=== PATIENT | female | born 1950 | race Caucasian/White ===

== ENCOUNTER → 2019-11-11 10:17 | Outpatient (BNVA) | payer MEDICARE, OTHER, SELFPAY | PROVIDERS: Family Provider Family Medicine; PCP Family Medicine; Visit Provider Registered Nurse | DX: E11.9 Type 2 diabetes mellitus without complications (principal); B37.9 Candidiasis, unspecified; Z79.4 Long term (current) use of insulin; I10 Essential (primary) hypertension | CPT/HCPCS: 80053; 83036 ==

== ENCOUNTER 2019-12-31 19:55 | Inpatient (IN) | payer MEDICARE, OTHER, SELFPAY ==
[2019-12-31] VITALS (23 sets, daily range): BP systolic 164–171; BP diastolic 73–92; PULSE 84–106; RESP 18; TEMP 36.4; O2SAT 84–99
--- NOTE | 2019-12-31 20:02 | CTR_ITS ---
PROCEDURE INFORMATION: Exam: CT Abdomen And Pelvis With Contrast Exam date and time: 12/31/2019 8:27 PM Age: 69 years old Clinical indication: Abdominal pain; Prior surgery; Additional info: Abd pain TECHNIQUE: Imaging protocol: Computed tomography of the abdomen and pelvis with intravenous contrast. Total DLP: 1315.65 mGy-cm Radiation optimization: All CT scans at this facility use at least one of these dose optimization techniques: automated exposure control; mA and/or kV adjustment per patient size (includes targeted exams where dose is matched to clinical indication); or iterative reconstruction. Contrast material: OMNI 300; Contrast volume: 95 ml; Contrast route: IV; COMPARISON: 1. CT abdomen pelvis w con* [id number] 07/23/2015 1:[address] abdomen w con* [id number] 03/19/2017 6:52:27 PM FINDINGS: Mediastinum: There is mild nonspecific thickening of the distal esophagus which could represent some esophagitis. Correlation with clinical findings is suggested. Liver: There is no focal abnormality within the liver. Gallbladder and bile ducts: There has been a cholecystectomy. Pancreas: The pancreas is normal. Spleen: The spleen is normal. Adrenals: The adrenal glands are normal. Kidneys and ureters: There is 9 mm simple cyst in the mid left kidney.The right kidney is normal. There is no evidence of hydronephrosis. Stomach and bowel: There is no evidence of colitis/diverticulitis. Appendix: Not identifiedThere has been a hysterectomy. Intraperitoneal space: There is no evidence of free intraperitoneal fluid. Vasculature: Extensive atherosclerotic changes of the abdominal aorta are noted not changed from previous. There is no evidence of an abdominal aortic aneurysm. Lymph nodes: Unremarkable. No enlarged lymph nodes. Bladder: Unremarkable as visualized. Reproductive: Unremarkable as visualized. Bones/joints: Unremarkable. No acute fracture. Soft tissues: Unremarkable. CT/CT abdomen pelvis w con* [id number] IMPRESSION: 1. No acute findings. 2. Chronic thickening of the distal esophagus not changed from previous. COMMENTS: Consistent with the [employer]'s Incidental Findings Committee white paper (J Am Patti Radiol 2018): Any incidental cystic renal lesion classified in this report as too small to characterize or simple appearing is likely a benign cyst. No follow-up imaging is recommended for these lesions per consensus recommendations based on imaging criteria. Radiation Dose CTDIVOL = (mGy): DLP = 1315.65 (mGy-cm)
[2019-12-31] MEDS: sodium chloride 0.9% 1,000 ML 999 ML IV (20:12)
[2019-12-31] MEDS: ondansetron 2 mg/ML SDV 2 mL 4 MG IVP (20:14)
[2019-12-31 20:18] LABS: Basophils # 0.1 10^3/uL (0.0-0.1); Basophils % 0.2 %; Eosinophils % 0.1 %; Hematocrit 36.7 % (37.0-47.0); Hemoglobin 11.4 g/dL (11.5-15.3); Lymphocytes # 8.4 10^3/uL (0.8-4.8); Lymphocytes % 27.7 %; Mean Corpuscular HGB Conc 31.1 g/dL (30.0-36.0); Mean Corpuscular Hemoglobin 26.6 pg (28.0-34.0); Mean Corpuscular Volume 85.5 fL (81-99); Mean Platelet Volume 8.8 fL (7.4-10.4); Monocytes # 1.4 10^3/uL (0.2-0.9); Monocytes % 4.7 %; Neutrophils # 20.1 10^3/uL (1.8-7.7); Neutrophils % 66.2 %; Nucleated Red Blood Cells % 0.1 %; Platelet Count 712 10^3/cmm (130-400); Red Blood Count 4.29 10^6/uL (4.1-5.3); Red Cell Distribution Width 14.6 % (12.1-15.1)
[2019-12-31] MEDS: HYDROmorphone 1 mg/mL INJ 1 mL 0.5 MG IVP (20:19)
[2019-12-31 20:21] LABS: White Blood Count 30.4 10^3/uL (4.0-10.0)
--- NOTE | 2019-12-31 20:23 | PC.NURSE ---
Introduced self to patient and initiated vital signs. Patient presents A&O x 4. NAD, ABCs intact, MAEW and agreeable to treatment. Respirations are even and unlabored. Pt states medications taken before coming to ER are her daily medications. Pt states that the chief complaint for the ER visit today is due to chronic back pain and dark stools. IV observed in let AC and flushed for patency. Pt denies any vision disturbances or lightheadedness. Bed left in lowest position in semi-fowlers with side rails up.Reassured patient of needs and will continue to monitor.
--- NOTE | 2019-12-31 20:24 | ED_ITS ---
HPI - General Adult General: Chief complaint: General Medical Stated complaint: back pain/possible gi bleed Time Seen by Provider: 12/31/19 19:56 Source: patient and EMS Mode of arrival: EMS Limitations: no limitations History of Present Illness: HPI narrative: 69-year-old female who states she has had abdominal pain over the last day. States the pain is severe in nature and diffuse. She states that it is worse going over bumps are moving. She states that slightly improved with rest. Patient given pain meds in route. States she has had dark stools. She has had vomiting as well. Denies any fevers. Onset (ago): hour(s) Location: abdomen Radiation: non-radiation Severity scale (1-10): 5 Quality: stabbing Pain Consistency: constant Relieving factors: none Exacerbating factors: none Associated symptoms: Deny chest pain, dyspnea, headache(s), nausea, rash or vomiting Review of Systems Const: Denies: fever, chills, body aches or change in appetite Eyes: Denies: blurry vision or eye discomfort ENMT: Denies: throat pain or dental pain Card: Denies: chest pain Resp: Denies: shortness of breath GI: Reports: abdominal pain; Denies: nausea, vomiting or diarrhea : Denies: painful urination Musc: Denies: neck pain or back pain Skin/Breast: Denies: rash Neuro: Denies: headache Psych: Denies: depression Librado/Lymph: Denies: easy bruising All/Imm: Denies: hives PFSH ED PFSH: Medical History (Updated 12/31/19 @ 23:13 by Roman Sanchez MD) Achalasia Anxiety COPD (chronic obstructive pulmonary disease) Enrolled in chronic care management Hypertension Sleep apnea Type 2 diabetes mellitus Surgical History (Updated 12/31/19 @ 22:08 by Roman Sanchez MD) H/O: hysterectomy Hx of cholecystectomy Family History (Updated 12/31/19 @ 23:14 by Roman Sanchez MD) Denies family history of Diabetes Dementia Hyperlipidemia Family history of premature coronary artery disease Cancer Social History (Updated 12/31/19 @ 23:14 by Roman Sanchez MD) Smoking and tobacco status: former smoker Alcohol intake: never Substance/Drug Use: never Household members: spouse Housing: House Physical Exam Const: COMMON NORMALS: no apparent distress, oriented x3 and healthy appearing HENMT: COMMON NORMALS: normocephalic and head/scalp atraumatic HEAD & SCALP: normocephalic and atraumatic Eye: COMMON NORMALS: PERRL and EOMs intact bilaterally PUPIL: Yes PERRL Neck/C-Spine: COMMON NORMALS: full ROM and supple Chest: COMMONS NORMALS: inspection of chest normal and palpation of chest nor mal Resp: COMMON NORMALS: normal respiratory effort, no retractions, no use of accessory muscles and clear to auscultation bilaterally AUSCULTATION: clear to auscultation bilaterally Cardio: COMMON NORMALS: regular rate, regular rhythm and no murmurs RATE: regular rate RHYTHM: regular rhythm GI: COMMON NORMALS: normal to inspection, nondistended, normoactive bowel sounds and no masses PALPATION: Yes tender (diffuse) Extremity: COMMON NORMALS: normal to inspection and full ROM Neuro: COMMON NORMALS: oriented x3, moves all extremities and no focal motor deficits Psych: COMMON NORMALS: mental status grossly normal, thought process normal and cooperative THOUGHT PROCESS: normal thought process Skin: COMMON NORMALS: no rashes or lesions noted and no wounds GENERAL SKIN EXAM: no rashes or lesions noted Course Vital Signs: Vital signs: Vital Signs Temperature 97.9 F 01/01/20 11:08 Pulse Rate 60 01/01/20 11:08 Respiratory Rate 18 01/01/20 11:08 Blood Pressure 131/52 01/01/20 11:08 Pulse Oximetry 97 01/01/20 11:08 MDM - General Adult [facility] Narrative: Medical decision making narrative: Patient presents here with abdominal pain was found to have an elevated white count. Patient CT shows no acute findings. Her pain has improved. She has minimal tenderness currently. Patient given IV antibiotics I spoke to hospitalist along with surgeon will admit for observation and repeat labs and serial abdominal exams. Lab Data: Labs: Lab Results 12/31/19 12/31/19 12/31/19 Range/Units 20:04 20:04 20:26 WBC 30.4 H* (4.0-10.0) 10^3/ uL RBC 4.29 (4.1-5.3) 10^6/u L Hgb 11.4 L (11.5-15.3) g/dL Hct 36.7 L (37.0-47.0) % MCV 85.5 (81-99) fL MCH 26.6 L (28.0-34.0) pg MCHC 31.1 (30.0-36.0) g/dL RDW 14.6 (12.1-15.1) % Plt Count 712 H (130-400) 10^3/c mm MPV 8.8 (7.4-10.4) fL Neut % (Auto) 66.2 % Lymph % (Auto) 27.7 % Burnett % (Auto) 4.7 % Eos % (Auto) 0.1 % Baso % (Auto) 0.2 % Neut # (Auto) 20.1 H (1.8-7.7) 10^3/u L Lymph # (Auto) 8.4 H (0.8-4.8) 10^3/u L Burnett # (Auto) 1.4 H (0.2-0.9) 10^3/u L Eos # (Auto) 0.0 (0.0-0.8) 10^3/u L Baso # (Auto) 0.1 (0.0-0.1) 10^3/u L Nucleated RBC % (a uto) 0.1 % Nucleated RBCs # 0.0 /100WBC Sodium 141 (136-145) mmol/L Potassium 3.5 (3.5-5.1) mmol/L Chloride 96 L (98-107) mmol/L Carbon Dioxide 27 (22-29) mmol/L Anion Gap 21.5 H (5-19) BUN 22 (8-23) mg/dL Creatinine 0.8 (0.5-0.9) mg/dL GFR Calculation 71.1 L (90-130) mL/min Glucose 189 H (65-115) mg/dL Calculated Osmolal ity 294 (285-295) mOsm/k g Lactate 3.2 H (0.5-2.2) mmol/L Calcium 10.8 H (8.5-10.5) mg/dL Total Bilirubin 0.3 (0.15-1.2) mg/dL AST 16 (0-32) U/L ALT 16 (0-33) U/L Alkaline Phosphata se 151 H (35-105) IU/L Total Protein 7.3 (6.6-8.7) g/dL Albumin 4.5 (3.5-5.2) g/dL Globulin 2.8 (1.3-4.6) g/dL Lipase 45 (13-60) U/L Imaging Data^: CT Abd/Pel: Radiologist's impression: [facility] [address] [address] [address] Scan Report Signed Patient: Keila Starkey Unit #: [id number] : 1950 Age/Sex: 69 / F ADM Date: 12/31/19 Loc: ER Room/Bed: Attending Dr: Ordering Provider/Ordering MD: Jeanine Marion MD Date of Service: 12/31/19 Procedure(s): CT abdomen pelvis w con* [id number] Accession Number(s): [id number] Report Number: [id number] PROCEDURE INFORMATION: Exam: CT Abdomen And Pelvis With Contrast Exam date and time: 12/31/2019 8:27 PM Age: 69 years old Clinical indication: Abdominal pain; Prior surgery; Additional info: Abd pain TECHNIQUE: Imaging protocol: Computed tomography of the abdomen and pelvis with intravenous contrast. Total DLP: 1315.65 mGy-cm Radiation optimization: All CT scans at this facility use at least one of these dose optimization techniques: automated exposure control; mA and/or kV adjustment per patient size (includes targeted exams where dose is matched to clinical indication); or iterative reconstruction. Contrast material: OMNI 300; Contrast volume: 95 ml; Contrast route: IV; COMPARISON: 1. CT abdomen pelvis w con* [id number] 07/23/2015 1:[address] abdomen w con* [id number] 03/19/2017 6:52:27 PM FINDINGS: Mediastinum: There is mild nonspecific thickening of the distal esophagus which could represent some esophagitis. Correlation with clinical findings is suggested. Liver: There is no focal abnormality within the liver. Gallbladder and bile ducts: There has been a cholecystectomy. Pancreas: The pancreas is normal. Spleen: The spleen is normal. Adrenals: The adrenal glands are normal. Kidneys and ureters: There is 9 mm simple cyst in the mid left kidney.The right kidney is normal. There is no evidence of hydronephrosis. Stomach and bowel: There is no evidence of colitis/diverticulitis. Appendix: Not identifiedThere has been a hysterectomy. Intraperitoneal space: There is no evidence of free intraperitoneal fluid. Vasculature: Extensive atherosclerotic changes of the abdominal aorta are noted not changed from previous. There is no evidence of an abdominal aortic aneurysm. Lymph nodes: Unremarkable. No enlarged lymph nodes. Bladder: Unremarkable as visualized. Reproductive: Unremarkable as visualized. Bones/joints: Unremarkable. No acute fracture. Soft tissues: Unremarkable. CT/CT abdomen pelvis w con* [id number] IMPRESSION: 1. No acute findings. 2. Chronic thickening of the distal esophagus not changed from previous. COMMENTS: Consistent with the [employer]'s Incidental Findings Committee white paper (J Am Patti Radiol 2018): Any incidental cystic renal lesion classified in this report as too small to characterize or simple appearing is likely a benign cyst. No follow-up imaging is recommended for these lesions per consensus recommendations based on imaging criteria. Discharge Plan Discharge Admit Provider: Roman Sanchez Discharge Date/Time: 12/31/19 23:07 Coding Level of Care Code ED Single Stroke Preformer for Chg Fwd Exam Comprehensive
--- NOTE | 2019-12-31 20:25 | PC.NURSE ---
Lab reported WBC 30.4, relayed to Dr. Marion
[2019-12-31 20:34] LABS: Alanine Aminotransferase 16 U/L (0-33); Albumin Level 4.5 g/dL (3.5-5.2); Alkaline Phosphatase 151 IU/L (35-105); Anion Gap 21.5 (5-19); Aspartate Amino Transferase 16 U/L (0-32); Blood Urea Nitrogen 22 mg/dL (8-23); Calcium 10.8 mg/dL (8.5-10.5); Carbon Dioxide 27 mmol/L (22-29); Chloride 96 mmol/L (98-107); Globulin 2.8 g/dL (1.3-4.6); Glomerular Filtration Rate 71.1 mL/min (90-130); Glucose 189 mg/dL (65-115); Lipase 45 U/L (13-60); Osmolality Calculated 294 mOsm/kg (285-295); Potassium 3.5 mmol/L (3.5-5.1); Sodium 141 mmol/L (136-145); Total Bilirubin 0.3 mg/dL (0.15-1.2); Total Protein 7.3 g/dL (6.6-8.7)
[2019-12-31] MEDS: iohexol 300 mg/mL 100 mL Btl IV (20:41)
[2019-12-31 20:47] LABS: Lactate (Lactic Acid level) 3.2 mmol/L (0.5-2.2)
--- NOTE | 2019-12-31 20:52 | PC.NURSE ---
due to having CT with contrast, patient is not to have metformin for hours
[2019-12-31] MEDS: HYDROmorphone 1 mg/mL INJ 1 mL IVP ×2 (21:03→23:30)
--- NOTE | 2019-12-31 21:08 | XR_ITS ---
WS: [id number] PORTABLE CHEST HISTORY: Abdominal and chest pain. COMPARISON: 04/02/2017 Lungs are clear and well expanded. No pleural effusion or pneumothorax. Cardiac size: Normal. Mediastinum/Aorta: Normal mediastinum. No osseous abnormality seen. XR/XR chest 1V portable [id number] IMPRESSION: Unremarkable portable chest.
[2019-12-31] MEDS: piperacillin-tazobactam 4.5 GM in sodium chloride 0.9% (plus) 50 ML IV (21:17)
[2019-12-31] MEDS: vancomycin 1,000 MG in sodium chloride 0.9% 250 ML 250 MG IV (21:34)
--- NOTE | 2019-12-31 21:45 | USR_ITS ---
PROCEDURE INFORMATION: Exam: US Abdomen Limited, Right Upper Quadrant Exam date and time: 12/31/2019 10:18 PM Age: 69 years old Clinical indication: Abdominal pain; Acute; Additional info: Abd pain TECHNIQUE: Imaging protocol: Real-time ultrasound of the abdomen with image documentation. Examination was focused on the right upper quadrant. COMPARISON: CT abdomen pelvis w con* [id number] 12/31/2019 8:40 PM FINDINGS: Liver: Liver shows increased echogenicity in keeping with fatty change. No focal abnormality is seen within the liver. Flow in the portal vein is towards the liver. Gallbladder: Gallbladder has been removed. Common bile duct: Common bile duct measures 5 mm. Pancreas: Visualized portions of the pancreas are unremarkable. Right kidney: Right kidney is unremarkable. There is no hydronephrosis. US/US gall bladder [id number] IMPRESSION: Fatty liver. No acute finding.
--- NOTE | 2019-12-31 22:07 | P.HP_ITS ---
Providers/Chief Complaint Primary Care Provider: JEFFERSON Shaffer Chief Complaint: back pain/possible gi bleed History of Present Illness Keila Starkey is a 69 year old female who came in today with chief complaint abdominal pain. Patient is stating that around June last year she was admitted to [facility] where she was told she had internal bleeding however she did not receive any blood transfusion, colonoscopy was recommended, she was having syncopal events at that time, previously she has been diagnosed with leukocytosis, white count stays between 15-20, she has not undergone any bone marrow biopsy, no cause has been identified for her syncopal events or internal bleeding. Patient is stating that for last couple of weeks she has been having back pain for which she was thinking of getting trigger in jections but they got delayed because of pandemic. She was prescribed steroids which she has been taking for last 1 week. She is currently not aware of the dosages. Today she started experiencing right-sided back pain just lateral to her spine area, it was getting worse throughout the day and she decided to come to the hospital around evening, she did not notice any fever at home, no nausea, vom iting, diarrhea but she is endorsing some numbness around her medial side of her thighs without any urinary incontinence, positive for constipation without obstipation for last 2 weeks. She has not noticed any abdominal pain, her back pain is not radiating towards her groin area but she thinks she is bloated. Previously she has been diagnosed with esophagitis, she carries diagnosis of achalasia status post balloon dilation. She is denying cough, shortness of breath, chest pain, weakness of her extremities, no recent syncopal or presyncopal events. Diagnostics in ER revealed sepsis, leukocytosis, thrombocytosis, borderline high hypercalcemia, tachycardia, she was given fluids and vancomycin and Zosyn, CT abdomen showed esophagitis without signs of colitis, she has received multiple doses of Dilaudid in the ER I have ordered MRI of the lumbar and thoracic spine region Review of Systems Const: Reports: chills, body aches, change in weight, fatigue and malaise; Denies: fever Eyes: Denies: change in vision ENMT: Denies: throat pain Card: Denies: chest pain or palpitations Resp: Denies: shortness of breath or productive cough GI: Reports: difficulty swallowing, constipation and change in bowel habits; Denies: abdominal pain, nausea, vomiting or vomiting blood : Denies: flank pain or difficulty urinating Musc: Reports: back pain Skin/Breast: Reports: itching; Denies: rash Neuro: Denies: headache Psych: Denies: anxiety Endo: Denies: excessive urination Librado/Lymph: Denies: easy bruising All/Imm: Denies: hives Medications/Allergies Allergies Allergy/AdvReac Type Severity Reaction Status Date / Time NSAIDS (Non-Steroidal Allergy Mild vomiting Verified 11/11/19 09:46 Anti-Inflamma PFSH Acute PFSH: Medical History (Updated 12/31/19 @ 23:13 by Roman Sanchez MD) Achalasia Anxiety COPD (chronic obstructive pulmonary disease) Enrolled in chronic care management Hypertension Sleep apnea Type 2 diabetes mellitus Surgical History (Updated 12/31/19 @ 22:08 by Roman Sanchez MD) H/O: hysterectomy Hx of cholecystectomy Family History (Updated 12/31/19 @ 23:14 by Roman Sanchez MD) Denies family history of Diabetes Dementia Hyperlipidemia Family history of premature coronary artery disease Cancer Social History (Updated 12/31/19 @ 23:14 by Roman Sanchez MD) Smoking and tobacco status: former smoker Alcohol intake: never Substance/Drug Use: never Household members: spouse Housing: House Vitals/I&O/Wt Last Vital Signs Temp 97.5 F L 12/31/19 20:01 Pulse 106 H 12/31/19 20:01 Resp 18 12/31/19 20:01 BP 171/92 12/31/19 20:01 Pulse Ox 98 12/31/19 20:01 Physical Exam Narrative: EXAM NARRATIVE: Obese female lying comfortable in her bed Saturating well on room air Current heart rate 70, Patient is afebrile at this point, S1, S2 no tachycardia or signs of heart failure Abdomen soft, nontender, nondistended, bowel sound present No CVA tenderness Tender area around right paraspinal region 2 cm lateral to spine without any prominence for abscess, fluctuant material or drainage No lower extremity weakness, medial side of her thighs negative for any numbness or sensation loss Reflexes equivocal Motor strength of lower extremities 4/5 bilaterally EOMI, PERRLA Hyperemic cheeks bilaterally Lungs are clear to auscultation without adventitious sounds Appropriate mood and Data : 12/31/19 20:04 12/31/19 20:04 A&P Assessment and plan (1) Sepsis: Status: Acute (2) Leukocytosis: Status: Acute (3) Hypertension: Status: Chronic (4) Type 2 diabetes mellitus: Status: Chronic Qualifiers: Diabetes mellitus complication status: without complication Diabetes mellitus superintendent container terminal insulin use: with skilled nursing use Qualified Code(s): E11.9 - Type 2 diabetes mellitus without complications; 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 of insulin (5) Esophagitis: Status: Acute (6) High serum lactic acid: Status: Acute (7) Thrombocytosis: Status: Acute Additional A&P Information Sepsis Sepsis criteria met with tachycardia, leukocytosis, high lactic acid Continue fluids along vancomycin and Zosyn No clear source of infection, Considering back pain and her sensory changes around medial thighs I would order MRI lumbar and spine area, rule out epidural abscess, patient is denying any trigger injections for her back pain, she was given steroids for which she has been taking for last 1 week We will follow-up with urine analysis Follow-up for lactic acid in 2 hours Acute on chronic leukocytosis with thrombocytosis This could very well be secondary to steroid use and dehydration She has never undergone bone marrow biopsy She has been constipated for last 2 weeks, denying obstipation, previous history of internal bleed and black tarry stools, current hemoglobin is stable CT abdomen negative for acute changes Patient is denying history of cancer in the family, no history of leukemia or lymphoma Achalasia/esophagitis No active complaint of dysphagia I will give her one-time dose of GI cocktail Protonix 40mg IV daily Discontinue potassium tablets at this point to avoid drug induced esophagitis Type 2 diabetes: Currently she will be kept n.p.o. in case she would benefit from colonoscopy To avoid hypoglycemia I would only use sliding scale Sleep apnea: CPAP auto titration Full code DVT prophylaxis: Lovenox Patient is a former smoker Attestations Medical Necessity Statement*: Anticipating stay in the hospital course more than 2 midnights currently need fluids and antibiotics for sepsis, source is unknown, awaiting MRI spine Time Spent in Patient Care: 50 Coding Level of Care Code Acute Tool Design Draftsperson for [facility] Diagnoses Sepsis A41.9 Leukocytosis D72.829 Hypertension I10 Type 2 diabetes mellitus E11.9; Z79.4 Diabetes mellitus complication status: without complication Diabetes mellitus superintendent container terminal insulin use: with superintendent container terminal use Esophagitis K20.9 High serum lactic acid R79.89 Thrombocytosis D47.3
--- NOTE | 2019-12-31 23:18 | PC.PHAR ---
VANCOMYCIN 1000MG Q 12 H PER PHARMACY PROTOCOL Pharmacokinetic dosing service Objective: Patient: Floor: Age: 69 yo Serum creatinine: 0.8 mg/dL Height: 66.1 Inches Weight (kg): 89.5 Assessment: IBW (kg): 59.53 Dosing wt(kg): 89.5 Estimated Creatinine clearance (ml/min): 74.9 CRCL method: Cockcroft and Gault using adjusted body weight Drug selected: Vancomycin Loading dose (mg): Vd (liters): 62.6 (factor used: 0.7 L/kg) Mike (hr-1): 0.067 Half life (hrs): 10.35 CLvanco= 4.194 L/hr Recommended dose: 1000 mg Interval: 12 hrs Infusion time (hrs): 1 Predicted peak (mcg/mL): 28.0 Predicted trough (mcg/mL): 13.40 Total body weight is being used for vancomycin dosing. Recommendations: Give Vancomycin 1000 mg q 12 hrs with an expected Cpeak of 28.0 mcg/ml and an expected Ctrough of 13.40 mcg/ml Thank you for the consult, will continue to follow.
[2019-12-31] MEDS: dextrose 5%-lactated ringers 1,000 ML 75 ML IV (23:30)
[2019-12-31] MEDS: lidocaine 2% viscous 15 ML, aluminum-mag hydrox-simethicon 30 ML, sucralfate oral liq 1 GM PO (23:32)
[2019-12-31] MEDS: enoxaparin 40 mg/0.4 mL Syringe SUBCUT (23:34)
[2019-12-31] MEDS: baclofen 10 mg Tablet PO (23:51)
[2020-01-01] VITALS (8 sets, daily range): BP systolic 123–134; BP diastolic 52–76; PULSE 60–76; RESP 16–18; TEMP 36.4–36.9; O2SAT 93–97
[2020-01-01 00:46] LABS: Lactic Sepsis W/Reflex 2.4 mmol/L (0.5-2.2)
[2020-01-01] MEDS: piperacillin-tazobactam 3.375 GM in sodium chloride 0.9% (plus) 50 ML IV ×3 (02:10→18:05)
[2020-01-01 02:11] LABS: Reflex Lactate Order REFLEX LACTIC ORDERD
[2020-01-01] MEDS: HYDROmorphone 1 mg/mL INJ 1 mL IVP ×3 (02:41→23:00)
[2020-01-01 03:12] LABS: Add Urine Culture? Yes; Add Urine Microscopic? YES; Bacteria Urine 2+; Bilirubin Urine Neg (NEGATIVE); Blood Urine Neg (Negative); Glucose Urine UA Norm (Normal); Ketones Urine Negative (Negative); Leukocyte Esterase Urine Trace (Negative); Nitrate Urine Positive (Negative); Protein Urine Neg (Negative); RBC Urine 0-4 /hpf (0-2); Specific Gravity, Urine 1.005 (1.005-1.030); Squamous Epithelial Cell Urine 0-4 (0-5); Urine Color Yellow (Yellow); Urobilinogen Urine Norm (Negative); pH Urine 5 (5-7)
[2020-01-01 05:46] LABS: Basophils # 0.1 10^3/uL (0.0-0.1); Basophils % 0.3 %; Eosinophils # 0.2 10^3/uL (0.0-0.8); Eosinophils % 0.8 %; Hematocrit 32.9 % (37.0-47.0); Hemoglobin 10.1 g/dL (11.5-15.3); Lymphocytes # 9.2 10^3/uL (0.8-4.8); Lymphocytes % 32.3 %; Mean Corpuscular HGB Conc 30.7 g/dL (30.0-36.0); Mean Corpuscular Hemoglobin 26.6 pg (28.0-34.0); Mean Corpuscular Volume 86.8 fL (81-99); Mean Platelet Volume 8.5 fL (7.4-10.4); Monocytes # 1.8 10^3/uL (0.2-0.9); Monocytes % 6.3 %; Neutrophils # 16.9 10^3/uL (1.8-7.7); Neutrophils % 59.5 %; Nucleated Red Blood Cells % 0 %; Platelet Count 577 10^3/cmm (130-400); Red Blood Count 3.79 10^6/uL (4.1-5.3); Red Cell Distribution Width 14.7 % (12.1-15.1); White Blood Count 28.4 10^3/uL (4.0-10.0)
[2020-01-01 06:05] LABS: Anion Gap 14.2 (5-19); Blood Urea Nitrogen 22 mg/dL (8-23); Calcium 9.3 mg/dL (8.5-10.5); Carbon Dioxide 31 mmol/L (22-29); Chloride 100 mmol/L (98-107); Glomerular Filtration Rate 71.1 mL/min (90-130); Glucose 147 mg/dL (65-115); Osmolality Calculated 293 mOsm/kg (285-295); Potassium 3.2 mmol/L (3.5-5.1); Sodium 142 mmol/L (136-145)
[2020-01-01 06:14] LABS: Glucose Point of Care 123 mg/dL (70-110)
[2020-01-01] MEDS: ondansetron 2 mg/ML SDV 2 mL 4 MG IVP (07:58)
--- NOTE | 2020-01-01 08:00 | ECG_ITS ---
Measurements Intervals [place] Rate: 65 P: 71 WY: 153 QRS: -38 QRSD: 104 T: 81 QT: 418 QTc: 437 SINUS RHYTHM MARKED LEFT AXIS DEVIATION [QRS AXIS < -30] PATTERN CONSISTENT WITH PULMONARY DISEASE SEPTAL MYOCARDIAL INFARCTION [40+ ms Q WAVE IN V1/V2], PROBABLY OLD Compared to ECG 04/02/2017 07:09:46 Myocardial infarct finding now present Sinus tachycardia no longer present Electronically Signed On 01-01-2020 20:22:57 CDT by Roman Blanco M.D. [email or web address]
[2020-01-01 09:00] LABS: Gamma Glutamyl Transferase 96 U/L (5-36)
[2020-01-01] MEDS: lidocaine 5% Patch 1 PATCH TOPICAL (09:08)
[2020-01-01] MEDS: pantoprazole 40 mg SDV IVP (09:09)
[2020-01-01] MEDS: vancomycin 1,000 MG in sodium chloride 0.9% 250 ML 250 MG IV ×2 (09:17→22:49)
--- NOTE | 2020-01-01 10:00 | CTR_ITS ---
PROCEDURE INFORMATION: Exam: CT Thoracic Spine With Contrast Exam date and time: 01/01/2020 8:36 PM Age: 69 years old Clinical indication: Patient HX: C/O mid back pain w sepsis; Additional info: Sepsis with back pain TECHNIQUE: Imaging protocol: Computed tomography images of the thoracic spine with intravenous contrast. Total DLP: 1851.32 mGy-cm Radiation optimization: All CT scans at this facility use at least one of these dose optimization techniques: automated exposure control; mA and/or kV adjustment per patient size (includes targeted exams where dose is matched to clinical indication); or iterative reconstruction. Contrast material: OMNI 300; Contrast volume: 95 ml; Contrast route: 20G; COMPARISON: CR Thoracic Spine 2v AP/Lat [id number] 12/11/2015 10:33 AM FINDINGS: Vertebrae: Previous unroofing and fusion C5 and C6. Degenerative disease and degenerative disc disease of the spine with spondylosis deformans. No visible osteolytic or osteoblastic destructive process. No visible fracture, subluxation, or dislocation. Discs/Spinal canal/Neural foramina: No visible herniated nucleus pulposis or significant posterior annular disc bulge that would result in central canal stenosis or neural foraminal carotid from. Soft tissues: Unremarkable. Vasculature: Visualized thoracic aorta nonaneurysmal with moderate arterial sclerotic disease. Esophagus: Diffuse mucosal thickening of the esophagus most likely from chronic esophagitis. Heart: Coronary artery disease. Other findings: Respiratory motion artifact. If discitis is a concern MRI would be necessary for diagnosis. CT/CT thoracic spine w con [id number] IMPRESSION: 1. No visible acute osseous abnormality. 2. If discitis is a clinical concern MRI would be necessary for diagnosis. 3. Other nonurgent, nonemergent, chronic, and age related findings discussed in text. Radiation Dose CTDIVOL = (mGy): DLP = 1851.32 (mGy-cm)
--- NOTE | 2020-01-01 10:00 | CTR_ITS ---
PROCEDURE INFORMATION: Exam: CT Lumbar Spine With Contrast Exam date and time: 01/01/2020 8:36 PM Age: 69 years old Clinical indication: Patient HX: C/O mid back pain w sepsis; Additional info: Sepsis with back pain TECHNIQUE: Imaging protocol: Computed tomography images of the lumbar spine with intravenous contrast. Total DLP: 2033.45 mGy-cm Radiation optimization: All CT scans at this facility use at least one of these dose optimization techniques: automated exposure control; mA and/or kV adjustment per patient size (includes targeted exams where dose is matched to clinical indication); or iterative reconstruction. Contrast material: OMNI 300; Contrast volume: 95 ml; Contrast route: 20G; COMPARISON: MRI Lumbar Spine w/o [id number] 01/17/2016 9:53 AM FINDINGS: Vertebrae: No visible fracture, subluxation, or dislocation. Facet arthrosis. Mild scoliotic curvature. Osteopenia/osteoporosis. No visible osteolytic or osteoblastic destructive process. Discs/Spinal canal/Neural foramina: No visible herniated nucleus pulposis or significant posterior disc bulge would result in central canal stenosis or neural foramina encroachment. Moderate degenerative disc disease with disc space height loss and associated spondylosis deformans L1/L2. Remaining intervertebral discs levels intact. Kidneys and ureters: Small simple cortical cyst equator left kidney. The abdominal aorta is nonaneurysmal. Moderate arterial sclerotic disease. No visible active retroperitoneal pathology within the field of view. Soft tissues: Unremarkable. If discitis is a clinical concern MRI would be necessary for diagnosis. CT/CT lumbar spine w con [id number] IMPRESSION: 1. No visible active or acute osseous pathology. 2. Moderate degenerative disc disease L1/L2. 3. Age-related findings. Radiation Dose CTDIVOL = (mGy): DLP = 2033.45 (mGy-cm)
[2020-01-01 11:20] LABS: Glucose Point of Care 172 mg/dL (70-110)
[2020-01-01] MEDS: methylnaltrexone 12 /0.6 mL INJ 12 MG SUBCUT (12:06)
[2020-01-01] MEDS: bisacodyl 10 mg Supp PR (12:08)
[2020-01-01] MEDS: HYDROcodone-acetaminophen 5-325 mg Tablet 1 TAB PO (12:09)
[2020-01-01] MEDS: polyethylene glycol 3350 Pkt 17 gm PO ×2 (12:16→17:46)
--- NOTE | 2020-01-01 14:36 | P.PN_ITS ---
Subjective Subjective: Interval history: Still having pain in the right flank, right side abdomen, states that it is deep, occasional spasms. She feels could be almost like muscle spasms, but cannot exactly define. Vitals/I&O/Wt Last Vital Signs Temp 97.9 F 01/01/20 11:08 Pulse 60 01/01/20 11:08 Resp 18 01/01/20 11:08 BP 131/52 01/01/20 11:08 Pulse Ox 97 01/01/20 11:08 12/31/19 01/01/20 01/01/20 22:59 06:59 14:59 Intake Total 200 / 200 290 / 290 Output Total 550 / 550 400 / 400 Balance -350 / -350 -110 / -110 Weight last 48 hrs Weight 91.989 kg Physical Exam Const: COMMON NORMALS: no apparent distress and oriented x3 OTHER: Mild to moderate discomfort due to intermittently worsening right flank, right side abdomen pain. HENMT: COMMON NORMALS: oropharynx normal Neck/C-Spine: COMMON NORMALS: no JVD Resp: COMMON NORMALS: normal respiratory effort and clear to auscultation bilaterally AUSCULTATION: clear to auscultation bilaterally Cardio: COMMON NORMALS: no JVD, regular rhythm, S1 normal heart sound, S2 normal heart sound and no murmurs RHYTHM: regular rhythm HEART SOUNDS: S1 normal and S2 normal GI: COMMON NORMALS: normal to inspection, nondistended, normoactive bowel sounds, soft to palpation and non-tender PALPATION: Yes soft Extremity: COMMON NORMALS: no joint enlargement and no pedal edema Neuro: COMMON NORMALS: oriented x3 and moves all extremities Skin: COMMON NORMALS: no rashes or lesions noted GENERAL SKIN EXAM: no rashes or lesions noted Data : 01/01/20 05:39 01/01/20 05:39 Micro: Microbiology 01/01/20 08:36 Blood Culture - Preliminary Blood SPECIMEN COLLECTED 01/01/20 08:31 Blood Culture - Preliminary Blood SPECIMEN COLLECTED A&P Assessment and plan (1) Sepsis: It is not clear that she has sepsis, however, would be concerned with tachycardia and presentation, leukocytosis. Currently on empiric antibiotics. Blood cultures pending. Not entirely clear source. She does report leukocytosis is a chronic finding, although in our chart this appears worse than before. She does state back in June was admitted in [facility], and states at that time was even worse, without obvious source of infection. At that time had issues with GI bleeding. Currently I am concerned that she is having urinary tract infection. She states that her urinary tract occasionally gets contaminated due to her IBS. UTI is not overly impressive, but does have positive leukocyte esterase and nitrate. Back in 2017 had pansensitive E. coli UTI. Currently continues on Rocephin. Follow-up urine culture. No sign of obstruction or pyelonephritis on CT. Also concern whether she may have a biliary process. She is status post cholecystectomy, but at the same time alkaline phosphatase is elevated. GGT was checked, and is also high at 96. Other liver parameters are normal. Fatty liver noted on right upper quadrant ultrasound. Results discussed with her. Will assess with HIDA. Also assessment of spine/paraspinous muscles as she has been on steroids ordered overnight, pending. Discussed with her, and she is agreeable with plan for assessment. Understands that this appears to be a chronic issue without easily identifiable cause, and may need additional follow-up with specialist physicians to look for either infectious, or hematologic causes. Discussed with her to consider assessment at tertiary center. Had similar presentation back in 2017, at which time was found to have esophagitis. At that time blood cultures were negative, and was even assessed for tick panel which was negative. At that time was empirically treated with doxycycline while tick panel was pending. She does not report a tick bite. Does not have a rash. At the same time cannot entirely exclude as it is spring, and ticks may already be present. Will reassess panel. Hold off on adding any other antibiotic. Status: Acute (2) Leukocytosis: This appears to be somewhat chronic issue, and she reports back in June was even worse than currently. Back in 2017 IC was having a spike with subsequent improvement. Has had work-up done at [facility], although not sure what this work-up included. Will request records. Will request peripheral smear. At this time still concern for possible infection. Work-up as above. She states has had follow-up with hematology, and basket braider could not find a cause, although did not feel bone marrow biopsy was necessary. Discussed with her may benefit from assessment by infectious disease specialist, and return to hematology if this is a persistent issue and we did not identify a cause. Status: Acute (3) Hypertension: Status: Chronic (4) Type 2 diabetes mellitus: Status: Chronic Qualifiers: Diabetes mellitus superintendent marine oil terminal insulin use: with fdc use Diabetes mellitus complication status: without complication Qualified Code(s): E11.9 - Type 2 diabetes mellitus without complications; Z79.4 - terminal superintendent (current) use of insulin (5) Esophagitis: With history of achalasia, status post balloon dilation. Status: Acute (6) High serum lactic acid: Status: Acute (7) Thrombocytosis: Status: Acute Additional A&P Information Chronic/recurrent constipation: Intensify bowel regimen. We will give her a dose of methylnaltrexone due to daily opioid use. She states has been having small hard bowel movements, but has not had a normal bowel movement in about 2 weeks. This may be contributing to leukocytosis, although not expected to be so high. No sign of colitis on abdomen pelvis CT. Nonalcoholic fatty liver disease: Discussed with her to be aware and continue close follow-up with her primary care provider due to elevated risk of cirrhosis and other complications. Would benefit from lifestyle changes. History of GI bleeding in June of unidentified source. Was assessed by gastroenterology with multiple scopes. This appears to have eventually re solved. Type 2 diabetes: Follows with an irish moss gatherer in [place]. Sleep apnea: CPAP auto titration Attestations Medical Necessity Statement*: Continue admission for assessment and management of suspected sepsis. Coding Level of Care Code Acute Csr for [employer] Diagnoses Sepsis A41.9 Leukocytosis D72.829 Hypertension I10 Type 2 diabetes mellitus E11.9; Z79.4 Diabetes mellitus superintendent marine oil terminal insulin use: with superintendent marine oil terminal use Diabetes mellitus complication status: without complication Esophagitis K20.9 High serum lactic acid R79.89 Thrombocytosis D47.3
[2020-01-01 16:54] LABS: Glucose Point of Care 150 mg/dL (70-110)
[2020-01-01] MEDS: iohexol 300 mg/mL 100 mL Btl IV (21:05)
[2020-01-01 21:22] LABS: Glucose Point of Care 99 mg/dL (70-110)
[2020-01-01] MEDS: enoxaparin 40 mg/0.4 mL Syringe SUBCUT (22:49)
[2020-01-02] VITALS (11 sets, daily range): BP systolic 129–159; BP diastolic 66–73; PULSE 68–97; RESP 18–20; TEMP 36.6–37.4; O2SAT 94–97
[2020-01-02] MEDS: dextrose 5%-lactated ringers 1,000 ML 75 ML IV ×2 (02:52→21:50)
[2020-01-02] MEDS: piperacillin-tazobactam 3.375 GM in sodium chloride 0.9% (plus) 50 ML IV ×3 (03:15→17:33)
[2020-01-02 06:13] LABS: Basophils # 0.1 10^3/uL (0.0-0.1); Basophils % 0.3 %; Eosinophils # 0.4 10^3/uL (0.0-0.8); Eosinophils % 2.1 %; Hematocrit 31.6 % (37.0-47.0); Hemoglobin 9.3 g/dL (11.5-15.3); Lymphocytes # 6.9 10^3/uL (0.8-4.8); Lymphocytes % 36.1 %; Mean Corpuscular HGB Conc 29.4 g/dL (30.0-36.0); Mean Corpuscular Hemoglobin 26.3 pg (28.0-34.0); Mean Corpuscular Volume 89.5 fL (81-99); Mean Platelet Volume 9.1 fL (7.4-10.4); Monocytes # 0.9 10^3/uL (0.2-0.9); Monocytes % 4.4 %; Neutrophils # 10.8 10^3/uL (1.8-7.7); Neutrophils % 56.6 %; Nucleated Red Blood Cells % 0 %; Platelet Count 527 10^3/cmm (130-400); Red Blood Count 3.53 10^6/uL (4.1-5.3); White Blood Count 19.1 10^3/uL (4.0-10.0)
[2020-01-02 06:35] LABS: Glucose Point of Care 130 mg/dL (70-110)
[2020-01-02 06:41] LABS: Alanine Aminotransferase 44 U/L (0-33); Albumin Level 3.4 g/dL (3.5-5.2); Alkaline Phosphatase 147 IU/L (35-105); Anion Gap 15.3 (5-19); Aspartate Amino Transferase 43 U/L (0-32); Blood Urea Nitrogen 12 mg/dL (8-23); Calcium 8.9 mg/dL (8.5-10.5); Carbon Dioxide 29 mmol/L (22-29); Chloride 102 mmol/L (98-107); Globulin 2.7 g/dL (1.3-4.6); Glomerular Filtration Rate 71.1 mL/min (90-130); Glucose 132 mg/dL (65-115); Osmolality Calculated 294 mOsm/kg (285-295); Potassium 3.3 mmol/L (3.5-5.1); Sodium 143 mmol/L (136-145); Total Bilirubin 0.2 mg/dL (0.15-1.2); Total Protein 6.1 g/dL (6.6-8.7)
[2020-01-02 08:01] LABS: Vancomycin Trough 17.3 ug/mL (10-15)
[2020-01-02] MEDS: HYDROmorphone 1 mg/mL INJ 1 mL IVP ×3 (09:54→23:42)
[2020-01-02] MEDS: pantoprazole 40 mg SDV IVP (09:55)
[2020-01-02] MEDS: polyethylene glycol 3350 Pkt 17 gm PO ×2 (09:57→17:32)
[2020-01-02] MEDS: lidocaine 5% Patch 1 PATCH TOPICAL (09:57)
[2020-01-02] MEDS: vancomycin 1,000 MG in sodium chloride 0.9% 250 ML 250 MG IV ×2 (09:59→21:50)
[2020-01-02 12:06] LABS: Glucose Point of Care 163 mg/dL (70-110)
--- NOTE | 2020-01-02 12:08 | NMR_ITS ---
PROCEDURE INFORMATION: Exam: NM Hepatobiliary Including Gallbladder When Present Exam date and time: 01/02/2020 7:30 AM Age: 69 years old Clinical indication: Ruq pain and other: Lower back; Prior surgery; Surgery date: 6+ months; Surgery type: Cholecystectomy 2003; Patient HX: Ruq pain, nausea, lower back pain x 1 week; Additional info: Sepsis, elevated alk phos, ggt TECHNIQUE: Imaging protocol: Hepatobiliary system imaging including the gallbladder when present. Other technique: 8.1 mCi technetium 99m Choletec injected IV. Five-minute anterior images were obtained up to 1 hour. COMPARISON: CT abdomen pelvis w con* [id number] 12/31/2019 8:40 PM FINDINGS: Normal cardiac blood pool clearance and hepatic uptake. Bile duct activity is first seen at 5 minutes. Normal hepatic parenchymal clearance. Activity is present in the small bowel by 20 minutes. Peak bile duct activity occurs by approximately 30 minutes. Activity is not identified in the gallbladder fossa (cholecystectomy). NM/NM hepatobiliary wo phar [id number] IMPRESSION: Prior cholecystectomy. Otherwise unremarkable.
--- NOTE | 2020-01-02 15:23 | P.PN_ITS ---
Subjective Subjective: Interval history: Today she is feeling perhaps slightly better, although still having discomfort in the right back/flank. No nausea, no vomiting. She is hungry, and wants to eat. Vitals/I&O/Wt Last Vital Signs Temp 97.8 F 01/02/20 12:00 Pulse 69 01/02/20 12:00 Resp 18 01/02/20 12:00 BP 131/67 01/02/20 12:00 Pulse Ox 96 01/02/20 12:00 01/02/20 01/02/20 01/02/20 06:59 14:59 22:59 Intake Total 50 / 2120 1270 / 1270 Output Total 0 / 500 700 / 700 Balance 50 / 1620 570 / 570 Weight last 48 hrs Weight 91.989 kg Physical Exam Const: COMMON NORMALS: no apparent distress and oriented x3 HENMT: COMMON NORMALS: oropharynx normal Neck/C-Spine: COMMON NORMALS: no JVD Resp: COMMON NORMALS: normal respiratory effort and clear to auscultation bilaterally AUSCULTATION: clear to auscultation bilaterally Cardio: COMMON NORMALS: no JVD, regular rhythm, S1 normal heart sound, S2 normal heart sound and no murmurs RHYTHM: regular rhythm HEART SOUNDS: S1 normal and S2 normal GI: COMMON NORMALS: normal to inspection, nondistended, normoactive bowel sounds, soft to palpation and non-tender PALPATION: Yes soft Extremity: COMMON NORMALS: no joint enlargement and no pedal edema Neuro: COMMON NORMALS: oriented x3 and moves all extremities Skin: COMMON NORMALS: no rashes or lesions noted GENERAL SKIN EXAM: no rashes or lesions noted Data : 01/02/20 05:55 01/02/20 05:55 Micro: Microbiology 01/01/20 02:35 Urine Culture - Preliminary Urine,Clean Catch Gram Negative Rods 01/01/20 08:36 Blood Culture - Preliminary Blood NEGATIVE TO DATE 01/01/20 08:31 Blood Culture - Preliminary Blood NEGATIVE TO DATE A&P Assessment and plan (1) Sepsis: Improving. Tachycardia resolved. Leukocytosis improving. She has gram-negative UTI, with suspected resultant sepsis. At this time there is no evidence of biliary involvement, despite alkaline phosphatase and GGT elevation. Perhaps cholestasis with gram-negative sepsis. She appears to responding to antibiotic well. Follow-up urinary culture. Suspect there may be a early pyelonephritis as the cause of her right flank pain. There appears to be some musculoskeletal component to the pain, with pain worse with movement, and had difficulty repositioning onto the imaging bed. No abscess noted on CT. Will request for MRI thoracic spine to exclude discitis given sepsis on presentation. Blood culture so far negative. She is afebrile. S2 GGT and alkaline phosphatase elevation, does have heterogenous echogenicity of the liver with likely fatty liver infiltration, but will also request for antimitochondrial antibody to assess for possibility of something like PBC. Will need additional outpatient follow-up after she improves. Discussed all findings with her. It is not clear that she has sepsis, however, would be concerned with tachycardia on presentation, leukocytosis. She does report leukocytosis is a chronic finding, although in our chart this appears worse than before. She does state back in June was admitted in [facility], and states at that time was even worse, without obvious source of infection. At that time had issues with GI bleeding. Currently I am concerned that she is having urinary tract infection. She states that her urinary tract occasionally gets contaminated due to her IBS. Had similar presentation back in 2017, at which time was found to have esophagitis. At that time blood cultures were negative, and was even assessed for tick panel which was negative. At that time was empirically treated with doxycycline while tick panel was pending. She does not report a tick bite. Does not have a rash. At the same time cannot entirely exclude as it is spring, and ticks may already be present. Requested tick panel. Hold off on adding any other antibiotic. Status: Acute (2) Leukocytosis: Improving. This appears to be somewhat chronic issue, and she reports back in June was even worse than currently. Back in 2016 IC was having a spike with subsequent improvement. Has had work-up done at [facility], although not sure what this work-up included. Will request records. Will request peripheral smear. At this time still concern for possible infection. Work-up as above. She states has had follow-up with hematology, and staff reporter could not find a cause, although did not feel bone marrow biopsy was necessary. Discussed with her may benefit from assessment by infectious disease specialist, and return to hematology if this is a persistent issue and we did not identify a cause. Status: Acute (3) Hypertension: Status: Chronic (4) Type 2 diabetes mellitus: Status: Chronic Qualifiers: Diabetes mellitus correction insulin use: with terminal clerk use Diabetes mellitus complication status: without complication Qualified Code(s): E11.9 - Type 2 diabetes mellitus without complications; Z79.4 - terminal clerk (current) use of insulin (5) Esophagitis: With history of achalasia, status post balloon dilation. Status: Acute (6) High serum lactic acid: Status: Acute (7) Thrombocytosis: Status: Acute Additional A&P Information Chronic/recurrent constipation: Improved. Had a bowel movement. No sign of colitis on abdomen pelvis CT. Nonalcoholic fatty liver disease: Discussed with her to be aware and continue close follow-up with her primary care provider due to elevated risk of cirrhosis and other complications. Would benefit from lifestyle changes. History of GI bleeding in June of unidentified source. Was assessed by gastroenterology with multiple scopes. This appears to have eventually resolved. Type 2 diabetes: Follows with an superintendent greens in [place]. Sleep apnea: CPAP Attestations Medical Necessity Statement*: Continue admission for assessment management of sepsis, complicated urinary tract infection, assessment of flank/back pain. 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
[2020-01-02 17:37] LABS: Glucose Point of Care 120 mg/dL (70-110)
[2020-01-02] MEDS: TRAMadol 50 mg Tablet PO ×2 (17:37→21:47)
[2020-01-02 20:45] LABS: Glucose Point of Care 156 mg/dL (70-110)
[2020-01-02] MEDS: enoxaparin 40 mg/0.4 mL Syringe SUBCUT (23:41)
[2020-01-03] VITALS (11 sets, daily range): BP systolic 140–176; BP diastolic 65–75; PULSE 65–77; RESP 16–20; TEMP 36.6–37; O2SAT 92–99
[2020-01-03] MEDS: piperacillin-tazobactam 3.375 GM in sodium chloride 0.9% (plus) 50 ML IV (03:26)
[2020-01-03] MEDS: HYDROmorphone 1 mg/mL INJ 1 mL IVP ×4 (04:10→19:43)
[2020-01-03] MEDS: TRAMadol 50 mg Tablet PO (05:16)
[2020-01-03 05:57] LABS: Basophils # 0.1 10^3/uL (0.0-0.1); Basophils % 0.3 %; Eosinophils # 0.5 10^3/uL (0.0-0.8); Eosinophils % 2.5 %; Hematocrit 30.9 % (37.0-47.0); Hemoglobin 9.2 g/dL (11.5-15.3); Lymphocytes # 6.6 10^3/uL (0.8-4.8); Lymphocytes % 35.7 %; Mean Corpuscular HGB Conc 29.8 g/dL (30.0-36.0); Mean Corpuscular Hemoglobin 26.4 pg (28.0-34.0); Mean Corpuscular Volume 88.5 fL (81-99); Mean Platelet Volume 8.9 fL (7.4-10.4); Monocytes # 1.2 10^3/uL (0.2-0.9); Monocytes % 6.3 %; Neutrophils # 10.2 10^3/uL (1.8-7.7); Neutrophils % 54.7 %; Nucleated Red Blood Cells % 0 %; Platelet Count 488 10^3/cmm (130-400); Red Blood Count 3.49 10^6/uL (4.1-5.3); Red Cell Distribution Width 14.8 % (12.1-15.1); White Blood Count 18.6 10^3/uL (4.0-10.0)
[2020-01-03 06:14] LABS: Alanine Aminotransferase 73 U/L (0-33); Albumin Level 3.4 g/dL (3.5-5.2); Alkaline Phosphatase 196 IU/L (35-105); Anion Gap 15.3 (5-19); Aspartate Amino Transferase 81 U/L (0-32); Blood Urea Nitrogen 11 mg/dL (8-23); Calcium 8.9 mg/dL (8.5-10.5); Carbon Dioxide 28 mmol/L (22-29); Chloride 103 mmol/L (98-107); Globulin 1.9 g/dL (1.3-4.6); Glomerular Filtration Rate 71.1 mL/min (90-130); Glucose 160 mg/dL (65-115); Osmolality Calculated 295 mOsm/kg (285-295); Potassium 3.3 mmol/L (3.5-5.1); Sodium 143 mmol/L (136-145); Total Bilirubin 0.3 mg/dL (0.15-1.2); Total Protein 5.3 g/dL (6.6-8.7)
[2020-01-03 06:30] LABS: Glucose Point of Care 200 mg/dL (70-110)
--- NOTE | 2020-01-03 09:35 | PC.SOCIAL ---
IMM Page 2 of IMM given to patient. Initialed, dated, and timed and placed in chart. Copy provided to patient.
[2020-01-03] MEDS: lidocaine 5% Patch 1 PATCH TOPICAL ×2 (09:39→20:43)
[2020-01-03] MEDS: polyethylene glycol 3350 Pkt 17 gm PO ×2 (09:40→18:38)
[2020-01-03] MEDS: vancomycin 1,000 MG in sodium chloride 0.9% 250 ML 250 MG IV (09:40)
[2020-01-03] MEDS: pantoprazole 40 mg SDV IVP (10:06)
[2020-01-03] MEDS: ciprofloxacin 500 mg Tablet PO ×2 (10:57→22:45)
[2020-01-03] MEDS: dextrose 5%-lactated ringers 1,000 ML 75 ML IV ×2 (10:58→20:43)
[2020-01-03 11:07] LABS: Lyme AB Screen <0.90 index
[2020-01-03 11:12] LABS: Glucose Point of Care 123 mg/dL (70-110)
--- NOTE | 2020-01-03 15:27 | PM.PN ---
Subjective Subjective: Interval history: Pain today is worse, and is up higher in the middle of her mid thoracic spine. Exacerbated by moving or repositioning in bed. Today she is also nauseated. Dry heaving. Poor appetite. Vitals/I&O/Wt Last Vital Signs Temp 97.8 F 01/03/20 12:00 Pulse 65 01/03/20 12:00 Resp 17 01/03/20 12:00 BP 152/75 01/03/20 12:00 Pulse Ox 97 01/03/20 12:00 01/03/20 01/03/20 01/03/20 06:59 14:59 22:59 Intake Total 240 / 4130 1225 / 1225 Output Total 1200 / 2100 600 / 600 Balance -960 / 2030 625 / 625 Physical Exam Const: COMMON NORMALS: no apparent distress and oriented x3 OTHER: moderate discomfort due to mid thoracic spine pain HENMT: COMMON NORMALS: oropharynx normal Neck/C-Spine: COMMON NORMALS: no JVD Resp: COMMON NORMALS: normal respiratory effort and clear to auscultation bilaterally AUSCULTATION: clear to auscultation bilaterally Cardio: COMMON NORMALS: no JVD, regular rhythm, S1 normal heart sound, S2 normal heart sound and no murmurs RHYTHM: regular rhythm HEART SOUNDS: S1 normal and S2 normal GI: COMMON NORMALS: normal to inspection, nondistended, normoactive bowel sounds, soft to palpation and non-tender PALPATION: Yes soft Extremity: COMMON NORMALS: no joint enlargement and no pedal edema Neuro: COMMON NORMALS: oriented x3 and moves all extremities Skin: COMMON NORMALS: no rashes or lesions noted GENERAL SKIN EXAM: no rashes or lesions noted Data : 01/03/20 05:42 01/03/20 05:42 Micro: Microbiology 01/01/20 02:35 Urine Culture - Final Urine,Clean Catch Escherichia coli A&P Assessment and plan (1) Sepsis: Improving. Although at the same time back pain is worse today, and today is in midline mid thoracic spine. For now we will continue treatment of gram-negative suspected complicated UTI with possibly early pyelonephritis. Additional assessment by MRI of the thoracic spine for possible discitis, although probability is on the low side as her cultures have been negative. She has been afebrile. While attempting MRI today vomiting while in the machine. This is for now delayed, add Reglan to Zofran, restart her sucralfate, and may reattempt MRI later tonight if her nausea symptoms improved. Tachycardia resolved. Leukocytosis improving. She has gram-negative UTI, with suspected resultant sepsis. At this time there is no evidence of biliary involvement, despite alkaline phosphatase and GGT elevation. Perhaps cholestasis with gram-negative sepsis. She appears to responding to antibiotic well. Follow-up urinary culture. Suspect there may be a early pyelonephritis as the cause of her right flank pain. There appears to be some musculoskeletal component to the pain, with pain worse with movement, and had difficulty repositioning onto the imaging bed. No abscess noted on CT. Will request for MRI thoracic spine to exclude discitis given sepsis on presentation. Blood culture has been negative. She is afebrile. S2 GGT and alkaline phosphatase elevation, does have heterogenous echogenicity of the liver with likely fatty liver infiltration, but will also request for antimitochondrial antibody to assess for possibility of something like PBC. Will need additional outpatient follow-up after she improves. She does report leukocytosis is a chronic finding, although in our chart this appears worse than before. She does state back in June was admitted in [facility], and states at that time was even worse, without obvious source of infection. At that time had issues with GI bleeding. Currently I am concerned that she is having urinary tract infection. She states that her urinary tract occasionally gets contaminated due to her IBS. Had similar presentation back in 2017, at which time was found to have esophagitis. At that time blood cultures were negative, and was even assessed for tick panel which was negative. Currently Lyme antibody negative. She does not report a tick bite. Does not have a rash. Status: Acute (2) Leukocytosis: Improving. This appears to be somewhat chronic issue, and she reports back in June was even worse than currently. Back in 2017 IC was having a spike with subsequent improvement. Has had work-up done at [facility], although not sure what this work-up included. Will request records. Will request peripheral smear. At this time still concern for possible infection. Work-up as above. She states has had follow-up with hematology, and optical scientist could not find a cause, although did not feel bone marrow biopsy was necessary. Discussed with her may benefit from assessment by infectious disease specialist, and return to hematology if this is a persistent issue and we did not identify a cause. Status: Acute (3) Esophagitis: With history of achalasia, status post balloon dilation. Today with nausea, dry heaving continue PPI. We will resume her sucralfate from home. Add Reglan as needed. Status: Acute (4) Hypertension: Status: Chronic (5) Type 2 diabetes mellitus: Status: Chronic Qualifiers: Diabetes mellitus terminal gauger supervisor insulin use: with terminal gauger supervisor use Diabetes mellitus complication status: without complication Qualified Code(s): E11.9 - Type 2 diabetes mellitus without complications; Z79.4 - terminal makeup operator (current) use of insulin (6) High serum lactic acid: Status: Acute (7) Thrombocytosis: Status: Acute Additional A&P Information Chronic/recurrent constipation: Improved. Had a bowel movement. No sign of colitis on abdomen pelvis CT. Nonalcoholic fatty liver disease: Discussed with her to be aware and continue close follow-up with her primary care provider due to elevated risk of cirrhosis and other complications. Would benefit from lifestyle changes. History of GI bleeding in June of unidentified source. Was assessed by gastroenterology with multiple scopes. This appears to have eventually resolved. Type 2 diabetes: Follows with an lead trainer in [place]. Sleep apnea: CPAP Attestations Medical Necessity Statement*: Continue admission for assessment and management of sepsis, complicated UTI, assessment of persistent back pain in the setting of sepsis, esophagitis. 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
--- NOTE | 2020-01-03 17:26 | MRR_ITS ---
PROCEDURE INFORMATION: Exam: MR Thoracic Spine Without and With Contrast Exam date and time: 01/03/2020 5:27 PM Age: 69 years old Clinical indication: Pain in thoracic spine; Additional info: Back pain TECHNIQUE: Imaging protocol: Multiplanar magnetic resonance images of the thoracic spine without and with intravenous contrast. Contrast material: PROHANCE; Contrast volume: 17 ml; Contrast route: IV; Other contrast: prohance; COMPARISON: CT thoracic spine w con [id number] 01/01/2020 8:55 PM FINDINGS: Vertebrae: The vertebral body alignment, stature, and signal are normal. No abnormal vertebral body enhancement. Spinal cord: There is decreased signal within the thoracic spinal cord at the T2-3 level seen only on the sagittal postcontrast sequence. There is no corresponding abnormality seen in the other sequences. T1-T2: No significant disc disease. No significant spinal canal stenosis. T2-T3: No significant disc disease. No significant spinal canal stenosis. T3-T4: No significant disc disease. No significant spinal canal stenosis. T4-T5: No significant disc disease. No significant spinal canal stenosis. T5-T6: No significant disc disease. No significant spinal canal stenosis. T6-T7: No significant disc disease. No significant spinal canal stenosis. T7-T8: No significant disc disease. No significant spinal canal stenosis. T8-T9: No significant disc disease. No significant spinal canal stenosis. T9-T10: No significant disc disease. No significant spinal canal stenosis. T10-T11: No significant disc disease. No significant spinal canal stenosis. T11-T12: No significant disc disease. No significant spinal canal stenosis. Soft tissues: Unremarkable. Other findings: No abnormal disc enhancement. MR/MR thoracic spine wo/w [id number] IMPRESSION: 1. No evidence for osteomyelitis discitis or compression fracture. 2. Decreased signal within the spinal cord at the T2-3 level, is only visible on the post contrast sagittal sequence, and is most likely artifact. The spinal cord is of normal signal on all other sequences, and shows no abnormal enhancement on the axial sequence.
[2020-01-03 17:27] LABS: Glucose Point of Care 145 mg/dL (70-110)
[2020-01-03] MEDS: sucralfate 1 gm Tablet PO ×2 (18:38→20:43)
[2020-01-03 20:21] LABS: Glucose Point of Care 161 mg/dL (70-110)
[2020-01-03] MEDS: nystatin powder 15 gm Btl 1 APPLIC TOPICAL (21:09)
[2020-01-03] MEDS: enoxaparin 40 mg/0.4 mL Syringe SUBCUT (22:45)
[2020-01-04] VITALS (11 sets, daily range): BP systolic 102–184; BP diastolic 42–84; PULSE 62–85; RESP 17–18; TEMP 36.2–37.4; O2SAT 91–100
[2020-01-04] MEDS: TRAMadol 50 mg Tablet PO ×2 (01:42→08:10)
[2020-01-04] MEDS: HYDROmorphone 1 mg/mL INJ 1 mL IVP ×2 (02:35→10:51)
[2020-01-04 05:54] LABS: Basophils # 0.1 10^3/uL (0.0-0.1); Basophils % 0.2 %; Eosinophils # 0.5 10^3/uL (0.0-0.8); Eosinophils % 2.4 %; Hematocrit 32.4 % (37.0-47.0); Hemoglobin 9.3 g/dL (11.5-15.3); Lymphocytes # 5.4 10^3/uL (0.8-4.8); Lymphocytes % 25.3 %; Mean Corpuscular HGB Conc 28.7 g/dL (30.0-36.0); Mean Corpuscular Hemoglobin 26.6 pg (28.0-34.0); Mean Corpuscular Volume 92.6 fL (81-99); Monocytes # 1.3 10^3/uL (0.2-0.9); Monocytes % 5.8 %; Neutrophils # 14.2 10^3/uL (1.8-7.7); Neutrophils % 65.8 %; Nucleated Red Blood Cells % 0 %; Platelet Count 462 10^3/cmm (130-400); White Blood Count 21.5 10^3/uL (4.0-10.0)
[2020-01-04 06:09] LABS: Alanine Aminotransferase 110 U/L (0-33); Albumin Level 3.6 g/dL (3.5-5.2); Alkaline Phosphatase 245 IU/L (35-105); Anion Gap 15.7 (5-19); Aspartate Amino Transferase 73 U/L (0-32); Blood Urea Nitrogen 12 mg/dL (8-23); Calcium 9.3 mg/dL (8.5-10.5); Carbon Dioxide 27 mmol/L (22-29); Chloride 104 mmol/L (98-107); Globulin 2.1 g/dL (1.3-4.6); Glomerular Filtration Rate 37.3 mL/min (90-130); Glucose 137 mg/dL (65-115); Osmolality Calculated 294 mOsm/kg (285-295); Potassium 3.7 mmol/L (3.5-5.1); Sodium 143 mmol/L (136-145); Total Bilirubin 0.4 mg/dL (0.15-1.2); Total Protein 5.7 g/dL (6.6-8.7)
[2020-01-04 06:37] LABS: Glucose Point of Care 136 mg/dL (70-110)
[2020-01-04] MEDS: lidocaine 5% Patch 1 PATCH TOPICAL ×2 (08:11→20:21)
[2020-01-04] MEDS: duloxetine 60 mg Capsule PO (08:11)
[2020-01-04] MEDS: polyethylene glycol 3350 Pkt 17 gm PO ×2 (08:14→17:14)
[2020-01-04] MEDS: sucralfate 1 gm Tablet PO ×4 (08:14→20:20)
[2020-01-04 08:35] LABS: Ferritin 20 ng/mL (15-150)
[2020-01-04 08:49] LABS: Hepatitis A Antibody IgM. Non-Reactive (Nonreactive); Hepatitis B Core IgM Non-Reactive (Nonreactive); Hepatitis B Surface Antigen. Non-Reactive (Nonreactive); Hepatitis C Virus Antibody Non-Reactive (Nonreactive)
[2020-01-04] MEDS: dextrose 5%-lactated ringers 1,000 ML 75 ML IV (09:40)
[2020-01-04] MEDS: nystatin powder 15 gm Btl 1 APPLIC TOPICAL ×3 (09:40→20:20)
--- NOTE | 2020-01-04 11:11 | PM.PN ---
Subjective Subjective: Interval history: No nausea today. Some lower abdominal discomfort. Otherwise persistent back pain in the mid thoracic spine. Vitals/I&O/Wt Last Vital Signs Temp 98.8 F 01/04/20 07:55 Pulse 70 01/04/20 09:12 Resp 18 01/04/20 10:51 BP 157/74 01/04/20 07:55 Pulse Ox 95 01/04/20 09:12 01/03/20 01/04/20 01/04/20 22:59 06:59 14:59 Intake Total 851.25 / 2076.25 580 / 2656.25 1691.25 / 1691.25 Output Total 1000 / 1600 300 / 300 Balance 851.25 / 1476.25 -420 / 1056.25 1391.25 / 1391.25 Physical Exam Const: COMMON NORMALS: no apparent distress and oriented x3 OTHER: moderate discomfort due to mid thoracic spine pain. Today in the same location. HENMT: COMMON NORMALS: oropharynx normal Neck/C-Spine: COMMON NORMALS: no JVD Resp: COMMON NORMALS: normal respiratory effort and clear to auscultation bilaterally AUSCULTATION: clear to auscultation bilaterally Cardio: COMMON NORMALS: no JVD, regular rhythm, S1 normal heart sound, S2 normal heart sound and no murmurs RHYTHM: regular rhythm HEART SOUNDS: S1 normal and S2 normal GI: COMMON NORMALS: normal to inspection, nondistended, normoactive bowel sounds, soft to palpation and non-tender PALPATION: Yes soft Extremity: COMMON NORMALS: no joint enlargement and no pedal edema Neuro: COMMON NORMALS: oriented x3 and moves all extremities Skin: COMMON NORMALS: no rashes or lesions noted GENERAL SKIN EXAM: no rashes or lesions noted Data : 01/04/20 05:35 01/04/20 05:35 Micro: Microbiology 01/01/20 02:35 Urine Culture - Final Urine,Clean Catch Escherichia coli A&P Assessment and plan (1) Sepsis: With pansensitive E. coli in urine. Was transitioned over to Cipro. Was improving, with declining WBC count, but today again up to 21.5. No tachycardia or fever. Will request records from her service cleaner office in [facility] regarding the chronicity of leukocytosis. MRI thoracic spine with T2-T3 level decreased signal only visible in postcontrast sagittal sequence thought to be most likely artifact per radiology. Will request records from pain clinic regarding location of chronic pain. For now we will continue treatment of gram-negative suspected complicated UTI with possibly early pyelonephritis. Additional assessment by MRI of the thoracic spine for possible discitis, although probability is on the low side as her cultures have been negative. She has been afebrile. Tachycardia resolved. Leukocytosis persistent. At this time there is no evidence of biliary involvement, despite alkaline phosphatase and GGT elevation. Perhaps cholestasis with gram-negative sepsis. T bili continues to be normal. This time I more suspect that this is hepatocellular injury, although again not entirely clear because from what. Possibly antibiotic she was receiving. Requested hepatitis studies. Discontinue Tylenol. Will change Protonix to famotidine. Tizanidine sometimes may cause liver parameter elevation, however, she had only received the first dose last night. Doubt that this is was the cause. Blood culture has been negative. She is afebrile. S2 GGT and alkaline phosphatase elevation, does have heterogenous echogenicity of the liver with likely fatty liver infiltration, but will also request for antimitochondrial antibody to assess for possibility of something like PBC. Will need additional outpatient follow-up after she improves. She does report leukocytosis is a chronic finding, although in our chart this appears worse than before. She does state back in June was admitted in [facility], and states at that time was even worse, without obvious source of infection. At that time had issues with GI bleeding. Had similar presentation back in 2017, at which time was found to have esophagitis. At that time blood cultures were negative, and was even assessed for tick panel which was negative. Currently Lyme antibody negative. She does not report a tick bite. Does not have a rash. Status: Acute (2) Leukocytosis: Improving initially, but with a rise today. This appears to be somewhat chronic issue, and she reports back in June was even worse than currently. Back in 2017 IC was having a spike with subsequent improvement. Has had work-up done at [facility], although not sure what this work-up included. Will request records. Will request peripheral smear. At this time still concern for possible infection. Work-up as above. She states has had follow-up with hematology, and service cleaner could not find a cause, although did not feel bone marrow biopsy was necessary. Discussed with her may benefit from assessment by infectious disease specialist, and return to hematology if this is a persistent issue and we did not identify a cause. Status: Acute (3) Esophagitis: With history of achalasia, status post balloon dilation. Today with nausea, dry heaving continue acid mahi, although we will switch to famotidine due to elevation of liver parameters. We will resume her sucralfate from home. Reglan as needed. Status: Acute (4) Hypertension: Status: Chronic (5) Type 2 diabetes mellitus: Status: Chronic Qualifiers: Diabetes mellitus termite control representative insulin use: with termite control representative use Diabetes mellitus complication status: without complication Qualified Code(s): E11.9 - Type 2 diabetes mellitus without complications; Z79.4 - group home (current) use of insulin (6) High serum lactic acid: Status: Acute (7) Thrombocytosis: Status: Acute Additional A&P Information Back pain: Assessment as above. Will request troponin and EKG series. Check blood pressure in both arms. Chronic/recurrent constipation: Continue bowel regimen. No sign of colitis on abdomen pelvis CT. Liver parameter elevation: With underlying NAFLD, history of cholecystectomy, so far unremarkable work-up for hepatic/biliary infection, obstruction. T bili continues to be normal. Alkaline phosphatase elevation is accompanied by AST and ALT, and suspect that this is more likely hepatocellular injury, although unclear cause. Possibly related to antibiotics receiving previously. Possibly related to her sepsis. Will check hepatitis panel. Discontinue acetaminophen. Check INR. I do not think her tizanidine or other home medications which were started just yesterday or this morning are the cause. Will change Protonix to famotidine. Pain medication may be contributing, however, she insists that she needs something to treat her pain, and that hydrocodone and tramadol are not working. Does state she has been working with her pain clinic physician to try to find something that works. Nonalcoholic fatty liver disease: Discussed with her to be aware and continue close follow-up with her primary care provider due to elevated risk of cirrhosis and other complications. Would benefit from lifestyle changes. History of GI bleeding in June of unidentified source. Was assessed by gastroenterology with multiple scopes. This appears to have eventually resolved. Type 2 diabetes: Follows with an accountant supervisor in [place]. Sleep apnea: CPAP Attestations Medical Necessity Statement*: Continue admission for assessment management of sepsis, complicated urinary tract infection, worsening liver parameters, back pain. Coding Level of Care Code Acute Hand Pattern Marker for [facility] Fwd Diagnoses Sepsis A41.9 Leukocytosis D72.829 Esophagitis K20.9 Hypertension I10 Type 2 diabetes mellitus E11.9; Z79.4 Diabetes mellitus termite control representative insulin use: with termite control representative use Diabetes mellitus complication status: without complication High serum lactic acid R79.89 Thrombocytosis D47.3
--- NOTE | 2020-01-04 11:17 | ECG_ITS ---
Measurements Intervals [place] Rate: 72 P: 58 AL: 157 QRS: -31 QRSD: 99 T: 67 QT: 391 QTc: 429 SINUS RHYTHM WITH SINUS ARRHYTHMIA MARKED LEFT AXIS DEVIATION [QRS AXIS < -30] Compared to ECG 01/01/2020 08:20:37 Myocardial infarct finding no longer present Electronically Signed On 01-04-2020 15:37:24 CDT by Donal Kruger M.D. [id number]
[2020-01-04] MEDS: ciprofloxacin 500 mg Tablet PO ×2 (11:29→22:20)
[2020-01-04 12:17] LABS: Glucose Point of Care 160 mg/dL (70-110)
[2020-01-04] MEDS: famotidine 20 mg Tablet PO ×2 (12:39→17:14)
--- NOTE | 2020-01-04 13:17 | ECG_ITS ---
Measurements Intervals [place] Rate: 73 P: 76 [place]: 171 QRS: -32 QRSD: 91 T: 57 QT: 394 QTc: 437 SINUS RHYTHM WITH SINUS ARRHYTHMIA MARKED LEFT AXIS DEVIATION [QRS AXIS < -30] SEPTAL MYOCARDIAL INFARCTION [40+ ms Q WAVE IN V1/V2], PROBABLY OLD Compared to ECG 01/04/2020 13:47:44 Left-axis deviation now present Myocardial infarct finding still present Electronically Signed On 01-05-2020 18:05:48 CDT by Talia Espana M.D. [id number]
[2020-01-04 13:53] LABS: INR 0.94 (0.8-1.2)
[2020-01-04 13:58] LABS: Troponin(5th) Baseline 16 ng/mL (0-10)
[2020-01-04 16:26] LABS: Glucose Point of Care 156 mg/dL (70-110)
[2020-01-04 16:40] LABS: Troponin 5 2HR 17.05 ng/mL (0-10); Troponin 5 2HR Delta 1.05 ABS# (0-10)
[2020-01-04 17:15] LABS: E. Chaffeensis AB IGG <1:64; E. Chaffeensis AB IGM <1:20; RMSF IGG NOT DETECTED; RMSF IGM NOT DETECTED
--- NOTE | 2020-01-04 17:17 | ECG_ITS ---
Measurements Intervals [place] Rate: 80 P: 65 [place]: 171 QRS: -18 QRSD: 129 T: 81 QT: 400 QTc: 464 SINUS RHYTHM SEPTAL MYOCARDIAL INFARCTION [40+ ms Q WAVE IN V1/V2], OF INDETERMINATE AGE Compared to ECG 01/01/2020 08:20:37 Left-axis deviation no longer present Myocardial infarct finding still present Electronically Signed On 01-04-2020 15:37:33 CDT by Donal Kruger M.D. [email or web address]
[2020-01-04] MEDS: tizanidine 4 mg Tablet 2 MG PO (17:26)
--- NOTE | 2020-01-04 17:33 | PC.NURSE ---
Patient stated to life insurance underwriter that she felt it was very irresponsible of the staff to have her IV in her right arm because she is not able to use her left arm very well. She is upset and wants it moved for her convenience, Charge nurse notified
[2020-01-04 19:56] LABS: Troponin 5 6HR 13.89 ng/mL (0-10)
[2020-01-04 20:02] LABS: Troponin 5 6HR Delta -2.11 ng/L (0-12)
[2020-01-04 20:45] LABS: Glucose Point of Care 252 mg/dL (70-110)
[2020-01-04] MEDS: enoxaparin 40 mg/0.4 mL Syringe SUBCUT (22:20)
[2020-01-05] VITALS (11 sets, daily range): BP systolic 113–162; BP diastolic 50–73; PULSE 64–83; RESP 16–20; TEMP 36.3–37.1; O2SAT 94–97
[2020-01-05] MEDS: dextrose 5%-lactated ringers 1,000 ML 75 ML IV ×2 (01:54→14:12)
[2020-01-05 05:03] LABS: Alanine Aminotransferase 60 U/L (0-33); Albumin Level 2.8 g/dL (3.5-5.2); Alkaline Phosphatase 181 IU/L (35-105); Anion Gap 13.4 (5-19); Aspartate Amino Transferase 28 U/L (0-32); Blood Urea Nitrogen 17 mg/dL (8-23); Calcium 9.2 mg/dL (8.5-10.5); Carbon Dioxide 27 mmol/L (22-29); Chloride 105 mmol/L (98-107); Globulin 2.3 g/dL (1.3-4.6); Glomerular Filtration Rate 29.8 mL/min (90-130); Glucose 133 mg/dL (65-115); Osmolality Calculated 292 mOsm/kg (285-295); Potassium 3.4 mmol/L (3.5-5.1); Sodium 142 mmol/L (136-145); Total Bilirubin 0.2 mg/dL (0.15-1.2); Total Protein 5.1 g/dL (6.6-8.7)
[2020-01-05 06:28] LABS: Basophils % 0.2 %; Eosinophils # 0.4 10^3/uL (0.0-0.8); Eosinophils % 2.8 %; Lymphocytes # 4.7 10^3/uL (0.8-4.8); Lymphocytes % 31.6 %; Mean Corpuscular HGB Conc 29.6 g/dL (30.0-36.0); Mean Corpuscular Hemoglobin 26.8 pg (28.0-34.0); Mean Corpuscular Volume 90.6 fL (81-99); Mean Platelet Volume 9.4 fL (7.4-10.4); Monocytes # 1.1 10^3/uL (0.2-0.9); Monocytes % 7.5 %; Neutrophils # 8.5 10^3/uL (1.8-7.7); Neutrophils % 57.5 %; Nucleated Red Blood Cells % 0 %; Platelet Count 389 10^3/cmm (130-400); Red Blood Count 2.98 10^6/uL (4.1-5.3); Red Cell Distribution Width 15.1 % (12.1-15.1); White Blood Count 14.8 10^3/uL (4.0-10.0)
[2020-01-05 06:34] LABS: Glucose Point of Care 132 mg/dL (70-110)
[2020-01-05] MEDS: albuterol 8 gm MDI 2 PUFF INHALATION (08:59)
[2020-01-05] MEDS: nystatin powder 15 gm Btl 1 APPLIC TOPICAL (09:19)
[2020-01-05] MEDS: famotidine 20 mg Tablet PO ×2 (09:19→17:31)
[2020-01-05] MEDS: duloxetine 60 mg Capsule PO (09:19)
[2020-01-05] MEDS: polyethylene glycol 3350 Pkt 17 gm PO (09:19)
[2020-01-05] MEDS: lidocaine 5% Patch 1 PATCH TOPICAL ×2 (09:19→19:58)
[2020-01-05] MEDS: sucralfate 1 gm Tablet PO ×4 (09:19→19:59)
[2020-01-05] MEDS: ciprofloxacin 500 mg Tablet PO ×2 (10:23→19:59)
--- NOTE | 2020-01-05 10:26 | PC.CHAP ---
Pastoral Care Encounter/Spiritual Assessment Type of Contact [] Declined cover assembler visit [] Patient/Family/Request visit [] Outpatient visit [] Follow-up visit [] Physician referral [] Code/Alert [x] Routine visit [] Staff referral [] Actively dying [x] Patient sleeping [] Family support [] [] Out of room [] Palliative care [] [] Receiving care in room [] Pre-surgical visit [] Trauma [] Long length of stay [] ICU visit [] Other: Relational/Emotional Strength [] Patient feels connected with others/family/visitors/staff [] Distress [] Loneliness/isolation [] Abandonment Spirituality of Patient [] Person of Shilpa [] Attends Jain of their Shilpa [] Believes in Prayer [] Reads Bible or Yazidism materials [] There are Spiritual issues to be addressed Phys Assistant Interventions [] Prayer [] Active listening [] Non-anxious presence [] Spiritual/emotional support [] Crisis/trauma care [] Spiritual counseling [] Bereavement support [] Provided bereavement packet [] Provided Bible/devotional materials [] Provided toy/stuffed animal, coloring book to patient or family member [] Provided Communion [] Anointing/[place] [] Salvation [x] Completed spiritual assessment [] Other: Impact on Illness or Injury [] Angry [] Fearful [] Anxious [] Often cries [] Exhaustion [] Unable to work [] Unable to attend evangelical [] Unable to walk/stand [] Unable to read [] Unable to drive [] Unable to eat/drink [] Unable to sleep [] Unable to be with family [] Patient intubated [] Other: Summary Time spent with patient
--- NOTE | 2020-01-05 10:33 | XR_ITS ---
WS: [id number] CHEST XRAY TECHNIQUE: Portable chest. CLINICAL INFORMATION: cough after vomiting, poss aspiration COMPARISON: December 31, 2019 FINDINGS: Heart: Normal cardiac silhouette. Aortic calcification. Lungs: Lungs are clear. No consolidation or pleural effusion. Bones: Postoperative changes lower cervical spine. XR/XR chest 1V portable [id number] IMPRESSION: No acute chest findings
--- NOTE | 2020-01-05 10:41 | FL_ITS ---
WS: [id number] LUMBAR PUNCTURE CLINICAL INFORMATION: assess if MELTER ASSISTANT infection COMPARISON: None. TECHNIQUE: Informed consent: The procedure and its potential risk and complications were discussed with the igor ent. Verbal and written consent was obtained. Timeout: A timeout was performed to confirm correct patient, procedure, and site. Patient was prepped and draped in the usual sterile fashion. Lidocaine 1% was used for local anesthes ia. Utilizing fluoroscopic guidance, a 5.0 inch 22-gauge spinal needle was advanced into the subarach noid space at L4-5 via left oblique sublaminar approach. Free flow of clear CSF was obtained. 10 cc o f CSF was collected and sent the lab for further analysis. FLUOROSCOPIC TIME: .2 minutes. FL/FL guided lumbarpuncture [id number] IMPRESSION: Fluoroscopically guided lumbar puncture. No immediate complications
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
[2020-01-05 11:04] LABS: Glucose Point of Care 223 mg/dL (70-110)
--- NOTE | 2020-01-05 11:35 | PC.SOCIAL ---
IMM Updated Page 2 of IMM updated and given to patient. Initialed, dated, and timed and placed back in chart.
--- NOTE | 2020-01-05 11:56 | PC.NURSE ---
Taken blood pressure in both arms as ordered recorded 140/60 in patients right arm and 142/58 in patients left arm.
[2020-01-05 12:56] LABS: Urine Creatinine 73 mg/dL (28-217); Urine Random Sodium 82 mmol/L
[2020-01-05 12:58] LABS: Creatine Phosphokinase 100 U/L (26-192)
[2020-01-05 15:51] LABS: CSF Mononuclear # 0.006 10^3/uL (50-90); Mononuclear WBC CSF % 32 % (50-90); Polynuclear Cells ,CSF # 0.013 10^3/uL (0-10); Polynuclear WBC CSF % 68 % (0-10); Red Blood Cell CSF 4 10^3/uL (0-0); White Blood Cell CSF 19 /uL (0-5)
[2020-01-05 16:10] LABS: Appearance CSF BLOODY (CLEAR)
[2020-01-05 16:11] LABS: Color CSF RED (COLORLESS)
[2020-01-05 16:19] LABS: Glucose CSF 107 mg/dL (40-70); Total Protein CSF 33 mg/dL (15-45)
[2020-01-05 16:45] LABS: Glucose Point of Care 115 mg/dL (70-110)
[2020-01-05] MEDS: enoxaparin 40 mg/0.4 mL Syringe SUBCUT (19:59)
[2020-01-05 21:39] LABS: Glucose Point of Care 209 mg/dL (70-110)
[2020-01-06] VITALS (11 sets, daily range): BP systolic 142–158; BP diastolic 62–79; PULSE 66–81; RESP 14–24; TEMP 36.7–37.2; O2SAT 95–99
[2020-01-06 05:18] LABS: Basophils % 0.2 %; Eosinophils # 0.3 10^3/uL (0.0-0.8); Eosinophils % 2.2 %; Hemoglobin 8.2 g/dL (11.5-15.3); Lymphocytes # 3.9 10^3/uL (0.8-4.8); Lymphocytes % 26.6 %; Mean Corpuscular HGB Conc 30.4 g/dL (30.0-36.0); Mean Corpuscular Hemoglobin 26.9 pg (28.0-34.0); Mean Corpuscular Volume 88.5 fL (81-99); Mean Platelet Volume 8.9 fL (7.4-10.4); Monocytes # 1.2 10^3/uL (0.2-0.9); Monocytes % 8.3 %; Neutrophils # 9.2 10^3/uL (1.8-7.7); Neutrophils % 62.2 %; Nucleated Red Blood Cells % 0 %; Platelet Count 385 10^3/cmm (130-400); Red Blood Count 3.05 10^6/uL (4.1-5.3); Red Cell Distribution Width 15.1 % (12.1-15.1); White Blood Count 14.7 10^3/uL (4.0-10.0)
[2020-01-06 05:49] LABS: Alanine Aminotransferase 42 U/L (0-33); Albumin Level 3.1 g/dL (3.5-5.2); Alkaline Phosphatase 185 IU/L (35-105); Anion Gap 14.4 (5-19); Aspartate Amino Transferase 16 U/L (0-32); Blood Urea Nitrogen 15 mg/dL (8-23); Calcium 9.5 mg/dL (8.5-10.5); Carbon Dioxide 28 mmol/L (22-29); Chloride 107 mmol/L (98-107); Globulin 2.5 g/dL (1.3-4.6); Glomerular Filtration Rate 29.8 mL/min (90-130); Glucose 142 mg/dL (65-115); Osmolality Calculated 301 mOsm/kg (285-295); Potassium 3.4 mmol/L (3.5-5.1); Sodium 146 mmol/L (136-145); Total Bilirubin 0.2 mg/dL (0.15-1.2); Total Protein 5.6 g/dL (6.6-8.7)
[2020-01-06 06:49] LABS: Glucose Point of Care 123 mg/dL (70-110)
[2020-01-06] MEDS: ondansetron 2 mg/ML SDV 2 mL 4 MG IVP (07:59)
[2020-01-06] MEDS: lidocaine 5% Patch 1 PATCH TOPICAL ×2 (08:36→21:50)
[2020-01-06] MEDS: famotidine 20 mg Tablet PO ×2 (08:38→17:42)
[2020-01-06] MEDS: sucralfate 1 gm Tablet PO ×4 (08:38→21:11)
[2020-01-06] MEDS: duloxetine 30 mg Capsule PO (08:38)
[2020-01-06] MEDS: polyethylene glycol 3350 Pkt 17 gm PO (08:39)
[2020-01-06] MEDS: nystatin powder 15 gm Btl 1 APPLIC TOPICAL ×3 (08:39→21:13)
[2020-01-06 10:46] LABS: Glucose Point of Care 155 mg/dL (70-110)
[2020-01-06] MEDS: ciprofloxacin 500 mg Tablet PO ×2 (11:19→23:37)
[2020-01-06] MEDS: albuterol 8 gm MDI 2 PUFF INHALATION (13:12)
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
[2020-01-06 14:38] LABS: Procalcitonin 0.19 ng/mL (0-0.5)
[2020-01-06 14:49] LABS: Lipase 23 U/L (13-60)
--- NOTE | 2020-01-06 15:05 | PC.RESP ---
Patient was given information for Pulmonary Rehab.
[2020-01-06 16:57] LABS: Glucose Point of Care 125 mg/dL (70-110)
[2020-01-06 20:42] LABS: Glucose Point of Care 205 mg/dL (70-110)
[2020-01-06] MEDS: tizanidine 4 mg Tablet 2 MG PO (21:31)
[2020-01-06] MEDS: enoxaparin 40 mg/0.4 mL Syringe SUBCUT (23:37)
[2020-01-07 00:30] VITALS: PULSE 75; RESP 18; O2SAT 97
[2020-01-07 01:42] LABS: LAB Peripheral Smear Sent for Review
[2020-01-07 01:43] LABS: Erythrocyte Sedimentation Rate 28 mm/hr (0-15)
[2020-01-07 03:31] LABS: HIV 1 & 2 Antibody Non-Reactive (Non-Reactiv); HIV 1 & 2 Antigen Non-Reactive (Non-Reactiv)
[2020-01-07 03:48] LABS: C Reactive Protein 36.2 mg/L (0.0-4.9); Iron 30 ug/dL (37-145); Percent Saturation 11.7 % (20-50); Total Iron Binding Capacity 256 mcg/dl; Unsaturated Iron Binding 226 ug/dL (112-347)
[2020-01-07 04:00] VITALS: BP 144/72; PULSE 68; RESP 18; TEMP 36.7; O2SAT 98
[2020-01-07 05:29] LABS: Basophils # 0.1 10^3/uL (0.0-0.1); Basophils % 0.4 %; Eosinophils # 0.3 10^3/uL (0.0-0.8); Hematocrit 26.6 % (37.0-47.0); Lymphocytes # 4.6 10^3/uL (0.8-4.8); Lymphocytes % 30.7 %; Mean Corpuscular HGB Conc 30.1 g/dL (30.0-36.0); Mean Corpuscular Hemoglobin 26.9 pg (28.0-34.0); Mean Corpuscular Volume 89.6 fL (81-99); Mean Platelet Volume 9.2 fL (7.4-10.4); Monocytes # 1.2 10^3/uL (0.2-0.9); Monocytes % 7.7 %; Neutrophils # 8.8 10^3/uL (1.8-7.7); Neutrophils % 58.6 %; Nucleated Red Blood Cells % 0 %; Platelet Count 395 10^3/cmm (130-400); Red Blood Count 2.97 10^6/uL (4.1-5.3); Red Cell Distribution Width 15.2 % (12.1-15.1)
[2020-01-07 06:03] LABS: Alanine Aminotransferase 28 U/L (0-33); Albumin Level 3.3 g/dL (3.5-5.2); Alkaline Phosphatase 158 IU/L (35-105); Anion Gap 15.3 (5-19); Aspartate Amino Transferase 12 U/L (0-32); Blood Urea Nitrogen 16 mg/dL (8-23); Calcium 9.8 mg/dL (8.5-10.5); Carbon Dioxide 28 mmol/L (22-29); Chloride 102 mmol/L (98-107); Globulin 2.7 g/dL (1.3-4.6); Glomerular Filtration Rate 27.9 mL/min (90-130); Glucose 167 mg/dL (65-115); Osmolality Calculated 294 mOsm/kg (285-295); Potassium 3.3 mmol/L (3.5-5.1); Sodium 142 mmol/L (136-145); Total Bilirubin 0.2 mg/dL (0.15-1.2)
[2020-01-07 06:06] LABS: Thyroid Stimulating Hormone 2.81 uIU/mL (0.27-4.20)
[2020-01-07 06:48] LABS: Rapid Plasma Reagin Syphilis Nonreactive (Nonreactive)
[2020-01-07 07:49] VITALS: BP 163/71; PULSE 65; RESP 18; TEMP 36.8; O2SAT 97
[2020-01-07 07:58] VITALS: PULSE 61; RESP 17; O2SAT 96
[2020-01-07 08:02] VITALS: PULSE 62
[2020-01-07] MEDS: albuterol 8 gm MDI 2 PUFF INHALATION (08:03)
[2020-01-07] MEDS: famotidine 20 mg Tablet PO (08:46)
[2020-01-07] MEDS: sucralfate 1 gm Tablet PO (08:46)
[2020-01-07] MEDS: duloxetine 30 mg Capsule PO (08:46)
[2020-01-07] MEDS: lidocaine 5% Patch 1 PATCH TOPICAL (08:47)
[2020-01-07 11:59] LABS: Glucose Point of Care 278 mg/dL (70-110)
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
[2020-01-07 12:34] VITALS: PULSE 62
--- NOTE | 2020-01-07 13:28 | PC.NURSE ---
Discharge Summary Patient was given discharge information and follow up appointments made. patients IV was discontinued. vital signs within normal limits. patient taken home by . alert and oriented.
== END 2020-01-07 13:34 | disposition home or self-care (01) | DRG 872 ==
LOC: ER 21:25 → MEDSURG 22:36
PROVIDERS: Internal Medicine; Admitting Provider Internal Medicine; Emergency Provider Emergency Medicine; Family Provider Family Medicine; PCP Registered Nurse; Visit Provider Student in an Organized Health Care Education/Training Program
DX: A41.9 Sepsis, unspecified organism (principal); N17.9 Acute kidney failure, unspecified; N39.0 Urinary tract infection, site not specified; D72.829 Elevated white blood cell count, unspecified; I10 Essential (primary) hypertension; E11.9 Type 2 diabetes mellitus without complications; K20.9 Esophagitis, unspecified; K76.0 Fatty (change of) liver, not elsewhere classified; K21.9 Gastro-esophageal reflux disease without esophagitis; J44.9 Chronic obstructive pulmonary disease, unspecified; B96.20 Unspecified Escherichia coli [E. coli] as the cause of diseases classified elsewhere; Z79.84 Long term (current) use of oral hypoglycemic drugs; K59.09 Other constipation; Z91.81 History of falling; G47.30 Sleep apnea, unspecified; F41.9 Anxiety disorder, unspecified; Z87.891 Personal history of nicotine dependence; F03.90 Unspecified dementia, unspecified severity, without behavioral disturbance, psychotic disturbance, mood disturbance, and anxiety
CPT/HCPCS: 12345; 36415; 36416; 62328; 71045; 72129; 72132; 72157; 74177; 76705; 78226; 80048; 80053; 80074; 80202; 80500; 81001; 82550; 82570; 82728; 82945; 82962; 82977; 83516; 83540; 83550; 83605; 83690; 84145; 84157; 84300; 84443; 84484; 85025; 85610; 85651; 86140; 86225; 86235; 86334; 86335; 86431; 86592; 86618; 86666; 86757; 87040; 87070; 87075; 87077; 87086; 87186; 87205; 87498; 87530; 87806; 88112; 89050; 93005; 94640; 94660; 96372; 96374; 96375; 99283; A9537; A9579; C9113; J1170; J1650; J1815; J2001; J2212; J2405; J2543; J3370; J3480; J3535; J7030; J7050; Q9967

== ENCOUNTER → 2022-05-01 09:34 | Outpatient (BNVA) | payer MEDICARE, OTHER, SELFPAY | PROVIDERS: Family Provider Family Medicine; PCP Registered Nurse; Referring Provider Family Medicine; Visit Provider Internal Medicine | DX: E11.40 Type 2 diabetes mellitus with diabetic neuropathy, unspecified (principal); E11.69 Type 2 diabetes mellitus with other specified complication; E78.2 Mixed hyperlipidemia; J06.9 Acute upper respiratory infection, unspecified; Z87.891 Personal history of nicotine dependence; Z79.4 Long term (current) use of insulin; Z79.84 Long term (current) use of oral hypoglycemic drugs | CPT/HCPCS: 99204 ==

== ENCOUNTER 2022-05-14 20:38 | Inpatient (IN) | payer MEDICARE, OTHER, SELFPAY ==
[2022-05-14 20:43] VITALS: BMI 30.4
[2022-05-14 20:45] VITALS: BP 157/113; PULSE 106; RESP 16; TEMP 37.4; O2SAT 94
--- NOTE | 2022-05-14 20:50 | ECG_ITS ---
[facility] Test Date: 2022-05-14 Pat Name: Keila Starkey Department: Room: Gender: Female It Communications Manager: : 1950 Requested By: Sophia Farmer Order Number: [id number] Marysol MD: Rachael Stuart M.D. Measurements Intervals [place] Rate: 105 P: 53 SC: 127 QRS: -36 QRSD: 115 T: 81 QT: 338 QTc: 447 Interpretive Statements SINUS TACHYCARDIA WITH OCCASIONAL SUPRAVENTRICULAR PREMATURE COMPLEXES LEFT AXIS DEVIATION [QRS AXIS < -30] SEPTAL MYOCARDIAL INFARCTION , PROBABLY OLD [40+ ms Q WAVE IN V1/V2] Compared to ECG 01/04/2020 16:20:46 Sinus rhythm no longer present Sinus arrhythmia no longer present Myocardial infarct finding still present Electronically Signed On 05-15-2022 14:53:03 CDT by Rachael Stuart M.D. [email or web address]
--- NOTE | 2022-05-14 20:50 | XRR_ITS ---
PROCEDURE INFORMATION: Exam: XR Chest Exam date and time: 05/14/2022 9:01 PM Age: 71 years old Clinical indication: Dyspnea TECHNIQUE: Imaging protocol: Radiologic exam of the chest. Views: 1 view. COMPARISON: CR XR chest 1V portable [id number] 01/05/2020 10:58 AM FINDINGS: Lungs: No consolidation. Pleural spaces: Unremarkable. No pleural effusion. No pneumothorax. Heart/Mediastinum: Borderline increased heart size. Bones/joints: Partially visualized ACDF hardware in the mid/lower cervical spine. Visualized osseous structures are intact. XR/XR chest 1V portable [id number] IMPRESSION: No acute findings.
--- NOTE | 2022-05-14 20:53 | ED_ITS ---
HPI - General Adult General: Chief complaint: Weakness Stated complaint: weakness Time Seen by Provider: 05/14/22 20:42 History of Present Illness: Patient is a 71-year-old female with history of CHF, COPD, diabetes presenting to the emergency room for evaluation of generalized weakness, fall, and dysuria symptoms. Patient tells me that for the last few days she has not been feeling well has been feeling very fatigued unable to get out of bed. Patient tells that she has fallen twice. Patient denies any injury. Patient in addition reports last 3 days she has been having dysuria symptoms. Patient denies any active chest pain but reports shortness of breath. Patient denies any cough, runny nose sore throat, diarrhea melena hematochezia. No abdominal complaints, hematuria or polyuria currently. Patient denies any new vaginal discharge or bleeding. Onset:3-4 days ago Duration:ongoing Location:home Severity:moderate Associated symptoms: Reports malaise; Deny chest pain, dyspnea, nausea, rash, palpitations or vomiting Review of Systems Const: Reports: fatigue, malaise and other (+generalized weakness); Denies: fever(s) or chills Eyes: Denies: change in vision ENMT: Denies: mouth pain Card: Denies: chest pain or palpitations Resp: Denies: dyspnea or non-productive cough GI: Denies: abdominal pain, nausea, vomiting or diarrhea : Reports: dysuria Musc: Denies: extremity pain Skin/Breast: Denies: rash or new lesions Neuro: Denies: weakness in extremities Psych: Reports: other (Normal mood) Librado/Lymph: Denies: easy bruising PFSH ED PFSH: Medical History Achalasia Anxiety CHF (congestive heart failure) COPD (chronic obstructive pulmonary disease) Enrolled in chronic care management History of colon polyps Hypertension Kidney disease Sleep apnea Type 2 diabetes mellitus Surgical History H/O vaginal surgery (05/22/09) Monarc sling urethropexy. Performed by Dr. Colbert at [facility]. H/O: hysterectomy Hx of cholecystectomy S/P bilateral breast reduction (09/03/11) Family History Denies family history of Diabetes Dementia Hyperlipidemia Family history of premature coronary artery disease Cancer Social History Smoking and tobacco status: former smoker (STOPPED 31 YEARS AGO) Alcohol intake: never Household members: spouse Housing: House Physical Exam Const: COMMON NORMALS: alert HENMT: COMMON NORMALS: atraumatic HEAD & SCALP: atraumatic MOUTH: moist mucous membranes not abnormal Eye: COMMON NORMALS: EOMs intact bilaterally and conjunctivae normal CONJUNCTIVA: Yes conjunctivae normal Neck/C-Spine: COMMON NORMALS: full ROM and supple Resp: COMMON NORMALS: normal respiratory effort OTHER: +coarse breath sounds b/l Cardio: RATE: tachycardic GI: COMMON NORMALS: Soft to palpation and non-tender PALPATION: Yes Soft to palpation OTHER: No focal TTP. NO guarding rebound, guarding, rigidity. No CVA tenderness to percussion. Neg Guy/Neg McBurney's point tenderness, no suprabupic tenderness to palpation. Extremity: COMMON NORMALS: full ROM Neuro: SENSORIUM/ORIENTATION: Yes alert MOTOR EXAM: No Abnormal motor strength present and Other motor observations present (no focal motor deficits) Psych: COMMON NORMALS: speech normal SPEECH: Yes normal speech MOOD & AFFECT: Yes euthymic mood Course Vital Signs: Vital signs: Vital Signs Temperature 99.4 F 05/14/22 20:45 Pulse Rate 106 H 05/14/22 20:45 Respiratory Rate 22 H 05/14/22 21:23 Blood Pressure 164/118 05/14/22 21:23 Pulse Oximetry 96 05/14/22 21:23 Oxygen Delivery Me thod 05/14/22 21:23 Oxygen Flow Rate 2 05/14/22 21:23 MDM - General Adult Medical Decision Making 71-year-old female with history of CHF, COPD, diabetes, hypertension presenting to the emergency room for concerns of generalized weakness, dyspnea, and dysuria x3 days. Exam, patient noted to have coarse breath sounds satting at 91% on room air. She required 2-3 L oxygen. Patient does not on oxygen at home. White count 25.6 today. Hemoglobin 9.7. Creatinine 1.1. UA is consistent with UTI. XR chest appears to be clear. BNP does not appear to be elevated. Patient received vancomycin and cefepime. Patient admitted to hospital further work-up. Given cardiac history, patient did not receive 30 cc/kg of IVF. Disposition: admission Lab Data : 05/14/22 20:59 05/14/22 20:59 Radiology Impressions Chest X-Ray 05/14/22 20:50 IMPRESSION: No acute findings. Laboratory Results WBC 25.6 10^3/uL (4.0-10.0) H 05/14/22 20:59 RBC 3.82 10^6/uL (4.1-5.3) L 05/14/22 20:59 Hgb 9.7 g/dL (11.5-15.3) L 05/14/22 20:59 Hct 32.1 % (37.0-47.0) L 05/14/22 20:59 MCV 84.0 fl (81-99) 05/14/22 20:59 MCH 25.4 pg (28.0-34.0) L 05/14/22:59 MCHC 30.2 g/dL (30.0-36.0) 05/14/22 20:59 RDW 17.1 % (12.1-15.1) H 05/14/22 20:59 Plt Count 465 10^3/cmm (130-400) H 05/14/22 20:59 MPV 9.5 fL (7.4-10.4) 05/14/22 20:59 Neut % (Auto) 80.0 % 05/14/22 20:59 Lymph % (Auto) 8.5 % 05/14/22 20:59 [place] % (Auto) 9.9 % 05/14/22 20:59 Eos % (Auto) 0.4 % 05/14/22 20:59 Baso % (Auto) 0.4 % 05/14/22 20:59 Neut # (Auto) 20.45 10^3/uL (1.8-7.7) H 05/14/22 20:59 Lymph # (Auto) 2.2 10^3/uL (0.8-4.8) 05/14/22 20:59 [place] # (Auto) 2.5 10^3/uL (0.2-0.9) H 05/14/22 20:59 Eos # (Auto) 0.1 10^3/uL (0.0-0.8) 05/14/22 20:59 Baso # (Auto) 0.1 10^3/uL (0.0-0.1) 05/14/22 20:59 Nucleated RBC % (auto) 0 % 05/14/22 20:59 Nucleated RBCs # 0.0 /100WBC 05/14/22 20:59 Specimen Type Arterial 05/14/22 21:35 Sample Site Brachial, left 05/14/22 21:35 ABG pH 7.45 (7.35-7.45) 05/14/22 21:35 ABG pCO2 32.2 mmHg (35-45) L 05/14/22 21:35 ABG pO2 85.8 mmHg (80.0-100.0) 05/14/22 21:35 ABG HCO3 22.4 mmol/L (22-26) 05/14/22 21:35 ABG O2 Saturation 98.1 05/14/22 21:35 ABG Base Excess -1.1 mmol/L (-2.0-2.0) 05/14/22 21:35 Scott Test N/a 05/14/22 21:35 A-a O2 Gradient 3.0 mmHg (5-10) L 05/14/22 21:35 Hematocrit 28.7 % (37-47) L 05/14/22 21:35 Hgb O2 Saturation 97.1 % (95-100) 05/14/22 21:35 Carboxyhemoglobin 1.4 %THgb (0.4-20.1) 05/14/22 21:35 Methemoglobin < 0.0 % (0.4-1.5) L 05/14/22 21:35 Total Hemoglobin 9.4 g/dL (12-16) L 05/14/22 21:35 Sodium 138.0 mmol/L (131-143) 05/14/22 21:35 Potassium 4.0 mmol/L (3.5-5.0) 05/14/22 21:35 Glucose 179.0 mg/dL (70-115) H 05/14/22 21:35 Ionized Calcium 1.2 mmol/L (1.1-1.4) 05/14/22 21:35 O2 Delivery Device Nc 05/14/22 21:35 O2 Liters/Min 0.5 % 05/14/22 21:35 Sales Attendant ID Dayanna 05/14/22 21:35 Sodium 139 mmol/L (136-145) 05/14/22 20:59 Potassium 3.8 mmol/L (3.5-5.1) 05/14/22 20:59 Chloride 98 mmol/L (98-107) 05/14/22 20:59 Carbon Dioxide 23 mmol/L (22-29) 05/14/22 20:59 Anion Gap 21.8 (5-19) H 05/14/22 20:59 BUN 17 mg/dL (8-23) 05/14/22 20:59 Creatinine 1.1 mg/dL (0.5-0.9) H 05/14/22 20:59 GFR Calculation Not Reportable 05/14/22 20:59 Glucose 125 mg/dL (65-115) H 05/14/22 20:59 Calculated Osmolality 291 mOsm/kg (285-295) 05/14/22 20:59 Lactate 1.2 mmol/L (0.5-2.2) 05/14/22 20:59 Calcium 9.4 mg/dL (8.5-10.5) 05/14/22 20:59 Total Bilirubin 0.3 mg/dL (0.15-1.2) 05/14/22 20:59 AST 25 U/L (0-32) 05/14/22 20:59 ALT 23 U/L (0-33) 05/14/22 20:59 Alkaline Phosphatase 136 U/L (35-105) H 05/14/22 20:59 Troponin T Baseline 20 ng/L (0-10) H 05/14/22 20:59 NT-Pro-B Natriuret Pep 331 pg/mL (0-125) H 05/14/22 20:59 Total Protein 7.0 g/dL (6.6-8.7) 05/14/22 20:59 Albumin 4.1 g/dL (3.5-5.2) 05/14/22 20:59 Globulin 2.9 g/dL (1.3-4.6) 05/14/22 20:59 Lipase 18 U/L (13-60) 05/14/22 20:59 TSH 1.34 uIU/mL (0.27-4.20) 05/14/22 20:59 Free T4 1.08 ng/dL (0.82-1.77) 05/14/22 20:59 Urine Color Yellow (Yellow) 05/14/22 20:58 Urine Appearance Hazy (CLEAR) A 05/14/22 20:58 Urine pH 5 (5-7) 05/14/22 20:58 Ur Specific [place] 1.020 (1.005-1.030) 05/14/22 20:58 Urine Protein 1+ (Negative) H 05/14/22 20:58 Urine Glucose (UA) Norm (Normal) 05/14/22 20:58 Urine Ketones Negative (Negative) 05/14/22 20:58 Urine Blood 2+ (Negative) H 05/14/22 20:58 Urine Nitrate Positive (Negative) H 05/14/22 20:58 Urine Bilirubin Neg (Negative) 05/14/22 20:58 Urine Urobilinogen Norm mg/dL (Negative) 05/14/22 20:58 Ur Leukocyte Esterase 2+ (Negative) H 05/14/22 20:58 Urine RBC 0-4 /hpf (0-2) H 05/14/22 20:58 Urine WBC Too numerous to cnt /hpf (0-5) H 05/14/22 20:58 Ur Squamous Epith Cells 0-4 /hpf (0-5) H 05/14/22 20:58 Amorphous Sediment Not Reportable 05/14/22 20:58 Urine Bacteria 4+ /hpf (NONE) H 05/14/22 20:58 Imaging Data Other Imaging: Radiologist's impression: [address] [address] XRay Report Signed Patient: Keila Starkey Unit #: [id number] : 1950 Age/Sex: 71 / F ADM Date: 05/14/22 Loc: ER Room/Bed: Attending Dr: Ordering Provider/Ordering MD: Sophia Farmer MD Date of Service: 05/14/22 Procedure(s): XR chest 1V portable [id number] Accession Number(s): [id number] Report Number: [id number] PROCEDURE INFORMATION: Exam: XR Chest Exam date and time: 05/14/2022 9:01 PM Age: 71 years old Clinical indication: Dyspnea TECHNIQUE: Imaging protocol: Radiologic exam of the chest. Views: 1 view. COMPARISON: CR XR chest 1V portable [id number] 01/05/2020 10:58 AM FINDINGS: Lungs: No consolidation. Pleural spaces: Unremarkable. No pleural effusion. No pneumothorax. Heart/Mediastinum: Borderline increased heart size. Bones/joints: Partially visualized ACDF hardware in the mid/lower cervical spine. Visualized osseous structures are intact. XR/XR chest 1V portable [id number] IMPRESSION: No acute findings. ? Dictated By: Partha Arce DO Signed By: Partha Arce DO Signed Date/Time: 05/14/222136 DD/ 00 Discharge Plan Discharge Patient Disposition: Admitted As Inpatient Clinical Impression: Generalized weakness, Fall, Acute UTI, Dyspnea Condition: Stable Coding Level of Care Code ED Clinical Laboratory Technician for Chg Fwd Exam Comprehensive
[2022-05-14 21:04] LABS: Basophils # 0.1 10^3/uL (0.0-0.1); Basophils % 0.4 %; Eosinophils # 0.1 10^3/uL (0.0-0.8); Eosinophils % 0.4 %; Hematocrit 32.1 % (37.0-47.0); Hemoglobin 9.7 g/dL (11.5-15.3); Lymphocytes # 2.2 10^3/uL (0.8-4.8); Lymphocytes % 8.5 %; Mean Corpuscular HGB Conc 30.2 g/dL (30.0-36.0); Mean Corpuscular Hemoglobin 25.4 pg (28.0-34.0); Mean Platelet Volume 9.5 fL (7.4-10.4); Monocytes # 2.5 10^3/uL (0.2-0.9); Monocytes % 9.9 %; Neutrophils # 20.45 10^3/uL (1.8-7.7); Nucleated Red Blood Cells % 0 %; Platelet Count 465 10^3/cmm (130-400); Red Blood Count 3.82 10^6/uL (4.1-5.3); Red Cell Distribution Width 17.1 % (12.1-15.1); White Blood Count 25.6 10^3/uL (4.0-10.0)
[2022-05-14] MEDS: cefepime 1,000 MG in sodium chloride 0.9% (plus) 50 ML 100 MG IV (21:16)
[2022-05-14 21:23] VITALS: BP 164/118; RESP 22; O2SAT 96
--- NOTE | 2022-05-14 21:25 | PC.NURSE ---
is Errol Starkey and can be contacted at [phone]
[2022-05-14 21:34] LABS: Troponin(5th) Baseline 20 ng/L (0-10)
[2022-05-14 21:39] LABS: Alanine Aminotransferase 23 U/L (0-33); Albumin Level 4.1 g/dL (3.5-5.2); Alkaline Phosphatase 136 U/L (35-105); Aspartate Amino Transferase 25 U/L (0-32); Blood Urea Nitrogen 17 mg/dL (8-23); Calcium 9.4 mg/dL (8.5-10.5); Carbon Dioxide 23 mmol/L (22-29); Chloride 98 mmol/L (98-107); Globulin 2.9 g/dL (1.3-4.6); Glucose 125 mg/dL (65-115); Lipase 18 U/L (13-60); NT Pro B Type Natriuretic Pept 331 pg/mL (0-125); Osmolality Calculated 291 mOsm/kg (285-295); Sodium 139 mmol/L (136-145); Thyroid Stimulating Hormone 1.34 uIU/mL (0.27-4.20); Total Bilirubin 0.3 mg/dL (0.15-1.2)
[2022-05-14 21:42] LABS: Lactate (Lactic Acid level) 1.2 mmol/L (0.5-2.2)
[2022-05-14 21:44] LABS: Anion Gap 21.8 (5-19); Potassium 3.8 mmol/L (3.5-5.1)
[2022-05-14 21:47] LABS: Ionized Calcium Level - ABG 1.2 mmol/L (1.1-1.4)
[2022-05-14 21:58] LABS: Add Urine Microscopic? YES; Bilirubin Urine Neg (Negative); Blood Urine 2+ (Negative); Glucose Urine UA Norm (Normal); Ketones Urine Negative (Negative); Leukocyte Esterase Urine 2+ (Negative); Nitrate Urine Positive (Negative); Protein Urine 1+ (Negative); Urine Appearance Hazy (CLEAR); Urine Color Yellow (Yellow); Urobilinogen Urine Norm (Negative); pH Urine 5 (5-7)
[2022-05-14 21:59] LABS: Add Urine Culture? Yes; Bacteria Urine 4+ /hpf; RBC Urine 0-4 /hpf (0-2); Squamous Epithelial Cell Urine 0-4 /hpf (0-5); WBC Urine TOO NUMEROUS TO CNT /hpf (0-5)
--- NOTE | 2022-05-14 22:03 | CTR_ITS ---
PROCEDURE INFORMATION: Exam: CT Abdomen And Pelvis Without Contrast Exam date and time: 05/14/2022 10:17 PM Age: 71 years old Clinical indication: Pain and abnormal findings; Abnormal lab test; Elevated wbc; Abdominal pain; Localized; Prior surgery; Surgery type: Breast reduction. Gb. Hysterectomy. Patient HX: C/O lower abd pain with dysuria. Wbc of 25k. TECHNIQUE: Imaging protocol: Computed tomography of the abdomen and pelvis without contrast. Radiation optimization: All CT scans at this facility use at least one of these dose optimization techniques: automated exposure control; mA and/or kV adjustment per patient size (includes targeted exams where dose is matched to clinical indication); or iterative reconstruction. COMPARISON: CT abdomen pelvis w con* [id number] 12/31/2019 8:40 PM RADIATION DOSE METRICS: Total DLP (mGy-cm): 1020.96 FINDINGS: Liver: Severe fatty infiltration of the liver. Gallbladder and bile ducts: Stable cholecystectomy. Pancreas: Normal. No ductal dilation. Spleen: Normal. No splenomegaly. Adrenal glands: Normal. No mass. Kidneys and ureters: Interval appearance of mild inflammation surrounding the left kidney suggesting possible left urinary tract infection. One or more nonobstructing right renal calyceal stones. Stomach and bowel: Unremarkable. No obstruction. No mucosal thickening. Appendix: No evidence of appendicitis. Intraperitoneal space: Unremarkable. No free air. No significant fluid collection. Vasculature: One or more calcified pelvic phleboliths. Lymph nodes: Unremarkable. No enlarged lymph nodes. Urinary bladder: Weiss balloon catheter in the urinary bladder. Reproductive: Stable hysterectomy. Bones/joints: Unremarkable. No acute fracture. Soft tissues: Unremarkable. CT/CT abdomen pelvis con [id number] IMPRESSION: 1. Severe fatty infiltration of the liver. 2. Stable cholecystectomy. 3. Interval appearance of mild inflammation surrounding the left kidney suggesting possible left urinary tract infection. 4. Weiss balloon catheter in the urinary bladder.
[2022-05-14 22:04] LABS: Free T4 Free Thyroxine 1.08 ng/dL (0.82-1.77)
[2022-05-14 22:04] LABS: ABG PCO2 32.2 mmHg (35-45); ABG PH Result 7.45 (7.35-7.45); Arterial Blood Gas Hematocrit 28.7 % (37-47); Base Excess ABG -1.1 mmol/L (-2.0-2.0); Blood Gas Sample Type Arterial; Carboxyhemoglobin 1.4 %THgb (0.4-20.1); HCO3 ABG 22.4 mmol/L (22-26); HGB O2 Sat 97.1 % (95-100); Methemoglobin < 0.0 % (0.4-1.5); Oxygen Saturation ABG 98.1; PO2 ABG 85.8 mmHg (80.0-100.0); Total Hemoglobin 9.4 g/dL (12-16)
[2022-05-14 22:05] LABS: Blood Gas LPM 0.5 %; Blood Gas Sample Site Brachial, left; Oxygen Device NC
[2022-05-14] MEDS: vancomycin 1,000 MG in sodium chloride 0.9% 250 ML 250 MG IV (22:09)
--- NOTE | 2022-05-14 22:19 | PC.NURSE ---
Pt turned to left side, accidentally pulling Left AC IV out. Cath intact. Bandage applied. New IV started. Pt tolerated well.
--- NOTE | 2022-05-14 22:22 | CTR_ITS ---
PROCEDURE INFORMATION: Exam: CT Head Without Contrast Exam date and time: 05/14/2022 10:26 PM Age: 71 years old Clinical indication: Altered mental status/memory loss; Patient HX: Generalized weakness with confusion. ; Additional info: AMS TECHNIQUE: Imaging protocol: Computed tomography of the head without contrast. Radiation optimization: All CT scans at this facility use at least one of these dose optimization techniques: automated exposure control; mA and/or kV adjustment per patient size (includes targeted exams where dose is matched to clinical indication); or iterative reconstruction. COMPARISON: CT head wo con* [id number] 04/02/2017 7:30 AM RADIATION DOSE METRICS: Total DLP (mGy-cm): 1187.38 FINDINGS: Brain: No hemorrhage. No edema. Moderate diffuse cerebral atrophy. 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 No mass effect. Cerebral ventricles: No ventriculomegaly. Paranasal sinuses: Mucosal retention cyst noted in the right sphenoid sinus. The rest of the paranasal sinuses are well pneumatized. Mastoid air cells: Visualized mastoid air cells are well aerated. Bones/joints: Unremarkable. No acute fracture. Soft tissues: Unremarkable. CT/CT head wo con* [id number] IMPRESSION: 1. No acute intracranial abnormality. 2. Moderate diffuse cerebral atrophy with old lacunar infarct noted in the left basal ganglia.
--- NOTE | 2022-05-14 22:50 | ECG_ITS ---
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 Measurements Intervals [place] Rate: 99 P: 87 DE: 145 QRS: -53 QRSD: 102 T: 85 QT: 356 QTc: 457 Interpretive Statements SINUS RHYTHM INCOMPLETE RIGHT BUNDLE BRANCH BLOCK [90+ ms QRS DURATION, TERMINAL R IN V1/V2, 40+ ms S IN I/aVL/V4/V5/V6] LEFT ANTERIOR FASCICULAR BLOCK [QRS AXIS <= -45, QR IN I, RS IN II] SEPTAL MYOCARDIAL INFARCTION , OF INDETERMINATE AGE [40+ ms Q WAVE IN V1/V2] Compared to ECG 05/14/2022 20:46:14 Incomplete right bundle-branch block now present Left anterior fascicular block now present Sinus tachycardia no longer present Left-axis deviation no longer present Myocardial infarct finding still present Electronically Signed On 05-15-2022 17:21:07 CDT by Sundeep Fleming M.D. [email or web address]
[2022-05-14 22:55] LABS: Adenovirus Not Detected (NOT DETECT); Chlamydia Pneumoniae Not Detected (NOT DETECT); Coronavirus 229E,HKU1,NL63,OC4 Not Detected (NOT DETECT); Human Metapneumovirus Not Detected (NOT DETECT); Human Rhinovirus/Enterovirus Not Detected (NOT DETECT); Influenza A Not Detected (NOT DETECT); Influenza A H1 Not Detected (NOT DETECT); Influenza A H1-2009 Not Detected (NOT DETECT); Influenza A H3 Not Detected (NOT DETECT); Influenza B Not Detected (NOT DETECT); Mycoplasma Pneumoniae Not Detected (NOT DETECT); Parainfluenza Virus Type 1 Not Detected (NOT DETECT); Parainfluenza Virus Type 2 Not Detected (NOT DETECT); Parainfluenza Virus Type 3 Not Detected (NOT DETECT); Parainfluenza Virus Type 4 Not Detected (NOT DETECT); Respiratory Syncytial Virus A Not Detected (NOT DETECT); Respiratory Syncytial Virus B Not Detected (NOT DETECT); SARS-COV-2 Not Detected (NOT DETECT)
--- NOTE | 2022-05-14 22:56 | P.HP_ITS ---
Providers/Chief Complaint Primary Care Provider: JEFFERSON Shaffer Chief Complaint: weakness History of Present Illness Keila Starkey is a 71 year old female with a past medical history of insulin- dependent type 2 diabetes mellitus, anxiety, CHF, COPD, hypertension, chronic kidney disease, sleep apnea, diabetic peripheral neuropathy, who presents [facility] due to altered mental status. Currently patient is alert to pe rson, not to place, not to time, she does follow commands, but a lot of times she tells me she does not know, she realizes that she is confused, but does not know why. She tells me that she lives in [place] with her , they have 3 dogs, she does tell me that she fell a few times, she cannot exactly tell me when, but she tells me her gluteus hurts her, because she fell on it, denies any flank pain, no fevers, no chest pain, no shortness of breath, she does complain of abdominal pain and nausea Review of Systems Const: Denies: fever(s) Card: Denies: chest pain Resp: Denies: dyspnea GI: Reports: abdominal pain and nausea : Denies: flank pain Neuro: Denies: headache(s) Medications/Allergies Home Medications Medication Instructions Recorded Confirmed Last Taken Type fluticasone propionate 110 1 puff inhalation BID 11/11/19 05/01/22 Unknown History mcg/actuation HFA aerosol inhaler (Flovent HFA) hyoscyamine sulfate 0.125 mg 0.125 mg PO DAILY PRN Abdominal 11/11/19 05/01/22 Unknown History tablet (Levsin) Discomfort metformin 750 mg tablet,extended 750 mg PO BID #180 tabs 11/11/19 05/01/22 Unknown Rx release 24 hr albuterol sulfate 90 mcg/actuation 2 puff inhalation Q6H PRN 12/02/19 05/01/22 Unknown Rx aerosol inhaler shortness of breath or wheezing #8.5 grams amlodipine 10 mg tablet 10 mg PO DAILY 01/01/20 05/01/22 Unknown History ferrous sulfate 325 mg (65 mg 325 mg PO BID 01/01/20 05/01/22 Unknown History iron) tablet (iron) nystatin 100,000 unit/gram topical 1 applic topical TID #30 grams 01/24/21 05/01/22 Unknown Rx powder pen needle, diabetic 32 gauge x #100 ea 12/27/21 05/01/22 Unknown Rx (TechLITE Pen Needle) ascorbate calcium (vitamin C) 500 500 mg PO DAILY 03/12/22 05/01/22 Unknown History mg tablet carvedilol 3.125 mg tablet 3.125 mg PO BID 03/12/22 05/01/22 Unknown History duloxetine 60 mg capsule,delayed 60 mg PO DAILY 03/12/22 05/01/22 Unknown History release gabapentin 300 mg capsule 300 mg PO TID 03/12/22 05/01/22 Unknown History hydroxyzine HCl 25 mg tablet 25 mg PO TID 03/12/22 05/01/22 Unknown History nystatin 100,000 unit/gram topical 1 applic topical BID 03/12/22 05/01/22 Unknown History powder (Nystop) potassium chloride 10 mEq 10 meq PO BID 03/12/22 05/01/22 Unknown History tablet,extended release insulin glargine 100 unit/mL (3 40 unit SUBCUT BID 05/01/22 05/01/22 Unknown History mL) subcutaneous pen (Lantus Solostar U-100 Insulin) Allergies Allergy/AdvReac Type Severity Reaction Status Date / Time NSAIDS (Non-Steroidal Allergy Mild vomiting Verified 05/01/22 10:00 Anti-Inflamma PFSH Acute PFSH: Medical History Achalasia Anxiety CHF (congestive heart failure) COPD (chronic obstructive pulmonary disease) Enrolled in chronic care management History of colon polyps Hypertension Kidney disease Sleep apnea Type 2 diabetes mellitus Surgical History H/O vaginal surgery (05/22/09) Monarc sling urethropexy. Performed by Dr. Colbert at [facility]. H/O: hysterectomy Hx of cholecystectomy S/P bilateral breast reduction (09/03/11) Family History Denies family history of Diabetes Dementia Hyperlipidemia Family history of premature coronary artery disease Cancer Social History Smoking and tobacco status: former smoker (STOPPED 31 YEARS AGO) Alcohol intake: never Household members: spouse Housing: House Vitals/I&O/Wt Last Vital Signs Temp 99.4 F 05/14/22 20:45 Pulse 106 H 05/14/22 20:45 Resp 22 H 05/14/22 21:23 BP 164/118 05/14/22 21:23 Pulse Ox 96 05/14/22 21:23 O2 Del Method 05/14/22 21:23 O2 Flow Rate 2 05/14/22 21:23 05/14/22 05/14/22 05/14/22 06:59 14:59 22:59 Intake Total 50 / 50 Balance 50 / 50 Weight last 48 hrs Weight 85.729 kg Physical Exam Const: COMMON NORMALS: no acute distress EXAM LIMITATIONS: altered mental status ORIENTATION/CONSCIOUSNESS: Yes awake, Yes oriented to person and Yes confused; not oriented to place and not oriented to time HENMT: COMMON NORMALS: normocephalic HEAD & SCALP: normocephalic Eye: COMMON NORMALS: Equal, round and reactive pupils present and EOMs intact bilaterally Neck/C-Spine: COMMON NORMALS: no JVD Resp: COMMON NORMALS: normal respiratory effort, No retractions, No use of accessory muscles and clear to auscultation bilaterally AUSCULTATION: clear to auscultation bilaterally Cardio: COMMON NORMALS: no JVD, regular rate, regular rhythm, S1 normal heart sound present and S2 normal heart sound present RATE: regular rate RHYTHM: regular rhythm HEART SOUNDS: S1 normal heart sound present and S2 normal heart sound present GI: COMMON NORMALS: Soft to palpation, non-tender, No hepatosplenomegaly present and no masses INSPECTION: Yes normal to inspection and Yes abdominal distension PALPATION: Yes Soft to palpation and Yes No hepatosplenomegaly present Extremity: COMMON NORMALS: capillary refill normal, no clubbing, cyanosis or edema, no calf tenderness and no pedal edema Neuro: OTHER: Does not follow neurologic testing Urinary Catheter Management: Weiss: Cath Placed During This Visit: yes Urinary Catheter Date of Insertion: 05/14/22 Urinary Catheter Time of Insertion: 21:13 Data : 05/14/22 20:59 05/14/22 20:59 A&P Assessment and plan (1) Acute UTI: Status: Acute (2) Altered mental status: Status: Acute (3) Fall: Status: Acute (4) DM type 2 with diabetic mixed hyperlipidemia: Status: Acute (5) Acute kidney injury: Status: Acute (6) Hypertension: Status: Chronic (7) Type 2 diabetes mellitus: Status: Chronic Qualifiers: Diabetes mellitus long term care pharmacist insulin use: with fpc use Diabetes mellitus complication status: without complication Qualified Code(s): E11.9 - Type 2 diabetes mellitus without complications; 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 -CT head pending -Follow blood cultures, urine cultures -Neurochecks, aspiration precautions -IV fluids -Continue Zosyn -Full code -Lovenox for DVT prophylaxis Acute kidney injury, secondary to UTI, IV fluids Type 2 diabetes mellitus, low-dose sliding scale Hypertension, holding medications Chronic anemia, hemoglobin 9.7, continue to monitor Attestations Medical Necessity Statement*: Patient requires hospitalization, inpatient, greater than 2 midnights, for acute encephalopathy, UTI, DARLENE Coding Level of Care Code Acute Electrical Designer for [facility] Fwd Diagnoses Acute UTI N39.0 Altered mental status R41.82 Fall W19.XXXA DM type 2 with diabetic mixed hyperlipidemia E11.69; E78.2 Acute kidney injury N17.9 Hypertension I10 Type 2 diabetes mellitus E11.9; Z79.4 Diabetes mellitus long term care pharmacist insulin use: with fpc use Diabetes mellitus complication status: without complication
[2022-05-14 23:47] VITALS: BP 153/64; PULSE 95; RESP 20; TEMP 36.9; O2SAT 95
[2022-05-15] VITALS (42 sets, daily range): BP systolic 106–192; BP diastolic 41–98; PULSE 72–120; RESP 18–24; TEMP 37.1–39.2; O2SAT 88–100; BMI 38.4
[2022-05-15 00:14] LABS: Lactate (Lactic Acid level) 1.1 mmol/L (0.5-2.2)
[2022-05-15 00:28] LABS: Troponin 5 2HR 25.77 ng/L (0-10)
[2022-05-15 00:31] LABS: Troponin 5 2HR Delta 5.77 ABS# (0-10)
[2022-05-15] MEDS: enoxaparin 40 mg/0.4 mL Syringe SUBCUT (01:29)
[2022-05-15] MEDS: pantoprazole 40 mg SDV IVP (01:29)
[2022-05-15] MEDS: piperacillin-tazobactam 3.375 GM in sodium chloride 0.9% (plus) 50 ML IV ×3 (01:30→17:56)
[2022-05-15] MEDS: sodium chloride 0.9% 1,000 ML 75 ML IV ×2 (01:31→13:33)
[2022-05-15] MEDS: ondansetron 2 mg/ML SDV 2 mL 4 MG IVP (02:03)
[2022-05-15] MEDS: morphine 4 mg/mL SDV 1 mL 2 MG IVP (02:03)
[2022-05-15] MEDS: acetaminophen 325 mg Tablet 650 MG PO ×2 (02:59→12:03)
[2022-05-15 04:22] LABS: Basophils # 0.1 10^3/uL (0.0-0.1); Basophils % 0.3 %; Eosinophils % 0.1 %; Hematocrit 28.1 % (37.0-47.0); Hemoglobin 8.4 g/dL (11.5-15.3); Lymphocytes # 1.3 10^3/uL (0.8-4.8); Lymphocytes % 7.9 %; Mean Corpuscular HGB Conc 29.9 g/dL (30.0-36.0); Mean Corpuscular Hemoglobin 24.8 pg (28.0-34.0); Mean Corpuscular Volume 82.9 fl (81-99); Mean Platelet Volume 8.8 fL (7.4-10.4); Monocytes # 1.4 10^3/uL (0.2-0.9); Monocytes % 8.7 %; Neutrophils # 13.59 10^3/uL (1.8-7.7); Neutrophils % 82.4 %; Nucleated Red Blood Cells % 0 %; Platelet Count 352 10^3/cmm (130-400); Red Blood Count 3.39 10^6/uL (4.1-5.3); Red Cell Distribution Width 16.9 % (12.1-15.1); White Blood Count 16.5 10^3/uL (4.0-10.0)
[2022-05-15 04:40] LABS: Lactate (Lactic Acid level) 0.9 mmol/L (0.5-2.2)
[2022-05-15 04:41] LABS: Estmated Average Glucose 128; Hemoglobin A1C 6.1 % (4.0-6.0)
[2022-05-15 04:42] LABS: Procalcitonin 1.69 ng/mL (0-0.5); Thyroid Stimulating Hormone 1.63 uIU/mL (0.27-4.20)
[2022-05-15 05:10] LABS: Alanine Aminotransferase 19 U/L (0-33); Albumin Level 3.4 g/dL (3.5-5.2); Alkaline Phosphatase 117 U/L (35-105); Aspartate Amino Transferase 20 U/L (0-32); Blood Urea Nitrogen 16 mg/dL (8-23); C Reactive Protein 181.5 mg/L (0.0-4.9); Calcium 8.4 mg/dL (8.5-10.5); Carbon Dioxide 22 mmol/L (22-29); Chloride 102 mmol/L (98-107); Chol HDL Ratio 4.78 mg/dL (0.0-4.40); Cholesterol 177 mg/dL (0-200); Globulin 2.2 g/dL (1.3-4.6); Glucose 154 mg/dL (65-115); HDL Cholesterol 37 mg/dL (60-100); LDL Cholesterol Calculated 115 mg/dL (50-129); LDL HDL Ratio 3.11 RATIO (0.00-3.22); Magnesium 1.6 mg/dL (1.7-2.3); Osmolality Calculated 290 mOsm/kg (285-295); Phosphorus 3.4 mg/dL (2.5-4.5); Sodium 138 mmol/L (136-145); Total Bilirubin 0.3 mg/dL (0.15-1.2); Total Protein 5.6 g/dL (6.6-8.7); Triglycerides 125 mg/dL (0-150)
[2022-05-15 08:13] LABS: Glucose Point of Care 130 mg/dL (70-110)
[2022-05-15] MEDS: gabapentin 300 mg Capsule PO ×3 (09:22→20:18)
[2022-05-15] MEDS: carvedilol 3.125 mg Tablet PO ×2 (09:22→18:16)
[2022-05-15] MEDS: nystatin powder 15 gm Btl 1 APPLIC TOPICAL ×2 (09:23→17:56)
[2022-05-15] MEDS: amlodipine 10 mg Tablet PO (09:23)
--- NOTE | 2022-05-15 09:24 | PC.PHAR ---
pts bill [phone] verified pts medications
--- NOTE | 2022-05-15 11:35 | PC.CHAP ---
Pastoral Care Encounter/Spiritual Assessment Type of Contact [] Declined employee counselor visit [] Patient/Family/Request visit [] Outpatient visit [] Follow-up visit [] Physician referral [] Code/Alert [x] Routine visit [] Staff referral [] Actively dying [x] Patient sleeping [] Family support [] [] Out of room [] Palliative care [] [] Receiving care in room [] Pre-surgical visit [] Trauma [] Long length of stay [x] ICU visit [] Other: Relational/Emotional Strength [] Patient feels connected with others/family/visitors/staff [] Distress [] Loneliness/isolation [] Abandonment Spirituality of Patient [] Person of Shilpa [] Attends [employer] of their Shilpa [] Believes in Prayer [] Reads Bible or Yarsani materials [] There are Spiritual issues to be addressed [employer]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 Interventions [x] Prayer [] Active listening [] Non-anxious presence [] Spiritual/emotional support [] Crisis/trauma care [] Spiritual counseling [] Bereavement support [] Provided bereavement packet [] Provided Bible/devotional materials [] Provided toy/stuffed animal, coloring book to patient or family member [] Provided Communion [] Anointing/[place] [] Salvation [x] Completed spiritual assessment [] Other: Impact on Illness or Injury [] Angry [] Fearful [] Anxious [] Often cries [] Exhaustion [] Unable to work [] Unable to attend confucianist [] Unable to walk/stand [] Unable to read [] Unable to drive [] Unable to eat/drink [] Unable to sleep [] Unable to be with family [] Patient intubated [] Other: Summary Time spent with patient
[2022-05-15 11:44] LABS: Glucose Point of Care 156 mg/dL (70-110)
--- NOTE | 2022-05-15 11:56 | PC.NURSE ---
Reported elevated temp to Dr. Spangler. Clarified NPO order.
[2022-05-15] MEDS: insulin lispro 100 unit/1 mL SUBCUT ×2 (12:04→18:16)
--- NOTE | 2022-05-15 16:07 | PC.NURSE ---
Red areas under ABD skin folds and groin. Nystatin powder applied per order.
[2022-05-15 18:02] LABS: Glucose Point of Care 145 mg/dL (70-110)
[2022-05-15] MEDS: albuterol 8 gm MDI 2 PUFF INHALATION (20:06)
[2022-05-15 20:25] LABS: Glucose Point of Care 121 mg/dL (70-110)
--- NOTE | 2022-05-15 20:37 | P.PN_ITS ---
Subjective Subjective: This morning she reports feeling cold, chills. She knows she is in the hospital, but cannot tell me the year. She is not sure what condition she has. Discussed with her regarding complicated UTI, pyelonephritis. She denies chest pain or pressure. No trouble breathing. Vitals/I&O/Wt Last Vital Signs Temp 98.7 F 05/15/22 15:00 Pulse 91 05/15/22 20:10 Resp 21 H 05/15/22 20:10 BP 171/80 05/15/22 18:00 Pulse Ox 99 05/15/22 20:10 O2 Del Method 05/15/22 20:10 O2 Flow Rate 2 05/15/22 20:10 05/15/22 05/15/22 05/15/22 06:59 14:59 22:59 Intake Total 300 / 350 1152.5 / 1152.5 100 / 1252.5 Output Total 250 / 250 300 / 300 250 / 550 Balance 50 / 100 852.5 / 852.5 -150 / 702.5 Weight last 48 hrs Weight 108.046 kg Weight 85.729 kg Physical Exam Const: COMMON NORMALS: alert; negative for patient oriented x3 GENERAL APPEARANCE: cooperative ORIENTATION/CONSCIOUSNESS: Yes awake OTHER: Cold, covered in multiple blankets. HENMT: COMMON NORMALS: oropharynx normal Neck/C-Spine: COMMON NORMALS: no JVD Resp: COMMON NORMALS: normal respiratory effort and clear to auscultation bilaterally AUSCULTATION: clear to auscultation bilaterally Cardio: COMMON NORMALS: no JVD, regular rhythm, S1 normal heart sound present, S2 normal heart sound present and No murmurs present (Cardio) RHYTHM: regular rhythm HEART SOUNDS: S1 normal heart sound present and S2 normal heart sound present GI: COMMON NORMALS: Normal to inspection, nondistended, normoactive bowel sounds present, Soft to palpation and non-tender PALPATION: Yes Soft to palpation OTHER: Abdomen perhaps mildly distended, but feels nontender. Extremity: COMMON NORMALS: no joint enlargement and no pedal edema Neuro: COMMON NORMALS: moves all extremities; negative for patient oriented x3 SENSORIUM/ORIENTATION: Yes alert Skin: COMMON NORMALS: no rashes or lesions noted GENERAL SKIN EXAM: no rashes or lesions noted Urinary Catheter Management: Weiss: Cath Placed During This Visit: yes Reason for Continuing Indwelling Catheter: Accurate Measurement of Urinary Output in Critically Ill Patients Urinary Catheter Date of Insertion: 05/14/22 Urinary Catheter Time of Insertion: 21:13 Data : 05/15/22 04:08 05/15/22 04:08 Micro: Microbiology 05/14/22 11:40 Blood Culture - Preliminary Blood SPECIMEN COLLECTED 05/14/22 11:36 Blood Culture - Preliminary Blood SPECIMEN COLLECTED A&P Assessment and plan (1) Acute UTI: Complicated urinary tract infection with left-sided pyelonephritis. Acute encephalopathy secondary to infection. Continue Zosyn. Follow-up urine culture. No obstruction noted on CT. For now continue gentle IV hydration. Status: Acute (2) Altered mental status: Persistent acute encephalopathy, metabolic encephalopathy secondary to urinary infection. Status: Acute (3) Fall: Status: Acute (4) DM type 2 with diabetic mixed hyperlipidemia: Status: Acute (5) Acute kidney injury: Status: Acute (6) Hypertension: Status: Chronic (7) Type 2 diabetes mellitus: Status: Chronic Qualifiers: Diabetes mellitus penitentiary insulin use: with penitentiary use Diabetes mellitus complication status: without complication Qualified Code(s): E11.9 - Type 2 diabetes mellitus without complications; Z79.4 - [facility] (current) use of insulin Plan Acute kidney injury, secondary to UTI, IV fluids Type 2 diabetes mellitus, low-dose sliding scale Hypertension, holding medications Chronic anemia, hemoglobin 9.7, with some worsening with rehydration. Normocytic. Check Hemoccult. PPI. Attestations Medical Necessity Statement*: Continue admission for assessment management of complicated urinary tract infection, pyelonephritis with acute encephalopathy. Coding Level of Care Code Acute Cash Application Representative for [facility] Diagnoses Acute UTI N39.0 Altered mental status R41.82 Fall W19.XXXA DM type 2 with diabetic mixed hyperlipidemia E11.69; E78.2 Acute kidney injury N17.9 Hypertension I10 Type 2 diabetes mellitus E11.9; Z79.4 Diabetes mellitus penitentiary insulin use: with penitentiary use Diabetes mellitus complication status: without complication
[2022-05-16] VITALS (29 sets, daily range): BP systolic 117–173; BP diastolic 46–86; PULSE 75–92; RESP 16–26; TEMP 36.8–39.2; O2SAT 90–100
[2022-05-16] MEDS: pantoprazole 40 mg SDV IVP (00:10)
[2022-05-16] MEDS: enoxaparin 40 mg/0.4 mL Syringe SUBCUT (00:10)
[2022-05-16] MEDS: acetaminophen 325 mg Tablet 650 MG PO ×2 (00:24→07:32)
[2022-05-16] MEDS: albuterol 8 gm MDI 2 PUFF INHALATION ×3 (00:34→20:10)
[2022-05-16] MEDS: morphine 4 mg/mL SDV 1 mL 2 MG IVP ×2 (01:07→06:23)
[2022-05-16] MEDS: piperacillin-tazobactam 3.375 GM in sodium chloride 0.9% (plus) 50 ML IV ×2 (01:09→08:51)
[2022-05-16] MEDS: sodium chloride 0.9% 1,000 ML 75 ML IV (02:39)
[2022-05-16 03:53] LABS: Basophils % 0.4 %; Eosinophils # 0.1 10^3/uL (0.0-0.8); Eosinophils % 0.7 %; Hematocrit 26.8 % (37.0-47.0); Hemoglobin 7.7 g/dL (11.5-15.3); Lymphocytes # 1.1 10^3/uL (0.8-4.8); Lymphocytes % 15.1 %; Mean Corpuscular HGB Conc 28.7 g/dL (30.0-36.0); Mean Corpuscular Hemoglobin 24.4 pg (28.0-34.0); Mean Corpuscular Volume 85.1 fl (81-99); Mean Platelet Volume 9.5 fL (7.4-10.4); Monocytes # 0.5 10^3/uL (0.2-0.9); Monocytes % 7.2 %; Neutrophils # 5.66 10^3/uL (1.8-7.7); Neutrophils % 75.9 %; Nucleated Red Blood Cells % 0 %; Platelet Count 286 10^3/cmm (130-400); Red Blood Count 3.15 10^6/uL (4.1-5.3); Red Cell Distribution Width 16.9 % (12.1-15.1); White Blood Count 7.5 10^3/uL (4.0-10.0)
[2022-05-16 04:17] LABS: Lactate (Lactic Acid level) 0.9 mmol/L (0.5-2.2)
[2022-05-16 04:29] LABS: Alanine Aminotransferase 20 U/L (0-33); Alkaline Phosphatase 110 U/L (35-105); Anion Gap 13.8 (5-19); Aspartate Amino Transferase 29 U/L (0-32); Blood Urea Nitrogen 17 mg/dL (8-23); C Reactive Protein 156.1 mg/L (0.0-4.9); Carbon Dioxide 24 mmol/L (22-29); Chloride 106 mmol/L (98-107); Globulin 2.2 g/dL (1.3-4.6); Glucose 176 mg/dL (65-115); Magnesium 1.9 mg/dL (1.7-2.3); Osmolality Calculated 296 mOsm/kg (285-295); Phosphorus 3.9 mg/dL (2.5-4.5); Potassium 3.8 mmol/L (3.5-5.1); Sodium 140 mmol/L (136-145); Total Bilirubin 0.2 mg/dL (0.15-1.2); Total Protein 5.2 g/dL (6.6-8.7)
[2022-05-16 04:36] LABS: Procalcitonin 2.12 ng/mL (0-0.5)
[2022-05-16 07:40] LABS: Glucose Point of Care 161 mg/dL (70-110)
[2022-05-16] MEDS: insulin lispro 100 unit/1 mL SUBCUT ×3 (08:44→18:26)
[2022-05-16] MEDS: amlodipine 10 mg Tablet PO (08:51)
[2022-05-16] MEDS: carvedilol 3.125 mg Tablet PO ×2 (08:51→18:26)
[2022-05-16] MEDS: gabapentin 300 mg Capsule PO ×3 (08:51→20:48)
[2022-05-16] MEDS: nystatin powder 15 gm Btl 1 APPLIC TOPICAL ×2 (08:52→20:48)
[2022-05-16 12:04] LABS: Glucose Point of Care 209 mg/dL (70-110)
--- NOTE | 2022-05-16 12:25 | PM.PN ---
Subjective Subjective: Today she is not feeling a great deal better, perhaps slightly. Not having chills as badly. Still having some confusion/difficulty in communication. Having generalized body ache. Vitals/I&O/Wt Last Vital Signs Temp 98.8 F 05/16/22 12:21 Pulse 76 05/16/22 12:00 Resp 18 05/16/22 08:25 BP 143/82 05/16/22 12:00 Pulse Ox 94 05/16/22 12:00 O2 Del Method 05/16/22 08:25 O2 Flow Rate 2 05/16/22 08:25 05/15/22 05/16/22 05/16/22 22:59 06:59 14:59 Intake Total 100 / 1252.5 1082.5 / 2335.0 200 / 200 Output Total 250 / 550 350 / 900 Balance -150 / 702.5 732.5 / 1435.0 200 / 200 Weight last 48 hrs Weight 108.046 kg Weight 85.729 kg Physical Exam Const: COMMON NORMALS: alert; negative for patient oriented x3 GENERAL APPEARANCE: cooperative ORIENTATION/CONSCIOUSNESS: Yes awake OTHER: More awake and alert, more interactive. Appears stronger. Still mild confusion. HENMT: COMMON NORMALS: oropharynx normal Neck/C-Spine: COMMON NORMALS: no JVD Resp: COMMON NORMALS: normal respiratory effort and clear to auscultation bilaterally AUSCULTATION: clear to auscultation bilaterally Cardio: COMMON NORMALS: no JVD, regular rhythm, S1 normal heart sound present, S2 normal heart sound present and No murmurs present (Cardio) RHYTHM: regular rhythm HEART SOUNDS: S1 normal heart sound present and S2 normal heart sound present GI: COMMON NORMALS: Normal to inspection, nondistended, normoactive bowel sounds present, Soft to palpation and non-tender PALPATION: Yes Soft to palpation OTHER: Abdomen perhaps less distended, but feels nontender. Extremity: COMMON NORMALS: no joint enlargement and no pedal edema Neuro: COMMON NORMALS: moves all extremities; negative for patient oriented x3 SENSORIUM/ORIENTATION: Yes alert Skin: COMMON NORMALS: no rashes or lesions noted GENERAL SKIN EXAM: no rashes or lesions noted Urinary Catheter Management: Weiss: Cath Placed During This Visit: yes Reason for Continuing Indwelling Catheter: Accurate Measurement of Urinary Output in Critically Ill Patients Urinary Catheter Date of Insertion: 05/14/22 Urinary Catheter Time of Insertion: 21:13 Data : 05/16/22 03:21 05/16/22 03:21 Micro: Microbiology 05/14/22 20:58 Urine Culture - Preliminary Urine,Clean Catch Gram Negative Rods 05/14/22 11:40 Blood Culture - Preliminary Blood NEGATIVE TO DATE 05/14/22 11:36 Blood Culture - Preliminary Blood NEGATIVE TO DATE A&P Assessment and plan (1) Acute UTI: Improving. Leukocytosis resolving. Still febrile early this morning. Growing gram-negative rods in urine. Continue IV antibiotic. Switch to ciprofloxacin for now given DARLENE. Complicated urinary tract infection with left-sided pyelonephritis. Acute encephalopathy secondary to infection. Continue Zosyn. Follow-up urine culture. No obstruction noted on CT. Stop IV fluid. She has been in ICU as overflow. Status: Acute (2) Acute kidney injury: Creatinine worsened today up to 1.6. Possibly related to complicated UTI, pyelonephritis. No hydronephrosis noted on abdomen pelvis CT. Medication review does not reveal any obvious culprits that could contribute. She denies taking NSAIDs. Zosyn possibly could contribute to nephrotoxicity. Stop. We will switch antibiotic for now empirically to ciprofloxacin. Status: Acute (3) Anemia: Likely degree of dilution anemia, Hemoccult has been requested. Continue PPI. Normocytic. Check iron panel, B12, folic acid. TSH is normal. Status: Acute (4) Declining functional status: Declining functional status, less mobile, requiring significantly more assistance as per her who is having difficulty managing at home. PT, OT assessment. Case management working also on post discharge planning. Status: Acute (5) Altered mental status: Persistent acute encephalopathy, metabolic encephalopathy secondary to urinary infection. 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 Coding Level of Care Code Acute Gang Head Saw Operator for [facility] Diagnoses Acute UTI N39.0 Acute kidney injury N17.9 Anemia D64.9 Declining functional status R53.81 Altered mental status R41.82 Fall W19.XXXA DM type 2 with diabetic mixed hyperlipidemia E11.69; E78.2 Hypertension I10 Type 2 diabetes mellitus E11.9; Z79.4 Diabetes mellitus intermediate frame tender insulin use: with care home use Diabetes mellitus complication status: without complication
[2022-05-16 12:57] LABS: Creatine Phosphokinase 147 U/L (26-192); Ferritin 78 ng/mL (15-150); Iron 9 ug/dL (37-145); Percent Saturation 3.8 % (20-50); Total Iron Binding Capacity 234 mcg/dl; Unsaturated Iron Binding 225 ug/dL (112-347)
[2022-05-16 13:10] LABS: Vitamin B12 590 pg/mL (232-1245)
[2022-05-16] MEDS: ciprofloxacin 400 MG/200 ML PREMIX 200 MG IV (13:50)
--- NOTE | 2022-05-16 14:16 | PC.NURSE ---
Report called to Rabia. Patient transferred to room 259-2.
[2022-05-16 14:23] LABS: Folate Level > 20.0 ng/mL (4.8-37.3)
[2022-05-16 18:02] LABS: Glucose Point of Care 182 mg/dL (70-110)
[2022-05-16 21:41] LABS: Glucose Point of Care 127 mg/dL (70-110)
[2022-05-17] VITALS (10 sets, daily range): BP systolic 140–167; BP diastolic 60–79; PULSE 74–98; RESP 16–22; TEMP 36.7–37.1; O2SAT 95–99
[2022-05-17] MEDS: enoxaparin 40 mg/0.4 mL Syringe SUBCUT (01:07)
[2022-05-17] MEDS: ciprofloxacin 400 MG/200 ML PREMIX 200 MG IV (01:07)
[2022-05-17] MEDS: pantoprazole 40 mg SDV IVP (01:25)
[2022-05-17] MEDS: albuterol 8 gm MDI 2 PUFF INHALATION ×3 (02:46→11:17)
[2022-05-17 04:49] LABS: Basophils % 0.3 %; Eosinophils # 0.2 10^3/uL (0.0-0.8); Eosinophils % 2.2 %; Hemoglobin 7.6 g/dL (11.5-15.3); Lymphocytes # 1.8 10^3/uL (0.8-4.8); Lymphocytes % 16.9 %; Mean Corpuscular HGB Conc 28.1 g/dL (30.0-36.0); Mean Corpuscular Hemoglobin 24.4 pg (28.0-34.0); Mean Corpuscular Volume 86.8 fl (81-99); Mean Platelet Volume 9.6 fL (7.4-10.4); Monocytes # 1.5 10^3/uL (0.2-0.9); Monocytes % 14.1 %; Neutrophils # 6.99 10^3/uL (1.8-7.7); Neutrophils % 65.7 %; Nucleated Red Blood Cells % 0 %; Platelet Count 321 10^3/cmm (130-400); Red Blood Count 3.11 10^6/uL (4.1-5.3); Red Cell Distribution Width 16.7 % (12.1-15.1); White Blood Count 10.6 10^3/uL (4.0-10.0)
[2022-05-17 05:04] LABS: Lactate (Lactic Acid level) 0.9 mmol/L (0.5-2.2)
[2022-05-17 05:05] LABS: Alanine Aminotransferase 24 U/L (0-33); Albumin Level 3.1 g/dL (3.5-5.2); Alkaline Phosphatase 119 U/L (35-105); Anion Gap 12.7 (5-19); Aspartate Amino Transferase 31 U/L (0-32); Blood Urea Nitrogen 14 mg/dL (8-23); C Reactive Protein 95.1 mg/L (0.0-4.9); Calcium 8.4 mg/dL (8.5-10.5); Carbon Dioxide 26 mmol/L (22-29); Chloride 106 mmol/L (98-107); Globulin 1.8 g/dL (1.3-4.6); Glucose 169 mg/dL (65-115); Magnesium 1.8 mg/dL (1.7-2.3); Osmolality Calculated 296 mOsm/kg (285-295); Phosphorus 3.1 mg/dL (2.5-4.5); Potassium 3.7 mmol/L (3.5-5.1); Sodium 141 mmol/L (136-145); Total Bilirubin 0.2 mg/dL (0.15-1.2); Total Protein 4.9 g/dL (6.6-8.7)
[2022-05-17 06:21] LABS: Glucose Point of Care 128 mg/dL (70-110)
--- NOTE | 2022-05-17 08:58 | PC.SOCIAL ---
IMM updated Copy of page 2 provided to pt at bedside. Patient verbalized understanding. Initialed, dated, & timed a copy & placed in chart
[2022-05-17] MEDS: gabapentin 300 mg Capsule PO (08:59)
[2022-05-17] MEDS: amlodipine 10 mg Tablet PO (08:59)
[2022-05-17] MEDS: carvedilol 3.125 mg Tablet PO (08:59)
[2022-05-17] MEDS: nystatin powder 15 gm Btl 1 APPLIC TOPICAL (09:00)
[2022-05-17 11:10] LABS: Glucose Point of Care 156 mg/dL (70-110)
[2022-05-17] MEDS: insulin lispro 100 unit/1 mL SUBCUT (12:25)
--- NOTE | 2022-05-17 13:06 | P.DS_ITS ---
Discharge Providers Date of Admission: 05/14/22 23:09 Date of Discharge: May 17, 2022 Attending Provider at Admission: Isiah Newman MD Attending Provider at Discharge: Jacky Spangler Primary Care Provider: JEFFERSON Shaffer Diagnoses at Discharge Discharge Diagnosis (1) Acute UTI: Status: Acute (2) Acute kidney injury: Status: Acute (3) Anemia: Status: Acute (4) Declining functional status: Status: Acute (5) Altered mental status: Status: Acute (6) Fall: Status: Acute (7) DM type 2 with diabetic mixed hyperlipidemia: Status: Acute (8) Hypertension: Status: Chronic (9) Type 2 diabetes mellitus: Status: Chronic Qualifiers: Diabetes mellitus termite inspector insulin use: with termite inspector use Diabetes mellitus complication status: without complication Qualified Code(s): E11.9 - Type 2 diabetes mellitus without complications; Z79.4 - senior living (current) use of insulin Reason for Visit Reason for Visit: weakness Hospital Course Hospital Course Pleasant 71-year-old lady with history of COPD, CHF, DM2 with diabetic neuropathy, HTN, CKD, CAMILA, anxiety, achalasia, was admitted for assessment management after presenting due to generalized weakness and has been falling, with altered mental status, found to have complicated urinary tract infection with left-sided pyelonephritis, no hydronephrosis, with acute encephalopathy. Was started on Zosyn, during hospitalization due to acute kidney injury creatinine up to 1.6, Zosyn was changed to ciprofloxacin. Received gentle IV hydration. DARLENE resolved, creatinine down to 1. Mental status has been gradually improving, and she is doing much better, much more alert and lucid. During hospitalization also noted to have worsening anemia, hemoglobin down to 7.6. VTE prophylaxis anticoagulation was held. She received Protonix, and this is increased to twice daily. Please reassess hemoglobin and BMP on Friday. Please refer for endoscopic evaluation once acute illness resolves. Incidentally she was seen to have had moderate diffuse cerebral atrophy with old lacunar infarct in left basal ganglia. After anemia is worked up she would benefit from antiplatelet medication. She is started on statin. Please jesse nue to optimize cardiovascular risk factors. Due to deconditioning, generalized weakness, falls, she is proceeding to rehabilitation at discharge. Physical Exam Const: COMMON NORMALS: alert GENERAL APPEARANCE: cooperative ORIENTATION/CONSCIOUSNESS: Yes awake OTHER: Awake, alert, pleasant, conversant, lucid. HENMT: COMMON NORMALS: oropharynx normal Neck/C-Spine: COMMON NORMALS: no JVD Resp: COMMON NORMALS: normal respiratory effort and clear to auscultation bilaterally AUSCULTATION: clear to auscultation bilaterally Cardio: COMMON NORMALS: no JVD, regular rhythm, S1 normal heart sound present, S2 normal heart sound present and No murmurs present (Cardio) RHYTHM: regular rhythm HEART SOUNDS: S1 normal heart sound present and S2 normal heart sound present GI: COMMON NORMALS: Normal to inspection, nondistended, normoactive bowel sounds present, Soft to palpation and non-tender PALPATION: Yes Soft to palpation Extremity: COMMON NORMALS: no joint enlargement and no pedal edema Neuro: COMMON NORMALS: moves all extremities SENSORIUM/ORIENTATION: Yes alert Skin: COMMON NORMALS: no rashes or lesions noted GENERAL SKIN EXAM: no rashes or lesions noted Urinary Catheter Management: Weiss: Cath Placed During This Visit: yes, but has since been removed by the nurse Reason for Continuing Indwelling Catheter: Decision to DC Catheter Urinary Catheter Date of Insertion: 05/14/22 Urinary Catheter Time of Insertion: 21:13 Date Urinary Catheter Removed: 05/16/22 Time Urinary Catheter Discontinued: 18:58 Discharge Data Studies Completed and Pending Completed Studies During Hospitalization Category Date Time Status CT abdomen pelvis wo con [id number] Stat Cat Scan 05/14/22 22:[address] head wo con* [id number] Stat Cat Scan 05/14/22 22:22 Completed XR chest 1V portable [id number] Stat Exams 05/14/22 20:50 Completed Pending at discharge Category Date Time Status Blood Culture Stat Lab 05/14/22 11:40 Results SARS Covid-2 Antigen Routine Lab 05/17/22 13:00 Uncollected Radiology Impressions Chest X-Ray 05/14/22 20:50 IMPRESSION: No acute findings. Abdomen/Pelvis CT 05/14/22 22:03 IMPRESSION: 1. Severe fatty infiltration of the liver. 2. Stable cholecystectomy. 3. Interval appearance of mild inflammation surrounding the left kidney suggesting possible left urinary tract infection. 4. Weiss balloon catheter in the urinary bladder. Head CT 05/14/22 22:22 IMPRESSION: 1. No acute intracranial abnormality. 2. Moderate diffuse cerebral atrophy with old lacunar infarct noted in the left basal ganglia. Laboratory Results WBC 10.6 10^3/uL (4.0-10.0) H 05/17/22 04:03 RBC 3.11 10^6/uL (4.1-5.3) L 05/17/22 04:03 Hgb 7.6 g/dL (11.5-15.3) L 05/17/22 04:03 Hct 27.0 % (37.0-47.0) L 05/17/22 04:03 MCV 86.8 fl (81-99) 05/17/22 04:03 MCH 24.4 pg (28.0-34.0) L 05/17/22 04:03 MCHC 28.1 g/dL (30.0-36.0) L 05/17/22 04:03 RDW 16.7 % (12.1-15.1) H 05/17/22 04:03 Plt Count 321 10^3/cmm (130-400) 05/17/22 04:03 MPV 9.6 fL (7.4-10.4) 05/17/22 04:03 Neut % (Auto) 65.7 % 05/17/22 04:03 Lymph % (Auto) 16.9 % 05/17/22 04:03 [place] % (Auto) 14.1 % 05/17/22 04:03 Eos % (Auto) 2.2 % 05/17/22 04:03 Baso % (Auto) 0.3 % 05/17/22 04:03 Neut # (Auto) 6.99 10^3/uL (1.8-7.7) 05/17/22 04:03 Lymph # (Auto) 1.8 10^3/uL (0.8-4.8) 05/17/22 04:03 [place] # (Auto) 1.5 10^3/uL (0.2-0.9) H 05/17/22 04:03 Eos # (Auto) 0.2 10^3/uL (0.0-0.8) 05/17/22 04:03 Baso # (Auto) 0.0 10^3/uL (0.0-0.1) 05/17/22 04:03 Nucleated RBC % (auto) 0 % 05/17/22 04:03 Nucleated RBCs # 0.0 /100WBC 05/17/22 04:03 Specimen Type Arterial 05/14/22 21:35 Sample Site Brachial, left 05/14/22 21:35 ABG pH 7.45 (7.35-7.45) 05/14/22 21:35 ABG pCO2 32.2 mmHg (35-45) L 05/14/22 21:35 ABG pO2 85.8 mmHg (80.0-100.0) 05/14/22 21:35 ABG HCO3 22.4 mmol/L (22-26) 05/14/22 21:35 ABG O2 Saturation 98.1 05/14/22 21:35 ABG Base Excess -1.1 mmol/L (-2.0-2.0) 05/14/22 21:35 Scott Test N/a 05/14/22 21:35 A-a O2 Gradient 3.0 mmHg (5-10) L 05/14/22 21:35 Hematocrit 28.7 % (37-47) L 05/14/22 21:35 Hgb O2 Saturation 97.1 % (95-100) 05/14/22 21:35 Carboxyhemoglobin 1.4 %THgb (0.4-20.1) 05/14/22 21:35 Methemoglobin < 0.0 % (0.4-1.5) L 05/14/22 21:35 Total Hemoglobin 9.4 g/dL (12-16) L 05/14/22 21:35 Sodium 138.0 mmol/L (131-143) 05/14/22 21:35 Potassium 4.0 mmol/L (3.5-5.0) 05/14/22 21:35 Glucose 179.0 mg/dL (70-115) H 05/14/22 21:35 Ionized Calcium 1.2 mmol/L (1.1-1.4) 05/14/22 21:35 O2 Delivery Device Nc 05/14/22 21:35 O2 Liters/Min 0.5 % 05/14/22 21:35 Custom Feed Mill Operator Helper ID Hinja 05/14/22 21:35 Sodium 141 mmol/L (136-145) 05/17/22 04:03 Potassium 3.7 mmol/L (3.5-5.1) 05/17/22 04:03 Chloride 106 mmol/L (98-107) 05/17/22 04:03 Carbon Dioxide 26 mmol/L (22-29) 05/17/22 04:03 Anion Gap 12.7 (5-19) 05/17/22 04:03 BUN 14 mg/dL (8-23) 05/17/22 04:03 Creatinine 1.0 mg/dL (0.5-0.9) H 05/17/22 04:03 GFR Calculation Not Reportable 05/17/22 04:03 Glucose 169 mg/dL (65-115) H 05/17/22 04:03 POC Glucose 156 mg/dL (70-110) H 05/17/22 11:07 Estimat Average Glucose 128 05/15/22 04:08 Hemoglobin A1c 6.1 % (4.0-6.0) H 05/15/22 04:08 Calculated Osmolality 296 mOsm/kg (285-295) H 05/17/22 04:03 Lactate 0.9 mmol/L (0.5-2.2) 05/17/22 04:03 Calcium 8.4 mg/dL (8.5-10.5) L 05/17/22 04:03 Phosphorus 3.1 mg/dL (2.5-4.5) 05/17/22 04:03 Magnesium 1.8 mg/dL (1.7-2.3) 05/17/22 04:03 Iron 9 ug/dL (37-145) L 05/16/22 03:21 TIBC 234 mcg/dl 05/16/22 03:21 % Saturation 3.8 % (20-50) L 05/16/22 03:21 Unsat Iron Binding 225 ug/dL (112-347) 05/16/22 03:21 Ferritin 78 ng/mL (15-150) 05/16/22 03:21 Total Bilirubin 0.2 mg/dL (0.15-1.2) 05/17/22 04:03 AST 31 U/L (0-32) 05/17/22 04:03 ALT 24 U/L (0-33) 05/17/22 04:03 Alkaline Phosphatase 119 U/L (35-105) H 05/17/22 04:03 Creatine Kinase 147 U/L (26-192) 05/16/22 03:21 Troponin T Baseline 20 ng/L (0-10) H 05/14/22 20:59 Troponin T 120 Minute 25.77 ng/L (0-10) H 05/14/22 11:42 Delta Troponin T 5.77 ABS# (0-10) 05/14/22 11:42 C-Reactive Protein 95.1 mg/L (0.0-4.9) H 05/17/22 04:03 NT-Pro-B Natriuret Pep 331 pg/mL (0-125) H 05/14/22 20:59 Total Protein 4.9 g/dL (6.6-8.7) L 05/17/22 04:03 Albumin 3.1 g/dL (3.5-5.2) L 05/17/22 04:03 Globulin 1.8 g/dL (1.3-4.6) 05/17/22 04:03 Triglycerides 125 mg/dL (0-150) 05/15/22 04:08 Cholesterol 177 mg/dL (0-200) 05/15/22 04:08 LDL Cholesterol, Calc 115 mg/dL (50-129) 05/15/22 04:08 HDL Cholesterol 37 mg/dL (60-100) L 05/15/22 04:08 LDL/HDL Ratio 3.11 RATIO (0.00-3.22) 05/15/22 04:08 Cholesterol/HDL Ratio 4.78 mg/dL (0.0-4.40) H 05/15/22 04:08 Lipase 18 U/L (13-60) 05/14/22 20:59 Vitamin B12 590 pg/mL (232-1245) 05/16/22 03:21 Folate > 20.0 ng/mL (4.8-37.3) 05/16/22 03:21 Procalcitonin 2.12 ng/mL (0-0.5) H 05/16/22 03:21 TSH 1.63 uIU/mL (0.27-4.20) 05/15/22 04:08 Free T4 1.08 ng/dL (0.82-1.77) 05/14/22 20:59 Urine Color Yellow (Yellow) 05/14/22 20:58 Urine Appearance Hazy (CLEAR) A 05/14/22 20:58 Urine pH 5 (5-7) 05/14/22 20:58 Ur Specific [place] 1.020 (1.005-1.030) 05/14/22 20:58 Urine Protein 1+ (Negative) H 05/14/22 20:58 Urine Glucose (UA) Norm (Normal) 05/14/22 20:58 Urine Ketones Negative (Negative) 05/14/22 20:58 Urine Blood 2+ (Negative) H 05/14/22 20:58 Urine Nitrate Positive (Negative) H 05/14/22 20:58 Urine Bilirubin Neg (Negative) 05/14/22 20:58 Urine Urobilinogen Norm mg/dL (Negative) 05/14/22 20:58 Ur Leukocyte Esterase 2+ (Negative) H 05/14/22 20:58 Urine RBC 0-4 /hpf (0-2) H 05/14/22 20:58 Urine WBC Too numerous to cnt /hpf (0-5) H 05/14/22 20:58 Ur Squamous Epith Cells 0-4 /hpf (0-5) H 05/14/22 20:58 Amorphous Sediment Not Reportable 05/14/22 20:58 Urine Bacteria 4+ /hpf (NONE) H 05/14/22 20:58 Coronavirus 229E (PCR) Not detected (NOT DETECT) 05/14/22 20:59 SARS-CoV-2 (PCR) Not detected (NOT DETECT) 05/14/22 20:59 Vitals Last Vital Signs Temp 98.2 F 05/17/22 11:42 Pulse 80 05/17/22 11:42 Resp 16 05/17/22 11:42 BP 140/62 05/17/22 11:42 Pulse Ox 98 05/17/22 11:42 O2 Del Method 05/17/22 11:42 O2 Flow Rate 3 05/17/22 11:17 Discharge Plan Discharge Patient Disposition: Xfer SNF Condition: Stable Prescriptions: New pantoprazole 40 mg tablet,delayed release (DR/EC) 40 mg PO BID 42 Days Qty: 84 0RF ciprofloxacin HCl [Cipro] 500 mg tablet 500 mg PO Q12H Qty: 9 0RF atorvastatin 40 mg tablet 40 mg PO QPM Qty: 90 0RF Continued hyoscyamine sulfate [Levsin] 0.125 mg tablet 0.125 mg PO DAILY PRN (Reason: Abdominal Discomfort) metformin 750 mg tablet extended release 24 hr 750 mg PO BID Qty: 180 1RF Lantus Solostar U-100 Insulin 100 unit/mL (3 mL) insulin pen 40 unit SUBCUT BID Rx Instructions: 340B ascorbate calcium (vitamin C) 500 mg tablet 500 mg PO QAM potassium chloride 10 mEq tablet extended release 10 meq PO BID gabapentin 300 mg capsule 300 mg PO BID duloxetine 60 mg capsule,delayed release(DR/EC) 60 mg PO QAM nystatin [Nystop] 100,000 unit/gram powder 1 applic topical DAILY PRN (Reason: unknown) carvedilol 3.125 mg tablet 3.125 mg PO BID Rx Instructions: must administer with a meal/food hydroxyzine HCl 25 mg tablet 25 mg PO BID albuterol sulfate 90 mcg/actuation HFA aerosol inhaler 2 puff INHALATION Q6H PRN (Reason: shortness of breath or wheezing) Qty: 8.5 2RF (DME) pen needle, diabetic [TechLITE Pen Needle] 32 gauge x 5/32 needle See Rx Instructions .ROUTE .COMPLEX Qty: 100 0RF Dose Instruction: USE NEEDLES WITH INSULIN SYRINGE Rx Instructions: USE NEEDLES WITH INSULIN SYRINGE amlodipine 10 mg Tablet 10 mg PO QAM ferrous sulfate [iron] 325 mg (65 mg iron) Tablet 650 mg PO QAM Tylenol Ex Str Rapid Release 500 mg Tablet 1,500 mg PO Q6H PRN (Reason: Pain) Flovent HFA 220 mcg/actuation Hfa Aerosol Inhaler 1 puff INHALATION BID PRN (Reason: unknown) Discharge Orders: Discharge Order (Routine); Ordered 05/17/22 Ordered By: Jacky Spangler Referrals: Primary, provi [Other] - 4-7 days Geetha Silva FNP [Primary Care Provider] - Galdino Mojica MD [Family Provider] - Discharge Diet: Cardiac and Diabetic Discharge Activity: As per PT/OT instructions and Oxygen as instructed Patient Instructions: Ciprofloxacin (By mouth), Urinary Tract Infection in Women (GEN), Fall Prevention (GEN), Prevent Cardiovascular Disease (GEN) Activity Restrictions/Additional Instructions: Complete ciprofloxacin course for complicated urinary infection, kidney infection. Please follow-up with your primary doctor for reassessment. Please discuss also regarding positive Hemoccult, anemia. You are started on pantoprazole. Please avoid any NSAIDs. Discuss with your primary doctor for assessment by endoscopy if at least upper endoscopy has not been done recently, so that your anemia and slow GI blood loss can be assessed more closely after you recover from acute kidney infection. Discuss with your primary doctor regarding acute kidney injury with creatinine increase in the hospital up to 1.6 which has improved. Please have your primary doctor follow-up kidney function. SNF: Please recheck hemoglobin and BMP on Friday. Please discuss with your primary doctor noted old small lacunar stroke in the le ft basal ganglia. You are started on cholesterol medication, once anemia is worked up you would benefit from an antiplatelet medication. Continue to work with your primary doctor to optimize cardiovascular risk factors. Please revisit CPAP for CAMILA. Continue nasal cannula oxygen 2 L, wean down as tolerating. Discharge Attestations Time Spent in Discharge Care*: greater than 30 min Status at Discharge: Cognitive status at discharge: cognitively intact , Behavioral status at discharge: cooperative , Quality Metrics Clinical Quality Measures [ No reported AMI, CVA or VTE this stay] Coding Level of Care Code Acute Chg FW DC note Diagnoses Acute UTI N39.0 Acute kidney injury N17.9 Anemia D64.9 Declining functional status R53.81 Altered mental status R41.82 Fall W19.XXXA DM type 2 with diabetic mixed hyperlipidemia E11.69; E78.2 Hypertension I10 Type 2 diabetes mellitus E11.9; Z79.4 Diabetes mellitus long-term insulin use: with termite inspector use Diabetes mellitus complication status: without complication
[2022-05-17 15:09] LABS: SARS Covid-2 Antigen Negative (Negative)
--- NOTE | 2022-05-17 16:49 | PC.NURSE ---
Discharge Note Patient discharged to [facility] via ambulance accompanied by ambulance personnel. Discharge instructions reviewed with patient and/or contact representative. Mobile pharmacy medications and/or prescriptions provided. Belongings/home medications returned.
--- NOTE | 2022-05-17 16:50 | PC.NURSE ---
Called report to [facility] spoke with Natalie LACY. Filled out PCS and contacted Donnell Chris for transport. IV and telemetry removed. Patient clean and ready to transport.
[2022-05-17 17:18] LABS: Glucose Point of Care 182 mg/dL (70-110)
== END 2022-05-17 17:47 | disposition skilled nursing facility (03) | DRG 689 ==
LOC: ER 05-15 02:16 → ICU 05-15 02:21 → MEDSURG 05-16 14:36
PROVIDERS: Admitting Provider Family Medicine; Emergency Provider Emergency Medicine; Family Provider Family Medicine; PCP Registered Nurse; Visit Provider Internal Medicine
DX: N39.0 Urinary tract infection, site not specified (principal); G93.41 Metabolic encephalopathy; N17.9 Acute kidney failure, unspecified; E11.42 Type 2 diabetes mellitus with diabetic polyneuropathy; E11.22 Type 2 diabetes mellitus with diabetic chronic kidney disease; I12.9 Hypertensive chronic kidney disease with stage 1 through stage 4 chronic kidney disease, or unspecified chronic kidney disease; N18.9 Chronic kidney disease, unspecified; F41.9 Anxiety disorder, unspecified; J44.9 Chronic obstructive pulmonary disease, unspecified; G47.33 Obstructive sleep apnea (adult) (pediatric); Z87.891 Personal history of nicotine dependence; E78.2 Mixed hyperlipidemia; D63.1 Anemia in chronic kidney disease; N12 Tubulo-interstitial nephritis, not specified as acute or chronic; Z86.73 Personal history of transient ischemic attack (TIA), and cerebral infarction without residual deficits; Z79.84 Long term (current) use of oral hypoglycemic drugs; Z79.4 Long term (current) use of insulin; Z79.51 Long term (current) use of inhaled steroids
CPT/HCPCS: 36415; 36416; 36600; 51702; 70450; 71045; 74176; 80051; 80053; 80061; 81001; 82274; 82330; 82550; 82607; 82728; 82746; 82805; 82962; 83036; 83540; 83550; 83605; 83690; 83735; 83880; 84100; 84145; 84439; 84443; 84484; 85025; 86140; 87040; 87077; 87086; 87186; 87426; 87635; 93005; 94640; 94664; 96365; 96367; 96372; 97110; 97161; 97165; 97530; 99285; C9113; J0692; J0744; J1650; J1815; J2270; J2405; J2543; J3370; J3535; J7030; J7050

== ENCOUNTER → 2022-08-07 12:47 | Day surgery (SDC) | payer MEDICARE, OTHER, SELFPAY ==
[2022-08-07] MEDS: ferric carboxy (IVPB) 750 MG in sodium chloride 0.9% (100 ml) 100 ML 345 MG IV (13:06)
[2022-08-07 13:09] VITALS: BP 151/60; PULSE 98; RESP 18; TEMP 35.9; O2SAT 95
== END ==
PROVIDERS: PCP Family Medicine; Visit Provider Family Medicine
DX: D50.9 Iron deficiency anemia, unspecified (principal)
CPT/HCPCS: 96365; J1439

== ENCOUNTER → 2022-08-14 12:46 | Day surgery (SDC) | payer MEDICARE, OTHER, SELFPAY ==
[2022-08-14] MEDS: ferric carboxy (IVPB) 750 MG in sodium chloride 0.9% (100 ml) 100 ML 345 MG IV (13:02)
[2022-08-14 13:05] VITALS: BP 140/69; PULSE 95; RESP 18; TEMP 36.1; O2SAT 94
== END ==
PROVIDERS: PCP Family Medicine; Visit Provider Family Medicine
DX: D50.9 Iron deficiency anemia, unspecified (principal); D75.839 Thrombocytosis, unspecified; D72.829 Elevated white blood cell count, unspecified; Z79.899 Other long term (current) drug therapy; Z87.891 Personal history of nicotine dependence
CPT/HCPCS: 36415; 80053; 82728; 83540; 83550; 85025; 96365; 99204; J1439

== ENCOUNTER 2022-08-14 15:38 | Oncology outpatient (recurring) (ONCR) | payer MEDICARE, OTHER, SELFPAY | END 2022-08-28 23:59 | disposition home or self-care (01) | PROVIDERS: PCP Family Medicine; Visit Provider Internal Medicine Medical Oncology | DX: D50.9 Iron deficiency anemia, unspecified (principal); D75.839 Thrombocytosis, unspecified; D72.829 Elevated white blood cell count, unspecified; Z79.899 Other long term (current) drug therapy; Z87.891 Personal history of nicotine dependence | CPT/HCPCS: 36415; 80053; 82728; 83540; 83550; 85025; 99204 ==

== ENCOUNTER 2022-08-16 23:47 | Emergency (ER) | payer MEDICARE, OTHER, SELFPAY ==
[2022-08-17 00:09] VITALS: BP 164/97; PULSE 85; RESP 26; TEMP 37.6; O2SAT 97; BMI 35.5
--- NOTE | 2022-08-17 00:20 | ECG_ITS ---
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 Measurements Intervals [place] Rate: 84 P: 81 KS: 144 QRS: -55 QRSD: 108 T: 86 QT: 368 QTc: 435 Interpretive Statements SINUS RHYTHM INCOMPLETE RIGHT BUNDLE BRANCH BLOCK [90+ ms QRS DURATION, TERMINAL R IN V1/V2, 40+ ms S IN I/aVL/V4/V5/V6] LEFT ANTERIOR FASCICULAR BLOCK [QRS AXIS <= -45, QR IN I, RS IN II] SEPTAL MYOCARDIAL INFARCTION , OF INDETERMINATE AGE [40+ ms Q WAVE IN V1/V2] Compared to ECG 05/14/2022 23:11:05 No significant changes Electronically Signed On 08-19-2022 18:24:42 CALL OR CONTACT CENTRE MANAGER by Sundeep Fleming M.D. [email or web address]
--- NOTE | 2022-08-17 00:42 | XRR_ITS ---
PROCEDURE INFORMATION: Exam: XR Chest Exam date and time: 08/17/2022 1:52 AM Age: 72 years old Clinical indication: Shortness of breath; Additional info: SOB TECHNIQUE: Imaging protocol: Radiologic exam of the chest. Views: 1 view. COMPARISON: CR (CHEST, ) 05/14/2022 9:01 PM FINDINGS: Tubes, catheters and devices: Stable postoperative metallic fixation of the cervical spine with or without metallic artifact. Lungs: Stable COPD . Pleural spaces: Unremarkable. No pleural effusion. No pneumothorax. Heart/Mediastinum: Unremarkable. No cardiomegaly. Bones/joints: Moderate thoracic spondylosis. XR/XR chest 1V portable [id number] IMPRESSION: Stable COPD .
[2022-08-17 00:53] LABS: Basophils # 0.1 10^3/uL (0.0-0.1); Basophils % 0.4 %; Eosinophils # 0.6 10^3/uL (0.0-0.8); Eosinophils % 2.9 %; Hematocrit 33.3 % (37.0-47.0); Hemoglobin 9.2 g/dL (11.5-15.3); Lymphocytes # 1.8 10^3/uL (0.8-4.8); Mean Corpuscular HGB Conc 27.6 g/dL (30.0-36.0); Mean Corpuscular Hemoglobin 22.7 pg (28.0-34.0); Mean Platelet Volume 9.3 fL (7.4-10.4); Monocytes # 1.4 10^3/uL (0.2-0.9); Neutrophils # 15.95 10^3/uL (1.8-7.7); Neutrophils % 79.8 %; Nucleated Red Blood Cells # 0.1 /100WBC; Nucleated Red Blood Cells % 0.2 %; Platelet Count 473 10^3/cmm (130-400); Red Blood Count 4.06 10^6/uL (4.1-5.3); Red Cell Distribution Width 22.6 % (12.1-15.1)
[2022-08-17 01:19] LABS: Alanine Aminotransferase 27 U/L (0-33); Albumin Level 3.8 g/dL (3.5-5.2); Alkaline Phosphatase 193 U/L (35-105); Anion Gap 16.3 (5-19); Aspartate Amino Transferase 24 U/L (0-32); Blood Urea Nitrogen 15 mg/dL (8-23); Calcium 9.4 mg/dL (8.5-10.5); Carbon Dioxide 24 mmol/L (22-29); Chloride 102 mmol/L (98-107); Globulin 3.2 g/dL (1.3-4.6); Glucose 157 mg/dL (65-115); NT Pro B Type Natriuretic Pept 250 pg/mL (0-125); Osmolality Calculated 290 mOsm/kg (285-295); Potassium 4.3 mmol/L (3.5-5.1); Sodium 138 mmol/L (136-145); Total Bilirubin 0.2 mg/dL (0.15-1.2)
[2022-08-17] MEDS: ipratropium-albuterol 3 mL Neb INHALATION (01:30)
[2022-08-17 01:31] VITALS: PULSE 86; RESP 19; O2SAT 96
[2022-08-17 01:48] LABS: ABG PCO2 40.9 mmHg (35-45); ABG PH Result 7.37 (7.35-7.45); Arterial Blood Gas Hematocrit 28.2 % (37-47); Base Excess ABG -1.9 mmol/L (-2.0-2.0); Blood Gas Allen Test Pos; Blood Gas Operator Identificat Anonymous; Blood Gas Sample Type Arterial; Carboxyhemoglobin 1.7 %THgb (0.4-20.1); HCO3 ABG 23.4 mmol/L (22-26); HGB O2 Sat 95.1 % (95-100); Methemoglobin < 0.0 % (0.4-1.5); PO2 ABG 81.6 mmHg (80.0-100.0); Total Hemoglobin 9.2 g/dL (12-16)
[2022-08-17 01:49] LABS: Blood Gas Sample Site Brachial, right; Fractionated Inspired Oxygen 0.5 %; Oxygen Device NC
[2022-08-17 01:54] LABS: Influenza A by IFA negative (Negative); Influenza B by IFA negative (Negative)
[2022-08-17 01:55] LABS: SARS Covid-2 Antigen positive (Negative)
[2022-08-17 02:16] VITALS: BP 162/58; PULSE 94; RESP 20; O2SAT 94
[2022-08-17 02:38] LABS: Reflex Lactate Order REFLEX LACTIC ORDERD
[2022-08-17 04:45] VITALS: BP 166/92; PULSE 90; RESP 19; O2SAT 96
--- NOTE | 2022-08-17 16:26 | W.ED.SOB ---
HPI - SOB/Dyspnea General: Chief Complaint: Shortness of Breath/Dyspnea Stated Complaint: SOB Time Seen by Provider: 08/17/22 00:21 Source: patient History of Present Illness: HPI Narrative: 72 year old female with a history of COPD and diabetes. She notes worsening cough and shortness of breath for the past couple of days. She has used her inhaler, but it doesn't seem to help a whole lot. She denies significant fever. She does not use oxygen at home. She does use a cpap machine, but the machine itself is not working well. MD elicited complaint: shortness of breath and cough Pertinent past history: COPD Onset (ago): day(s) (2) Context: recent illness Timing: constant Severity: moderate Exacerbating factors: lying flat and exertion Relieving factors: oxygen Known history of: COPD, diabetes and other Associated symptoms: Reports chest congestion and cough; Deny abdominal pain, chest pain, fever(s), nausea, rash or vomiting Treatment prior to arrival: oxygen Review of Systems Const: Denies: fever(s) Card: Denies: chest pain Resp: Reports: dyspnea, non-productive cough and chest congestion; Denies: wheezing GI: Denies: abdominal pain, nausea or vomiting Neuro: Reports: headache(s) PFS ED PFSH: Medical History (Updated 08/17/22 @ 03:32 by Huy Xiao DO) Achalasia Anxiety CHF (congestive heart failure) Chronic kidney disease COPD (chronic obstructive pulmonary disease) Depression History of colon polyps Hypertension Left-sided Gotti's palsy Nonalcoholic steatohepatitis Peripheral neuropathy Sleep apnea Type 2 diabetes mellitus Surgical History H/O vaginal surgery (05/22/09) Monarc sling urethropexy. Performed by Dr. Colbert at [facility]. H/O: hysterectomy Hx of cholecystectomy S/P bilateral breast reduction (09/03/11) Family History Denies family history of Diabetes Dementia Hyperlipidemia Family history of premature coronary artery disease Cancer Social History Smoking and tobacco status: former smoker (STOPPED 31 YEARS AGO) Alcohol intake: never Household members: spouse Housing: House Physical Exam Const: COMMON NORMALS: no acute distress GENERAL APPEARANCE: cooperative and frail appearing (mildly) HENMT: COMMON NORMALS: normocephalic, atraumatic and Normal external nose present HEAD & SCALP: normocephalic and atraumatic FACE & SINUS: normal facial exam and face symmetric NOSE: Normal external nose present Eye: COMMON NORMALS: Equal, round and reactive pupils present and EOMs intact bilaterally PUPIL: Yes Equal, round and reactive pupils present Neck/C-Spine: GENERAL: Yes trachea midline Chest: CHEST: Yes Symmetrical chest wall rise Resp: COMMON NORMALS: normal respiratory effort, No retractions, No use of accessory muscles and clear to auscultation bilaterally AUSCULTATION: clear to auscultation bilaterally Cardio: COMMON NORMALS: regular rate and regular rhythm RATE: regular rate RHYTHM: regular rhythm GI: COMMON NORMALS: Normal to inspection, nondistended, normoactive bowel sounds present Extremity: GENERAL: Yes edema Neuro: AMPARO COMA SCALE: document GCS findings Amparo coma scale eye opening: Spontaneous [place] coma scale verbal response: Orientated [place] coma scale motor response: Obey commands [place] coma scale total score: 15 SENSORY EXAM: Yes extremities (intact) Psych: COMMON NORMALS: speech normal SPEECH: Yes normal speech Skin: COMMON NORMALS: no rashes or lesions noted GENERAL SKIN EXAM: no rashes or lesions noted Course Vital Signs: Vital signs: Vital Signs Temperature 99.7 F H 08/17/22 00:09 Pulse Rate 90 08/17/22 04:45 Respiratory Rate 19 H 08/17/22 04:45 Blood Pressure 166/92 08/17/22 04:45 Pulse Oximetry 96 08/17/22 04:45 Oxygen Delivery Ia thod 08/17/22 02:16 Oxygen Flow Rate 0.5 08/17/22 01:31 MDM - SOB/Dyspnea Medical Decision Making 72 year old female with COPD. She is not hypoxic here. She appears stable on the monitor. Chest X-ray does not show an infiltrate. Her WBC count is 20 which is stable from 3 days ago. Her Hb is stable as well. Her COVID-19 rapid the test is positive period because of her pre-existing high risk condition, she will be prescribed antiviral medication. She knows to return for any worsening symptoms. As she has a significant history of diabetes it is insulin dependent, we will elect not to use steroids at this time, as she is not wheezing. Lab Data 08/17/22 00:25 08/17/22 00:25 Labs/Radiology: Radiology Impressions Chest X-Ray 08/17/22 00:42 IMPRESSION: Stable COPD . Laboratory Results WBC 20.0 10^3/uL (4.0-10.0) H 08/17/22 00:25 RBC 4.06 10^6/uL (4.1-5.3) L 08/17/22 00:25 Hgb 9.2 g/dL (11.5-15.3) L 08/17/22 00:25 Hct 33.3 % (37.0-47.0) L 08/17/22 00:25 MCV 82.0 fl (81-99) 08/17/22 00:25 MCH 22.7 pg (28.0-34.0) L 08/17/22 00:25 MCHC 27.6 g/dL (30.0-36.0) L 08/17/22 00:25 RDW 22.6 % (12.1-15.1) H 08/17/22 00:25 Plt Count 473 10^3/cmm (130-400) H 08/17/22 00:25 MPV 9.3 fL (7.4-10.4) 08/17/22 00:25 Neut % (Auto) 79.8 % 08/17/22 00:25 Lymph % (Auto) 9.0 % 08/17/22 00:25 [place] % (Auto) 7.0 % 08/17/22 00:25 Eos % (Auto) 2.9 % 08/17/22 00:25 Baso % (Auto) 0.4 % 08/17/22 00:25 Neut # (Auto) 15.95 10^3/uL (1.8-7.7) H 08/17/22 00:25 Lymph # (Auto) 1.8 10^3/uL (0.8-4.8) 08/17/22 00:25 [place] # (Auto) 1.4 10^3/uL (0.2-0.9) H 08/17/22 00:25 Eos # (Auto) 0.6 10^3/uL (0.0-0.8) 08/17/22 00:25 Baso # (Auto) 0.1 10^3/uL (0.0-0.1) 08/17/22 00:25 Nucleated RBC % (auto) 0.2 % 08/17/22 00:25 Nucleated RBCs # 0.1 /100WBC 08/17/22 00:25 Specimen Type Arterial 08/17/22 01:34 Sample Site Brachial, right 08/17/22 01:34 ABG pH 7.37 (7.35-7.45) 08/17/22 01:34 ABG pCO2 40.9 mmHg (35-45) 08/17/22 01:34 ABG pO2 81.6 mmHg (80.0-100.0) 08/17/22 01:34 ABG HCO3 23.4 mmol/L (22-26) 08/17/22 01:34 ABG Base Excess -1.9 mmol/L (-2.0-2.0) 08/17/22 01:34 Scott Test Pos 08/17/22 01:34 Hematocrit 28.2 % (37-47) L 08/17/22 01:34 Hgb O2 Saturation 95.1 % (95-100) 08/17/22 01:34 Carboxyhemoglobin 1.7 %THgb (0.4-20.1) 08/17/22 01:34 Methemoglobin < 0.0 % (0.4-1.5) L 08/17/22 01:34 Total Hemoglobin 9.2 g/dL (12-16) L 08/17/22 01:34 O2 Delivery Device Nc 08/17/22 01:34 FiO2 0.5 % 08/17/22 01:34 Nutritional Services Director ID Anonymous 08/17/22 01:34 Sodium 138 mmol/L (136-145) 08/17/22 00:25 Potassium 4.3 mmol/L (3.5-5.1) 08/17/22 00:25 Chloride 102 mmol/L (98-107) 08/17/22 00:25 Carbon Dioxide 24 mmol/L (22-29) 08/17/22 00:25 Anion Gap 16.3 (5-19) 08/17/22 00:25 BUN 15 mg/dL (8-23) 08/17/22 00:25 Creatinine 1.0 mg/dL (0.5-0.9) H 08/17/22 00:25 GFR Calculation Not Reportable 08/17/22 00:25 Glucose 157 mg/dL (65-115) H 08/17/22 00:25 Calculated Osmolality 290 mOsm/kg (285-295) 08/17/22 00:25 Lactic Acid 3.0 mmol/L (0.5-2.2) H 08/17/22 00:25 Calcium 9.4 mg/dL (8.5-10.5) 08/17/22 00:25 Total Bilirubin 0.2 mg/dL (0.15-1.2) 08/17/22 00:25 AST 24 U/L (0-32) 08/17/22 00:25 ALT 27 U/L (0-33) 08/17/22 00:25 Alkaline Phosphatase 193 U/L (35-105) H 08/17/22 00:25 NT-Pro-B Natriuret Pep 250 pg/mL (0-125) H 08/17/22 00:25 Total Protein 7.0 g/dL (6.6-8.7) 08/17/22 00:25 Albumin 3.8 g/dL (3.5-5.2) 08/17/22 00:25 Globulin 3.2 g/dL (1.3-4.6) 08/17/22 00:25 Influenza Type A Ag negative (Negative) 08/17/22 01:18 Influenza Type B Ag negative (Negative) 08/17/22 01:18 SARS-CoV-2 Ag (Rapid) positive (Negative) 08/17/22 01:18 Discharge Plan Discharge Patient Disposition: Home Clinical Impression: COVID-19 Condition: Stable Prescriptions: New Paxlovid (EUA) 300 mg (150 mg x 2)-100 mg tablets,dose pack See Rx Instructions .ROUTE .COMPLEX Qty: 30 0RF Rx Instructions: take TWO 150 mg tablets of nirmatrelvir with ONE 100 mg tablet of ritonavir twice daily for 5 days No Action hyoscyamine sulfate [Levsin] 0.125 mg tablet 0.125 mg PO DAILY PRN (Reason: Abdominal Discomfort) metformin 750 mg tablet extended release 24 hr 750 mg PO BID Qty: 180 1RF Lantus Solostar U-100 Insulin 100 unit/mL (3 mL) insulin pen 40 unit SUBCUT BID ascorbate calcium (vitamin C) 500 mg tablet 500 mg PO QAM potassium chloride 10 mEq tablet extended release 10 meq PO BID gabapentin 300 mg capsule 300 mg PO BID duloxetine 60 mg capsule,delayed release(DR/EC) 60 mg PO QAM nystatin [Nystop] 100,000 unit/gram powder 1 applic topical DAILY PRN (Reason: unknown) carvedilol 3.125 mg tablet 3.125 mg PO BID Rx Instructions: must administer with a meal/food hydroxyzine HCl 25 mg tablet 25 mg PO BID albuterol sulfate 90 mcg/actuation HFA aerosol inhaler 2 puff INHALATION Q6H PRN (Reason: shortness of breath or wheezing) Qty: 8.5 2RF (DME) pen needle, diabetic [TechLITE Pen Needle] 32 gauge x 5/32 needle See Rx Instructions .ROUTE .COMPLEX Qty: 100 0RF Dose Instruction: USE NEEDLES WITH INSULIN SYRINGE Rx Instructions: USE NEEDLES WITH INSULIN SYRINGE amlodipine 10 mg Tablet 10 mg PO QAM ferrous sulfate [iron] 325 mg (65 mg iron) Tablet 650 mg PO QAM acetaminophen 500 mg Tablet 1,500 mg PO Q6H PRN (Reason: Pain) fluticasone propionate [Flovent HFA] 220 mcg/actuation Hfa Aerosol Inhaler 1 puff INHALATION BID PRN (Reason: unknown) atorvastatin 40 mg tablet 40 mg PO QPM Qty: 90 0RF Discharge Orders: Discharge ED (Routine); Ordered 08/17/22 Ordered By: Huy Xiao Referrals: Galdino Mojica MD [Primary Care Provider] - 4-7 days Patient Instructions: COVID-19 (Coronavirus Disease 2019) (ED) Activity Restrictions/Additional Instructions: Monitor for temperatures. Use your inhaler every 4 hours while awake for the next 48 hours, then as needed. Antiviral medication as prescribed. Return for worsening shortness of breath despite treatment, inability to control temperature, any other concerning symptoms. Coding Level of Care Code ED Propellant Charge Zone Assembler for Dionicio Loyd
== END 2022-08-17 04:15 | disposition home or self-care (01) ==
PROVIDERS: Emergency Provider Emergency Medicine; PCP Family Medicine
DX: U07.1 COVID-19 (principal); J44.9 Chronic obstructive pulmonary disease, unspecified; I12.9 Hypertensive chronic kidney disease with stage 1 through stage 4 chronic kidney disease, or unspecified chronic kidney disease; E11.22 Type 2 diabetes mellitus with diabetic chronic kidney disease; N18.9 Chronic kidney disease, unspecified
CPT/HCPCS: 36415; 36600; 71045; 80053; 82270; 82805; 83605; 83880; 85025; 87040; 87426; 87804; 93005; 94640; 99285

== ENCOUNTER 2022-08-17 18:27 | Inpatient (IN) | payer MEDICARE, OTHER, SELFPAY ==
[2022-08-17 18:30] VITALS: BP 171/135; PULSE 108; RESP 19; O2SAT 97; BMI 29.8
--- NOTE | 2022-08-17 18:32 | XRR_ITS ---
PROCEDURE INFORMATION: Exam: XR Chest Exam date and time: 08/17/2022 7:39 PM Age: 72 years old Clinical indication: Fever and shortness of breath; Additional info: SOB, covid + TECHNIQUE: Imaging protocol: Radiologic exam of the chest. Views: 1 view. COMPARISON: No relevant prior studies available. FINDINGS: Lungs: Lungs are clear bilaterally. Pleural spaces: No pleural effusion. No pneumothorax. Heart/Mediastinum: The cardiac silhouette is mildly enlarged. Mediastinal contours are unremarkable. Vasculature: Vascular calcifications in the aorta. Bones/joints: Degenerative changes in the spine and shoulders. Post-surgical changes consistent with previous spine fusion from C6-C7. XR/XR chest 1V portable [id number] IMPRESSION: 1. No acute cardiopulmonary process. 2. Incidental/nonacute findings are listed in the report.
--- NOTE | 2022-08-17 18:34 | W.ED.SOB ---
HPI - SOB/Dyspnea General: Chief Complaint: Shortness of Breath/Dyspnea Stated Complaint: SOB; COVID + Time Seen by Provider: 08/17/22 18:32 History of Present Illness: HPI Narrative: 72-year-old female presents with shortness of breath. Patient was seen yesterday and diagnosed with COVID. At that time she had good oxygenation. Since last night patient's shortness of breath is worsened. When EMS arrived her oxygen was in the 70s. She rapidly improved with repositioning and nonrebreather. She has been weaned from the nonrebreather to 4 L nasal cannula is maintaining oxygen in the upper 90s. Patient received no other treatment. Associated symptoms: Deny abdominal pain, chest pain, dizziness, extremity pain, fever(s), nausea, palpitations or vomiting Review of Systems Const: Reports: malaise; Denies: fever(s) or chills Card: Denies: chest pain or palpitations Resp: Reports: dyspnea and non-productive cough GI: Denies: abdominal pain, nausea or vomiting : Denies: flank pain Musc: Denies: extremity pain or extremity swelling Skin/Breast: Denies: rash or erythema Neuro: Denies: headache(s) or dizziness Physical Exam Const: COMMON NORMALS: no acute distress, no limitations and alert Chest: CHEST: Yes Symmetrical chest wall rise Resp: COMMON NORMALS: normal respiratory effort, No retractions and No use of accessory muscles AUSCULTATION: diminished lung sounds (Mild) Cardio: COMMON NORMALS: regular rhythm RATE: tachycardic RHYTHM: regular rhythm GI: COMMON NORMALS: Soft to palpation PALPATION: Yes Soft to palpation and No Tenderness to palpation present (GI) Extremity: COMMON NORMALS: capillary refill normal Neuro: COMMON NORMALS: no focal motor deficits and no sensory deficits noted SENSORIUM/ORIENTATION: Yes alert Psych: COMMON NORMALS: mental status grossly normal and speech normal SPEECH: Yes normal speech Skin: COMMON NORMALS: turgor normal GENERAL SKIN EXAM: turgor normal Course Vital Signs: Vital signs: Vital Signs Pulse Rate 108 H 08/17/22 18:30 Respiratory Rate 19 H 08/17/22 18:30 Blood Pressure 171/135 08/17/22 18:30 Pulse Oximetry 97 08/17/22 18:30 Oxygen Delivery Me thod 08/17/22 18:30 Oxygen Flow Rate 4 08/17/22 18:30 MDM - SOB/Dyspnea Medical Decision Making Patient with known COVID. Patient with increased oxygen needs, mild elevation in her lactic acid. Patient provide IV fluids and supportive care. Patient admitted for further inpatient management. Discussed with Dr. Brown who graciously excepted patient Lab Data 08/17/22 19:32 08/17/22 19:32 Labs/Radiology: Radiology Impressions Chest X-Ray 08/17/22 18:32 IMPRESSION: 1. No acute cardiopulmonary process. 2. Incidental/nonacute findings are listed in the report. Laboratory Results WBC 18.2 10^3/uL (4.0-10.0) H 08/17/22 19:32 RBC 4.06 10^6/uL (4.1-5.3) L 08/17/22: Hgb 9.5 g/dL (11.5-15.3) L 08/17/22 19: Hct 32.6 % (37.0-47.0) L 08/17/22: MCV 80.3 fl (81-99) L 08/17/22 19: MCH 23.4 pg (28.0-34.0) L 08/17/22: MCHC 29.1 g/dL (30.0-36.0) L 08/17/22: RDW 23.3 % (12.1-15.1) H 08/17/22 19:32 Plt Count 396 10^3/cmm (130-400) 08/17/22: MPV 9.2 fL (7.4-10.4) 08/17/22 19: Neut % (Auto) 85.2 % 08/17/22 19: Lymph % (Auto) 5.0 % 08/17/22 19: [place] % (Auto) 6.5 % 08/17/22: Eos % (Auto) 1.4 % 08/17/22: Baso % (Auto) 0.5 % 08/17/22 19:32 Neut # (Auto) 15.53 10^3/uL (1.8-7.7) H 08/17/22 19: Lymph # (Auto) 0.9 10^3/uL (0.8-4.8) 11/19/22 19:32 [place] # (Auto) 1.2 10^3/uL (0.2-0.9) H 08/17/22 19:32 Eos # (Auto) 0.3 10^3/uL (0.0-0.8) 08/17/22 19:32 Baso # (Auto) 0.1 10^3/uL (0.0-0.1) 08/17/22 19:32 Nucleated RBC % (auto) 0.2 % 08/17/22 19:32 Nucleated RBCs # 0.0 /100WBC 08/17/22 19:32 D-Dimer 0.85 ug/mIFEU (0-0.59) H 08/17/22 19:32 Sodium 132 mmol/L (136-145) L 08/17/22 19:32 Potassium 4.3 mmol/L (3.5-5.1) 08/17/22 19:32 Chloride 95 mmol/L (98-107) L 08/17/22 19:32 Carbon Dioxide 24 mmol/L (22-29) 08/17/22 19:32 Anion Gap 17.3 (5-19) 08/17/22 19:32 BUN 17 mg/dL (8-23) 08/17/22 19:32 Creatinine 1.0 mg/dL (0.5-0.9) H 08/17/22 19:32 GFR Calculation Not Reportable 08/17/22 19:32 Glucose 135 mg/dL (65-115) H 08/17/22 19:32 Calculated Osmolality 278 mOsm/kg (285-295) L 08/17/22 19:32 Lactic Acid 3.1 mmol/L (0.5-2.2) H 08/17/22 19:32 Calcium 9.4 mg/dL (8.5-10.5) 08/17/22 19:32 Total Bilirubin 0.2 mg/dL (0.15-1.2) 08/17/22 19:32 AST 48 U/L (0-32) H 08/17/22 19:32 ALT 34 U/L (0-33) H 08/17/22 19:32 Alkaline Phosphatase 198 U/L (35-105) H 08/17/22 19:32 C-Reactive Protein 48.3 mg/L (0.0-4.9) H 08/17/22 19:32 Total Protein 7.3 g/dL (6.6-8.7) 08/17/22 19:32 Albumin 3.8 g/dL (3.5-5.2) 08/17/22 19:32 Globulin 3.5 g/dL (1.3-4.6) 08/17/22 19:32 Discharge Plan Discharge Patient Disposition: Admitted As Inpatient Clinical Impression: COVID-19, Hypoxia Condition: Stable Coding Level of Care Code ED Medical Billing Assistant for Dianeg Fwd Exam Comprehensive
[2022-08-17 19:40] LABS: Basophils # 0.1 10^3/uL (0.0-0.1); Basophils % 0.5 %; Eosinophils # 0.3 10^3/uL (0.0-0.8); Eosinophils % 1.4 %; Hematocrit 32.6 % (37.0-47.0); Hemoglobin 9.5 g/dL (11.5-15.3); Lymphocytes # 0.9 10^3/uL (0.8-4.8); Mean Corpuscular HGB Conc 29.1 g/dL (30.0-36.0); Mean Corpuscular Hemoglobin 23.4 pg (28.0-34.0); Mean Corpuscular Volume 80.3 fl (81-99); Mean Platelet Volume 9.2 fL (7.4-10.4); Monocytes # 1.2 10^3/uL (0.2-0.9); Monocytes % 6.5 %; Neutrophils # 15.53 10^3/uL (1.8-7.7); Neutrophils % 85.2 %; Nucleated Red Blood Cells % 0.2 %; Platelet Count 396 10^3/cmm (130-400); Red Blood Count 4.06 10^6/uL (4.1-5.3); Red Cell Distribution Width 23.3 % (12.1-15.1); White Blood Count 18.2 10^3/uL (4.0-10.0)
[2022-08-17 19:56] LABS: D Dimer 0.85 ug/mIFEU (0-0.59)
[2022-08-17 20:23] LABS: Alanine Aminotransferase 34 U/L (0-33); Albumin Level 3.8 g/dL (3.5-5.2); Alkaline Phosphatase 198 U/L (35-105); Anion Gap 17.3 (5-19); Aspartate Amino Transferase 48 U/L (0-32); Blood Urea Nitrogen 17 mg/dL (8-23); C Reactive Protein 48.3 mg/L (0.0-4.9); Calcium 9.4 mg/dL (8.5-10.5); Carbon Dioxide 24 mmol/L (22-29); Chloride 95 mmol/L (98-107); Globulin 3.5 g/dL (1.3-4.6); Glucose 135 mg/dL (65-115); Osmolality Calculated 278 mOsm/kg (285-295); Potassium 4.3 mmol/L (3.5-5.1); Sodium 132 mmol/L (136-145); Total Bilirubin 0.2 mg/dL (0.15-1.2); Total Protein 7.3 g/dL (6.6-8.7)
[2022-08-17 20:27] LABS: Lactic Sepsis W/Reflex 3.1 mmol/L (0.5-2.2)
[2022-08-17] MEDS: sodium chloride 0.9% 1,000 ML 250 ML IV (20:39)
[2022-08-17 21:23] LABS: Reflex Lactate Order REFLEX LACTIC ORDERD
[2022-08-17 21:38] VITALS: BP 176/89; PULSE 89; RESP 21; O2SAT 100
[2022-08-17 21:52] VITALS: BP 176/89; PULSE 89; RESP 21; O2SAT 100
[2022-08-17 22:11] VITALS: BMI 37.0
[2022-08-17 22:21] VITALS: BP 159/76; PULSE 89; RESP 26; TEMP 37.6; O2SAT 97
[2022-08-17 22:29] LABS: Lactic Acid level (Lactate) 2.2 mmol/L (0.5-2.2)
--- NOTE | 2022-08-17 22:45 | PC.NURSE ---
REPORT TAKEN FROM JV IN ED. PATIENT ARRIVED ON FLOOR APPROXIMATELY 2215 BY STRETCHER. PATIENT A&OX4, BUT SPEECH DELAYED. PATIENT TAKES LONG PAUSES TO ANSWER QUESTIONS. LEFT FACIAL DROOP OBSERVED BUT PATIENT DENIES HISTORY OF STROKE. LEFT EYE REMAINS SHUT BUT EYE OPENED WHEN ASKED BY NURSE. LEFT SIDE OF MOUTH DROOPED WHEN PATIENT SMILED. PATIENT REPORTS NO WOUNDS ON BODY AND NO WOUNDS OBSERVED BY NURSE. PATIENT CURRENTLY ON NASAL CANNULA, EXPIRATORY WHEEZING PRESENT. PATIENT RESTING IN BED, BED LOCKED IN LOWEST POSITION WITH BOTH SIDE RAILS UP AND CALL LIGHT WITHIN REACH. PATIENT EDUCATED ON OXYGEN SAFETY AND HOW TO USE CALL LIGHT. PATIENT REPORTS NO FURTHER NEEDS AT THIS TIME.
--- NOTE | 2022-08-17 22:59 | PC.NURSE ---
PATIENT ASKING FOR WATER OR SODA. NO CURRENT ORDERS IN SYSTEM YET. DR. PENA NOTIFIED VIA SECURE MESSAGING.
[2022-08-17] MEDS: sodium chloride 0.9% 1,000 ML 100 ML IV (23:13)
[2022-08-18] VITALS (12 sets, daily range): BP systolic 124–183; BP diastolic 52–82; PULSE 72–97; RESP 15–28; TEMP 36.7–37.1; O2SAT 95–99
--- NOTE | 2022-08-18 01:33 | PC.NURSE ---
PATIENT ASSISTED UP TO BEDSIDE COMMODE USING WALKER. PATIENT EXTREMELY UNSTEADY AND REQUIRED 2 ASSIST. PATIENT NOW RESTING, BED LOCKED IN LOWEST POSITION WITH BOTH SIDE RAILS UP, AND CALL LIGHT WITHIN REACH.
--- NOTE | 2022-08-18 03:07 | P.HP_ITS ---
Providers/Chief Complaint Admitting Physician: Katherine Brown MD Chief Complaint: SOB; COVID + History of Present Illness Keila Starkey is a 72 year old female with history of COPD, CHF, DM2 with diabetic neuropathy, HTN, CKD, CAMILA, anxiety, achalasia, recent pyelonephritis in April 2022 chronic anemia, which appears to be due to iron deficiency, new development of leukocytosis and thrombocytosis for which she is undergoing evaluation with oncology as outpatient. She presented to the emergency room yesterday with worsening cough and shortness of breath over the last 3 to 4 days and low-grade fever. She was using increased inhalers however without any change in her condition. She normally does not use oxygen at home but does use a CPAP machine. She was diagnosed with COVID based on a positive rapid antigen test and was discharged with Paxlovid. She returned today with worsened ox shortness of breath. Reportedly at the time of EMS evaluation her O2 sats were in the low 70s. She was placed on 4 L/min supplemental oxygen and was brought into the emergency room. Today she is noted to have a leukocytosis with white blood cell count of 18, it appears she has had leukocytosis dating back to December 2019, mild transaminitis, elevated CRP and a new oxygen requirement. Review of Systems General: Reports: 10 or more systems reviewed and unremarkable except in HPI and below Const: Denies: fever(s), chills or body aches Eyes: Denies: change in vision, blurry vision or photophobia ENMT: Reports: hoarseness; Denies: throat pain, enlarged tonsils, odynophagia or nasal congestion Card: Denies: chest pain, palpitations, irregular heart rhythm, edema, swelling of feet/ankles, lightheadedness, pre-syncope, dyspnea on exertion or orthopnea Resp: Denies: dyspnea, productive cough, non-productive cough, wheezing, stridor, pain on inspiration, change in phlegm color, hemoptysis or chest conges tion GI: Denies: abdominal pain, nausea, vomiting, hematemesis, coffee ground emesis, dysphagia, heartburn, diarrhea, constipation, GI cramping, change in stool character, hematochezia or melena : Denies: flank pain, difficulty voiding, dysuria, urinary frequency, urinary urgency, urinary hesitancy or hematuria Musc: Denies: neck pain, back pain, extremity pain, joint swelling, joint warmth or deformity Neuro: Denies: headache(s), numbness in extremities, weakness in extremities, sensory changes, difficulty walking, frequent falls, dizziness, vertigo, behavioral changes, Slurred speech present or seizure-like activity Psych: Denies: anxiety, depression, suicidal ideation or homicidal ideation Endo: Denies: polyuria, polydipsia, tired all the time, cold intolerance or hot flashes Librado/Lymph: Denies: easy bruising or easy bleeding Medications/Allergies Home Medications Medication Instructions Recorded Confirmed Last Taken Type hyoscyamine sulfate 0.125 mg 0.125 mg PO DAILY PRN Abdominal 11/11/19 08/14/22 08/14/22 History tablet (Levsin) Discomfort metformin 750 mg tablet,extended 750 mg PO BID #180 tabs 11/11/19 08/14/22 08/14/22 Rx release 24 hr albuterol sulfate 90 mcg/actuation 2 puff inhalation Q6H PRN 12/02/19 08/14/22 08/14/22 Rx aerosol inhaler shortness of breath or wheezing #8.5 grams amlodipine 10 mg tablet 10 mg PO QAM 01/01/20 08/14/22 08/14/22 History ferrous sulfate 325 mg (65 mg 650 mg PO QAM 01/01/20 08/14/22 08/14/22 History iron) tablet (iron) pen needle, diabetic 32 gauge x #100 ea 12/27/21 08/14/22 08/14/22 Rx 32 (TechLITE Pen Needle) ascorbate calcium (vitamin C) 500 500 mg PO QAM 03/12/22 08/14/22 08/14/22 History mg tablet carvedilol 3.125 mg tablet 3.125 mg PO BID 03/12/22 08/14/22 08/14/22 History duloxetine 60 mg capsule,delayed 60 mg PO QAM 03/12/22 08/14/22 08/14/22 History release gabapentin 300 mg capsule 300 mg PO BID 03/12/22 08/14/22 08/14/22 History hydroxyzine HCl 25 mg tablet 25 mg PO BID 03/12/22 08/14/22 08/14/22 History nystatin 100,000 unit/gram topical 1 applic topical DAILY PRN unknown 03/12/22 08/14/22 08/14/22 History powder (Nystop) potassium chloride 10 mEq 10 meq PO BID 03/12/22 08/14/22 08/14/22 History tablet,extended release acetaminophen 500 mg tablet 1,500 mg PO Q6H PRN Pain 05/15/22 08/14/22 08/14/22 History fluticasone propionate 220 1 puff inhalation BID PRN unknown 05/15/22 08/14/22 08/14/22 History mcg/actuation HFA aerosol inhaler (Flovent HFA) atorvastatin 40 mg tablet 40 mg PO QPM #90 tabs 05/17/22 08/14/22 08/14/22 Rx insulin glargine 100 unit/mL (3 40 unit SUBCUT BID 08/14/22 Unknown History mL) subcutaneous pen (Lantus Solostar U-100 Insulin) nirmatrelvir 300 mg (150 mg See Rx Instructions PO .COMPLEX 08/17/22 Unknown Rx x2)-ritonavir 100 mg tablet,dose #30 ea pack(EUA) (Paxlovid) Allergies Allergy/AdvReac Type Severity Reaction Status Date / Time NSAIDS (Non-Steroidal Allergy Mild vomiting Verified 08/18/22 04:26 Anti-Inflamma none Allergy Unknown Uncoded 08/18/22 04:26 PFSH Acute PFSH: Medical History (Updated 08/18/22 @ 07:09 by Katherine Brown MD) Achalasia Anxiety CHF (congestive heart failure) Chronic kidney disease COPD (chronic obstructive pulmonary disease) Depression History of colon polyps Hypertension Left-sided Gotti's palsy Nonalcoholic steatohepatitis Peripheral neuropathy Sleep apnea Type 2 diabetes mellitus Surgical History H/O vaginal surgery (05/22/09) Monarc sling urethropexy. Performed by Dr[facility] Colbert at [facility]. H/O: hysterectomy Hx of cholecystectomy S/P bilateral breast reduction (09/03/11) Family History Denies family history of Diabetes Dementia Hyperlipidemia Family history of premature coronary artery disease Cancer Social History Smoking and tobacco status: former smoker (STOPPED 31 YEARS AGO) Alcohol intake: never Household members: spouse Housing: House Vitals/I&O/Wt Last Vital Signs Temp 98.1 F 08/18/22 00:00 Pulse 89 08/18/22 00:00 Resp 21 H 08/18/22 00:00 BP 149/72 08/18/22 00:00 Pulse Ox 97 08/18/22 00:00 O2 Del Method 08/17/22 22:11 O2 Flow Rate 3 08/17/22 21:38 Weight last 48 hrs Weight 103.986 kg Weight 83.915 kg Physical Exam Narrative: General: No acute distress, AO x3 HEENT: PERRLA, pupils bilaterally equal and reactive, pallors not present Chest: Wheezing to auscultation bilaterally all areas CVS: S1-S2 regular, no murmurs, no tachycardia, no gallops, no rubs Abdomen: Soft, nontender, no organomegaly, bowel sounds present Neuro: No focal deficits, no facial deformity, AO x3, power 5/5 in all limbs Data 08/17/22 19:32 08/17/22 19:32 ABG Interpretation 1: 08/18/22 03:34 ABG pH 7.33 L ABG pCO2 43.6 ABG pO2 73.4 L ABG HCO3 22.8 ABG Base Excess -3.1 L A&P Assessment and plan (1) COVID-19: (2) Hypoxia: Plan Patient with a past medical history of COPD, presenting now with symptoms of cough dyspnea subjective fever and found to be positive for COVID yesterday. Between yesterday and today she presented back with worsening dyspnea, oxygen saturation noted to be 70% at the time of EMS evaluation. Plan: Remdisivir 200mg iv x 1 followed by 100mg iv daily dexamethasone 6mg IVP daily duoneb q6h, budesonide q12h empiric CTX and azithromycin Flutter valve/spirometer at bedside trend inflammatory markers including CRP,D dimer Elevated D-dimer at 0.85, however normal when age-adjusted. Also with COPD exacerbation acutely likely triggered by viral illness. Scheduled nebulization as noted above, already on dexamethasone which will also cover for COPD exacerbation. Continue to use BiPAP at home. IT is currently working on combining patient charts. It appears at this time patient has 2 distinct charts in the system with orders, home medications and past history scattered over 2 charts. We will continue her several home medications once the charts have been combined and all medications verified.. Attestations Medical Necessity Statement*: Anticipate greater than 2 midnight admission for COVID-pneumonia, acute hypoxia, COPD exacerbation, needs IV steroids, further COVID treatment. Coding Level of Care Code Acute Vacuum Caster for [facility] Diagnoses COVID-19 U07.1 Hypoxia R09.02
[2022-08-18] MEDS: ipratropium-albuterol 3 mL Neb INHALATION ×4 (03:19→20:14)
[2022-08-18] MEDS: cefTRIAXone 1,000 MG in sodium chloride 0.9% (plus) 50 ML 100 MG IV (03:36)
[2022-08-18] MEDS: enoxaparin 40 mg/0.4 mL Syringe SUBCUT (03:36)
[2022-08-18 03:50] LABS: ABG PCO2 43.6 mmHg (35-45); ABG PH Result 7.33 (7.35-7.45); Arterial Blood Gas Hematocrit 27.6 % (37-47); Base Excess ABG -3.1 mmol/L (-2.0-2.0); Blood Gas Allen Test Pos; Blood Gas Sample Site Radial, right; Blood Gas Sample Type Arterial; HCO3 ABG 22.8 mmol/L (22-26); Oxygen Device NC; PO2 ABG 73.4 mmHg (80.0-100.0)
[2022-08-18] MEDS: ALPRAZolam 0.5 mg Tablet 0.25 MG PO ×2 (03:54→22:21)
[2022-08-18] MEDS: dexamethasone 4 mg/mL INJ 6 MG IVP (03:55)
[2022-08-18] MEDS: acetaminophen 325 mg Tablet 650 MG PO ×2 (04:16→22:20)
[2022-08-18] MEDS: remdesivir 200 MG in sodium chloride 0.9% (100 ml) 100 ML 100 MG IV (04:34)
[2022-08-18 05:39] LABS: Lactate (Lactic Acid level) 1.1 mmol/L (0.5-2.2)
[2022-08-18 05:53] LABS: Hepatitis A Antibody IgM Non-Reactive (Nonreactive); Hepatitis B Core AB, Total Non-Reactive (Nonreactive); Hepatitis B Surface AB 4.2 (11.5-1000); Hepatitis B Surface Antigen Non-Reactive (Nonreactive); Hepatitis C Virus Antibody Non-Reactive (Nonreactive)
[2022-08-18 06:30] LABS: Glucose Point of Care 145 mg/dL (70-110)
[2022-08-18 06:37] LABS: D Dimer 0.79 ug/mIFEU (0-0.59)
[2022-08-18 06:53] LABS: Procalcitonin 5.26 ng/mL (0-0.5)
[2022-08-18 07:04] LABS: C Reactive Protein 51.2 mg/L (0.0-4.9)
[2022-08-18] MEDS: budesonide 0.5 mg/2 mL Neb INHALATION ×2 (08:15→20:14)
[2022-08-18 08:35] LABS: ABG PCO2 43.3 mmHg (35-45); ABG PH Result 7.35 (7.35-7.45); Arterial Blood Gas Hematocrit 26.7 % (37-47); Blood Gas Allen Test Pos; Blood Gas Sample Type Arterial; Carboxyhemoglobin 1.8 %THgb (0.4-20.1); HCO3 ABG 23.6 mmol/L (22-26); HGB O2 Sat 95.6 % (95-100); Ionized Calcium Level - ABG 1.2 mmol/L (1.1-1.4); Methemoglobin 0.3 % (0.4-1.5); Oxygen Saturation ABG 97.5; PO2 ABG 85.8 mmHg (80.0-100.0); Potassium Level - ABG 4.5 mmol/L (3.5-5.0); Total Hemoglobin 8.7 g/dL (12-16)
[2022-08-18 08:36] LABS: Alveolar-Arterial Oxygen Gradi 12.1 mmHg (5-10); Blood Gas Operator Identificat MONRO; Blood Gas Sample Site Radial, left; Oxygen Device NC
--- NOTE | 2022-08-18 10:39 | PM.MISC ---
Miscellaneous Note Note: As per the patient she uses CPAP all day, she is bedbound because of her chronic comorbid conditions and diabetes Her blood sugar has been running high We have decided to put her on BiPAP to help her decrease work of breathing She was taking shallow breaths auto fatigue Does not seem to be in any distress Saturating well She was on 3 L She is awake and alert Fatigue and lethargic On 3 L nasal cannula Abdomen soft Bilateral breath sound without rhonchi or crackles at the bedside Nonfocal neuro exam S1, S2 COVID-19 pneumonia: As per the family patient symptoms started at least 7 days before her presentation to the ER Currently she is on 3 L At home she uses CPAP pretty much all day Labile blood glucose She is full code Patient is agreeing for chest compressions intubation and defibrillation if needed however she does not want to stay on a ventilator for more than 7 days was at the bedside Nursing Dr. Mojica should be involved in the conversation if she needs to be intubated, Dr. Mojica is her PCP Continue COVID-19 treatment I hope in next 2 days we will be able to discontinue isolation because she will be finishing 10 days of her symptoms Monitor respiratory status and oxygen level Keep her on antihypoglycemic agents Optimize antihypertensives DVT prophylaxis on board consistent carb diet
[2022-08-18] MEDS: azithromycin 500 MG in sodium chloride 0.9% 250 ML 250 MG PO (10:46)
[2022-08-18 11:06] LABS: Glucose Point of Care 201 mg/dL (70-110)
[2022-08-18] MEDS: insulin lispro 100 unit/1 mL SUBCUT ×3 (13:24→22:22)
[2022-08-18 17:10] LABS: Glucose Point of Care 160 mg/dL (70-110)
[2022-08-18] MEDS: insulin glargine 100 units/1 mL 40 UNIT SUBCUT (18:22)
[2022-08-18 20:12] LABS: Adenovirus Not Detected (NOT DETECT); Chlamydia Pneumoniae Not Detected (NOT DETECT); Coronavirus 229E,HKU1,NL63,OC4 Not Detected (NOT DETECT); Human Metapneumovirus Not Detected (NOT DETECT); Human Rhinovirus/Enterovirus Not Detected (NOT DETECT); Influenza A Detected (NOT DETECT); Influenza A H1 Not Detected (NOT DETECT); Influenza A H1-2009 Detected (NOT DETECT); Influenza A H3 Not Detected (NOT DETECT); Influenza B Not Detected (NOT DETECT); Mycoplasma Pneumoniae Not Detected (NOT DETECT); Parainfluenza Virus Type 1 Not Detected (NOT DETECT); Parainfluenza Virus Type 2 Not Detected (NOT DETECT); Parainfluenza Virus Type 3 Not Detected (NOT DETECT); Parainfluenza Virus Type 4 Not Detected (NOT DETECT); Respiratory Syncytial Virus A Not Detected (NOT DETECT); Respiratory Syncytial Virus B Not Detected (NOT DETECT); SARS-COV-2 Detected (NOT DETECT)
[2022-08-18 21:18] LABS: Glucose Point of Care 270 mg/dL (70-110)
[2022-08-18 21:42] LABS: Influenza A Detected (NOT DETECT); Influenza A H1 Not Detected (NOT DETECT); Influenza A H1-2009 Detected (NOT DETECT); Influenza A H3 Not Detected (NOT DETECT); Influenza B Not Detected (NOT DETECT); Results from Genmark
[2022-08-18] MEDS: benzonatate 100 mg Capsule PO (22:21)
[2022-08-18] MEDS: sodium chloride 0.9% 1,000 ML 50 ML IV (22:26)
[2022-08-19] VITALS (11 sets, daily range): BP systolic 114–165; BP diastolic 51–71; PULSE 60–80; RESP 16–21; TEMP 36.4–36.7; O2SAT 93–100
[2022-08-19] MEDS: ipratropium-albuterol 3 mL Neb INHALATION ×4 (03:08→21:05)
[2022-08-19] MEDS: dexamethasone 4 mg/mL INJ 6 MG IVP (03:18)
[2022-08-19] MEDS: enoxaparin 40 mg/0.4 mL Syringe SUBCUT (03:19)
[2022-08-19] MEDS: cefTRIAXone 1,000 MG in sodium chloride 0.9% (plus) 50 ML 100 MG IV (03:21)
[2022-08-19 03:49] LABS: ABG PCO2 44.7 mmHg (35-45); ABG PH Result 7.35 (7.35-7.45); Arterial Blood Gas Hematocrit 30.8 % (37-47); Base Excess ABG -1.2 mmol/L (-2.0-2.0); Blood Gas Allen Test Pos; Blood Gas Sample Site Radial, right; Blood Gas Sample Type Arterial; HCO3 ABG 24.6 mmol/L (22-26); Oxygen Device NC
[2022-08-19] MEDS: remdesivir 100 MG in sodium chloride 0.9% (100 ml) 100 ML IV (04:09)
[2022-08-19 05:47] LABS: Basophils % 0.2 %; Hematocrit 29.2 % (37.0-47.0); Hemoglobin 8.2 g/dL (11.5-15.3); Lymphocytes # 1.2 10^3/uL (0.8-4.8); Lymphocytes % 10.9 %; Mean Corpuscular HGB Conc 28.1 g/dL (30.0-36.0); Mean Corpuscular Hemoglobin 23.2 pg (28.0-34.0); Mean Corpuscular Volume 82.5 fl (81-99); Mean Platelet Volume 9.6 fL (7.4-10.4); Monocytes # 0.6 10^3/uL (0.2-0.9); Monocytes % 5.6 %; Neutrophils # 8.91 10^3/uL (1.8-7.7); Neutrophils % 82.6 %; Nucleated Red Blood Cells % 0 %; Platelet Count 343 10^3/cmm (130-400); Red Blood Count 3.54 10^6/uL (4.1-5.3); Red Cell Distribution Width 24.2 % (12.1-15.1); White Blood Count 10.8 10^3/uL (4.0-10.0)
[2022-08-19 05:56] LABS: D Dimer 0.43 ug/mIFEU (0-0.59)
[2022-08-19 06:03] LABS: Alanine Aminotransferase 31 U/L (0-33); Albumin Level 3.2 g/dL (3.5-5.2); Alkaline Phosphatase 145 U/L (35-105); Anion Gap 15.6 (5-19); Aspartate Amino Transferase 32 U/L (0-32); Blood Urea Nitrogen 24 mg/dL (8-23); Calcium 8.8 mg/dL (8.5-10.5); Carbon Dioxide 23 mmol/L (22-29); Chloride 107 mmol/L (98-107); Globulin 3.3 g/dL (1.3-4.6); Glucose 136 mg/dL (65-115); Osmolality Calculated 298 mOsm/kg (285-295); Potassium 4.6 mmol/L (3.5-5.1); Sodium 141 mmol/L (136-145); Total Bilirubin 0.2 mg/dL (0.15-1.2); Total Protein 6.5 g/dL (6.6-8.7)
[2022-08-19 06:05] LABS: C Reactive Protein 44.7 mg/L (0.0-4.9)
[2022-08-19 06:20] LABS: Glucose Point of Care 170 mg/dL (70-110)
[2022-08-19] MEDS: insulin lispro 100 unit/1 mL SUBCUT ×4 (08:53→21:19)
[2022-08-19] MEDS: insulin glargine 100 units/1 mL 40 UNIT SUBCUT ×2 (08:54→17:53)
[2022-08-19] MEDS: budesonide 0.5 mg/2 mL Neb INHALATION ×2 (09:31→21:04)
[2022-08-19] MEDS: azithromycin 500 MG in sodium chloride 0.9% 250 ML 250 MG PO (10:58)
[2022-08-19] MEDS: benzonatate 100 mg Capsule PO (10:58)
[2022-08-19] MEDS: pantoprazole DR 40 mg Tablet PO (10:58)
--- NOTE | 2022-08-19 11:42 | P.PN_ITS ---
Subjective Subjective: Patient endorses cough, shortness of breath, generalized malaise, weakness, and fatigue. Denies chest pain, abdominal pain, nausea or emesis. Medications: Reviewed: Yes Vitals/I&O/Wt Last Vital Signs Temp 98 F 08/19/22 07:30 Pulse 80 08/19/22 09:31 Resp 20 H 08/19/22 09:31 BP 142/59 08/19/22 07:30 Pulse Ox 98 08/19/22 09:31 O2 Del Method 08/19/22 09:31 O2 Flow Rate 3 08/19/22 09:31 FiO2 30 08/18/22 20:15 08/18/22 08/19/22 08/19/22 22:59 06:59 14:59 Intake Total 1120 / 1610 150 / 1760 250 / 250 Output Total 550 / 550 Balance 1120 / 1610 150 / 1760 -300 / -300 Weight last 48 hrs Weight 103.986 kg Weight 83.915 kg Physical Exam Narrative: General: Patient is awake. Appears fatigued. Head: Normocephalic. Atraumatic. EOM intact. Neck: No JVD. Cardiovascular: RRR. No gallops. No murmurs. No peripheral edema. Lungs: Breath sounds are coarse. Breath sounds are diminished bilateral bases. End expiratory wheezing bilateral lung oropeza. No crackles. On nasal cannula support. Skin: No jaundice. No rashes. Abdomen: Normal bowel sounds, abdomen soft and nontender. Genito Urinary: Genital exam not performed since complaints not related. Rectal: Rectal exam not performed since no symptoms indicated blood loss. Extremities: No cyanosis or clubbing. Musculoskeletal: 5/5 strength, normal range of motion, no swollen or erythematous joints. Neurological: Moves all 4 extremities. No myoclonus. Data 08/19/22 05:23 08/19/22 05:23 Micro: Microbiology 08/18/22 18:00 MRSA Culture - Final Nose A&P Assessment and plan (1) COVID-19: Airborne precautions Procalcitonin elevated Continue ceftriaxone Continue azithromycin Continue dexamethasone Continue Remdesivir Pulmonary toilet Telemetry (2) Influenza: Influenza A positive Denies getting flu vaccine this fall Contact precautions Start Tamiflu (3) COPD (chronic obstructive pulmonary disease): COPD with acute exacerbation secondary to COVID-19 and influneza A Continue IV steroids Continue Pulmicort Continue breathing treatments (4) Hypoxia: Secondary to viral illness and COPD exacerbation Continue supplemental oxygen support BiPAP as needed Treat underlying infection and COPD Supportive care (5) Type 2 diabetes mellitus: Continue Lantus Sliding scale insulin correction Avoid hypoglycemia Qualifiers: Diabetes mellitus assisted insulin use: with patching machine operator use Diabetes mellitus complication status: without complication Qualified Code(s): E11.9 - Type 2 diabetes mellitus without complications; Z79.4 - claims consultant (current) use of insulin Plan DVT ppx: Lovenox Code status: Full Code Attestations Medical Necessity Statement*: Patient requires ongoing hospitalization for IV steroids, IV remdesivir, IV antibiotics, breathing treatments, and supportive care. Coding Level of Care Code Acute Superintendent Refuse Disposal for [facility] Diagnoses COVID-19 U07.1 Influenza J11.1 COPD (chronic obstructive pulmonary disease) J44.9 Hypoxia R09.02 Type 2 diabetes mellitus E11.9; Z79.4 Diabetes mellitus assisted insulin use: with patching machine operator use Diabetes mellitus complication status: without complication
[2022-08-19 12:20] LABS: Glucose Point of Care 305 mg/dL (70-110)
[2022-08-19 17:37] LABS: Glucose Point of Care 155 mg/dL (70-110)
[2022-08-19] MEDS: sodium chloride 0.9% 1,000 ML 50 ML IV (18:29)
[2022-08-19 20:51] LABS: Glucose Point of Care 236 mg/dL (70-110)
[2022-08-19] MEDS: ALPRAZolam 0.5 mg Tablet 0.25 MG PO (21:18)
[2022-08-20] VITALS (12 sets, daily range): BP systolic 150–188; BP diastolic 52–74; PULSE 61–88; RESP 17–22; TEMP 36.2–36.8; O2SAT 94–97
[2022-08-20] MEDS: acetaminophen 325 mg Tablet 650 MG PO ×2 (00:06→16:14)
[2022-08-20] MEDS: benzonatate 100 mg Capsule PO ×3 (00:07→21:10)
--- NOTE | 2022-08-20 02:08 | PC.NURSE ---
Patient has Gotti's Palsy which affects her left eye.
[2022-08-20] MEDS: enoxaparin 40 mg/0.4 mL Syringe SUBCUT (03:10)
[2022-08-20] MEDS: cefTRIAXone 1,000 MG in sodium chloride 0.9% (plus) 50 ML 100 MG IV (03:10)
[2022-08-20] MEDS: dexamethasone 4 mg/mL INJ 6 MG IVP (03:10)
[2022-08-20] MEDS: ipratropium-albuterol 3 mL Neb INHALATION ×4 (03:13→22:47)
[2022-08-20] MEDS: remdesivir 100 MG in sodium chloride 0.9% (100 ml) 100 ML IV (04:26)
[2022-08-20 06:21] LABS: Basophils % 0.2 %; Hematocrit 29.6 % (37.0-47.0); Hemoglobin 8.5 g/dL (11.5-15.3); Lymphocytes % 7.4 %; Mean Corpuscular HGB Conc 28.7 g/dL (30.0-36.0); Mean Corpuscular Hemoglobin 23.5 pg (28.0-34.0); Mean Platelet Volume 10.1 fL (7.4-10.4); Monocytes # 0.4 10^3/uL (0.2-0.9); Monocytes % 2.9 %; Neutrophils # 11.31 10^3/uL (1.8-7.7); Neutrophils % 88.6 %; Nucleated Red Blood Cells % 0 %; Platelet Count 356 10^3/cmm (130-400); Red Blood Count 3.61 10^6/uL (4.1-5.3); Red Cell Distribution Width 25.2 % (12.1-15.1); White Blood Count 12.8 10^3/uL (4.0-10.0)
[2022-08-20 06:42] LABS: Alanine Aminotransferase 24 U/L (0-33); Albumin Level 3.1 g/dL (3.5-5.2); Alkaline Phosphatase 124 U/L (35-105); Anion Gap 15.1 (5-19); Aspartate Amino Transferase 20 U/L (0-32); Blood Urea Nitrogen 25 mg/dL (8-23); Calcium 8.7 mg/dL (8.5-10.5); Carbon Dioxide 22 mmol/L (22-29); Chloride 109 mmol/L (98-107); Globulin 3.2 g/dL (1.3-4.6); Glucose 165 mg/dL (65-115); Osmolality Calculated 302 mOsm/kg (285-295); Potassium 4.1 mmol/L (3.5-5.1); Sodium 142 mmol/L (136-145); Total Bilirubin 0.2 mg/dL (0.15-1.2); Total Protein 6.3 g/dL (6.6-8.7)
[2022-08-20 07:07] LABS: Glucose Point of Care 180 mg/dL (70-110)
[2022-08-20] MEDS: sodium chloride 0.9% 1,000 ML 50 ML IV ×2 (09:01→21:02)
[2022-08-20] MEDS: azithromycin 500 MG in sodium chloride 0.9% 250 ML 250 MG PO (09:01)
[2022-08-20] MEDS: pantoprazole DR 40 mg Tablet PO (09:02)
[2022-08-20] MEDS: insulin lispro 100 unit/1 mL SUBCUT ×4 (09:02→21:03)
[2022-08-20] MEDS: insulin glargine 100 units/1 mL 40 UNIT SUBCUT ×2 (09:09→17:12)
[2022-08-20] MEDS: budesonide 0.5 mg/2 mL Neb INHALATION ×2 (10:23→22:47)
--- NOTE | 2022-08-20 10:43 | PC.SOCIAL ---
Pg 2 IMM. Explained to pt's Pg 2 IMM. No questions voiced. Provided pt a copy. Initialed, dated, & timed a copy & placed in chart.
[2022-08-20 11:20] LABS: Glucose Point of Care 166 mg/dL (70-110)
--- NOTE | 2022-08-20 11:29 | PM.PN ---
Subjective Subjective: Patient reports that she feels terrible. Reports generalized weakness, fatigue, malaise, cough, and shortness of breath. Reports she's only been out of bed to go to the restroom. Denies chest pain, abdominal pain, or headache. Medications: Reviewed: Yes Vitals/I&O/Wt Last Vital Signs Temp 97.9 F 08/20/22 11:03 Pulse 70 08/20/22 11:03 Resp 22 H 08/20/22 11:03 BP 154/66 08/20/22 11:03 Pulse Ox 96 08/20/22 11:03 O2 Del Method 08/20/22 11:03 O2 Flow Rate 2 08/20/22 10:23 FiO2 30 08/18/22 20:15 08/19/22 08/20/22 08/20/22 22:59 06:59 14:59 Intake Total 1250 / 1500 150 / 1650 1226.667 / 1226.667 Balance 1250 / 950 150 / 1100 1226.667 / 1226.667 Physical Exam Narrative: General: Patient is awake. Appears ill. Head: Normocephalic. Atraumatic. EOM intact. Neck: No JVD. Cardiovascular: RRR. No gallops. No murmurs. No peripheral edema. Lungs: Breath sounds are coarse. Breath sounds are diminished bilateral bases. End expiratory wheezing bilateral lung oropeza, improved from yesterday's exam. No crackles. On nasal cannula support. Skin: No jaundice. No rashes. Abdomen: Normal bowel sounds, abdomen soft and nontender. Genito Urinary: Genital exam not performed since complaints not related. Rectal: Rectal exam not performed since no symptoms indicated blood loss. Extremities: No cyanosis or clubbing. Musculoskeletal: 5/5 strength, normal range of motion, no swollen or erythematous joints. Neurological: Moves all 4 extremities. No myoclonus. Data 08/20/22 06:14 08/20/22 06:14 Micro: Microbiology 08/18/22 18:00 MRSA Culture - Final Nose A&P Assessment and plan (1) COVID-19: Airborne precautions Continue ceftriaxone Continue azithromycin Continue dexamethasone Continue Remdesivir Pulmonary toilet Telemetry (2) Influenza: Influenza A positive Not vaccinated this season Contact precautions Tamiflu is currently unavailable (3) COPD (chronic obstructive pulmonary disease): COPD with acute exacerbation secondary to COVID-19 and influneza A Continue IV steroids Continue Pulmicort Continue breathing treatments (4) Hypoxia: Secondary to viral illness and COPD exacerbation Continue supplemental oxygen support BiPAP as needed Treat underlying infection and COPD Supportive care (5) Type 2 diabetes mellitus: Continue Lantus Sliding scale insulin correction Avoid hypoglycemia Qualifiers: Diabetes mellitus alf insulin use: with organic section technical lead use Diabetes mellitus complication status: without complication Qualified Code(s): E11.9 - Type 2 diabetes mellitus without complications; Z79.4 - auxiliary plant operator (current) use of insulin Plan DVT ppx: Lovenox Code status: Full Code Attestations Medical Necessity Statement*: Patient requires ongoing hospitalization for IV steroids, IV remdesivir, IV antibiotics, breathing treatments, and supportive care. Coding Level of Care Code Acute Punch Press Operator for [facility] Diagnoses COVID-19 U07.1 Influenza J11.1 COPD (chronic obstructive pulmonary disease) J44.9 Hypoxia R09.02 Type 2 diabetes mellitus E11.9; Z79.4 Diabetes mellitus organic section technical lead insulin use: with organic section technical lead use Diabetes mellitus complication status: without complication
[2022-08-20 16:51] LABS: Glucose Point of Care 212 mg/dL (70-110)
[2022-08-20 20:17] LABS: Glucose Point of Care 187 mg/dL (70-110)
[2022-08-20] MEDS: ALPRAZolam 0.5 mg Tablet 0.25 MG PO (21:01)
[2022-08-21] VITALS (10 sets, daily range): BP systolic 163–194; BP diastolic 66–89; PULSE 64–81; RESP 16–20; TEMP 36.4–36.8; O2SAT 94–98
[2022-08-21] MEDS: dexamethasone 4 mg/mL INJ 6 MG IVP (02:44)
[2022-08-21] MEDS: enoxaparin 40 mg/0.4 mL Syringe SUBCUT (02:45)
[2022-08-21] MEDS: cefTRIAXone 1,000 MG in sodium chloride 0.9% (plus) 50 ML 100 MG IV (02:45)
[2022-08-21] MEDS: ipratropium-albuterol 3 mL Neb INHALATION ×4 (02:49→19:55)
[2022-08-21] MEDS: remdesivir 100 MG in sodium chloride 0.9% (100 ml) 100 ML IV (03:47)
[2022-08-21 05:00] LABS: Basophils % 0.2 %; Hematocrit 29.5 % (37.0-47.0); Hemoglobin 8.6 g/dL (11.5-15.3); Lymphocytes # 1.4 10^3/uL (0.8-4.8); Lymphocytes % 11.2 %; Mean Corpuscular HGB Conc 29.2 g/dL (30.0-36.0); Mean Corpuscular Hemoglobin 23.6 pg (28.0-34.0); Mean Platelet Volume 9.6 fL (7.4-10.4); Monocytes # 0.7 10^3/uL (0.2-0.9); Monocytes % 5.4 %; Neutrophils # 10.08 10^3/uL (1.8-7.7); Neutrophils % 81.6 %; Nucleated Red Blood Cells % 0 %; Platelet Count 343 10^3/cmm (130-400); Red Blood Count 3.64 10^6/uL (4.1-5.3); Red Cell Distribution Width 25.1 % (12.1-15.1); White Blood Count 12.4 10^3/uL (4.0-10.0)
[2022-08-21 05:24] LABS: Alanine Aminotransferase 24 U/L (0-33); Albumin Level 3.3 g/dL (3.5-5.2); Alkaline Phosphatase 110 U/L (35-105); Anion Gap 13.6 (5-19); Aspartate Amino Transferase 24 U/L (0-32); Blood Urea Nitrogen 23 mg/dL (8-23); Calcium 8.5 mg/dL (8.5-10.5); Carbon Dioxide 24 mmol/L (22-29); Chloride 107 mmol/L (98-107); Globulin 2.8 g/dL (1.3-4.6); Glucose 145 mg/dL (65-115); Osmolality Calculated 298 mOsm/kg (285-295); Potassium 3.6 mmol/L (3.5-5.1); Sodium 141 mmol/L (136-145); Total Bilirubin 0.2 mg/dL (0.15-1.2); Total Protein 6.1 g/dL (6.6-8.7)
[2022-08-21 06:35] LABS: Glucose Point of Care 160 mg/dL (70-110)
--- NOTE | 2022-08-21 08:08 | P.PN_ITS ---
Subjective Subjective: Patient states that she feels horrible. Endorses significant cough. She reports she has plegm but can't seem to get it up. Encouraged her to use the flutter valve more today. Reports generalized malaise and weakness. She feels she is too weak to be able to take care of her self. She states that her at home is now sick with symptoms too. Denies nausea, emesis, chest pain, or fevers. Medications: Reviewed: Yes Vitals/I&O/Wt Last Vital Signs Temp 97.7 F 08/21/22 07:39 Pulse 81 08/21/22 07:39 Resp 18 08/21/22 07:39 BP 194/89 08/21/22 07:39 Pulse Ox 97 08/21/22 07:39 O2 Del Method 08/21/22 07:39 O2 Flow Rate 3 08/21/22 03:51 FiO2 30 08/18/22 20:15 08/20/22 08/21/22 08/21/22 22:59 06:59 14:59 Intake Total 840.833 / 2667.500 300 / 2967.500 Output Total 250 / 250 Balance 840.833 / 2667.500 300 / 2967.500 -250 / -250 Physical Exam Narrative: General: Patient is awake. Appears ill. Coughing throughout exam. Head: Normocephalic. Atraumatic. EOM intact. Neck: No JVD. Cardiovascular: RRR. No gallops. No murmurs. No peripheral edema. Lungs: Breath sounds are coarse and are diminished in bilateral bases. End expiratory wheezing present in bilateral lung oropeza. On 3L NC. Skin: No jaundice. No rashes. Abdomen: Normal bowel sounds, abdomen soft and nontender. Genito Urinary: Genital exam not performed since complaints not related. Rectal: Rectal exam not performed since no symptoms indicated blood loss. Extremities: No cyanosis or clubbing. Musculoskeletal: No swollen or erythematous joints. Neurological: Moves all 4 extremities. No myoclonus. Data 08/21/22 04:42 08/21/22 04:42 A&P Assessment and plan (1) COVID-19: Airborne precautions Continue ceftriaxone Status post azithromycin Continue dexamethasone Continue Remdesivir Pulmonary toilet Telemetry (2) Influenza: Influenza A positive Not vaccinated for influenza this season Contact precautions Tamiflu is currently unavailable (3) COPD (chronic obstructive pulmonary disease): COPD with acute exacerbation secondary to COVID-19 and influneza A Continue IV steroids Continue Pulmicort Continue breathing treatments (4) Hypoxia: Secondary to viral illness and COPD exacerbation Continue supplemental oxygen support BiPAP as needed Treat underlying infection and COPD Supportive care (5) Type 2 diabetes mellitus: Continue Lantus Sliding scale insulin correction Avoid hypoglycemia Qualifiers: Diabetes mellitus longshore equipment operator insulin use: with assisted use Diabetes mellitus complication status: without complication Qualified Code(s): E11.9 - Type 2 diabetes mellitus without complications; Z79.4 - [facility] (current) use of insulin (6) Debility: Patient is debilitated and physically deconditioned Physical therapy consulted Plan DVT ppx: Lovenox Code status: Full Code Attestations Medical Necessity Statement*: Patient requires ongoing hospitalization for IV steroids, IV remdesivir, IV antibiotics, breathing treatments, therapy, supplemental oxygen support, telemetry and supportive care. Coding Level of Care Code Acute Intellectual Property Manager for [facility] Diagnoses COVID-19 U07.1 Influenza J11.1 COPD (chronic obstructive pulmonary disease) J44.9 Hypoxia R09.02 Type 2 diabetes mellitus E11.9; Z79.4 Diabetes mellitus longshore equipment operator insulin use: with longshore equipment operator use Diabetes mellitus complication status: without complication Debility R53.81
[2022-08-21] MEDS: budesonide 0.5 mg/2 mL Neb INHALATION ×2 (09:45→19:55)
[2022-08-21] MEDS: insulin lispro 100 unit/1 mL SUBCUT ×3 (10:03→22:41)
[2022-08-21] MEDS: pantoprazole DR 40 mg Tablet PO (10:07)
[2022-08-21] MEDS: insulin glargine 100 units/1 mL 40 UNIT SUBCUT ×2 (10:19→19:08)
[2022-08-21 11:42] LABS: Glucose Point of Care 138 mg/dL (70-110)
[2022-08-21 16:58] LABS: Glucose Point of Care 133 mg/dL (70-110)
[2022-08-21] MEDS: sodium chloride 0.9% 1,000 ML 50 ML IV (19:17)
--- NOTE | 2022-08-21 21:15 | PC.NURSE ---
REPORT TAKEN FROM JAMES NEGRO. PATIENT A&O, VSS. PATIENT RESTING IN BED, LOCKED IN LOWEST POSITION WITH SIDE RAILS UP, CALL LIGHT WITHIN REACH. PATIENT STATED NO FURTHER NEEDS AT THIS TIME.
[2022-08-21] MEDS: ALPRAZolam 0.5 mg Tablet 0.25 MG PO (21:55)
[2022-08-21 22:02] LABS: Glucose Point of Care 200 mg/dL (70-110)
[2022-08-21] MEDS: benzonatate 100 mg Capsule PO (23:43)
[2022-08-22] VITALS (9 sets, daily range): BP systolic 163–190; BP diastolic 70–82; PULSE 59–77; RESP 16–24; TEMP 36.6–36.9; O2SAT 93–98
[2022-08-22] MEDS: cefTRIAXone 1,000 MG in sodium chloride 0.9% (plus) 50 ML 100 MG IV (02:42)
[2022-08-22] MEDS: enoxaparin 40 mg/0.4 mL Syringe SUBCUT (02:42)
[2022-08-22] MEDS: dexamethasone 4 mg/mL INJ 6 MG IVP (02:43)
[2022-08-22] MEDS: ipratropium-albuterol 3 mL Neb INHALATION ×2 (03:06→08:34)
[2022-08-22] MEDS: remdesivir 100 MG in sodium chloride 0.9% (100 ml) 100 ML IV (04:38)
[2022-08-22 06:57] LABS: Glucose Point of Care 132 mg/dL (70-110)
[2022-08-22] MEDS: budesonide 0.5 mg/2 mL Neb INHALATION (08:34)
[2022-08-22] MEDS: benzonatate 100 mg Capsule PO (09:28)
[2022-08-22] MEDS: pantoprazole DR 40 mg Tablet PO (09:28)
[2022-08-22] MEDS: insulin glargine 100 units/1 mL 40 UNIT SUBCUT (09:31)
[2022-08-22] MEDS: guaiFENesin 600 mg Tablet 1200 MG PO (10:00)
[2022-08-22] MEDS: amlodipine 10 mg Tablet PO (10:00)
[2022-08-22] MEDS: lactobacillus 1 Tablet 1 TAB PO (10:00)
[2022-08-22 12:19] LABS: Glucose Point of Care 169 mg/dL (70-110)
--- NOTE | 2022-08-22 12:27 | P.DS_ITS ---
Discharge Providers Date of Admission: 08/17/22 21:04 Date of Discharge: August 22, 2022 Attending Provider at Admission: Katherine Brown MD Attending Provider at Discharge: Arnav Jewell MD Diagnoses at Discharge Discharge Diagnosis (1) Hypoxia: Status: Acute (2) COVID-19: Status: Acute (3) COPD (chronic obstructive pulmonary disease): Status: Acute (4) Type 2 diabetes mellitus: Status: Chronic Qualifiers: Diabetes mellitus intermediate insulin use: with protective signal repairer use Diabetes mellitus complication status: without complication Qualified Code(s): E11.9 - Type 2 diabetes mellitus without complications; 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 Patient was treated with dexamethasone, remdesivir, antibiotics, breathing treatments, and supplemental oxygen support. Patient's symptoms improved. She was discharged to home in stable condition. She is to follow up with her primary care provider in 1 week. Physical Exam Narrative: General: Patient is awake.?Alert. Appears fatigued. Head:? Normocephalic. Atraumatic. Neck: No JVD. Cardiovascular: RRR. No gallops. No murmurs. No peripheral edema. Lungs: Breath sounds are coarse and are diminished in bilateral bases.?Faint wheezing. Skin: No jaundice. No rashes. Abdomen: Normal bowel sounds, abdomen soft and nontender. Genito Urinary: Genital exam not performed since complaints not related. Rectal: Rectal exam not performed since no symptoms indicated blood loss. Extremities: No cyanosis or clubbing. Musculoskeletal: No visible joint deformity. Neurological: Moves all 4 extremities. No myoclonus Discharge Data Studies Completed and Pending Completed Studies During Hospitalization Category Date Time Status XR chest 1V portable [id number] Stat Exams 08/17/22 18:32 Completed Pending at discharge Category Date Time Status Sputum Culture and Gram Stain Routine Lab 08/18/22 03:34 Uncollected Radiology Impressions Chest X-Ray 08/17/22 18:32 IMPRESSION: 1. No acute cardiopulmonary process. 2. Incidental/nonacute findings are listed in the report. Laboratory Results WBC 12.4 10^3/uL (4.0-10.0) H 08/21/22 04:42 RBC 3.64 10^6/uL (4.1-5.3) L 08/21/22 04:42 Hgb 8.6 g/dL (11.5-15.3) L 08/21/22 04:42 Hct 29.5 % (37.0-47.0) L 08/21/22 04:42 MCV 81.0 fl (81-99) 08/21/22 04:42 MCH 23.6 pg (28.0-34.0) L 08/21/22 04:42 MCHC 29.2 g/dL (30.0-36.0) L 08/21/22 04:42 RDW 25.1 % (12.1-15.1) H 08/21/22 04:42 Plt Count 343 10^3/cmm (130-400) 08/21/22 04:42 MPV 9.6 fL (7.4-10.4) 08/21/22 04:42 Neut % (Auto) 81.6 % 08/21/22 04:42 Lymph % (Auto) 11.2 % 08/21/22 04:42 [place] % (Auto) 5.4 % 08/21/22 04:42 Eos % (Auto) 0.0 % 08/21/22 04:42 Baso % (Auto) 0.2 % 08/21/22 04:42 Neut # (Auto) 10.08 10^3/uL (1.8-7.7) H 08/21/22 04:42 Lymph # (Auto) 1.4 10^3/uL (0.8-4.8) 08/21/22 04:42 [place] # (Auto) 0.7 10^3/uL (0.2-0.9) 08/21/22 04:42 Eos # (Auto) 0.0 10^3/uL (0.0-0.8) 08/21/22 04:42 Baso # (Auto) 0.0 10^3/uL (0.0-0.1) 08/21/22 04:42 Nucleated RBC % (auto) 0 % 08/21/22 04:42 Nucleated RBCs # 0.0 /100WBC 08/21/22 04:42 D-Dimer 0.43 ug/mIFEU (0-0.59) 08/19/22 05:23 Specimen Type Arterial 08/19/22 04:00 Sample Site Radial, right 08/19/22 04:00 ABG pH 7.35 (7.35-7.45) 08/19/22 04:00 ABG pCO2 44.7 mmHg (35-45) 08/19/22 04:00 ABG pO2 106.0 mmHg (80.0-100.0) H 08/19/22 04:00 ABG HCO3 24.6 mmol/L (22-26) 08/19/22 04:00 ABG O2 Saturation 97.5 08/18/22 08:33 ABG Base Excess -1.2 mmol/L (-2.0-2.0) 08/19/22 04:00 Scott Test Pos 08/19/22 04:00 A-a O2 Gradient 12.1 mmHg (5-10) H 08/18/22 08:33 Hematocrit 30.8 % (37-47) L 08/19/22 04:00 Hgb O2 Saturation 95.6 % (95-100) 08/18/22 08:33 Carboxyhemoglobin 1.8 %THgb (0.4-20.1) 08/18/22 08:33 Methemoglobin 0.3 % (0.4-1.5) L 08/18/22 08:33 Total Hemoglobin 8.7 g/dL (12-16) L 08/18/22 08:33 Sodium 140.0 mmol/L (131-143) 08/18/22 08:33 Potassium 4.5 mmol/L (3.5-5.0) 08/18/22 08:33 Glucose 149.0 mg/dL (70-115) H 08/18/22 08:33 Ionized Calcium 1.2 mmol/L (1.1-1.4) 08/18/22 08:33 O2 Delivery Device Nc 08/19/22 04:00 O2 Liters/Min 2.0 % 08/19/22 04:00 FiO2 32.0 % 08/18/22 08:33 Shuttle Filler ID ellpe 08/19/22 04:00 Sodium 141 mmol/L (136-145) 08/21/22 04:42 Potassium 3.6 mmol/L (3.5-5.1) 08/21/22 04:42 Chloride 107 mmol/L (98-107) 08/21/22 04:42 Carbon Dioxide 24 mmol/L (22-29) 08/21/22 04:42 Anion Gap 13.6 (5-19) 08/21/22 04:42 BUN 23 mg/dL (8-23) 08/21/22 04:42 Creatinine 1.0 mg/dL (0.5-0.9) H 08/21/22 04:42 GFR Calculation Not Reportable 08/21/22 04:42 Glucose 145 mg/dL (65-115) H 08/21/22 04:42 POC Glucose 169 mg/dL (70-110) H 08/22/22 12:08 Calculated Osmolality 298 mOsm/kg (285-295) H 08/21/22 04:42 Lactic Acid 3.1 mmol/L (0.5-2.2) H 08/17/22 19:32 Lactic Acid (Sepsis) 2.2 mmol/L (0.5-2.2) 08/17/22 21:50 Lactate 1.1 mmol/L (0.5-2.2) 08/18/22 05:00 Calcium 8.5 mg/dL (8.5-10.5) 08/21/22 04:42 Total Bilirubin 0.2 mg/dL (0.15-1.2) 08/21/22 04:42 AST 24 U/L (0-32) 08/21/22 04:42 ALT 24 U/L (0-33) 08/21/22 04:42 Alkaline Phosphatase 110 U/L (35-105) H 08/21/22 04:42 C-Reactive Protein 44.7 mg/L (0.0-4.9) H 08/19/22 05:23 Total Protein 6.1 g/dL (6.6-8.7) L 08/21/22 04:42 Albumin 3.3 g/dL (3.5-5.2) L 08/21/22 04:42 Globulin 2.8 g/dL (1.3-4.6) 08/21/22 04:42 Procalcitonin 5.26 ng/mL (0-0.5) H 08/18/22 05:59 Nasal Influ A H1 2009 PCR Detected (NOT DETECT) A 08/18/22 21:09 Coronavirus 229E (PCR) Not detected (NOT DETECT) 08/18/22 18:00 Hepatitis A IgM Ab Non-reactive (Nonreactive) 08/18/22 05:00 Hep Bs Antigen Non-reactive (Nonreactive) 08/18/22 05:00 Hep Bs Antibody 4.2 (11.5-1000) L 08/18/22 05:00 Hep B Core Total Ab Non-reactive (Nonreactive) 08/18/22 05:00 Hepatitis C Antibody Non-reactive (Nonreactive) 08/18/22 05:00 Influenza A (H1) PCR Not detected (NOT DETECT) 08/18/22 21:09 Influenza A (H3) PCR Not detected (NOT DETECT) 08/18/22 21:09 Influenza Type A (PCR) Detected (NOT DETECT) A 08/18/22 21:09 Influenza Type B (PCR) Not detected (NOT DETECT) 08/18/22 21:09 SARS-CoV-2 (PCR) Detected (NOT DETECT) A 08/18/22 18:00 Procedures Performed None Vitals Last Vital Signs Temp 98 F 08/22/22 12:00 Pulse 71 08/22/22 12:00 Resp 19 H 08/22/22 12:00 BP 163/70 08/22/22 12:00 Pulse Ox 93 08/22/22 12:00 O2 Del Method 08/22/22 08:40 O2 Flow Rate 1 08/22/22 08:20 FiO2 30 08/18/22 20:15 Discharge Plan Discharge Patient Disposition: Home Health Service Condition: Stable Prescriptions: New oseltamivir 75 mg Capsule 75 mg PO BID 5 Days Qty: 10 0RF cefdinir 300 mg capsule 300 mg PO BID 5 Days Qty: 10 0RF prednisone 20 mg tablet 40 mg PO DAILY 7 Days Qty: 28 0RF Continued hyoscyamine sulfate [Levsin] 0.125 mg tablet 0.125 mg PO DAILY PRN (Reason: Abdominal Discomfort) metformin 750 mg tablet extended release 24 hr 750 mg PO BID Qty: 180 1RF Lantus Solostar U-100 Insulin 100 unit/mL (3 mL) insulin pen 40 unit SUBCUT BID ascorbate calcium (vitamin C) 500 mg tablet 500 mg PO QAM potassium chloride 10 mEq tablet extended release 10 meq PO BID gabapentin 300 mg capsule See Rx Instructions .ROUTE .COMPLEX Rx Instructions: 300 mg orally in the morning / 600 mg orally in the evening duloxetine 60 mg capsule,delayed release(DR/EC) 60 mg PO QAM nystatin [Nystop] 100,000 unit/gram powder 1 applic topical DAILY PRN (Reason: unknown) carvedilol 3.125 mg tablet 3.125 mg PO BID Rx Instructions: must administer with a meal/food hydroxyzine HCl 25 mg tablet 25 mg PO TID PRN (Reason: Anxiety) albuterol sulfate 90 mcg/actuation HFA aerosol inhaler 2 puff INHALATION Q6H PRN (Reason: shortness of breath or wheezing) Qty: 8.5 2RF (DME) pen needle, diabetic [TechLITE Pen Needle] 32 gauge x 5/32 needle See Rx Instructions .ROUTE .COMPLEX Qty: 100 0RF Dose Instruction: USE NEEDLES WITH INSULIN SYRINGE Rx Instructions: USE NEEDLES WITH INSULIN SYRINGE amlodipine 10 mg Tablet 10 mg PO QAM ferrous sulfate [iron] 325 mg (65 mg iron) Tablet 650 mg PO QAM acetaminophen 500 mg Tablet 1,500 mg PO Q6H PRN (Reason: Pain) fluticasone propionate [Flovent HFA] 220 mcg/actuation Hfa Aerosol Inhaler 1 puff INHALATION BID PRN (Reason: unknown) atorvastatin 40 mg tablet 40 mg PO QPM Qty: 90 0RF Paxlovid (EUA) 300 mg (150 mg x 2)-100 mg tablets,dose pack See Rx Instructions .ROUTE .COMPLEX Qty: 30 0RF Rx Instructions: take TWO 150 mg tablets of nirmatrelvir with ONE 100 mg tablet of ritonavir twice daily for 5 days Discharge Orders: Discharge Order (Routine); Ordered 08/22/22 Ordered By: Arnav Jewell Referrals: [facility] [Outside] Galdino Mojica MD [Physician] - 4-7 days (Please call Dr. Mojica' office tomorrow morning to schedule a hospital follow up within 1 week. ) Patient Instructions: Prednisone (By mouth), Oseltamivir (By mouth), Cefdinir (By mouth), Influenza (GEN), COVID-19 (Coronavirus Disease 2019) (GEN), Opioid Safety Activity Restrictions/Additional Instructions: 1. Advance activity as tolerated. 2. Take medications as prescribed. 3. Follow up with primary care provider. 4. Self isolate for 10 days from symptom onset. Discharge Attestations Time Spent in Discharge Care*: greater than 30 min Status at Discharge: Cognitive status at discharge: cognitively intact , Behavioral status at discharge: cooperative , Overall status at discharge: patient is progressing back to baseline Quality Metrics Clinical Quality Measures [ No reported AMI, CVA or VTE this stay] Coding Level of Care Code Acute [facility] [place] note Diagnoses Hypoxia R09.02 COVID-19 U07.1 COPD (chronic obstructive pulmonary disease) J44.9 Type 2 diabetes mellitus E11.9; Z79.4 Diabetes mellitus intermediate insulin use: with protective signal repairer use Diabetes mellitus complication status: without complication Influenza J11.1
[2022-08-22] MEDS: insulin lispro 100 unit/1 mL SUBCUT ×2 (12:32→12:34)
--- NOTE | 2022-08-22 13:39 | PC.SOCIAL ---
IMM Updated Updated pt's on IMM. No questions voiced. Provided pt a copy. Initialed, dated,& timed copy in chart.
--- NOTE | 2022-08-22 15:16 | PC.NURSE ---
[address] clothes and medication for discharge placed in patients bag. dischage instructions given to patient who voiced understanding. Wheel chair at bedside awaiting ride
--- NOTE | 2022-08-22 16:13 | PC.NURSE ---
1557 patient discharged to home with family taken to private car per wheelchair accompained per staff. Patient in stable condition
== END 2022-08-22 15:55 | disposition home health service (06) | DRG 177 ==
LOC: ER 20:51 → MEDSURG 21:16
PROVIDERS: Internal Medicine; Admitting Provider Student in an Organized Health Care Education/Training Program; Emergency Provider Student in an Organized Health Care Education/Training Program; Visit Provider Internal Medicine
DX: U07.1 COVID-19 (principal); J12.82 Pneumonia due to coronavirus disease 2019; J44.1 Chronic obstructive pulmonary disease with (acute) exacerbation; I13.0 Hypertensive heart and chronic kidney disease with heart failure and stage 1 through stage 4 chronic kidney disease, or unspecified chronic kidney disease; I50.9 Heart failure, unspecified; N18.9 Chronic kidney disease, unspecified; E11.22 Type 2 diabetes mellitus with diabetic chronic kidney disease; E11.42 Type 2 diabetes mellitus with diabetic polyneuropathy; G47.33 Obstructive sleep apnea (adult) (pediatric); D63.1 Anemia in chronic kidney disease; D50.9 Iron deficiency anemia, unspecified; D75.839 Thrombocytosis, unspecified; F32.A Depression, unspecified; G51.0 Bell's palsy; K75.81 Nonalcoholic steatohepatitis (NASH); Z87.891 Personal history of nicotine dependence; Z99.89 Dependence on other enabling machines and devices; Z79.51 Long term (current) use of inhaled steroids; Z79.4 Long term (current) use of insulin; Z79.84 Long term (current) use of oral hypoglycemic drugs; Z74.01 Bed confinement status; J10.1 Influenza due to other identified influenza virus with other respiratory manifestations
CPT/HCPCS: 36415; 36416; 36600; 71045; 80051; 80053; 82270; 82330; 82728; 82803; 82805; 82962; 83540; 83550; 83605; 83880; 84145; 85025; 85378; 86140; 86705; 86706; 86709; 86803; 87040; 87340; 87426; 87631; 87635; 87641; 87804; 93005; 94640; 94660; 94762; 96365; 96367; 96372; 96375; 97110; 97116; 97161; 99204; 99285; J0248; J0456; J0696; J1100; J1439; J1650; J1815; J7030; J7050; J7626

== ENCOUNTER → 2022-09-26 16:10 | Outpatient (BNVA) | payer MEDICARE, OTHER, SELFPAY | PROVIDERS: PCP Family Medicine; Visit Provider Internal Medicine | DX: D50.8 Other iron deficiency anemias; E11.40 Type 2 diabetes mellitus with diabetic neuropathy, unspecified; E11.69 Type 2 diabetes mellitus with other specified complication; E78.2 Mixed hyperlipidemia; J06.9 Acute upper respiratory infection, unspecified; Z79.84 Long term (current) use of oral hypoglycemic drugs; Z79.4 Long term (current) use of insulin | CPT/HCPCS: 82728; 83540; 83550; 85025; 99214 ==

== ENCOUNTER 2022-10-11 09:44 | Oncology outpatient (recurring) (ONCR) | payer MEDICARE, OTHER, SELFPAY ==
[2022-10-11 10:34] LABS: Basophils # 0.1 10^3/uL (0.0-0.1); Basophils % 0.3 %; Eosinophils # 0.5 10^3/uL (0.0-0.8); Eosinophils % 3.4 %; Hematocrit 37.1 % (37.0-47.0); Hemoglobin 11.5 g/dL (11.5-15.3); Lymphocytes # 3.2 10^3/uL (0.8-4.8); Lymphocytes % 21.7 %; Mean Corpuscular Hemoglobin 27.4 pg (28.0-34.0); Mean Corpuscular Volume 88.3 fl (81-99); Mean Platelet Volume 9.2 fL (7.4-10.4); Monocytes # 0.9 10^3/uL (0.2-0.9); Neutrophils # 10.09 10^3/uL (1.8-7.7); Neutrophils % 67.9 %; Nucleated Red Blood Cells % 0 %; Platelet Count 398 10^3/cmm (130-400); Red Cell Distribution Width 19.9 % (12.1-15.1); White Blood Count 14.9 10^3/uL (4.0-10.0)
[2022-10-11 10:54] LABS: Alanine Aminotransferase 24 U/L (0-33); Albumin Level 4.2 g/dL (3.5-5.2); Alkaline Phosphatase 115 U/L (35-105); Anion Gap 18.2 (5-19); Aspartate Amino Transferase 22 U/L (0-32); Blood Urea Nitrogen 20 mg/dL (8-23); Calcium 10.4 mg/dL (8.5-10.5); Carbon Dioxide 24 mmol/L (22-29); Chloride 103 mmol/L (98-107); Ferritin 98 ng/mL (15-150); Globulin 2.9 g/dL (1.3-4.6); Glucose 201 mg/dL (65-115); Iron 46 ug/dL (37-145); Osmolality Calculated 300 mOsm/kg (285-295); Percent Saturation 16.7 % (20-50); Potassium 4.2 mmol/L (3.5-5.1); Sodium 141 mmol/L (136-145); Total Bilirubin 0.2 mg/dL (0.15-1.2); Total Iron Binding Capacity 275 mcg/dl; Total Protein 7.1 g/dL (6.6-8.7); Unsaturated Iron Binding 229 ug/dL (112-347)
[2022-10-21 14:19] LABS: CALR Exon 9 Mutation NOT DETECTED (NOT DETECTED); CSF3R Exon 14/17 Mutation NOT DETECTED (NOT DETECTED); JAK2 Exon 12 Mutation NOT DETECTED (NOT DETECTED); JAK2 V617 Block Specimen ID NG; JAK2 V617 Clinical Indication NG; JAK2 V617 Mutation NOT DETECTED (NOT DETECTED); JAK2 V617 Specimen Source NG; MPL Exon 12 Mutation NOT DETECTED (NOT DETECTED)
== END 2022-10-29 23:59 | disposition home or self-care (01) ==
PROVIDERS: PCP Family Medicine; Visit Provider Internal Medicine Medical Oncology
DX: D64.9 Anemia, unspecified (principal); D72.829 Elevated white blood cell count, unspecified; D75.839 Thrombocytosis, unspecified; Z79.899 Other long term (current) drug therapy; Z86.16 Personal history of COVID-19; Z87.891 Personal history of nicotine dependence
CPT/HCPCS: 36415; 72040; 72100; 72170; 80053; 81219; 81270; 81339; 81403; 81479; 82728; 83540; 83550; 85025; 99214

== ENCOUNTER 2022-11-18 11:16 | Oncology outpatient (recurring) (ONCR) | payer MEDICARE, OTHER, SELFPAY ==
[2022-11-18 12:40] LABS: Basophils # 0.1 10^3/uL (0.0-0.1); Basophils % 0.3 %; Eosinophils # 0.5 10^3/uL (0.0-0.8); Eosinophils % 2.5 %; Hematocrit 34.3 % (37.0-47.0); Hemoglobin 10.4 g/dL (11.5-15.3); Lymphocytes % 16.8 %; Mean Corpuscular HGB Conc 30.3 g/dL (30.0-36.0); Mean Corpuscular Hemoglobin 26.9 pg (28.0-34.0); Mean Corpuscular Volume 88.6 fl (81-99); Mean Platelet Volume 9.2 fL (7.4-10.4); Monocytes % 5.3 %; Neutrophils # 13.44 10^3/uL (1.8-7.7); Neutrophils % 74.3 %; Nucleated Red Blood Cells % 0 %; Platelet Count 554 10^3/cmm (130-400); Red Blood Count 3.87 10^6/uL (4.1-5.3); Red Cell Distribution Width 15.2 % (12.1-15.1); White Blood Count 18.1 10^3/uL (4.0-10.0)
[2022-11-18 12:54] LABS: Alanine Aminotransferase 24 U/L (0-33); Albumin Level 3.8 g/dL (3.5-5.2); Alkaline Phosphatase 128 U/L (35-105); Anion Gap 17.3 (5-19); Aspartate Amino Transferase 28 U/L (0-32); Blood Urea Nitrogen 19 mg/dL (8-23); Calcium 9.7 mg/dL (8.5-10.5); Carbon Dioxide 23 mmol/L (22-29); Chloride 103 mmol/L (98-107); Ferritin 25 ng/mL (15-150); Globulin 2.9 g/dL (1.3-4.6); Glucose 214 mg/dL (65-115); Iron 115 ug/dL (37-145); Osmolality Calculated 297 mOsm/kg (285-295); Percent Saturation 35.2 % (20-50); Potassium 4.3 mmol/L (3.5-5.1); Sodium 139 mmol/L (136-145); Total Bilirubin 0.2 mg/dL (0.15-1.2); Total Iron Binding Capacity 326 mcg/dl; Total Protein 6.7 g/dL (6.6-8.7); Unsaturated Iron Binding 211 ug/dL (112-347)
== END 2022-11-26 23:59 | disposition home or self-care (01) ==
PROVIDERS: PCP Family Medicine; Visit Provider Internal Medicine Medical Oncology
DX: D64.9 Anemia, unspecified (principal); D72.829 Elevated white blood cell count, unspecified; D75.839 Thrombocytosis, unspecified; Z79.899 Other long term (current) drug therapy; Z86.16 Personal history of COVID-19; Z87.891 Personal history of nicotine dependence
CPT/HCPCS: 36415; 80053; 82728; 83540; 83550; 85025; 99214

== ENCOUNTER 2022-12-04 14:01 | Outpatient (CLI) | payer MEDICARE, OTHER, SELFPAY ==
--- NOTE | 2022-12-04 14:19 | MM_ITS ---
WS: [id number] Bilateral screening 3D tomosynthesis digital mammogram, 12/04/2022 Clinical Data: screening Comparison: 04/28/2018, 04/17/2016. Findings: The breast parenchymal pattern shows fibroglandular tissue. No spiculated masses or clustered calcifi cations are seen. There are no secondary signs of carcinoma. There are benign calcifications in the a nterior aspects of both breasts. There are small vascular calcifications in both breasts. MM/[id number] Impression: 1. Negative bilateral mammogram unchanged. 2. Recommend annual screening mammograms. BIRADS: 1-Negative FOLLOW UP: 1 Year Follow-up The CAD program checker was used.
== END 2022-12-04 14:02 | disposition home or self-care (01) ==
PROVIDERS: PCP Family Medicine; Visit Provider Nurse Practitioner
DX: Z12.31 Encounter for screening mammogram for malignant neoplasm of breast (principal)
CPT/HCPCS: 77063; 77067

== ENCOUNTER 2022-12-25 20:00 | Outpatient (CLI) | payer MEDICARE, OTHER, SELFPAY | END 2022-12-25 20:01 | disposition home or self-care (01) | LOC: SLEEP 12-26 05:08 | PROVIDERS: PCP Family Medicine; Visit Provider Family Medicine | DX: G47.10 Hypersomnia, unspecified (principal); R06.83 Snoring; R53.83 Other fatigue | CPT/HCPCS: 95810 ==

== ENCOUNTER 2023-01-23 13:37 | Oncology outpatient (recurring) (ONCR) | payer MEDICARE, OTHER, SELFPAY ==
[2023-01-23 14:33] LABS: Basophils # 0.1 10^3/uL (0.0-0.1); Basophils % 0.4 %; Eosinophils # 0.5 10^3/uL (0.0-0.8); Hematocrit 33.3 % (37.0-47.0); Hemoglobin 9.6 g/dL (11.5-15.3); Lymphocytes # 3.8 10^3/uL (0.8-4.8); Lymphocytes % 21.8 %; Mean Corpuscular HGB Conc 28.8 g/dL (30.0-36.0); Mean Corpuscular Hemoglobin 24.5 pg (28.0-34.0); Mean Corpuscular Volume 84.9 fl (81-99); Mean Platelet Volume 9.2 fL (7.4-10.4); Monocytes # 1.1 10^3/uL (0.2-0.9); Monocytes % 6.1 %; Neutrophils # 11.95 10^3/uL (1.8-7.7); Nucleated Red Blood Cells % 0 %; Platelet Count 530 10^3/cmm (130-400); Red Blood Count 3.92 10^6/uL (4.1-5.3); White Blood Count 17.6 10^3/uL (4.0-10.0)
[2023-01-23 14:46] LABS: Alanine Aminotransferase 25 U/L (0-33); Alkaline Phosphatase 121 U/L (35-105); Anion Gap 15.7 (5-19); Aspartate Amino Transferase 23 U/L (0-32); Blood Urea Nitrogen 21 mg/dL (8-23); Calcium 8.9 mg/dL (8.5-10.5); Carbon Dioxide 24 mmol/L (22-29); Chloride 105 mmol/L (98-107); Cholesterol 197 mg/dL (0-200); Ferritin 23 ng/mL (15-150); Globulin 2.8 g/dL (1.3-4.6); Glucose 157 mg/dL (65-115); HDL Cholesterol 41 mg/dL (60-100); Iron 37 ug/dL (37-145); LDL Cholesterol Calculated 109 mg/dL (50-129); LDL HDL Ratio 2.66 RATIO (0.00-3.22); Osmolality Calculated 298 mOsm/kg (285-295); Percent Saturation 11.9 % (20-50); Potassium 3.7 mmol/L (3.5-5.1); Sodium 141 mmol/L (136-145); Total Bilirubin 0.2 mg/dL (0.15-1.2); Total Iron Binding Capacity 310 mcg/dl; Total Protein 6.8 g/dL (6.6-8.7); Triglycerides 233 mg/dL (0-150); Unsaturated Iron Binding 273 ug/dL (112-347)
[2023-01-23 14:50] LABS: Estmated Average Glucose 114; Hemoglobin A1C 5.6 % (4.0-6.0)
[2023-01-23 14:55] LABS: Creatinine Urine, Random 214 mg/dL (28-217); Microalbumin Random Urine 9 ug/dL (0-20)
[2023-01-23 14:57] LABS: Microalbum Creatinine Ratio Ur 42 mg/dL (0-20)
== END 2023-01-26 23:59 | disposition home or self-care (01) ==
PROVIDERS: Internal Medicine; Nurse Practitioner Family; PCP Family Medicine; Visit Provider Internal Medicine Medical Oncology
DX: D72.829 Elevated white blood cell count, unspecified; D50.9 Iron deficiency anemia, unspecified; D75.839 Thrombocytosis, unspecified; R53.1 Weakness; R53.83 Other fatigue; R51.9 Headache, unspecified; R42 Dizziness and giddiness; R06.02 Shortness of breath; Z79.899 Other long term (current) drug therapy; Z86.16 Personal history of COVID-19
CPT/HCPCS: 36415; 80053; 80061; 82044; 82728; 83036; 83540; 83550; 85025; 99214

== ENCOUNTER 2023-02-07 22:09 | Emergency (ER) | payer MEDICARE, OTHER, SELFPAY ==
[2023-02-07 22:16] VITALS: BP 157/80; PULSE 58; RESP 18; TEMP 36.8; O2SAT 93
[2023-02-07 22:38] LABS: Basophils # 0.1 10^3/uL (0.0-0.1); Basophils % 0.4 %; Eosinophils # 0.6 10^3/uL (0.0-0.8); Eosinophils % 3.3 %; Hematocrit 34.9 % (37.0-47.0); Hemoglobin 10.3 g/dL (11.5-15.3); Lymphocytes # 4.2 10^3/uL (0.8-4.8); Lymphocytes % 23.1 %; Mean Corpuscular HGB Conc 29.5 g/dL (30.0-36.0); Mean Corpuscular Hemoglobin 26.5 pg (28.0-34.0); Mean Corpuscular Volume 89.7 fl (81-99); Mean Platelet Volume 9.4 fL (7.4-10.4); Monocytes # 1.1 10^3/uL (0.2-0.9); Monocytes % 6.1 %; Neutrophils # 12.13 10^3/uL (1.8-7.7); Neutrophils % 66.3 %; Nucleated Red Blood Cells % 0 %; Platelet Count 426 10^3/cmm (130-400); Red Blood Count 3.89 10^6/uL (4.1-5.3); Red Cell Distribution Width 21.6 % (12.1-15.1); White Blood Count 18.3 10^3/uL (4.0-10.0)
--- NOTE | 2023-02-07 22:39 | ECG_ITS ---
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 Measurements Intervals [place] Rate: 56 P: 17 MD: 150 QRS: -45 QRSD: 90 T: 71 QT: 431 QTc: 419 Interpretive Statements SINUS BRADYCARDIA LEFT ANTERIOR FASCICULAR BLOCK [QRS AXIS <= -45, QR IN I, RS IN II] SEPTAL MYOCARDIAL INFARCTION , PROBABLY OLD [40+ ms Q WAVE IN V1/V2] Compared to ECG 08/17/2022 00:20:23 Sinus rhythm no longer present Incomplete right bundle-branch block no longer present Myocardial infarct finding still present Electronically Signed On 02-08-2023 19:18:29 CDT by Talia Espana M.D. [email or web address]
--- NOTE | 2023-02-07 22:49 | W.ED.NAVMDI ---
Documented by User: ADY Cabral 02/08/23 03:14 HPI - Nausea/Vomiting/Diarrhea General: Chief complaint: Nausea/Vomiting/Diarrhea Stated complaint: ABD PAIN Time Seen by Provider: 02/07/23 22:19 History of Present Illness: Patient is a 72-year-old female comes to the ED via EMS with multiple complaints. 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 Past medical history of COPD, CHF and type 2 diabetes. Patient did endorse having an episode of chest discomfort tonight just prior to arrival while at rest. She did not describe it as chest pain and just said it felt uncomfortable in her chest. The episode has resolved before she arrived to the ED. she endorses having malaise. For approximately 1 week now she has been having nausea and multiple episodes of emesis. She has been able to keep some food and fluids down but is continued to have nausea and episodes of emesis daily for the past week. She denies any abdominal pain, dysuria or hematuria. She does endorse having episodes of diarrhea for the past week as well. She says the episodes come on all of a sudden and she has to go to the bathroom bed. Over the past several days she does endorse feeling more weak and is having trouble getting up ambulating around house and taking care of herself. Patient lives at home with her . Denies any fevers, abdominal pain. Associated nausea: Yes Associated symtoms: Reports chest pain, fatigue, malaise and nausea; Denies change in vision, dysuria, headache(s) or palpitations Review of Systems Const: Reports: fatigue and malaise; Denies: fever(s) or chills Eyes: Denies: change in vision or eye discomfort ENMT: Denies: throat pain, odynophagia, nasal discharge or nasal congestion Card: Reports: chest pain; Denies: palpitations, edema, swelling of feet/ankles, dyspnea on exertion or orthopnea Resp: Denies: dyspnea, productive cough or non-productive cough GI: Reports: nausea, vomiting and diarrhea; Denies: abdominal pain, constipation or hematochezia : Denies: flank pain, dysuria or hematuria Musc: Reports: back pain; Denies: neck pain or extremity swelling Skin/Breast: Denies: rash or new lesions Neuro: Denies: headache(s), numbness in extremities or weakness in extremities PFSH ED PFSH: Medical History Achalasia Anxiety Gotti's palsy CHF (congestive heart failure) Chronic kidney disease COPD (chronic obstructive pulmonary disease) Depression History of colon polyps Hypertension Left-sided Gotti's palsy Nonalcoholic steatohepatitis Peripheral neuropathy Sleep apnea Type 2 diabetes mellitus Surgical History H/O vaginal surgery (05/22/09) Monarc sling urethropexy. Performed by Dr. Colbert at [facility]. H/O: hysterectomy Hx of cholecystectomy S/P bilateral breast reduction (09/03/11) Family History Denies family history of Diabetes Dementia Hyperlipidemia Family history of premature coronary artery disease Cancer Social History Smoking and tobacco status: former smoker (STOPPED 31 YEARS AGO) Alcohol intake: never Substance/Drug Use: never Household members: spouse Housing: House Physical Exam Const: COMMON NORMALS: patient oriented x3 and alert GENERAL APPEARANCE: cooperative HENMT: COMMON NORMALS: normocephalic HEAD & SCALP: normocephalic MOUTH: Normal oral and palatal mucosa present THROAT: posterior oropharynx normal and uvula midline OTHER: Patient has Gotti's palsy of left side of face. Neck/C-Spine: COMMON NORMALS: supple GENERAL: Yes normal visual inspection Resp: COMMON NORMALS: normal respiratory effort, No retractions, No use of accessory muscles and clear to auscultation bilaterally AUSCULTATION: clear to auscultation bilaterally Cardio: COMMON NORMALS: regular rate, regular rhythm, S1 normal heart sound present, S2 normal heart sound present, No gallops present (Cardio), No clicks present (Cardio), No murmurs present (Cardio) and Peripheral pulses 2+ throughout RATE: regular rate RHYTHM: regular rhythm HEART SOUNDS: S1 normal heart sound present and S2 normal heart sound present PERIPHERAL PULSES: Peripheral pulses 2+ throughout GI: COMMON NORMALS: Normal to inspection, nondistended, normoactive bowel sounds present, Soft to palpation, non-tender and no masses PALPATION: Yes Soft to palpation : COMMON NORMALS: Yes no CVA tenderness BLADDER/KIDNEY EXAM: Yes no CVA tenderness Back/Pelvis: COMMON NORMALS: no CVA tenderness Extremity: COMMON NORMALS: normal to inspection Neuro: COMMON NORMALS: patient oriented x3 SENSORIUM/ORIENTATION: Yes alert GAIT: Yes Normal gait present Skin: GENERAL SKIN EXAM: dry skin Course Vital Signs: Vital signs: Vital Signs Temperature 98.2 F 02/07/23 22:16 Pulse Rate 63 02/08/23 01:08 Respiratory Rate 16 02/08/23 01:08 Blood Pressure 186/49 02/08/23 01:08 Pulse Oximetry 95 02/08/23 03:22 Oxygen Flow Rate 2 02/08/23 03:22 MDM - Nausea/Vomiting/Diarrhea Medical Decision Making Patient is a 72-year-old female comes to the ED via EMS with multiple complaints. 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 Past medical history of COPD, CHF and type 2 diabetes. Patient did endorse having an episode of chest discomfort tonight just prior to arrival while at rest. She did not describe it as chest pain and just said it felt uncomfortable in her chest. The episode has resolved before she arrived to the ED. she endorses having malaise. For approximately 1 week now she has been having nausea and multiple episodes of emesis. She has been able to keep some food and fluids down but is continued to have nausea and episodes of emesis daily for the past week. She denies any abdominal pain, dysuria or hematuria. She does endorse having episodes of diarrhea for the past week as well. She says the episodes come on all of a sudden and she has to go to the bathroom bed. Over the past several days she does endorse feeling more weak and is having trouble getting up ambulating around house and taking care of herself. Patient lives at home with her . Denies any fevers, abdominal pain. Patient's O2 levels have been in the low 90s without any O2 on. Rest of her vitals are stable. She appears nontoxic and in no acute distress. Patient does have visible Gotti's palsy on left side of face. Rest of exam is benign white blood cell count of 18.3 but looking at her history her white blood cell count is consistently around 18. Rest of her CBC and CMP are unremarkable. Lipase 30. UA is unremarkable. EKG shows no acute findings. Baseline troponin 14 and 2-hour troponin was 13. Chest x-ray shows some mild left basilar pneumonia. CT of abdomen pelvis shows no acute findings. Patient was given IV nausea meds and some fluids and her symptoms improved and she was able to tolerate p.o. food and fluids. Patient diagnosed with pneumonia and she will be discharged with an antibiotic and nausea med. Home O2 study is pending. Dr. Xiao will discharge patient pending home O2 study. Lab Data I reviewed the patient's lab results. 02/07/23 22:20 02/07/23 22:20 Radiology Impressions Chest X-Ray 02/07/23 23:03 IMPRESSION: Mild left lateral basilar atelectasis and/or pneumonia. Abdomen/Pelvis CT 02/08/23 01:18 IMPRESSION: 1. Interval removal of the Weiss balloon catheter. 2. No acute findings. COMMENTS: Consistent with the [employer]'s Incidental Findings Committee white paper (J Am Patti Radiol 2018): Any incidental renal lesion less than 1 cm or classified as too small to characterize, or any incidental cystic renal lesion characterized as simple-appearing, is likely benign. No follow-up imaging is recommended for these lesions per consensus recommendations based on imaging criteria. Laboratory Results WBC 18.3 10^3/uL (4.0-10.0) H 02/07/23 22:20 RBC 3.89 10^6/uL (4.1-5.3) L 02/07/23 22:20 Hgb 10.3 g/dL (11.5-15.3) L 02/07/23 22:20 Hct 34.9 % (37.0-47.0) L 02/07/23 22:20 MCV 89.7 fl (81-99) 02/07/23 22:20 MCH 26.5 pg (28.0-34.0) L 02/07/23 22:20 MCHC 29.5 g/dL (30.0-36.0) L 02/07/23 22:20 RDW 21.6 % (12.1-15.1) H 02/07/23 22:20 Plt Count 426 10^3/cmm (130-400) H 02/07/23 22:20 MPV 9.4 fL (7.4-10.4) 02/07/23 22:20 Neut % (Auto) 66.3 % 02/07/23 22:20 Lymph % (Auto) 23.1 % 02/07/23 22:20 [place] % (Auto) 6.1 % 02/07/23 22:20 Eos % (Auto) 3.3 % 02/07/23 22:20 Baso % (Auto) 0.4 % 02/07/23 22:20 Neut # (Auto) 12.13 10^3/uL (1.8-7.7) H 02/07/23 22:20 Lymph # (Auto) 4.2 10^3/uL (0.8-4.8) 02/07/23 22:20 [place] # (Auto) 1.1 10^3/uL (0.2-0.9) H 02/07/23 22:20 Eos # (Auto) 0.6 10^3/uL (0.0-0.8) 02/07/23 22:20 Baso # (Auto) 0.1 10^3/uL (0.0-0.1) 02/07/23 22:20 Nucleated RBC % (auto) 0 % 02/07/23 22: Nucleated RBCs # 0.0 /100WBC 02/07/23 22:20 Sodium 142 mmol/L (136-145) 02/07/23 22:20 Potassium 3.4 mmol/L (3.5-5.1) L 02/07/23 22:20 Chloride 105 mmol/L (98-107) 02/07/23 22:20 Carbon Dioxide 27 mmol/L (22-29) 02/07/23 22:20 Anion Gap 13.4 (5-19) 02/07/23 22:20 BUN 11 mg/dL (8-23) 02/07/23 22:20 Creatinine 1.1 mg/dL (0.5-0.9) H 02/07/23 22:20 GFR Calculation Not Reportable 02/07/23 22:20 Glucose 94 mg/dL (65-115) 02/07/23 22:20 Calculated Osmolality 293 mOsm/kg (285-295) 02/07/23 22:20 Lactic Acid 1.5 mmol/L (0.5-2.2) 02/07/23 22:20 Calcium 8.8 mg/dL (8.5-10.5) 02/07/23 22:20 Total Bilirubin 0.2 mg/dL (0.15-1.2) 02/07/23 22:20 AST 27 U/L (0-32) 02/07/23 22:20 ALT 27 U/L (0-33) 02/07/23 22:20 Alkaline Phosphatase 131 U/L (35-105) H 02/07/23 22:20 Troponin T Baseline 14 ng/L (0-10) H 02/07/23 22:20 Troponin T 120 Minute 13.61 ng/L (0-10) H 02/08/23 00:20 Delta Troponin T -0.39 ABS# (0-10) L 02/08/23 00:20 NT-Pro-B Natriuret Pep 450 pg/mL (0-125) H 02/07/23 22:20 Total Protein 6.6 g/dL (6.6-8.7) 02/07/23 22:20 Albumin 3.8 g/dL (3.5-5.2) 02/07/23 22:20 Globulin 2.8 g/dL (1.3-4.6) 02/07/23 22:20 Lipase 30 U/L (13-60) 02/07/23 22:20 Urine Color Yellow (Yellow) 02/08/23 01:09 Urine Appearance Sl hazy (CLEAR) A 02/08/23 01:09 Urine pH 5 (5-7) 02/08/23 01:09 Ur Specific [place] 1.025 (1.005-1.030) 02/08/23 01:09 Urine Protein Trace (Negative) 02/08/23 01:09 Urine Glucose (UA) Norm (Normal) 02/08/23 01:09 Urine Ketones Negative (Negative) 02/08/23 01:09 Urine Blood Neg (Negative) 02/08/23 01:09 Urine Nitrate Negative (Negative) 02/08/23 01:09 Urine Bilirubin Neg (Negative) 02/08/23 01:09 Urine Urobilinogen Norm mg/dL (Negative) 02/08/23 01:09 Ur Leukocyte Esterase Trace (Negative) H 02/08/23 01:09 Urine RBC 0-4 /hpf (0-2) H 02/08/23 01:09 Urine WBC 15-25 /hpf (0-5) H 02/08/23 01:09 Ur Squamous Epith Cells 0-4 /hpf (0-5) H 02/08/23 01:09 Amorphous Sediment Not Reportable 02/08/23 01:09 Urine Bacteria 1+ /hpf (NONE) H 02/08/23 01:09 Urine Mucus 1+ /hpf 02/08/23 01:09 EKG Data EKG 1: EKG interpretation date: 02/07/23 Interpretation: Sinus bradycardia, 56 bpm, no ST segment elevation or depression seen. Dr. Xiao reviewed EKG and agreed with findings Discharge Plan Discharge Patient Disposition: Home Clinical Impression: Pneumonia Qualifiers: Pneumonia type: due to unspecified organism Laterality: left Lung location: unspecified part of lung Qualified Code(s): J18.9 - Pneumonia, unspecified organism Condition: Stable Prescriptions: New ondansetron 4 mg tablet,disintegrating 4 mg PO Q8H PRN (Reason: nausea and vomiting) Qty: 20 0RF doxycycline hyclate 100 mg capsule 100 mg PO BID 10 Days Qty: 20 0RF No Action hyoscyamine sulfate [Levsin] 0.125 mg tablet 0.125 mg PO DAILY PRN (Reason: Abdominal Discomfort) metformin 750 mg tablet extended release 24 hr 750 mg PO BID Qty: 180 1RF Lantus Solostar U-100 Insulin 100 unit/mL (3 mL) insulin pen 40 unit SUBCUT BID Qty: 72 0RF potassium chloride 10 mEq tablet extended release 10 meq PO BID duloxetine 60 mg capsule,delayed release(DR/EC) 60 mg PO QAM nystatin [Nystop] 100,000 unit/gram powder 1 applic topical DAILY PRN (Reason: unknown) carvedilol 3.125 mg tablet 3.125 mg PO BID Rx Instructions: must administer with a meal/food hydroxyzine HCl 25 mg tablet 25 mg PO TID PRN (Reason: Anxiety) gabapentin 300 mg capsule 600 mg PO BID albuterol sulfate 90 mcg/actuation HFA aerosol inhaler 2 puff INHALATION Q6H PRN (Reason: shortness of breath or wheezing) Qty: 8.5 2RF (DME) pen needle, diabetic [TechLITE Pen Needle] 32 gauge x 5/32 needle See Rx Instructions .ROUTE .COMPLEX Qty: 100 0RF Dose Instruction: USE NEEDLES WITH INSULIN SYRINGE Rx Instructions: USE NEEDLES WITH INSULIN SYRINGE ondansetron HCl 4 mg tablet See Rx Instructions PO Q6H PRN (Reason: nausea and vomiting) Qty: 30 3RF Rx Instructions: 1 to 2 tablets orally every 6 hours PRN; amlodipine 10 mg Tablet 10 mg PO QAM ferrous sulfate [iron] 325 mg (65 mg iron) Tablet 650 mg PO QAM acetaminophen 500 mg Tablet 1,500 mg PO Q6H PRN (Reason: Pain) fluticasone propionate [Flovent HFA] 220 mcg/actuation Hfa Aerosol Inhaler 1 puff INHALATION BID PRN (Reason: unknown) atorvastatin 40 mg tablet 40 mg PO QPM Qty: 90 0RF Discharge Orders: Discharge ED (Routine); Ordered 02/08/23 Ordered By: Huy Xiao Other Ambulatory Orders: DME: Oxygen (Order) Location: None Selected Ordered By: Huy Xiao Referrals: Galdino Mojica MD [Primary Care Provider] - Discharge Diet: Regular Discharge Activity: Increase activity as tolerated Patient Instructions: Pneumonia (ED) Activity Restrictions/Additional Instructions: Follow-up with medical provider as directed. Take medications as prescribed. Return to the ER or your medical provider if condition worsens. Please read and understand discharge instructions. Thank you for choosing [facility] for your healthcare needs today. Please realize this is an emergency room and that we are providing you with a medical screening exam and this may not be complete and all inclusive of all the testing and or work up that you may need to determine your ailment or severity of your illness. It is very important that you follow up as instructed or that you return to the Emergency Department should you have concerns or if your condition changes or worsens in any way. Coding Level of Care Code ED [employer] Inspector for Chg Fwd Documented by User: Huy Xiao, 02/08/23 03:38 HPI - Nausea/Vomiting/Diarrhea General: Chief complaint: Nausea/Vomiting/Diarrhea Stated complaint: ABD PAIN Time Seen by Provider: 02/07/23 22:19 [facility] ED PFSH: Medical History Achalasia Anxiety Gotti's palsy CHF (congestive heart failure) Chronic kidney disease COPD (chronic obstructive pulmonary disease) Depression History of colon polyps Hypertension Left-sided Gotti's palsy Nonalcoholic steatohepatitis Peripheral neuropathy Sleep apnea Type 2 diabetes mellitus Surgical History H/O vaginal surgery (05/22/09) Monarc sling urethropexy. Performed by Dr. Colbert at [facility]. H/O: hysterectomy Hx of cholecystectomy S/P bilateral breast reduction (09/03/11) Family History Denies family history of Diabetes Dementia Hyperlipidemia Family history of premature coronary artery disease Cancer Social History Smoking and tobacco status: former smoker (STOPPED 31 YEARS AGO) Alcohol intake: never Substance/Drug Use: never Household members: spouse Housing: House Course Vital Signs: Vital signs: Vital Signs Temperature 98.2 F 02/07/23 22:16 Pulse Rate 63 02/08/23 01:08 Respiratory Rate 16 02/08/23 01:08 Blood Pressure 186/49 02/08/23 01:08 Pulse Oximetry 95 02/08/23 03:22 Oxygen Flow Rate 2 02/08/23 03:22 MDM - Nausea/Vomiting/Diarrhea Medical Decision Making Patient is a 72-year-old female comes to the ED via EMS with multiple complaints. 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 Past medical history of COPD, CHF and type 2 diabetes. Patient did endorse having an episode of chest discomfort tonight just prior to arrival while at rest. She did not describe it as chest pain and just said it felt uncomfortable in her chest. The episode has resolved before she arrived to the ED. she endorses having malaise. For approximately 1 week now she has been having nausea and multiple episodes of emesis. She has been able to keep some food and fluids down but is continued to have nausea and episodes of emesis daily for the past week. She denies any abdominal pain, dysuria or hematuria. She does endorse having episodes of diarrhea for the past week as well. She says the episodes come on all of a sudden and she has to go to the bathroom bed. Over the past several days she does endorse feeling more weak and is having trouble getting up ambulating around house and taking care of herself. Patient lives at home with her . Denies any fevers, abdominal pain. Patient's O2 levels have been in the low 90s without any O2 on. Rest of her vitals are stable. She appears nontoxic and in no acute distress. Patient does have visible Gotti's palsy on left side of face. Rest of exam is benign white blood cell count of 18.3 but looking at her history her white blood cell count is consistently around 18. Rest of her CBC and CMP are unremarkable. Lipase 30. UA is unremarkable. EKG shows no acute findings. Baseline troponin 14 and 2-hour troponin was 13. Chest x-ray shows some mild left basilar pneumonia. CT of abdomen pelvis shows no acute findings. Patient was given IV nausea meds and some fluids and her symptoms improved and she was able to tolerate p.o. food and fluids. Patient diagnosed with pneumonia and she will be discharged with an antibiotic and nausea med. Home O2 study is pending. Dr. Xiao will discharge patient pending home O2 study. This patient was originally seen by Mr. Tobin PA-C.? I agree with his history, evaluation, and treatment. Home O2 study reveals the patient needs to liters by nasal cannula home oxygen. This has been ordered for the patient. Discharge as per above. Lab Data 02/07/23 22:20 02/07/23 22:20 Radiology Impressions Chest X-Ray 02/07/23 23:03 IMPRESSION: Mild left lateral basilar atelectasis and/or pneumonia. Abdomen/Pelvis CT 02/08/23 01:18 IMPRESSION: 1. Interval removal of the Weiss balloon catheter. 2. No acute findings. COMMENTS: Consistent with the [employer]'s Incidental Findings Committee white paper (J Am Patti Radiol 2018): Any incidental renal lesion less than 1 cm or classified as too small to characterize, or any incidental cystic renal lesion characterized as simple-appearing, is likely benign. No follow-up imaging is recommended for these lesions per consensus recommendations based on imaging criteria. Laboratory Results WBC 18.3 10^3/uL (4.0-10.0) H 02/07/23 22:20 RBC 3.89 10^6/uL (4.1-5.3) L 02/07/23 22:20 Hgb 10.3 g/dL (11.5-15.3) L 02/07/23 22:20 Hct 34.9 % (37.0-47.0) L 02/07/23 22:20 MCV 89.7 fl (81-99) 02/07/23 22:20 MCH 26.5 pg (28.0-34.0) L 02/07/23 22:20 MCHC 29.5 g/dL (30.0-36.0) L 02/07/23 22:20 RDW 21.6 % (12.1-15.1) H 02/07/23 22:20 Plt Count 426 10^3/cmm (130-400) H 02/07/23 22:20 MPV 9.4 fL (7.4-10.4) 02/07/23 22:20 Neut % (Auto) 66.3 % 02/07/23 22:20 Lymph % (Auto) 23.1 % 02/07/23 22:20 [place] % (Auto) 6.1 % 02/07/23 22:20 Eos % (Auto) 3.3 % 02/07/23 22:20 Baso % (Auto) 0.4 % 02/07/23 22:20 Neut # (Auto) 12.13 10^3/uL (1.8-7.7) H 02/07/23 22:20 Lymph # (Auto) 4.2 10^3/uL (0.8-4.8) 02/07/23 22:20 [place] # (Auto) 1.1 10^3/uL (0.2-0.9) H 02/07/23 22:20 Eos # (Auto) 0.6 10^3/uL (0.0-0.8) 02/07/23 22:20 Baso # (Auto) 0.1 10^3/uL (0.0-0.1) 02/07/23 22:20 Nucleated RBC % (auto) 0 % 02/07/23 22:20 Nucleated RBCs # 0.0 /100WBC 02/07/23 22:20 Sodium 142 mmol/L (136-145) 02/07/23 22:20 Potassium 3.4 mmol/L (3.5-5.1) L 02/07/23 22:20 Chloride 105 mmol/L (98-107) 02/07/23 22:20 Carbon Dioxide 27 mmol/L (22-29) 02/07/23 22:20 Anion Gap 13.4 (5-19) 02/07/23 22:20 BUN 11 mg/dL (8-23) 02/07/23 22:20 Creatinine 1.1 mg/dL (0.5-0.9) H 02/07/23 22:20 GFR Calculation Not Reportable 02/07/23 22:20 Glucose 94 mg/dL (65-115) 02/07/23 22:20 Calculated Osmolality 293 mOsm/kg (285-295) 02/07/23 22:20 Lactic Acid 1.5 mmol/L (0.5-2.2) 02/07/23 22:20 Calcium 8.8 mg/dL (8.5-10.5) 02/07/23 22:20 Total Bilirubin 0.2 mg/dL (0.15-1.2) 02/07/23 22:20 AST 27 U/L (0-32) 02/07/23 22:20 ALT 27 U/L (0-33) 02/07/23 22:20 Alkaline Phosphatase 131 U/L (35-105) H 02/07/23 22:20 Troponin T Baseline 14 ng/L (0-10) H 02/07/23 22:20 Troponin T 120 Minute 13.61 ng/L (0-10) H 02/08/23 00:20 Delta Troponin T -0.39 ABS# (0-10) L 02/08/23 00:20 NT-Pro-B Natriuret Pep 450 pg/mL (0-125) H 02/07/23 22:20 Total Protein 6.6 g/dL (6.6-8.7) 02/07/23 22:20 Albumin 3.8 g/dL (3.5-5.2) 02/07/23 22:20 Globulin 2.8 g/dL (1.3-4.6) 02/07/23 22:20 Lipase 30 U/L (13-60) 02/07/23 22:20 Urine Color Yellow (Yellow) 02/08/23 01:09 Urine Appearance Sl hazy (CLEAR) A 02/08/23 01:09 Urine pH 5 (5-7) 02/08/23 01:09 Ur Specific [place] 1.025 (1.005-1.030) 02/08/23 01:09 Urine Protein Trace (Negative) 02/08/23 01:09 Urine Glucose (UA) Norm (Normal) 02/08/23 01:09 Urine Ketones Negative (Negative) 02/08/23 01:09 Urine Blood Neg (Negative) 02/08/23 01:09 Urine Nitrate Negative (Negative) 02/08/23 01:09 Urine Bilirubin Neg (Negative) 02/08/23 01:09 Urine Urobilinogen Norm mg/dL (Negative) 02/08/23 01:09 Ur Leukocyte Esterase Trace (Negative) H 02/08/23 01:09 Urine RBC 0-4 /hpf (0-2) H 02/08/23 01:09 Urine WBC 15-25 /hpf (0-5) H 02/08/23 01:09 Ur Squamous Epith Cells 0-4 /hpf (0-5) H 02/08/23 01:09 Amorphous Sediment Not Reportable 02/08/23 01:09 Urine Bacteria 1+ /hpf (NONE) H 02/08/23 01:09 Urine Mucus 1+ /hpf 02/08/23 01:09 Discharge Plan Discharge Patient Disposition: Home Clinical Impression: Pneumonia Qualifiers: Pneumonia type: due to unspecified organism Laterality: left Lung location: unspecified part of lung Qualified Code(s): J18.9 - Pneumonia, unspecified organism Condition: Stable Prescriptions: New ondansetron 4 mg tablet,disintegrating 4 mg PO Q8H PRN (Reason: nausea and vomiting) Qty: 20 0RF doxycycline hyclate 100 mg capsule 100 mg PO BID 10 Days Qty: 20 0RF No Action hyoscyamine sulfate [Levsin] 0.125 mg tablet 0.125 mg PO DAILY PRN (Reason: Abdominal Discomfort) metformin 750 mg tablet extended release 24 hr 750 mg PO BID Qty: 180 1RF Lantus Solostar U-100 Insulin 100 unit/mL (3 mL) insulin pen 40 unit SUBCUT BID Qty: 72 0RF potassium chloride 10 mEq tablet extended release 10 meq PO BID duloxetine 60 mg capsule,delayed release(DR/EC) 60 mg PO QAM nystatin [Nystop] 100,000 unit/gram powder 1 applic topical DAILY PRN (Reason: unknown) carvedilol 3.125 mg tablet 3.125 mg PO BID Rx Instructions: must administer with a meal/food hydroxyzine HCl 25 mg tablet 25 mg PO TID PRN (Reason: Anxiety) gabapentin 300 mg capsule 600 mg PO BID albuterol sulfate 90 mcg/actuation HFA aerosol inhaler 2 puff INHALATION Q6H PRN (Reason: shortness of breath or wheezing) Qty: 8.5 2RF (DME) pen needle, diabetic [TechLITE Pen Needle] 32 gauge x 5/32 needle See Rx Instructions .ROUTE .COMPLEX Qty: 100 0RF Dose Instruction: USE NEEDLES WITH INSULIN SYRINGE Rx Instructions: USE NEEDLES WITH INSULIN SYRINGE ondansetron HCl 4 mg tablet See Rx Instructions PO Q6H PRN (Reason: nausea and vomiting) Qty: 30 3RF Rx Instructions: 1 to 2 tablets orally every 6 hours PRN; amlodipine 10 mg Tablet 10 mg PO QAM ferrous sulfate [iron] 325 mg (65 mg iron) Tablet 650 mg PO QAM acetaminophen 500 mg Tablet 1,500 mg PO Q6H PRN (Reason: Pain) fluticasone propionate [Flovent HFA] 220 mcg/actuation Hfa Aerosol Inhaler 1 puff INHALATION BID PRN (Reason: unknown) atorvastatin 40 mg tablet 40 mg PO QPM Qty: 90 0RF Discharge Orders: Discharge ED (Routine); Ordered 02/08/23 Ordered By: Huy Xiao Other Ambulatory Orders: DME: Oxygen (Order) Location: None Selected Ordered By: Huy Xiao Referrals: Galdino Mojica MD [Primary Care Provider] - Discharge Diet: Regular Discharge Activity: Increase activity as tolerated Patient Instructions: Pneumonia (ED) Activity Restrictions/Additional Instructions: Follow-up with medical provider as directed. Take medications as prescribed. Return to the ER or your medical provider if condition worsens. Please read and understand discharge instructions. Thank you for choosing [facility] for your healthcare needs today. Please realize this is an emergency room and that we are providing you with a medical screening exam and this may not be complete and all inclusive of all the testing and or work up that you may need to determine your ailment or severity of your illness. It is very important that you follow up as instructed or that you return to the Emergency Department should you have concerns or if your condition changes or worsens in any way. Coding Level of Care Code ED Hoof And Shoe Inspector for Dionicio Loyd
[2023-02-07 22:56] LABS: Lactic Sepsis W/Reflex 1.5 mmol/L (0.5-2.2)
[2023-02-07 22:59] LABS: Alanine Aminotransferase 27 U/L (0-33); Albumin Level 3.8 g/dL (3.5-5.2); Alkaline Phosphatase 131 U/L (35-105); Anion Gap 13.4 (5-19); Aspartate Amino Transferase 27 U/L (0-32); Blood Urea Nitrogen 11 mg/dL (8-23); Calcium 8.8 mg/dL (8.5-10.5); Carbon Dioxide 27 mmol/L (22-29); Chloride 105 mmol/L (98-107); Globulin 2.8 g/dL (1.3-4.6); Glucose 94 mg/dL (65-115); Lipase 30 U/L (13-60); Osmolality Calculated 293 mOsm/kg (285-295); Potassium 3.4 mmol/L (3.5-5.1); Sodium 142 mmol/L (136-145); Total Bilirubin 0.2 mg/dL (0.15-1.2); Total Protein 6.6 g/dL (6.6-8.7)
--- NOTE | 2023-02-07 23:03 | XRR_ITS ---
PROCEDURE INFORMATION: Exam: XR Chest Exam date and time: 02/07/2023 11:21 PM Age: 72 years old Clinical indication: Pain; Chest pressure; Prior surgery; Surgery date: 6+ months; Surgery type: Cervical fusion. Gb; Patient HX: Chest discomfort. BP over 200 systolic on monitor. ; Additional info: Cp TECHNIQUE: Imaging protocol: Radiologic exam of the chest. Views: 1 view. COMPARISON: CR XR chest 1V portable [id number] 08/17/2022 7:39 PM FINDINGS: Lungs: Mild left lateral basilar atelectasis and/or pneumonia. Pleural spaces: Unremarkable. No pleural effusion. No pneumothorax. Heart/Mediastinum: Unremarkable. No cardiomegaly. Bones/joints: Stable postoperative metallic fixation of the cervical spine with or without metallic artifact. Mild thoracic spondylosis. XR/XR chest 1V portable [id number] IMPRESSION: Mild left lateral basilar atelectasis and/or pneumonia.
[2023-02-07] MEDS: ondansetron 2 mg/ML SDV 2 mL 4 MG IVP (23:05)
[2023-02-07] MEDS: sodium chloride 0.9% 500 ML 999 ML IV (23:05)
[2023-02-07 23:07] VITALS: BP 165/55; PULSE 56; RESP 16; O2SAT 96
[2023-02-07 23:21] LABS: Troponin(5th) Baseline 14 ng/L (0-10)
[2023-02-07 23:31] LABS: NT Pro B Type Natriuretic Pept 450 pg/mL (0-125)
[2023-02-07 23:51] VITALS: RESP 16
[2023-02-07] MEDS: morphine 4 mg/mL SDV 1 mL IVP (23:51)
[2023-02-07 23:53] VITALS: BP 170/44; PULSE 59; RESP 16; O2SAT 97
[2023-02-08] VITALS (8 sets, daily range): BP systolic 150–186; BP diastolic 39–92; PULSE 58–72; RESP 16; TEMP 36.8; O2SAT 88–96
[2023-02-08 00:43] LABS: Troponin 5 2HR 13.61 ng/L (0-10)
[2023-02-08 00:45] LABS: Troponin 5 2HR Delta -0.39 ABS# (0-10)
--- NOTE | 2023-02-08 00:46 | ECG_ITS ---
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 Measurements Intervals [place] Rate: 53 P: 85 NC: 164 QRS: -40 QRSD: 94 T: 44 QT: 441 QTc: 416 Interpretive Statements SINUS BRADYCARDIA LEFT AXIS DEVIATION [QRS AXIS < -30] SEPTAL MYOCARDIAL INFARCTION , PROBABLY OLD [40+ ms Q WAVE IN V1/V2] Compared to ECG 02/07/2023 22:57:28 Left-axis deviation now present Left anterior fascicular block no longer present Myocardial infarct finding still present Non diagnostic T wave changes Electronically Signed On 02-08-2023 19:27:52 CDT by Talia Espana M.D. [id number]
[2023-02-08 01:15] LABS: Add Urine Microscopic? YES; Bilirubin Urine Neg (Negative); Blood Urine Neg (Negative); Glucose Urine UA Norm (Normal); Ketones Urine Negative (Negative); Leukocyte Esterase Urine Trace (Negative); Nitrate Urine Negative (Negative); Protein Urine Trace (Negative); Specific Gravity, Urine 1.025 (1.005-1.030); Urine Appearance SL Hazy (CLEAR); Urine Color Yellow (Yellow); Urobilinogen Urine Norm (Negative); pH Urine 5 (5-7)
--- NOTE | 2023-02-08 01:18 | CTR_ITS ---
PROCEDURE INFORMATION: Exam: CT Abdomen And Pelvis With Contrast Exam date and time: 02/08/2023 1:45 AM Age: 72 years old Clinical indication: Nausea and vomiting; Abdominal pain; Generalized; Prior surgery; Surgery date: 6+ months; Surgery type: Gb. Hysterectomy; Patient HX: C/O abd and back pain with n/v. ; Additional info: Bilateral lower back pain and nausea vomiting TECHNIQUE: Imaging protocol: Computed tomography of the abdomen and pelvis with contrast. Radiation optimization: All CT scans at this facility use at least one of these dose optimization techniques: automated exposure control; mA and/or kV adjustment per patient size (includes targeted exams where dose is matched to clinical indication); or iterative reconstruction. Contrast material: OMNI 350; Contrast volume: 100 ml; Contrast route: INTRAVENOUS (IV); REPORTING DATA: Count of CT and Cardiac NM exams in prior 12 months: This patient has received 2 known CTs and 0 known cardiac nuclear medicine studies in the 12 months prior to the current study. COMPARISON: CT abdomen pelvis wo con [id number] 05/14/2022 10:17 PM RADIATION DOSE METRICS: Total DLP (mGy-cm): 969.83 FINDINGS: Tubes, catheters and devices: Interval removal of the Weiss balloon catheter. Liver: Normal. No mass. Gallbladder and bile ducts: Stable cholecystectomy. Pancreas: Normal. No ductal dilation. Spleen: Normal. No splenomegaly. Adrenal glands: Normal. No mass. Kidneys and ureters: Left renal simple cyst measuring >1.0 cm. One or more nonobstructing right renal calyceal stones. Stomach and bowel: Mild colonic diverticulosis. Appendix: No evidence of appendicitis. Intraperitoneal space: Unremarkable. No free air. No significant fluid collection. Vasculature: Calcification of the abdominal aorta and/or iliac arteries consistent with atherosclerotic vessel disease. Lymph nodes: Unremarkable. No enlarged lymph nodes. Urinary bladder: Unremarkable as visualized. Reproductive: Stable hysterectomy. Bones/joints: Unremarkable. No acute fracture. Soft tissues: Unremarkable. CT/CT abdomen pelvis w con* [id number] IMPRESSION: 1. Interval removal of the Weiss balloon catheter. 2. No acute findings. COMMENTS: Consistent with the [employer] [employer]'s Incidental Findings Committee white paper (J Am Patti Radiol 2018): Any incidental renal lesion less than 1 cm or classified as too small to characterize, or any incidental cystic renal lesion characterized as simple-appearing, is likely benign. No follow-up imaging is recommended for these lesions per consensus recommendations based on imaging criteria.
[2023-02-08 01:19] LABS: Mucus Urine 1+ /hpf; RBC Urine 0-4 /hpf (0-2); Squamous Epithelial Cell Urine 0-4 /hpf (0-5); WBC Urine 15-25 /hpf (0-5)
[2023-02-08 01:20] LABS: Add Urine Culture? Yes; Bacteria Urine 1+ /hpf
[2023-02-08] MEDS: iohexol 350 mg/mL 500 mL Btl (per mL) IV (01:48)
[2023-02-08] MEDS: metoclopramide 5 mg/mL SDV 2 mL 10 MG IVP (02:08)
[2023-02-08] MEDS: doxycycline 100 mg Tablet PO (02:54)
[2023-02-08] MEDS: ondansetron 4 MG Tablet PO (04:07)
--- NOTE | 2023-02-10 15:15 | DCPLANNER ---
manager financial systems had message to speak with patient about getting home health in the home. manager financial systems called patient, she stated that she just left her primary care physicians office, and Dr. Mojica is ordering home health, a bath aide for patient.
== END 2023-02-08 05:46 | disposition home or self-care (01) ==
PROVIDERS: Emergency Provider Physician Assistant; PCP Family Medicine
DX: J44.0 Chronic obstructive pulmonary disease with (acute) lower respiratory infection (principal); J18.9 Pneumonia, unspecified organism; Z79.84 Long term (current) use of oral hypoglycemic drugs; Z79.4 Long term (current) use of insulin; Z87.891 Personal history of nicotine dependence; G51.0 Bell's palsy; I13.0 Hypertensive heart and chronic kidney disease with heart failure and stage 1 through stage 4 chronic kidney disease, or unspecified chronic kidney disease; E11.22 Type 2 diabetes mellitus with diabetic chronic kidney disease; N18.9 Chronic kidney disease, unspecified; I50.9 Heart failure, unspecified
CPT/HCPCS: 36415; 71045; 74177; 80053; 81001; 83605; 83690; 83880; 84484; 85025; 87040; 87086; 93005; 96361; 96374; 96375; 99285; J2270; J2405; J2765; J2920; J7040; Q0162; Q9967

== ENCOUNTER 2023-03-05 14:00 | Oncology outpatient (recurring) (ONCR) | payer MEDICARE, OTHER, SELFPAY ==
[2023-01-27] MEDS: sodium chloride 0.9% 250 ML 75 ML IV (14:41)
[2023-01-27] MEDS: ferric carboxy (IVPB) 750 MG in sodium chloride 0.9% (100 ml) 100 ML 345 MG IV (14:42)
[2023-01-27 15:22] VITALS: BP 160/66; PULSE 74; RESP 18; TEMP 36.3; O2SAT 98
[2023-02-03] MEDS: sodium chloride 0.9% 250 ML 100 ML IV (14:53)
[2023-02-03] MEDS: ferric carboxy (IVPB) 750 MG in sodium chloride 0.9% (100 ml) 100 ML 345 MG IV (15:00)
[2023-02-03] MEDS: ondansetron 2 mg/ML SDV 2 mL 8 MG IVP (15:00)
[2023-02-03 15:42] VITALS: BP 160/74; PULSE 75; RESP 18; TEMP 35.8; O2SAT 96
--- NOTE | 2023-02-13 14:30 | XR_ITS ---
WS: [id number] DEXA (DUAL ENERGY X-RAY ABSORPTIOMETRY) Bone mineral density was performed using a [employer] machine. HISTORY: postmenopausal woman with no hx of osteoporosis screening COMPARISON: None available. Lumbar spine BMD (L1-L4): 1.195 g/cm2 T score: 0.1 Z score: 0.7 Total hip BMD: Left: 0.906 g/cm2. T score: -0.8 Z score: 0.0 Right: 0.924 g/cm2. T score: -0.7 Z score: 0.1 10 year probability of a major osteoporotic fracture is 11.3%. XR/XR DEXA axial skeleton* [id number] IMPRESSION: NORMAL BONE MINERAL DENSITY based upon the WHO classification for females.
[2023-03-05 13:52] VITALS: BP 123/75; PULSE 99; RESP 18; TEMP 36.6; O2SAT 97
[2023-03-05 14:17] LABS: Basophils # 0.1 10^3/uL (0.0-0.1); Basophils % 0.3 %; Eosinophils # 0.5 10^3/uL (0.0-0.8); Eosinophils % 2.7 %; Hematocrit 41.6 % (37.0-47.0); Hemoglobin 12.7 g/dL (11.5-15.3); Lymphocytes # 2.2 10^3/uL (0.8-4.8); Lymphocytes % 12.4 %; Mean Corpuscular HGB Conc 30.5 g/dL (30.0-36.0); Mean Corpuscular Hemoglobin 28.1 pg (28.0-34.0); Mean Platelet Volume 9.6 fL (7.4-10.4); Monocytes # 0.9 10^3/uL (0.2-0.9); Monocytes % 5.2 %; Neutrophils # 14.17 10^3/uL (1.8-7.7); Neutrophils % 78.9 %; Nucleated Red Blood Cells % 0 %; Platelet Count 448 10^3/cmm (130-400); Red Blood Count 4.52 10^6/uL (4.1-5.3); Red Cell Distribution Width 17.3 % (12.1-15.1)
[2023-03-05 14:27] LABS: Alanine Aminotransferase 20 U/L (0-33); Albumin Level 3.8 g/dL (3.5-5.2); Alkaline Phosphatase 119 U/L (35-105); Anion Gap 16.7 (5-19); Aspartate Amino Transferase 24 U/L (0-32); Blood Urea Nitrogen 13 mg/dL (8-23); Calcium 9.2 mg/dL (8.5-10.5); Carbon Dioxide 28 mmol/L (22-29); Chloride 101 mmol/L (98-107); Ferritin 414 ng/mL (15-150); Globulin 2.8 g/dL (1.3-4.6); Glucose 179 mg/dL (65-115); Iron 45 ug/dL (37-145); Osmolality Calculated 299 mOsm/kg (285-295); Percent Saturation 19.3 % (20-50); Potassium 3.7 mmol/L (3.5-5.1); Sodium 142 mmol/L (136-145); Total Bilirubin 0.2 mg/dL (0.15-1.2); Total Iron Binding Capacity 232 mcg/dl; Total Protein 6.6 g/dL (6.6-8.7); Unsaturated Iron Binding 187 ug/dL (112-347)
[2023-03-05 15:08] LABS: Estmated Average Glucose 111; Hemoglobin A1C 5.5 % (4.0-6.0)
== END 2023-03-05 23:59 | disposition home or self-care (01) ==
PROVIDERS: Internal Medicine Medical Oncology; PCP Family Medicine; Visit Provider Nurse Practitioner Family
DX: D50.8 Other iron deficiency anemias (principal); E11.69 Type 2 diabetes mellitus with other specified complication; E78.2 Mixed hyperlipidemia
CPT/HCPCS: 36415; 77080; 80053; 82728; 83036; 83540; 83550; 85025; 96365; 96375; J1439; J2405; J7050

== ENCOUNTER 2023-04-08 13:52 | Oncology outpatient (recurring) (ONCR) | payer MEDICARE, OTHER, SELFPAY ==
[2023-04-08 14:01] VITALS: BP 154/86; PULSE 84; RESP 16; TEMP 36.4; O2SAT 97
[2023-04-08 14:21] LABS: Basophils # 0.1 10^3/uL (0.0-0.1); Basophils % 0.3 %; Eosinophils # 0.4 10^3/uL (0.0-0.8); Eosinophils % 2.5 %; Hematocrit 39.5 % (37.0-47.0); Hemoglobin 12.6 g/dL (11.5-15.3); Lymphocytes # 3.8 10^3/uL (0.8-4.8); Lymphocytes % 22.3 %; Mean Corpuscular HGB Conc 31.9 g/dL (30.0-36.0); Mean Corpuscular Volume 87.8 fl (81-99); Mean Platelet Volume 9.5 fL (7.4-10.4); Monocytes # 0.9 10^3/uL (0.2-0.9); Monocytes % 5.3 %; Neutrophils # 11.75 10^3/uL (1.8-7.7); Neutrophils % 69.3 %; Nucleated Red Blood Cells % 0 %; Platelet Count 386 10^3/cmm (130-400); Red Cell Distribution Width 15.6 % (12.1-15.1)
[2023-04-08 14:41] LABS: Creatinine Urine, Random 193 mg/dL (28-217); Microalbumin Random Urine 13 ug/dL (0-20)
[2023-04-08 14:42] LABS: Estmated Average Glucose 126
[2023-04-08 14:44] LABS: Alanine Aminotransferase 18 U/L (0-33); Albumin Level 3.9 g/dL (3.5-5.2); Alkaline Phosphatase 132 U/L (35-105); Anion Gap 14.3 (5-19); Aspartate Amino Transferase 16 U/L (0-32); Blood Urea Nitrogen 14 mg/dL (8-23); Carbon Dioxide 28 mmol/L (22-29); Chloride 102 mmol/L (98-107); Chol HDL Ratio 4.81 mg/dL (0.0-4.40); Cholesterol 207 mg/dL (0-200); Ferritin 142 ng/mL (15-150); Globulin 2.7 g/dL (1.3-4.6); Glucose 156 mg/dL (65-115); HDL Cholesterol 43 mg/dL (60-100); Iron 35 ug/dL (37-145); LDL Cholesterol Calculated 130 mg/dL (50-129); LDL HDL Ratio 3.02 RATIO (0.00-3.22); Microalbum Creatinine Ratio Ur 67 mg/dL (0-20); Osmolality Calculated 296 mOsm/kg (285-295); Percent Saturation 14.1 % (20-50); Potassium 3.3 mmol/L (3.5-5.1); Sodium 141 mmol/L (136-145); Total Bilirubin 0.2 mg/dL (0.15-1.2); Total Iron Binding Capacity 247 mcg/dl; Total Protein 6.6 g/dL (6.6-8.7); Triglycerides 168 mg/dL (0-150); Unsaturated Iron Binding 212 ug/dL (112-347)
== END 2023-04-28 23:59 | disposition home or self-care (01) ==
LOC: ONCMED 13:52
PROVIDERS: Internal Medicine; PCP Family Medicine; Visit Provider Nurse Practitioner Family
DX: Z13.820 Encounter for screening for osteoporosis (principal); Z78.0 Asymptomatic menopausal state; D50.8 Other iron deficiency anemias
CPT/HCPCS: 36415; 80053; 80061; 82044; 82728; 83036; 83540; 83550; 85025

== ENCOUNTER 2023-04-29 11:15 | Oncology outpatient (recurring) (ONCR) | payer MEDICARE, OTHER, SELFPAY ==
[2023-04-29 11:29] VITALS: BMI 34.5
[2023-04-29 11:30] VITALS: BP 170/84; PULSE 103; RESP 16; TEMP 36.1; O2SAT 95
[2023-04-29 11:40] LABS: Basophils # 0.1 10^3/uL (0.0-0.1); Basophils % 0.3 %; Eosinophils # 0.4 10^3/uL (0.0-0.8); Eosinophils % 1.9 %; Hematocrit 39.9 % (37.0-47.0); Hemoglobin 12.4 g/dL (11.5-15.3); Lymphocytes # 2.5 10^3/uL (0.8-4.8); Lymphocytes % 13.9 %; Mean Corpuscular HGB Conc 31.1 g/dL (30.0-36.0); Mean Corpuscular Hemoglobin 27.4 pg (28.0-34.0); Mean Corpuscular Volume 88.3 fl (81-99); Mean Platelet Volume 9.2 fL (7.4-10.4); Monocytes # 0.8 10^3/uL (0.2-0.9); Monocytes % 4.1 %; Neutrophils # 14.23 10^3/uL (1.8-7.7); Neutrophils % 78.8 %; Nucleated Red Blood Cells % 0 %; Platelet Count 504 10^3/cmm (130-400); Red Blood Count 4.52 10^6/uL (4.1-5.3); Red Cell Distribution Width 14.5 % (12.1-15.1); White Blood Count 18.1 10^3/uL (4.0-10.0)
[2023-04-29 12:06] LABS: Alanine Aminotransferase 21 U/L (0-33); Albumin Level 3.8 g/dL (3.5-5.2); Alkaline Phosphatase 119 U/L (35-105); Anion Gap 14.6 (5-19); Aspartate Amino Transferase 22 U/L (0-32); Blood Urea Nitrogen 13 mg/dL (8-23); Calcium 9.3 mg/dL (8.5-10.5); Carbon Dioxide 28 mmol/L (22-29); Chloride 101 mmol/L (98-107); Ferritin 72 ng/mL (15-150); Globulin 2.7 g/dL (1.3-4.6); Glucose 262 mg/dL (65-115); Iron 42 ug/dL (37-145); Osmolality Calculated 299 mOsm/kg (285-295); Potassium 3.6 mmol/L (3.5-5.1); Sodium 140 mmol/L (136-145); Total Bilirubin 0.2 mg/dL (0.15-1.2); Total Iron Binding Capacity 300 mcg/dl; Total Protein 6.5 g/dL (6.6-8.7); Unsaturated Iron Binding 258 ug/dL (112-347)
== END 2023-05-29 23:59 | disposition home or self-care (01) ==
PROVIDERS: PCP Family Medicine; Visit Provider Nurse Practitioner Family
DX: D72.829 Elevated white blood cell count, unspecified; D50.9 Iron deficiency anemia, unspecified; Z79.899 Other long term (current) drug therapy
CPT/HCPCS: 36415; 80053; 82728; 83540; 83550; 85025; 99214

== ENCOUNTER → 2023-07-24 11:01 | Outpatient (BNVA) | payer MEDICARE, OTHER, SELFPAY | PROVIDERS: PCP Family Medicine; Visit Provider Internal Medicine | DX: E11.40 Type 2 diabetes mellitus with diabetic neuropathy, unspecified (principal); E11.69 Type 2 diabetes mellitus with other specified complication; E78.2 Mixed hyperlipidemia; I10 Essential (primary) hypertension; R11.0 Nausea; Z79.4 Long term (current) use of insulin; Z79.84 Long term (current) use of oral hypoglycemic drugs | CPT/HCPCS: 99214 ==

== ENCOUNTER 2023-08-19 13:30 | Oncology outpatient (recurring) (ONCR) | payer MEDICARE, OTHER, SELFPAY ==
[2023-07-31 13:43] VITALS: BP 164/82; PULSE 81; RESP 17; TEMP 36.7; O2SAT 95
[2023-07-31 14:37] LABS: Basophils # 0.1 10^3/uL (0.0-0.1); Basophils % 0.3 %; Eosinophils # 0.3 10^3/uL (0.0-0.8); Eosinophils % 1.5 %; Hematocrit 34.8 % (36-47); Lymphocytes # 2.6 10^3/uL (0.8-4.8); Lymphocytes % 15.5 %; Mean Corpuscular HGB Conc 29.9 g/dL (30-55); Mean Corpuscular Hemoglobin 24.6 pg (27-33); Mean Corpuscular Volume 82.3 fl (85-98); Mean Platelet Volume 9.4 fL (7.4-10.4); Monocytes # 0.9 10^3/uL (0.2-0.9); Monocytes % 5.2 %; Neutrophils # 12.77 10^3/uL (1.8-7.7); Neutrophils % 77.1 %; Nucleated Red Blood Cells % 0 %; Platelet Count 522 10^3/cmm (157-399); Red Blood Count 4.23 10^6/uL (3.85-5.65); Red Cell Distribution Width 14.8 % (12.1-15.1); White Blood Count 16.58 10^3/uL (3.29-11.43)
[2023-07-31 15:00] LABS: Alanine Aminotransferase 11 U/L (0-33); Alkaline Phosphatase 133 U/L (35-105); Anion Gap 12.6 (5-19); Aspartate Amino Transferase 22 U/L (0-32); Blood Urea Nitrogen 13 mg/dL (8-23); Calcium 9.3 mg/dL (8.5-10.5); Carbon Dioxide 30 mmol/L (22-29); Chloride 103 mmol/L (98-107); Ferritin 25 ng/mL (15-150); Globulin 2.8 g/dL (1.3-4.6); Glucose 88 mg/dL (65-115); Iron 21 ug/dL (37-145); Lactate Dehydrogenase 575 U/L (135-214); Osmolality Calculated 294 mOsm/kg (285-295); Percent Saturation 7.1 % (20-50); Potassium 3.6 mmol/L (3.5-5.1); Sodium 142 mmol/L (136-145); Total Bilirubin 0.2 mg/dL (0.15-1.2); Total Iron Binding Capacity 295 mcg/dl; Total Protein 6.8 g/dL (6.6-8.7); Unsaturated Iron Binding 274 ug/dL (112-347)
== END 2023-08-28 23:59 | disposition home or self-care (01) ==
PROVIDERS: PCP Family Medicine; Visit Provider Nurse Practitioner Family
DX: Z53.9 Procedure and treatment not carried out, unspecified reason (principal)
CPT/HCPCS: 36415; 80053; 82728; 83540; 83550; 83615; 85025; 88374; 99214

== ENCOUNTER 2023-10-01 11:25 | Oncology outpatient (recurring) (ONCR) | payer MEDICARE, OTHER, SELFPAY ==
[2023-10-01 11:55] VITALS: BP 181/82; PULSE 96; RESP 16; TEMP 35.9; O2SAT 98
[2023-10-01 12:04] LABS: Basophils # 0.1 10^3/uL (0.0-0.1); Basophils % 0.6 %; Eosinophils # 0.7 10^3/uL (0.0-0.8); Hematocrit 42.8 % (36-47); Lymphocytes # 2.6 10^3/uL (0.8-4.8); Lymphocytes % 19.1 %; Mean Corpuscular HGB Conc 30.6 g/dL (30-55); Mean Corpuscular Hemoglobin 26.5 pg (27-33); Mean Corpuscular Volume 86.6 fl (85-98); Mean Platelet Volume 9.2 fL (7.4-10.4); Monocytes # 0.7 10^3/uL (0.2-0.9); Monocytes % 5.6 %; Neutrophils # 9.22 10^3/uL (1.8-7.7); Neutrophils % 69.2 %; Nucleated Red Blood Cells % 0 %; Platelet Count 353 10^3/cmm (157-399); Red Blood Count 4.94 10^6/uL (3.85-5.65); Red Cell Distribution Width 23.5 % (12.1-15.1); White Blood Count 13.33 10^3/uL (3.29-11.43)
[2023-10-01 12:19] LABS: Ferritin 433 ng/mL (15-150); Iron 62 ug/dL (37-145); Lactate Dehydrogenase 124 U/L (135-214); Total Iron Binding Capacity 248 mcg/dl; Unsaturated Iron Binding 186 ug/dL (112-347)
== END 2023-10-29 23:59 | disposition home or self-care (01) ==
PROVIDERS: PCP Family Medicine; Visit Provider Nurse Practitioner Family
DX: D72.829 Elevated white blood cell count, unspecified (principal); D50.9 Iron deficiency anemia, unspecified; Z79.899 Other long term (current) drug therapy
CPT/HCPCS: 36415; 82728; 83540; 83550; 83615; 85025; 99214

== ENCOUNTER → 2023-11-03 12:05 | Outpatient (BNVA) | payer MEDICARE, OTHER, SELFPAY | PROVIDERS: PCP Family Medicine; Visit Provider Internal Medicine | DX: E11.40 Type 2 diabetes mellitus with diabetic neuropathy, unspecified (principal); E11.69 Type 2 diabetes mellitus with other specified complication; E78.2 Mixed hyperlipidemia; R11.0 Nausea; Z86.73 Personal history of transient ischemic attack (TIA), and cerebral infarction without residual deficits | CPT/HCPCS: 99214 ==

== ENCOUNTER 2024-01-07 13:04 | Oncology outpatient (recurring) (ONCR) | payer MEDICARE, OTHER, SELFPAY ==
[2024-01-07 13:35] LABS: Basophils # 0.1 10^3/uL (0.0-0.1); Basophils % 0.3 %; Eosinophils # 0.2 10^3/uL (0.0-0.8); Eosinophils % 1.2 %; Hematocrit 42.8 % (36-47); Mean Corpuscular HGB Conc 31.5 g/dL (30-55); Mean Corpuscular Volume 88.8 fl (85-98); Monocytes # 0.7 10^3/uL (0.2-0.9); Monocytes % 3.8 %; Neutrophils # 14.79 10^3/uL (1.8-7.7); Neutrophils % 83.1 %; Nucleated Red Blood Cells % 0 %; Platelet Count 444 10^3/cmm (157-399); Red Blood Count 4.82 10^6/uL (3.85-5.65)
[2024-01-07 13:58] LABS: Ferritin 59 ng/mL (15-150); Iron 30 ug/dL (37-145); Lactate Dehydrogenase 150 U/L (135-214); Percent Saturation 10.6 % (20-50); Total Iron Binding Capacity 281 mcg/dl; Unsaturated Iron Binding 251 ug/dL (112-347)
== END 2024-01-27 23:59 | disposition home or self-care (01) ==
PROVIDERS: PCP Family Medicine; Visit Provider Nurse Practitioner Family
DX: D72.829 Elevated white blood cell count, unspecified (principal); D50.9 Iron deficiency anemia, unspecified; Z79.899 Other long term (current) drug therapy
CPT/HCPCS: 36415; 82728; 83540; 83550; 83615; 85025; 99214

== ENCOUNTER 2024-05-10 12:29 | Oncology outpatient (recurring) (ONCR) | payer MEDICARE, OTHER, SELFPAY ==
[2024-05-10 12:50] LABS: Basophils % 0.3 %; Eosinophils # 0.2 10^3/uL (0.0-0.8); Eosinophils % 1.6 %; Hematocrit 41.3 % (36-47); Lymphocytes % 13.2 %; Mean Corpuscular Hemoglobin 25.6 pg (27-33); Mean Corpuscular Volume 82.6 fl (85-98); Mean Platelet Volume 9.1 fL (7.4-10.4); Monocytes # 0.8 10^3/uL (0.2-0.9); Monocytes % 5.2 %; Neutrophils # 11.99 10^3/uL (1.8-7.7); Neutrophils % 79.2 %; Nucleated Red Blood Cells % 0 %; Platelet Count 404 10^3/cmm (157-399); Red Cell Distribution Width 15.1 % (12.1-15.1); White Blood Count 15.14 10^3/uL (3.29-11.43)
[2024-05-10 13:08] LABS: Alanine Aminotransferase 10 U/L (0-33); Albumin Level 3.7 g/dL (3.5-5.2); Alkaline Phosphatase 118 U/L (35-105); Anion Gap 16.2 (5-19); Aspartate Amino Transferase 17 U/L (0-32); Blood Urea Nitrogen 15 mg/dL (8-23); Carbon Dioxide 27 mmol/L (22-29); Chloride 103 mmol/L (98-107); Ferritin 32 ng/mL (15-150); Globulin 2.8 g/dL (1.3-4.6); Glucose 189 mg/dL (65-115); Iron 27 ug/dL (37-145); Lactate Dehydrogenase 112 U/L (135-214); Osmolality Calculated 302 mOsm/kg (285-295); Percent Saturation 9.8 % (20-50); Potassium 3.2 mmol/L (3.5-5.1); Sodium 143 mmol/L (136-145); Total Bilirubin 0.3 mg/dL (0.15-1.2); Total Iron Binding Capacity 273 mcg/dl; Total Protein 6.5 g/dL (6.6-8.7); Unsaturated Iron Binding 246 ug/dL (112-347)
[2024-05-11 08:59] LABS: Magnesium 1.8 mg/dL (1.7-2.3)
== END 2024-05-29 23:55 | disposition home or self-care (01) ==
PROVIDERS: Internal Medicine Medical Oncology; PCP Family Medicine; Visit Provider Nurse Practitioner Family
DX: D72.829 Elevated white blood cell count, unspecified (principal); D47.3 Essential (hemorrhagic) thrombocythemia; D50.8 Other iron deficiency anemias; E87.6 Hypokalemia; Z79.899 Other long term (current) drug therapy; Z53.9 Procedure and treatment not carried out, unspecified reason
CPT/HCPCS: 36415; 80053; 82728; 83540; 83550; 83615; 83735; 85025; 99214

== ENCOUNTER 2024-08-21 20:07 | Emergency (ER) | payer MEDICARE, OTHER, SELFPAY ==
[2024-08-21 20:08] VITALS: BP 182/74; PULSE 98; RESP 18; TEMP 36.7; O2SAT 97; BMI 29.5
--- NOTE | 2024-08-21 20:26 | XRR_ITS ---
PROCEDURE INFORMATION: Exam: XR Left Hip Exam date and time: 08/21/2024 8:36 PM Age: 74 years old Clinical indication: Injury or trauma; Fall; Blunt trauma (contusions or hematomas); Patient HX: Patient fell from standing while in bathroom. Fell onto left side. C/O left hip pain. ; Additional info: Fall onto left hip, pain TECHNIQUE: Imaging protocol: Radiologic exam of the left hip. Views: 2 or 3 views hip with pelvis when performed. COMPARISON: CT abdomen pelvis w con* [id number] 02/08/2023 1:45 AM FINDINGS: Bones/joints: No acute fracture or dislocation. Left hip DJD. Soft tissues: Unremarkable. XR/XR hip LT 2-3V wo/w pel* [id number] IMPRESSION: No acute bony findings.
--- NOTE | 2024-08-21 20:26 | CTR_ITS ---
PROCEDURE INFORMATION: Exam: CT Lumbar Spine Without Contrast Exam date and time: 08/21/2024 8:50 PM Age: 74 years old Clinical indication: Injury or trauma; Blunt trauma (contusions or hematomas); Prior surgery; Surgery date: 6+ months; Surgery type: Gb. Hysterectomy. Patient HX: EMS arrival for fall. Patient fell from standing while in bathroom. Fell onto left side. Struck left parietal on wall. Focal C/O of low back and left hip pain. History of bells palsy. ; Additional info: Fall, increased back pain TECHNIQUE: Imaging protocol: Computed tomography of the lumbar spine without contrast. Radiation optimization: All CT scans at this facility use at least one of these dose optimization techniques: automated exposure control; mA and/or kV adjustment per patient size (includes targeted exams where dose is matched to clinical indication); or iterative reconstruction. COMPARISON: CT lumbar spine w con [id number] 01/01/2020 8:59 PM RADIATION DOSE METRICS: Total DLP (mGy-cm): 1087.54 FINDINGS: Bones/joints: No acute fracture. No traumatic listhesis. Multilevel degenerative disc disease and facet arthrosis. No severe spinal canal narrowing. Soft tissues: Unremarkable. CT/CT lumbar spine wo con* [id number] IMPRESSION: No acute lumbar spine findings.
--- NOTE | 2024-08-21 20:26 | CTR_ITS ---
PROCEDURE INFORMATION: Exam: CT Cervical Spine Without Contrast Exam date and time: 08/21/2024 8:47 PM Age: 74 years old Clinical indication: Injury or trauma; Blunt trauma; Prior surgery; Surgery date: 6+ months; Surgery type: Fusion; Patient HX: EMS arrival for fall. Patient fell from standing while in bathroom. Fell onto left side. Struck left parietal on wall. Focal C/O of low back and left hip pain. History of bells palsy. ; Additional info: Fall, increased neck pain TECHNIQUE: Imaging protocol: Computed tomography of the cervical spine without contrast. Radiation optimization: All CT scans at this facility use at least one of these dose optimization techniques: automated exposure control; mA and/or kV adjustment per patient size (includes targeted exams where dose is matched to clinical indication); or iterative reconstruction. COMPARISON: CR XR cervical spine 3V* [id number] 10/11/2022 11:54 AM RADIATION DOSE METRICS: Total DLP (mGy-cm): 594.14 FINDINGS: Bones/joints: C5-C6 ACDF with solid osseous fusion. Posterior decompression from C5-C6 through the upper thoracic spine. Moderate multilevel uncovertebral hypertrophy and facet arthrosis. No evidence of acute fracture or subluxation of the cervical spine. The craniocervical junction including the atlantoaxial and atlantooccipital articulations are intact. C2-C3: Uncovertebral hypertrophy and facet arthrosis results in mild right-sided foraminal stenosis. No central stenosis. C3-C4: Uncovertebral hypertrophy and facet arthrosis results in moderate bilateral foraminal stenosis, right worse than left. Posterior disc osteophyte complex results in borderline narrowing of the thecal sac to 9 mm in AP diameter. C4-C5: Uncovertebral hypertrophy and facet arthrosis results in mild-moderate bilateral foraminal stenosis. No central stenosis. C5-C6: Fusion level. Uncovertebral hypertrophy results in moderate right-sided and mild left-sided foraminal stenosis. No central stenosis. C6-C7: Posterior decompression. Uncovertebral hypertrophy results in moderate bilateral foraminal stenosis, left worse than right. C7-T1: Posterior decompression. No central or foraminal stenosis. Lungs: The visualized lung apices are clear. Soft tissues: No gross soft tissue abnormality. No significant prevertebral edema. No evidence of fluid collection or hematoma. CT/CT cervical spin wo con* [id number] IMPRESSION: 1. No evidence of fracture or subluxation of the cervical spine.
--- NOTE | 2024-08-21 20:26 | CTR_ITS ---
PROCEDURE INFORMATION: Exam: CT Head Without Contrast Exam date and time: 08/21/2024 8:44 PM Age: 74 years old Clinical indication: Injury or trauma; Blunt trauma (contusions or hematomas); Patient HX: EMS arrival for fall. Patient fell from standing while in bathroom. Fell onto left side. Struck left parietal on wall. Focal C/O of low back and left hip pain. History of bells palsy. ; Additional info: Fall, struck head TECHNIQUE: Imaging protocol: Computed tomography of the head without contrast. Radiation optimization: All CT scans at this facility use at least one of these dose optimization techniques: automated exposure control; mA and/or kV adjustment per patient size (includes targeted exams where dose is matched to clinical indication); or iterative reconstruction. COMPARISON: CT head wo con* [id number] 05/14/2022 10:26 PM RADIATION DOSE METRICS: Total DLP (mGy-cm): 1127.25 FINDINGS: Brain: Sequela of moderate chronic microvascular ischemic changes with periventricular and deep white matter hypoattenuation. Ashford-white differentiation is otherwise maintained. No evidence of intra-axial or extra-axial hemorrhage. No mass effect or midline shift. Basilar cisterns are patent. Cerebral ventricles: No hydrocephalus. Paranasal sinuses: The visualized paranasal sinuses are well aerated. Mastoid air cells: The visualized mastoids and middle ears are clear. Bones: Calvarium is intact. No evidence of acute fracture. Soft tissues: No gross soft tissue abnormality. CT/CT head wo con* [id number] IMPRESSION: 1. No acute intracranial abnormality.
--- NOTE | 2024-08-21 20:47 | CTR_ITS ---
PROCEDURE INFORMATION: Exam: CT Pelvis Without Contrast, Skeleton Exam date and time: 08/21/2024 8:53 PM Age: 74 years old Clinical indication: Injury or trauma; Blunt trauma (contusions or hematomas); Prior surgery; Surgery date: 6+ months; Surgery type: Hysterectomy; Patient HX: EMS arrival for fall. Patient fell from standing while in bathroom. Fell onto left side. Struck left parietal on wall. Focal C/O of low back and left hip pain. History of bells palsy. ; Additional info: Left hip pain, pelvic pain TECHNIQUE: Imaging protocol: Computed tomography of the pelvis without contrast. Exam focused on the skeleton. Radiation optimization: All CT scans at this facility use at least one of these dose optimization techniques: automated exposure control; mA and/or kV adjustment per patient size (includes targeted exams where dose is matched to clinical indication); or iterative reconstruction. COMPARISON: CT abdomen pelvis w con* [id number] 02/08/2023 1:45 AM RADIATION DOSE METRICS: Total DLP (mGy-cm): 906.41 FINDINGS: Bones/joints: No acute fracture or dislocation. Mild bilateral hip DJD. Soft tissues: Unremarkable. CT/CT pelvis wo con [id number] IMPRESSION: No acute bony findings.
--- NOTE | 2024-08-21 21:04 | ED_ITS ---
HPI - Back Pain/Injury 2 General: Chief Complaint: Back Pain/Injury Stated Complaint: FALL Time Seen by Provider: 08/21/24 20:08 History of Present Illness: Patient is a 74-year-old female presents to the emergency department after fall from standing. Patient reports she was standing in her bathroom when she slipped and fell. She states that she fell onto her left side and struck the left side of her head on a posterior wall. She denies loss of consciousness. She denies syncope She denies seizure activity, loss of bowel or bladder control. Patient states that she has chronic back pain that is worse than her baseline after the fall. She also notes left hip/pelvic pain and increased neck pain over the last 2 days. This fall occurred just prior to her arrival. Patient denies headache, dizziness, upper or lower extremity paresthesias. 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 Associated symptoms: Deny abdominal pain, chills, difficulty walking, dysuria, fatigue, fever(s), hematuria, nausea, urinary urgency or vomiting Related Data Home Medications Medication Instructions Recorded Confirmed nystatin 100,000 unit/gram topical 1 applic topical DAILY PRN unknown 03/12/22 05/10/24 powder (Nystop) acetaminophen 500 mg tablet 1,500 mg PO Q6H PRN Pain 05/15/22 05/10/24 fluticasone propionate 220 1 puff inhalation BID PRN unknown 05/15/22 05/10/24 mcg/actuation HFA aerosol inhaler (Flovent HFA) oxygen-air delivery systems 04/29/23 05/10/24 loperamide 2 mg tablet 2 mg PO Q6H PRN 08/07/23 05/10/24 ondansetron HCl 4 mg tablet See Rx Instructions .Route 08/07/23 05/10/24 .COMPLEX PRN nausea and vomiting oxygen-air delivery systems 08/07/23 05/10/24 propranolol 20 mg tablet mg PO 11/03/23 05/10/24 Previous Rx's Medication Instructions Recorded albuterol sulfate 90 mcg/actuation 2 puff inhalation Q6H PRN 12/02/19 aerosol inhaler shortness of breath or wheezing #8.5 grams insulin glargine 100 unit/mL (3 40 unit (0.4 mL) SUBCUT BID #72 mL 11/27/23 mL) subcutaneous pen (Lantus Solostar U-100 Insulin) pen needle, diabetic 32 gauge x #100 ea 11/27/23 (TechLITE Pen Needle) ferric carboxymaltose 100 mg 750 mg (15 mL) IV ONCE 1 dose #30 05/13/24 iron/2 mL intravenous solution mL (Injectafer) pregabalin 25 mg capsule (Lyrica) 25 mg PO BID #60 caps 07/08/24 pregabalin 25 mg capsule (Lyrica) 25 mg PO BID #60 caps 07/08/24 cefuroxime axetil 500 mg tablet 500 mg PO BID 10 days #20 tabs 08/21/24 Allergies Allergy/AdvReac Type Severity Reaction Status Date / Time NSAIDS (Non-Steroidal Allergy Mild vomiting Verified 05/10/24 14:40 Anti-Inflamma Review of Systems 2 General: Reports: 10 or more systems reviewed and unremarkable except in HPI and below Const: Denies: fever(s), chills, change in appetite, change in weight, fatigue or malaise Eyes: Denies: change in vision, eye discomfort, eye discharge or eye redness ENMT: Denies: throat pain, enlarged tonsils, odynophagia, hoarseness, ear or mastoid pain, ear discharge, change in hearing, tinnitus, nasal discharge, nasal congestion, post nasal drip or sinus pain Card: Denies: chest pain, palpitations, irregular heart rhythm, edema, dyspnea on exertion, orthopnea or leg pain with exertion Resp: Denies: dyspnea, productive cough, non-productive cough, wheezing, stridor or chest congestion GI: Denies: abdominal pain, nausea, vomiting, dysphagia, diarrhea, constipation, bloating, GI cramping or hematochezia : Denies: flank pain, difficulty voiding, dysuria, urinary frequency, urinary urgency, urinary hesitancy, oliguria or hematuria Musc: Reports: neck pain, back pain, extremity pain and joint pain; Denies: joint swelling, joint redness, joint warmth or muscle weakness Skin/Breast: Denies: rash, pruritus, erythema, photosensitivity or new lesions Neuro: Reports: frequent falls; Denies: headache(s), numbness in extremities, weakness in extremities, sensory changes, lack of coordination, difficulty walking, dizziness, confusion, Slurred speech present, difficulty communicating thoughts, seizure-like activity or involuntary movements Endo: Denies: polyuria, polydipsia or tired all the time Librado/Lymph: Denies: easy bruising or easy bleeding PFSH ED 2 PFSH: Medical History Achalasia Anxiety Gotti's palsy CHF (congestive heart failure) Chronic kidney disease COPD (chronic obstructive pulmonary disease) Depression History of colon polyps Hypertension Left-sided Gotti's palsy Nonalcoholic steatohepatitis Peripheral neuropathy Sleep apnea Type 2 diabetes mellitus Surgical History H/O vaginal surgery (05/22/09) [place]arc sling urethropexy. Performed by Dr. Colbert at [facility]. H/O: hysterectomy Hx of cholecystectomy S/P bilateral breast reduction (09/03/11) Family History Denies family history of Diabetes Dementia Hyperlipidemia Family history of premature coronary artery disease Cancer Social History Smoking and tobacco/nicotine status: former use of tobacco/nicotine Quit status (tobacco/nicotine): has quit using Year quit tobacco: 1990 Former quit date comment: Smoked for 30 years Alcohol intake: never Substance/Drug Use: never Household members: spouse Housing: House Physical Exam 2 Const: COMMON NORMALS: no acute distress, patient oriented x3 and alert G ENERAL APPEARANCE: cooperative ORIENTATION/CONSCIOUSNESS: Yes awake, Yes oriented to person, Yes oriented to place and Yes oriented to time HENMT: COMMON NORMALS: normocephalic and atraumatic HEAD & SCALP: n ormocephalic and atraumatic FACE & SINUS: normal facial exam MOUTH: Normal oral and palatal mucosa present THROAT: posterior oropharynx normal Eye: COMMON NORMALS: Equal, round and reactive pupils present, EOMs intact bilaterally, conjunctivae normal and no scleral icterus GENERAL EYE: a ppearance normal, both eyes and all related structures ALIGNMENT: Yes alignment normal PERIORBITAL: periorbital findings normal CONJUNCTIVA: Yes conjunctivae normal PUPIL: Yes Equal, round and reactive pupils present Neck/C-Spine: COMMON NORMALS: full ROM GENERAL: Yes normal visual inspection Lymph: LYMPHATIC: no lymphadenopathy noted Chest: COMMONS NORMALS: normal inspection of the chest Breast/axilla inspection: Yes no chest deformity, asymmetry, normal contours, no nodules, masses, tenderness Resp: COMMON NORMALS: normal respiratory effort, No retractions and No use of accessory muscles EFFORT & INSPECTION: Yes able to speak in complete sentences and Yes symmetric chest movement Cardio: COMMON NORMALS: regular rate, regular rhythm and Peripheral pulses 2+ throughout RATE: regular rate RHYTHM: regular rhythm PERIPHERAL PULSES: Peripheral pulses 2+ throughout GI: COMMON NORMALS: Normal to inspection, nondistended, normoactive bowel sounds present INSPECTION: Yes normal to inspection RECTAL EXAM: deferred Extremity: COMMON NORMALS: normal to inspection NARRATIVE EXTREMITY EXAM: Nontender to palpation over midline cervical. She does have muscle spasming. This is chronic. Patient also has low back pain with tenderness to palpation over paraspinous muscles. She has left lateral hip and groin pain. Denies radiculopathy Denies numbness and tingling in extremities. GENERAL: Yes normal exam except as noted Neuro: COMMON NORMALS: patient oriented x3 SENSORIUM/ORIENTATION: Yes alert, Yes oriented to person, Yes oriented to place and Yes oriented to time CRANIAL NERVES: Yes CN normal except as noted Psych: COMMON NORMALS: mental status grossly normal, Normal thought process present, cooperative, activity/motor behavior normal, denies homicidal ideation and denies suicidal ideation THOUGHT PROCESS: Normal thought process present Skin: COMMON NORMALS: no rashes or lesions noted, no wounds and turgor normal GENERAL SKIN EXAM: no rashes or lesions noted and turgor normal Course 2 Vital Signs: Vital signs: Vital Signs Temperature 98.0 F 08/21/24 20:08 Pulse Rate 110 H 08/21/24 22:52 Respiratory Rate 16 08/21/24 21:07 Blood Pressure 184/77 08/21/24 22:52 Pulse Oximetry 96 08/21/24 22:52 Oxygen Delivery Me thod Room Air 08/21/24 21:07 MDM - Back Pain/Injury Medical Decision Making Patient underwent XR and CT imaging after her fall from standing. Differential diagnoses include head injury, cervical spine injury, pelvic injury, hip fracture, lumbar compression fracture. While awaiting CT results, we attempted to ambulate patient to bedside commode. Patient became very anxious and felt very dizzy. She had to lay down. We are going to order laboratory evaluation and EKG. We need a urinalysis. Patient's EKG revealed no ectopy, ST elevation or abnormal T wave inversion. Troponin was 21 which is at her baseline. She has mild renal and liver dysfunction which is unchanged from her baseline. She has a significant leukocytosis but this is her baseline. She has a history of leukocytosis and is treated by Dr. Akers. Her urinalysis did reveal 4+ bacteria as well as leukoesterase and a high white blood cell count. Going to treat her with cefuroxime. I reviewed the case with Dr. Marion who is in agreement. We did treat her dizziness with meclizine. She is doing much better. Labs 08/21/24 22:34 08/21/24 22:34 Radiology Impressions Cervical Spine CT 08/21/24 20:26 IMPRESSION: 1. No evidence of fracture or subluxation of the cervical spine. Head CT 08/21/24 20:26 IMPRESSION: 1. No acute intracranial abnormality. Hip/Pelvis X-Ray 08/21/24 20:26 IMPRESSION: No acute bony findings. Lumbar Spine CT 08/21/24 20:26 IMPRESSION: No acute lumbar spine findings. Pelvis CT 08/21/24 20:47 IMPRESSION: No acute bony findings. Laboratory Results WBC 22.36 10^3/uL (3.29-11.43) H 08/21/24 22:34 RBC 5.20 10^6/uL (3.85-5.65) 08/21/24 22:34 Hgb 12.90 g/dL (11.27-16.99) 08/21/24 22:34 Hct 42.5 % (36-47) 08/21/24 22:34 MCV 81.7 fl (85-98) L 08/21/24 22:34 MCH 24.8 pg (27-33) L 08/21/24 22:34 MCHC 30.4 g/dL (30-55) 08/21/24 22:34 RDW 15.5 % (12.1-15.1) H 08/21/24 22:34 Plt Count 502 10^3/cmm (157-399) H 08/21/24 22:34 MPV 9.3 fL (7.4-10.4) 08/21/24 22:34 Neut % (Auto) 71.9 % 08/21/24 22:34 Lymph % (Auto) 20.4 % 08/21/24 22:34 [place] % (Auto) 5.4 % 08/21/24 22:34 Eos % (Auto) 1.2 % 08/21/24 22:34 Baso % (Auto) 0.3 % 08/21/24 22:34 Neut # (Auto) 16.09 10^3/uL (1.8-7.7) H 08/21/24 22:34 Lymph # (Auto) 4.6 10^3/uL (0.8-4.8) 08/21/24 22:34 [place] # (Auto) 1.2 10^3/uL (0.2-0.9) H 08/21/24 22:34 Eos # (Auto) 0.3 10^3/uL (0.0-0.8) 08/21/24 22:34 Baso # (Auto) 0.1 10^3/uL (0.0-0.1) 08/21/24 22:34 Nucleated RBC % (auto) 0 % 08/21/24 22:34 Nucleated RBCs # 0.0 /100WBC 08/21/24 22:34 Sodium 141 mmol/L (136-145) 08/21/24 22:34 Potassium 4.3 mmol/L (3.5-5.1) 08/21/24 22:34 Chloride 101 mmol/L (98-107) 08/21/24 22:34 Carbon Dioxide 23 mmol/L (22-29) 08/21/24 22:34 Anion Gap 21.3 (5-19) H 08/21/24 22:34 BUN 19 mg/dL (8-23) 08/21/24 22:34 Creatinine 1.0 mg/dL (0.5-0.9) H 08/21/24 22:34 GFR Calculation Not Reportable 08/21/24 22:34 Glucose 134 mg/dL (65-115) H 08/21/24 22:34 Calculated Osmolality 296 mOsm/kg (285-295) H 08/21/24 22:34 Calcium 9.5 mg/dL (8.5-10.5) 08/21/24 22:34 Total Bilirubin 0.2 mg/dL (0.15-1.2) 08/21/24 22:34 AST 16 U/L (0-32) 08/21/24 22:34 ALT 12 U/L (0-33) 08/21/24 22:34 Alkaline Phosphatase 160 U/L (35-105) H 08/21/24 22:34 Troponin T Baseline 21 ng/L (0-10) H 08/21/24 22:34 Total Protein 6.8 g/dL (6.6-8.7) 08/21/24 22:34 Albumin 4.1 g/dL (3.5-5.2) 08/21/24 22:34 Globulin 2.7 g/dL (1.3-4.6) 08/21/24 22:34 Urine Color Yellow (Yellow) 08/21/24 23:16 Urine Appearance Clear (CLEAR) 08/21/24 23:16 Urine pH 5.0 (5-7) 08/21/24 23:16 Ur Specific [place] 1.017 (1.005-1.030) 08/21/24 23:16 Urine Protein 1+ (Negative) A 08/21/24 23:16 Urine Glucose (UA) Negative (Normal) 08/21/24 23:16 Urine Ketones Negative (Negative) 08/21/24 23:16 Urine Blood Negative (Negative) 08/21/24 23:16 Urine Nitrate Negative (Negative) 08/21/24 23:16 Urine Bilirubin Negative (Negative) 08/21/24 23:16 Urine Urobilinogen 1.0 mg/dL (Negative) 08/21/24 23:16 Ur Leukocyte Esterase 2+ (Negative) A 08/21/24 23:16 Urine RBC 6-10 /hpf (0-2) 08/21/24 23:16 Urine WBC 21-50 /hpf (0-5) H 08/21/24 23:16 Ur Squamous Epith Cells 6-10 /hpf (0-5) 08/21/24 23:16 Calcium Oxalate Crystal 15-25 /hpf H 08/21/24 23:16 Amorphous Sediment Not Reportable 08/21/24 23:16 Urine Bacteria 4+ /hpf (NONE) H 08/21/24 23:16 Hyaline Casts 2.46 /lpf 08/21/24 23:16 Urine Yeast 1+ /hpf H 08/21/24 23:16 All radiology interpretation(s) finalized by discharge Discharge Plan Discharge Patient Disposition: Home Clinical Impression: Leukocytosis, Thrombocytosis, UTI (urinary tract infection) Condition: Stable Prescriptions: New cefuroxime axetil 500 mg tablet 500 mg PO BID 10 Days Qty: 20 0RF No Action (DME) oxygen-air delivery systems Device See Rx Instructions .Route Rx Instructions: 2 liters Injectafer 100 mg iron/2 mL solution 750 mg IV ONCE Qty: 30 0RF Rx Instructions: To be given at [facility] nystatin [Nystop] 100,000 unit/gram powder 1 applic topical DAILY PRN (Reason: unknown) ondansetron HCl 4 mg tablet See Rx Instructions .ROUTE .COMPLEX PRN (Reason: nausea and vomiting) Dose Instruction: TAKE 1 TO 2 TABLETS BY MOUTH EVERY 6 HOURS NEEDED FOR NAUSEA AND VOMITING Rx Instructions: TAKE 1 TO 2 TABLETS BY MOUTH EVERY 6 HOURS NEEDED FOR NAUSEA AND VOMITING PRN; loperamide 2 mg tablet 2 mg PO Q6H PRN (DME) oxygen-air delivery systems Device See Rx Instructions .Route Rx Instructions: As directed propranolol 20 mg tablet PO albuterol sulfate 90 mcg/actuation HFA aerosol inhaler 2 puff INHALATION Q6H PRN (Reason: shortness of breath or wheezing) Qty: 8.5 2RF Lantus Solostar U-100 Insulin 100 unit/mL (3 mL) insulin pen 40 unit SUBCUT BID Qty: 72 0RF (DME) pen needle, diabetic [TechLITE Pen Needle] 32 gauge x 5/32 needle See Rx Instructions .ROUTE .COMPLEX Qty: 100 0RF Dose Instruction: USE NEEDLES WITH INSULIN SYRINGE Rx Instructions: USE NEEDLES WITH INSULIN SYRINGE pregabalin [Lyrica] 25 mg capsule 25 mg PO BID Qty: 60 0RF Rx Instructions: Start with 1 tablet daily, increase to 1 tablet BID if needed pregabalin [Lyrica] 25 mg capsule 25 mg PO BID Qty: 60 0RF Rx Instructions: Start with 1 tablet daily, increase to 1 tablet BID if needed acetaminophen 500 mg Tablet 1,500 mg PO Q6H PRN (Reason: Pain) fluticasone propionate [Flovent HFA] 220 mcg/actuation Hfa Aerosol Inhaler 1 puff INHALATION BID PRN (Reason: unknown) Discharge Orders: Discharge ED (Routine); Ordered 08/22/24 Ordered By: Tc Rubio Referrals: Galdino Mojica MD [Primary Care Provider] - Discharge Diet: Advance as tolerated Discharge Activity: Resume usual activity Patient Instructions: Opioid Safety, Pain Management, Urinary Tract Infection - Women Activity Restrictions/Additional Instructions: There is a culture pending on your urine. If changes need to be made in your antibiotic use, we will call you. I want you to follow-up with your primary care doctor this week. Call for an appointment. Follow-up with Dr. Akers as well I want you to return to the emergency department for new, concerning, worsening symptoms If you are still dizzy at times I want you using a walker. 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
[2024-08-21 21:07] VITALS: BP 182/74; PULSE 73; RESP 16; O2SAT 96
[2024-08-21 22:40] LABS: Basophils # 0.1 10^3/uL (0.0-0.1); Basophils % 0.3 %; Eosinophils # 0.3 10^3/uL (0.0-0.8); Eosinophils % 1.2 %; Hematocrit 42.5 % (36-47); Lymphocytes # 4.6 10^3/uL (0.8-4.8); Lymphocytes % 20.4 %; Mean Corpuscular HGB Conc 30.4 g/dL (30-55); Mean Corpuscular Hemoglobin 24.8 pg (27-33); Mean Corpuscular Volume 81.7 fl (85-98); Mean Platelet Volume 9.3 fL (7.4-10.4); Monocytes # 1.2 10^3/uL (0.2-0.9); Monocytes % 5.4 %; Neutrophils # 16.09 10^3/uL (1.8-7.7); Neutrophils % 71.9 %; Nucleated Red Blood Cells % 0 %; Platelet Count 502 10^3/cmm (157-399); Red Cell Distribution Width 15.5 % (12.1-15.1); White Blood Count 22.36 10^3/uL (3.29-11.43)
[2024-08-21] MEDS: TRAMadol 50 mg Tablet PO (22:50)
[2024-08-21 22:52] VITALS: BP 184/77; PULSE 110; O2SAT 96
[2024-08-21 23:03] LABS: Troponin(5th) Baseline 21 ng/L (0-10)
[2024-08-21 23:08] LABS: Alanine Aminotransferase 12 U/L (0-33); Albumin Level 4.1 g/dL (3.5-5.2); Alkaline Phosphatase 160 U/L (35-105); Anion Gap 21.3 (5-19); Aspartate Amino Transferase 16 U/L (0-32); Blood Urea Nitrogen 19 mg/dL (8-23); Calcium 9.5 mg/dL (8.5-10.5); Carbon Dioxide 23 mmol/L (22-29); Chloride 101 mmol/L (98-107); Creatinine Clr Calc Pharmacy 59.2223; Globulin 2.7 g/dL (1.3-4.6); Glucose 134 mg/dL (65-115); Osmolality Calculated 296 mOsm/kg (285-295); Potassium 4.3 mmol/L (3.5-5.1); Sodium 141 mmol/L (136-145); Total Bilirubin 0.2 mg/dL (0.15-1.2); Total Protein 6.8 g/dL (6.6-8.7)
[2024-08-21 23:23] LABS: Bilirubin Urine Negative (Negative); Blood Urine Negative (Negative); Glucose Urine UA Negative (Normal); Ketones Urine Negative (Negative); Leukocyte Esterase Urine 2+ (Negative); Nitrate Urine Negative (Negative); Protein Urine 1+ (Negative); Specific Gravity, Urine 1.017 (1.005-1.030); Urine Appearance Clear (CLEAR); Urine Color Yellow (Yellow)
[2024-08-21 23:28] LABS: Add Urine Microscopic? YES; Bacteria Urine 4+ /hpf; Hyaline Casts Urine 2.46 /lpf; Universal Test for UA Present (0); WBC Urine 21-50 /hpf (0-5)
[2024-08-21 23:46] LABS: Add Urine Culture? Yes; Calcium Oxalate Crystals Urine 15-25 /hpf
[2024-08-22] VITALS: BP 205/81; PULSE 84; RESP 24; O2SAT 95
[2024-08-22] MEDS: meclizine 25 mg tablet PO (00:07)
[2024-08-22 00:26] VITALS: BP 218/84; PULSE 88; RESP 21; O2SAT 95
[2024-08-22] MEDS: cefUROXime 250 mg Tablet 500 MG PO (00:51)
--- NOTE | 2024-08-22 01:30 | PC.NURSE ---
ROunded on pt. Pt repositioned at this time.
--- NOTE | 2024-08-22 02:22 | PC.NURSE ---
Rounded on pt. Pt requesting a snack. Ice cream given at pt request.
--- NOTE | 2024-08-22 06:20 | PC.NURSE ---
Assisted pt to bedside commode at this time. Call light placed next to pt with instructions to call when she is finished. Pt verbalized understanding.
[2024-08-22 06:36] VITALS: BP 191/84; PULSE 99; RESP 20; O2SAT 94
== END 2024-08-22 10:34 | disposition home or self-care (01) ==
PROVIDERS: Emergency Provider Nurse Practitioner; PCP Family Medicine
DX: D72.829 Elevated white blood cell count, unspecified (principal); D75.839 Thrombocytosis, unspecified; N39.0 Urinary tract infection, site not specified; Z87.891 Personal history of nicotine dependence; E11.22 Type 2 diabetes mellitus with diabetic chronic kidney disease; I13.0 Hypertensive heart and chronic kidney disease with heart failure and stage 1 through stage 4 chronic kidney disease, or unspecified chronic kidney disease; N18.9 Chronic kidney disease, unspecified; I50.9 Heart failure, unspecified; J44.9 Chronic obstructive pulmonary disease, unspecified
CPT/HCPCS: 36415; 70450; 72125; 72131; 72192; 73502; 80053; 81001; 84484; 85025; 99285; J8597

== ENCOUNTER 2024-08-31 13:48 | Oncology outpatient (recurring) (ONCR) | payer MEDICARE, OTHER, SELFPAY | END 2024-09-28 23:59 | disposition home or self-care (01) | PROVIDERS: PCP Family Medicine; Visit Provider Internal Medicine Medical Oncology | DX: D64.9 Anemia, unspecified (principal) | CPT/HCPCS: 99214 ==

== ENCOUNTER 2024-10-26 22:14 | Emergency (ER) | payer MEDICARE, OTHER, SELFPAY ==
[2024-10-26 22:15] VITALS: BP 166/83; PULSE 97; RESP 18; TEMP 36.5; O2SAT 95; BMI 32.3
[2024-10-26 22:20] VITALS: BP 175/80; PULSE 91; O2SAT 94
--- NOTE | 2024-10-26 22:37 | W.ED.FALL ---
HPI - Fall General: Chief Complaint: Fall Stated Complaint: fall, weakness Time Seen by Provider: 10/26/24 22:15 History of Present Illness: Patient presents to the ER status post fall at 3:30 AM. Patient says she tripped over some emesis she had the night before and landed on the ground. Patient does not have any complaints at this time. Patient does not have any pain. Patient says at that time she was unable to get herself up off the floor and did not call her . This afternoon her was unable to get her off floor; 911 and decided to bring her here for further evaluation treatment. Patient did not hit her head, is not on any anticoagulation, has no complaints at this time. Related Data Home Medications Medication Instructions Recorded Confirmed nystatin 100,000 unit/gram topical 1 applic topical DAILY PRN unknown 03/12/22 08/31/24 powder (Nystop) acetaminophen 500 mg tablet 1,500 mg PO Q6H PRN Pain 05/15/22 08/31/24 fluticasone propionate 220 1 puff inhalation BID PRN unknown 05/15/22 08/31/24 mcg/actuation HFA aerosol inhaler (Flovent HFA) oxygen-air delivery systems 04/29/23 05/10/24 loperamide 2 mg tablet 2 mg PO Q6H PRN 08/07/23 08/31/24 ondansetron HCl 4 mg tablet See Rx Instructions .Route 08/07/23 08/31/24 .COMPLEX PRN nausea and vomiting oxygen-air delivery systems 08/07/23 05/10/24 propranolol 20 mg tablet mg PO 11/03/23 08/31/24 cefuroxime axetil 500 mg tablet 500 mg PO BID 08/31/24 08/31/24 Previous Rx's Medication Instructions Recorded albuterol sulfate 90 mcg/actuation 2 puff inhalation Q6H PRN 12/02/19 aerosol inhaler shortness of breath or wheezing #8.5 grams insulin glargine 100 unit/mL (3 40 unit (0.4 mL) SUBCUT BID #72 mL 11/27/23 mL) subcutaneous pen (Lantus Solostar U-100 Insulin) pen needle, diabetic 32 gauge x #100 ea 11/27/23 (TechLITE Pen Needle) ferric carboxymaltose 100 mg 750 mg (15 mL) IV ONCE 1 dose #30 05/13/24 iron/2 mL intravenous solution mL (Injectafer) pregabalin 25 mg capsule (Lyrica) 25 mg PO BID #60 caps 07/08/24 pregabalin 25 mg capsule (Lyrica) 25 mg PO BID #60 caps 10/04/24 ciprofloxacin HCl 500 mg tablet 500 mg PO Q12H #20 tabs 10/27/24 potassium chloride 20 mEq 20 meq PO DAILY #7 tabs 10/27/24 tablet,extended release Allergies Allergy/AdvReac Type Severity Reaction Status Date / Time NSAIDS (Non-Steroidal Allergy Mild vomiting Verified 10/26/24 22:21 Anti-Inflamma Review of Systems General: Reports: 10 or more systems reviewed and unremarkable except in HPI and below PFSH ED PFSH: Medical History 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 Performed by Dr. Colbert at [facility]. H/O: hysterectomy Hx of cholecystectomy Family History Denies family history of Diabetes Dementia Hyperlipidemia Family history of premature coronary artery disease Cancer Social History Smoking and tobacco/nicotine status: former use of tobacco/nicotine Quit status (tobacco/nicotine): has quit using Year quit tobacco: 1990 Former quit date comment: Smoked for 30 years Alcohol intake: never Substance/Drug Use: never Household members: spouse Housing: House Physical Exam Const: COMMON NORMALS: no acute distress, average body habitus, patient oriented x3, no limitations, healthy appearing, alert and well nourished HENMT: COMMON NORMALS: normocephalic, atraumatic, hearing grossly normal bilaterally, external ears normal, Normal external nose present and moist oral mucous membranes HEAD & SCALP: normocephalic and atraumatic NOSE: Normal external nose present EXTERNAL EAR: Yes external ears normal Eye: COMMON NORMALS: Equal, round and reactive pupils present, EOMs intact bilaterally, conjunctivae normal and no scleral icterus CONJUNCTIVA: Yes conjunctivae normal PUPIL: Yes Equal, round and reactive pupils present Neck/C-Spine: COMMON NORMALS: full ROM, no lymphadenopathy, supple, no meningeal signs, no JVD and Thyroid normal THYROID: Thyroid normal Chest: COMMONS NORMALS: normal inspection of the chest and normal palpation of entire chest wall Resp: COMMON NORMALS: normal respiratory effort, No retractions, No use of accessory muscles and clear to auscultation bilaterally AUSCULTATION: clear to auscultation bilaterally Cardio: COMMON NORMALS: no JVD, regular rate, regular rhythm, S1 normal heart sound present, S2 normal heart sound present, No gallops present (Cardio), No clicks present (Cardio), No murmurs present (Cardio) and No rub (Cardio) RATE: regular rate RHYTHM: regular rhythm HEART SOUNDS: S1 normal heart sound present and S2 normal heart sound present GI: COMMON NORMALS: Normal to inspection, nondistended, normoactive bowel sounds present, Soft to palpation, non-tender, No hepatosplenomegaly present and no masses PALPATION: Yes Soft to palpation and Yes No hepatosplenomegaly present Neuro: COMMON NORMALS: patient oriented x3 SENSORIUM/ORIENTATION: Yes alert MENINGEAL SIGNS: Yes no meningeal signs Course Vital Signs: Vital signs: Vital Signs Temperature 97.7 F 10/26/24 22:15 Pulse Rate 97 10/26/24 22:15 Respiratory Rate 18 10/26/24 22:15 Blood Pressure 166/83 10/26/24 22:15 Pulse Oximetry 95 10/26/24 22:15 Oxygen Delivery Me thod Room Air 10/26/24 22:15 MDM - Fall Medical Decision Making Patient lab work showed potassium of 3.0, white count of 15.7, UA showed potential urinary tract infection. Patient was given Cipro and potassium in ER and will be discharged on Cipro and potassium go home. Medical Records I reviewed the patient's medical records. Lab Data I reviewed the patient's lab results. 10/26/24 22:45 10/26/24 22:45 Laboratory Results WBC 15.73 10^3/uL (3.29-11.43) H 10/26/24 22:45 RBC 5.08 10^6/uL (3.85-5.65) 10/26/24 22:45 Hgb 12.40 g/dL (11.27-16.99) 10/26/24 22:45 Hct 40.3 % (36-47) 10/26/24 22:45 MCV 79.3 fl (85-98) L 10/26/24 22:45 MCH 24.4 pg (27-33) L 10/26/24 22:45 MCHC 30.8 g/dL (30-55) 10/26/24 22:45 RDW 15.5 % (12.1-15.1) H 10/26/24 22:45 Plt Count 421 10^3/cmm (157-399) H 10/26/24 22:45 MPV 8.9 fL (7.4-10.4) 10/26/24 22:45 Neut % (Auto) 78.5 % 10/26/24 22:45 Lymph % (Auto) 12.9 % 10/26/24 22:45 [place] % (Auto) 5.4 % 10/26/24 22:45 Eos % (Auto) 2.2 % 10/26/24 22:45 Baso % (Auto) 0.4 % 10/26/24:45 Neut # (Auto) 12.35 10^3/uL (1.8-7.7) H 10/26/24 22:45 Lymph # (Auto) 2.0 10^3/uL (0.8-4.8) 10/26/24 22:45 [place] # (Auto) 0.9 10^3/uL (0.2-0.9) 10/26/24 22:45 Eos # (Auto) 0.4 10^3/uL (0.0-0.8) 10/26/24:45 Baso # (Auto) 0.1 10^3/uL (0.0-0.1) 10/26/24 22:45 Nucleated RBC % (auto) 0 % 10/26/24:45 Nucleated RBCs # 0.0 /100WBC 10/26/24 22:45 Sodium 139 mmol/L (136-145) 10/26/24 22:45 Potassium 3.0 mmol/L (3.5-5.1) L 10/26/24 22:45 Chloride 96 mmol/L (98-107) L 10/26/24 22:45 Carbon Dioxide 31 mmol/L (22-29) H 10/26/24 22:45 Anion Gap 15.0 (5-19) 10/26/24 22:45 BUN 17 mg/dL (8-23) 10/26/24 22:45 Creatinine 1.2 mg/dL (0.5-0.9) H 10/26/24 22:45 GFR Calculation Not Reportable 10/26/24 22:45 Glucose 151 mg/dL (65-115) H 10/26/24 22:45 Calculated Osmolality 292 mOsm/kg (285-295) 10/26/24 22:45 Calcium 9.4 mg/dL (8.5-10.5) 10/26/24 22:45 Magnesium 1.9 mg/dL (1.7-2.3) 10/26/24 22:45 Total Bilirubin 0.4 mg/dL (0.15-1.2) 10/26/24 22:45 AST 14 U/L (0-32) 10/26/24 22:45 ALT 10 U/L (0-33) 10/26/24 22:45 Alkaline Phosphatase 165 U/L (35-105) H 10/26/24 22:45 Creatine Kinase 45 U/L (26-192) 10/26/24 22:45 Total Protein 6.6 g/dL (6.6-8.7) 10/26/24 22:45 Albumin 3.7 g/dL (3.5-5.2) 10/26/24 22:45 Globulin 2.9 g/dL (1.3-4.6) 10/26/24 22:45 Urine Color Dark yellow (Yellow) A 10/27/24 00:06 Urine Appearance Turbid (CLEAR) A 10/27/24 00:06 Urine pH 5.5 (5-7) 10/27/24 00:06 Ur Specific [place] 1.022 (1.005-1.030) 10/27/24 00:06 Urine Protein 2+ (Negative) A 10/27/24 00:06 Urine Glucose (UA) Negative (Normal) 10/27/24 00:06 Urine Ketones Trace (Negative) 10/27/24 00:06 Urine Blood 1+ (Negative) A 10/27/24 00:06 Urine Nitrate Negative (Negative) 10/27/24 00:06 Urine Bilirubin 1+ (Negative) H 10/27/24 00:06 Urine Urobilinogen 1.0 mg/dL (Negative) 10/27/24 00:06 Ur Leukocyte Esterase 2+ (Negative) A 10/27/24 00:06 Urine RBC 6-10 /hpf (0-2) 10/27/24 00:06 Urine WBC >100 /hpf (0-5) H 10/27/24 00:06 Ur Squamous Epith Cells 0-5 /hpf (0-5) 10/27/24 00:06 Amorphous Sediment Not Reportable 10/27/24 00:06 Urine Bacteria 1+ /hpf (NONE) H 10/27/24 00:06 Hyaline Casts 43.06 /lpf 10/27/24 00:06 Urine Mucus 1+ /hpf 10/27/24 00:06 All radiology interpretation(s) finalized by discharge Discharge Plan Discharge Patient Disposition: Home Clinical Impression: Urinary tract infection, Fall, Acute hypokalemia Condition: Stable Prescriptions: New ciprofloxacin HCl 500 mg tablet 500 mg PO Q12H Qty: 20 0RF potassium chloride 20 mEq tablet extended release 20 meq PO DAILY Qty: 7 0RF No Action (DME) oxygen-air delivery systems Device See Rx Instructions .Route Rx Instructions: 2 liters Injectafer 100 mg iron/2 mL solution 750 mg IV ONCE Qty: 30 0RF Rx Instructions: To be given at [facility] nystatin [Nystop] 100,000 unit/gram powder 1 applic topical DAILY PRN (Reason: unknown) ondansetron HCl 4 mg tablet See Rx Instructions .ROUTE .COMPLEX PRN (Reason: nausea and vomiting) Dose Instruction: TAKE 1 TO 2 TABLETS BY MOUTH EVERY 6 HOURS NEEDED FOR NAUSEA AND VOMITING Rx Instructions: TAKE 1 TO 2 TABLETS BY MOUTH EVERY 6 HOURS NEEDED FOR NAUSEA AND VOMITING PRN; loperamide 2 mg tablet 2 mg PO Q6H PRN (DME) oxygen-air delivery systems Device See Rx Instructions .Route Rx Instructions: As directed propranolol 20 mg tablet PO cefuroxime axetil 500 mg tablet 500 mg PO BID Patient Comments: for 10 days albuterol sulfate 90 mcg/actuation HFA aerosol inhaler 2 puff INHALATION Q6H PRN (Reason: shortness of breath or wheezing) Qty: 8.5 2RF Lantus Solostar U-100 Insulin 100 unit/mL (3 mL) insulin pen 40 unit SUBCUT BID Qty: 72 0RF (DME) pen needle, diabetic [TechLITE Pen Needle] 32 gauge x 5/32 needle See Rx Instructions .ROUTE .COMPLEX Qty: 100 0RF Dose Instruction: USE NEEDLES WITH INSULIN SYRINGE Rx Instructions: USE NEEDLES WITH INSULIN SYRINGE pregabalin [Lyrica] 25 mg capsule 25 mg PO BID Qty: 60 0RF Rx Instructions: Start with 1 tablet daily, increase to 1 tablet BID if needed pregabalin [Lyrica] 25 mg capsule 25 mg PO BID Qty: 60 0RF Rx Instructions: Start with 1 tablet daily, increase to 1 tablet BID if needed acetaminophen 500 mg Tablet 1,500 mg PO Q6H PRN (Reason: Pain) fluticasone propionate [Flovent HFA] 220 mcg/actuation Hfa Aerosol Inhaler 1 puff INHALATION BID PRN (Reason: unknown) Discharge Orders: Discharge ED (Routine); Ordered 10/27/24 Ordered By: Patric Oakes Referrals: Galdino Mojica MD [Primary Care Provider] - 1 week Patient Instructions: Hypokalemia, Urinary Tract Infection - Women Activity Restrictions/Additional Instructions: 2 prescriptions of been sent to your pharmacy please pick them up and take them as directed. Please follow-up with your family practitioner in the next 7 days for further evaluation treatment. 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
[2024-10-26 22:58] LABS: Basophils # 0.1 10^3/uL (0.0-0.1); Basophils % 0.4 %; Eosinophils # 0.4 10^3/uL (0.0-0.8); Eosinophils % 2.2 %; Hematocrit 40.3 % (36-47); Lymphocytes % 12.9 %; Mean Corpuscular HGB Conc 30.8 g/dL (30-55); Mean Corpuscular Hemoglobin 24.4 pg (27-33); Mean Corpuscular Volume 79.3 fl (85-98); Mean Platelet Volume 8.9 fL (7.4-10.4); Monocytes # 0.9 10^3/uL (0.2-0.9); Monocytes % 5.4 %; Neutrophils # 12.35 10^3/uL (1.8-7.7); Neutrophils % 78.5 %; Nucleated Red Blood Cells % 0 %; Platelet Count 421 10^3/cmm (157-399); Red Blood Count 5.08 10^6/uL (3.85-5.65); Red Cell Distribution Width 15.5 % (12.1-15.1); White Blood Count 15.73 10^3/uL (3.29-11.43)
[2024-10-26 23:08] LABS: Alanine Aminotransferase 10 U/L (0-33); Albumin Level 3.7 g/dL (3.5-5.2); Alkaline Phosphatase 165 U/L (35-105); Aspartate Amino Transferase 14 U/L (0-32); Blood Urea Nitrogen 17 mg/dL (8-23); Calcium 9.4 mg/dL (8.5-10.5); Carbon Dioxide 31 mmol/L (22-29); Chloride 96 mmol/L (98-107); Creatine Phosphokinase 45 U/L (26-192); Creatinine Clr Calc Pharmacy 46.6638; Globulin 2.9 g/dL (1.3-4.6); Glucose 151 mg/dL (65-115); Magnesium 1.9 mg/dL (1.7-2.3); Osmolality Calculated 292 mOsm/kg (285-295); Sodium 139 mmol/L (136-145); Total Bilirubin 0.4 mg/dL (0.15-1.2); Total Protein 6.6 g/dL (6.6-8.7)
[2024-10-26 23:30] VITALS: BP 166/84; PULSE 92; O2SAT 94
[2024-10-27] VITALS (10 sets, daily range): BP systolic 143–185; BP diastolic 78–102; PULSE 80–91; RESP 16; O2SAT 92–95
[2024-10-27 00:18] LABS: Bilirubin Urine 1+ (Negative); Blood Urine 1+ (Negative); Glucose Urine UA Negative (Normal); Ketones Urine Trace (Negative); Leukocyte Esterase Urine 2+ (Negative); Nitrate Urine Negative (Negative); Protein Urine 2+ (Negative); Specific Gravity, Urine 1.022 (1.005-1.030); Urine Appearance Turbid (CLEAR); Urine Color Dark Yellow (Yellow); pH Urine 5.5 (5-7)
[2024-10-27 00:23] LABS: Add Urine Microscopic? YES; Bacteria Urine 1+ /hpf; Hyaline Casts Urine 43.06 /lpf; Squamous Epithelial Cell Urine 0-5 /hpf (0-5); WBC Urine >100 /hpf (0-5)
[2024-10-27 00:40] LABS: UA Slide Review UA Slide Review Perf
[2024-10-27 00:41] LABS: Add Urine Culture? Yes; Mucus Urine 1+ /hpf
[2024-10-27] MEDS: potassium chloride ER 20 mEq Tablet 40 MEQ PO (01:12)
[2024-10-27] MEDS: ciprofloxacin 500 mg Tablet PO (01:12)
--- NOTE | 2024-10-27 05:58 | PC.NURSE ---
This nurse attempted to call 4 times since pt has been put up for discharge. Pt states she has no other contacts to give her a ride.
== END 2024-10-27 07:51 | disposition home or self-care (01) ==
PROVIDERS: Emergency Provider Emergency Medicine; PCP Family Medicine
DX: N39.0 Urinary tract infection, site not specified (principal); E87.6 Hypokalemia; W19.XXXA Unspecified fall, initial encounter; Z87.891 Personal history of nicotine dependence; J44.9 Chronic obstructive pulmonary disease, unspecified; E11.22 Type 2 diabetes mellitus with diabetic chronic kidney disease; I13.0 Hypertensive heart and chronic kidney disease with heart failure and stage 1 through stage 4 chronic kidney disease, or unspecified chronic kidney disease; N18.9 Chronic kidney disease, unspecified; I50.9 Heart failure, unspecified
CPT/HCPCS: 80053; 81001; 82550; 83735; 85025; 87077; 87086; 87186; 99283

== ENCOUNTER 2024-11-14 06:12 | Emergency (ER) | payer MEDICARE, OTHER, SELFPAY ==
[2024-11-14] VITALS (10 sets, daily range): BP systolic 134–168; BP diastolic 51–79; PULSE 73–106; RESP 16–22; TEMP 37.4; O2SAT 92–96; BMI 27.4
--- NOTE | 2024-11-14 06:19 | XRR_ITS ---
PROCEDURE INFORMATION: Exam: XR Chest Exam date and time: 11/14/2024 6:22 AM Age: 74 years old Clinical indication: Shortness of breath; Prior surgery; Surgery date: 6+ months; Surgery type: Cervical fusion. Gb; SOB with hypoxia TECHNIQUE: Imaging protocol: Radiologic exam of the chest. Views: 1 view. COMPARISON: CR (CHEST, ) 02/07/2023 11:21 PM FINDINGS: Lungs: Unremarkable. No consolidation. Pleural spaces: Unremarkable. No pleural effusion. No pneumothorax. Heart/Mediastinum: Unremarkable. No cardiomegaly. Bones/joints: Prior anterior cervical fusion. XR/XR chest 1V portable [id number] IMPRESSION: No acute findings.
--- NOTE | 2024-11-14 06:21 | ED_ITS ---
HPI - SOB/Dyspnea 2 General: Chief Complaint: Shortness of Breath/Dyspnea Stated Complaint: RESP. DISTRESS Time Seen by Provider: 11/14/24 06:13 History of Present Illness: HPI Narrative: 74-year-old female brought in for respir atory distress. Patient is at rehab care center for failure to thrive and is generalized weakness. EMS was called for shortness of breath. They report when they arrived patient was on a mask at 5 L and had O2 saturations at 99%. They did move her to a nasal cannula at 3 L and maintains [id number]. She does have some mild wheezing. She has albuterol on her medication list. No reports of fevers or chills. Patient will not provide any information just shake her head. She did talk to EMS reports she can talk with just chooses not to when I ask her she shakes her head. Patient did answer questions to the nurse. Associated symptoms: Deny fever(s), nausea or vomiting Related Data Home Medications ?Medication ?Instructions ?Recorded ?Confirmed acetaminophen 500 mg tablet 1,500 mg PO Q6H PRN Pain 0 05/15/22 11/14/24 oxygen-air delivery systems 04/29/23 11/14/24 loperamide 2 mg tablet 2 mg PO Q6H PRN Diarrhea 06/2111/14/24 ondansetron HCl 4 mg tablet 4 - 8 mg PO Q6H PRN Nausea And 08/07/23 11/14/24 Vomiting oxygen-air delivery systems 08/07/23 11/14/24 duloxetine 60 mg capsule,delayed 60 mg PO DAILY 11/14/24 release Previous Rx's ?Medication ?Instructions ?Recorded insulin glargine 100 unit/mL (3 40 unit (0.4 mL) SUBCU T BID #72 mL 11/27/23 mL) subcutaneous pen (Lantus Solostar U-100 Insulin) pen needle, diabetic 32 gauge x #100 ea 11/27/23 (TechLITE Pen Needle) pregabalin 25 mg capsule (Lyrica) 25 mg PO BID #60 cap s 10/04/24 potassium chloride 20 mEq 20 meq PO DAILY #7 tabs 09/30 06/23 tablet,extended release azithromycin 250 mg tablet See Rx Instructions PO .COM PLEX #6 11/14/24 tabs prednisone 20 mg tablet 40 mg (2 x 20 mg) PO DAILY 3 days 11/14/24 #6 tabs Allergies Allergy/AdvReac Type Severity Reaction Status Date / Time NSAIDS (Non-Steroidal Allergy Mild vomiting Verified 10/26/24 22:21 Anti-Inflamma Review of Systems 2 Const: Denies: fever(s) or chills Resp: Reports: dyspnea and wheezing GI: Denies: nausea or vomiting Neuro: Reports: headache(s) PFSH ED 2 PFSH: Medical History 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 Performed by Dr. Colbert at [facility]. H/O: hysterectomy Hx of cholecystectomy Family History Denies family history of Diabetes Dementia Hyperlipidemia Family history of premature coronary artery disease Cancer Social History Smoking and tobacco/nicotine status: former use of tobacco/nicotine Quit status (tobacco/nicotine): has quit using Year quit tobacco: 1990 Former quit date comment: Smoked for 30 years Alcohol intake: never Substance/Drug Use: never Household members: spouse Housing: House Physical Exam 2 Const: COMMON NORMALS: no acute distress Resp: EFFORT & INSPECTION: No respiratory distress, No labored and No uses accessory muscles AUSCULTATION: wheezes Cardio: COMMON NORMALS: regular rate and regular rhythm RATE: regular rate RHYTHM: regular rhythm GI: COMMON NORMALS: Soft to palpation PALPATION: Yes Soft to palpation Skin: COMMON NORMALS: no rashes or lesions noted GENERAL SKIN EXAM: no rashes or lesions noted Course 2 Vital Signs: Vital signs: Vital Signs Temperature 99.3 F 11/14/24 06:13 Pulse Rate 88 11/14/24 09:13 Respiratory Rate 16 11/14/24 07:52 Blood Pressure 165/54 11/14/24 09:13 Pulse Oximetry 96 11/14/24 09:13 Oxygen Delivery Me thod Nasal Cannula 11/14/24 08:30 Oxygen Flow Rate 1 11/14/24 08:30 MDM - SOB/Dyspnea Medical Decision Making Patient diagnostic studies were ordered reviewed interpreted by me. Patient's labs appear to be at her baseline with chronic baseline elevated white blood cells and platelets. Patient also has a chronic anemia. Patient's other labs appear to be near baseline. Patient's EKG showed some mild atrial fibs however she was rate controlled. Patient symptoms improved significantly with a DuoNeb and Solu-Medrol. Patient was removed from her oxygen and upon arrival to maintain her O2 around 93-94 except for when she was sleeping she did require a little oxygen as she dropped down to 89%. Patient is negative for influenza and COVID. She does not complain of any increased cough, fever or other symptoms so her symptoms are very consistent likely a COPD exacerbation. She does have a negative x-ray for any acute findings. Patient will be discharged back with prednisone, azithromycin and O2 as needed especially while sleeping. She is stable upon transfer back to the rehab facility. Lab Data 11/14/24 06:36 11/14/24 06:36 Labs/Radiology: Radiology Impressions Chest X-Ray 11/14/24 06:19 IMPRESSION: No acute findings. Laboratory Results WBC 17.91 10^3/uL (3.29-11.43) H 11/14/24 06:36 RBC 4.43 10^6/uL (3.85-5.65) 11/14/24 06:36 Hgb 10.60 g/dL (11.27-16.99) L 11/14/24 06:36 Hct 34.4 % (36-47) L 11/14/24 06:36 MCV 77.7 fl (85-98) L 11/14/24 06:36 MCH 23.9 pg (27-33) L 11/14/24 06:36 MCHC 30.8 g/dL (30-55) 11/14/24 06:36 RDW 16.1 % (12.1-15.1) H 11/14/24 06:36 Plt Count 432 10^3/cmm (157-399) H 11/14/24 06:36 MPV 9.2 fL (7.4-10.4) 11/14/24 06:36 Neut % (Auto) 86.0 % 11/14/24 06:36 Lymph % (Auto) 5.1 % 11/14/24 06:36 [place] % (Auto) 6.7 % 11/14/24 06:36 Eos % (Auto) 1.3 % 11/14/24 06:36 Baso % (Auto) 0.3 % 11/14/24 06:36 Neut # (Auto) 15.40 10^3/uL (1.8-7.7) H 11/14/24 06:36 Lymph # (Auto) 0.9 10^3/uL (0.8-4.8) 11/14/24 06:36 [place] # (Auto) 1.2 10^3/uL (0.2-0.9) H 11/14/24 06:36 Eos # (Auto) 0.2 10^3/uL (0.0-0.8) 11/14/24 06:36 Baso # (Auto) 0.1 10^3/uL (0.0-0.1) 11/14/24 06:36 Nucleated RBC % (auto) 0 % 11/14/24 06:36 Nucleated RBCs # 0.0 /100WBC 11/14/24 06:36 Sodium 139 mmol/L (136-145) 11/14/24 06:36 Potassium 4.2 mmol/L (3.5-5.1) 11/14/24 06:36 Chloride 102 mmol/L (98-107) 11/14/24 06:36 Carbon Dioxide 23 mmol/L (22-29) 11/14/24 06:36 Anion Gap 18.2 (5-19) 11/14/24 06:36 BUN 25 mg/dL (8-23) H 11/14/24 06:36 Creatinine 1.1 mg/dL (0.5-0.9) H 11/14/24 06:36 GFR Calculation Not Reportable 11/14/24 06:36 Glucose 143 mg/dL (65-115) H 11/14/24 06:36 Calculated Osmolality 295 mOsm/kg (285-295) 11/14/24 06:36 Lactic Acid 1.3 mmol/L (0.5-2.2) 11/14/24 06:36 Calcium 8.9 mg/dL (8.5-10.5) 11/14/24 06:36 Total Bilirubin 0.3 mg/dL (0.15-1.2) 11/14/24 06:36 AST 12 U/L (0-32) 11/14/24 06:36 ALT 7 U/L (0-33) 11/14/24 06:36 Alkaline Phosphatase 109 U/L (35-105) H 11/14/24 06:36 Troponin T Baseline 30 ng/L (0-10) H 11/14/24 06:36 Total Protein 6.6 g/dL (6.6-8.7) 11/14/24 06:36 Albumin 3.7 g/dL (3.5-5.2) 11/14/24 06:36 Globulin 2.9 g/dL (1.3-4.6) 11/14/24 06:36 Coronavirus (PCR) Negative (Negative) 11/14/24 06:36 Influenza A (PCR) Negative (Negative) 11/14/24 06:36 Influenza Type B (PCR) Negative (Negative) 11/14/24 06:36 RSV (PCR) Negative (Negative) 11/14/24 06:36 All radiology interpretation(s) finalized by discharge Discharge Plan Discharge Patient Disposition: Home Clinical Impression: Leukocytosis, COPD (chronic obstructive pulmonary disease) Condition: Stable Prescriptions: New prednisone 20 mg tablet 40 mg PO DAILY 3 Days Qty: 6 0RF azithromycin 250 mg tablet See Rx Instructions .ROUTE .COMPLEX Qty: 6 0RF Rx Instructions: For 250 mg dose pack: take 500 mg today (day 1), then 250 mg for 4 days (days 2-5) No Action (DME) oxygen-air delivery systems Device See Rx Instructions .Route Rx Instructions: 2 liters ondansetron HCl 4 mg tablet 4 - 8 mg PO Q6H PRN (Reason: Nausea And Vomiting) Dose Instruction: TAKE 1 TO 2 TABLETS BY MOUTH EVERY 6 HOURS NEEDED FOR NAUSEA AND VOMITING loperamide 2 mg tablet 2 mg PO Q6H PRN (Reason: Diarrhea) (DME) oxygen-air delivery systems Device See Rx Instructions .Route Rx Instructions: As directed Lantus Solostar U-100 Insulin 100 unit/mL (3 mL) insulin pen 40 unit SUBCUT BID Qty: 72 0RF (DME) pen needle, diabetic [TechLITE Pen Needle] 32 gauge x 5/32 needle See Rx Instructions .ROUTE .COMPLEX Qty: 100 0RF Dose Instruction: USE NEEDLES WITH INSULIN SYRINGE Rx Instructions: USE NEEDLES WITH INSULIN SYRINGE pregabalin [Lyrica] 25 mg capsule 25 mg PO BID Qty: 60 0RF Rx Instructions: Start with 1 tablet daily, increase to 1 tablet BID if needed potassium chloride 20 mEq tablet extended release 20 meq PO DAILY Qty: 7 0RF acetaminophen 500 mg Tablet 1,500 mg PO Q6H PRN (Reason: Pain) duloxetine 60 mg capsule,delayed release(DR/EC) 60 mg PO DAILY Discharge Orders: Discharge ED (Routine); Ordered 11/14/24 Ordered By: Renato Danielle Referrals: Galdino Mojica MD [Primary Care Provider] - Discharge Diet: Usual diet Discharge Activity: Resume usual activity Patient Instructions: COPD (Chronic Obstructive Pulmonary Disease) (DC), Opioid Safety, Pain Management Activity Restrictions/Additional Instructions: Please start azithromycin today and prednisone tomorrow. Patient may use oxygen nasal cannula as needed for O2 saturations to maintain between 94 to 96%. Please have her follow-up with her primary care provider towards the end of next week. Albuterol every 6 hours while awake for the next 24 hours then as needed. 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
[2024-11-14] MEDS: ipratropium-albuterol 3 mL Neb INHALATION ×2 (06:31→07:54)
[2024-11-14] MEDS: methylPREDNISolone sod succ 125 mg/2 mL INJ IVP (06:35)
[2024-11-14] MEDS: acetaminophen 325 mg Tablet 650 MG PO (06:36)
[2024-11-14 06:44] LABS: Basophils # 0.1 10^3/uL (0.0-0.1); Basophils % 0.3 %; Eosinophils # 0.2 10^3/uL (0.0-0.8); Eosinophils % 1.3 %; Hematocrit 34.4 % (36-47); Lymphocytes # 0.9 10^3/uL (0.8-4.8); Lymphocytes % 5.1 %; Mean Corpuscular HGB Conc 30.8 g/dL (30-55); Mean Corpuscular Hemoglobin 23.9 pg (27-33); Mean Corpuscular Volume 77.7 fl (85-98); Mean Platelet Volume 9.2 fL (7.4-10.4); Monocytes # 1.2 10^3/uL (0.2-0.9); Monocytes % 6.7 %; Nucleated Red Blood Cells % 0 %; Platelet Count 432 10^3/cmm (157-399); Red Blood Count 4.43 10^6/uL (3.85-5.65); Red Cell Distribution Width 16.1 % (12.1-15.1); White Blood Count 17.91 10^3/uL (3.29-11.43)
--- NOTE | 2024-11-14 06:44 | ECG_ITS ---
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 Measurements Intervals [place] Rate: 101 P: 0 NE: 0 QRS: -55 QRSD: 100 T: 88 QT: 329 QTc: 428 Interpretive Statements ATRIAL FIBRILLATION WITH RAPID VENTRICULAR RESPONSE LEFT ANTERIOR FASCICULAR BLOCK [QRS AXIS <= -45, QR IN I, RS IN II] MINIMAL VOLTAGE CRITERIA FOR LVH, CONSIDER NORMAL VARIANT [MEETS CRITERIA IN ONE OF: R(aVL), S(V1), R(V5), R(V5/V6)+S(V1)] ANTEROSEPTAL MYOCARDIAL INFARCTION , OF INDETERMINATE AGE [40+ ms Q WAVE IN V1-V4] Compared to ECG 02/08/2023 00:46:12 Left anterior fascicular block now present Sinus bradycardia no longer present Left-axis deviation no longer present Myocardial infarct finding still present Electronically Signed On 11-14-2024 18:51:43 CHEMICAL STRENGTH TESTER by Talia Espana M.D. [email or web address] [id number]
[2024-11-14 07:07] LABS: Alanine Aminotransferase 7 U/L (0-33); Albumin Level 3.7 g/dL (3.5-5.2); Alkaline Phosphatase 109 U/L (35-105); Anion Gap 18.2 (5-19); Aspartate Amino Transferase 12 U/L (0-32); Blood Urea Nitrogen 25 mg/dL (8-23); Calcium 8.9 mg/dL (8.5-10.5); Carbon Dioxide 23 mmol/L (22-29); Chloride 102 mmol/L (98-107); Globulin 2.9 g/dL (1.3-4.6); Glucose 143 mg/dL (65-115); Osmolality Calculated 295 mOsm/kg (285-295); Potassium 4.2 mmol/L (3.5-5.1); Sodium 139 mmol/L (136-145); Total Bilirubin 0.3 mg/dL (0.15-1.2); Total Protein 6.6 g/dL (6.6-8.7)
[2024-11-14 07:08] LABS: Creatinine Clr Calc Pharmacy 47.0506; Lactic Sepsis W/Reflex 1.3 mmol/L (0.5-2.2)
--- NOTE | 2024-11-14 07:08 | PC.NURSE ---
PT PLACED ON 2L NC DUE TO OXYGEN SATURATION DROPPING WHILE PT SLEEPS.
[2024-11-14 07:09] LABS: Troponin(5th) Baseline 30 ng/L (0-10)
[2024-11-14 07:27] LABS: Influenza A NEGATIVE (Negative); Influenza B NEGATIVE (Negative); Respiratory Syncytial Virus Ce NEGATIVE (Negative); SARS-CoV-2 PCR NEGATIVE (Negative)
== END 2024-11-14 09:18 | disposition home or self-care (01) ==
PROVIDERS: Emergency Provider Student in an Organized Health Care Education/Training Program; PCP Family Medicine
DX: D72.829 Elevated white blood cell count, unspecified (principal); J44.9 Chronic obstructive pulmonary disease, unspecified; Z11.52 Encounter for screening for COVID-19; Z87.891 Personal history of nicotine dependence; E11.22 Type 2 diabetes mellitus with diabetic chronic kidney disease; I13.0 Hypertensive heart and chronic kidney disease with heart failure and stage 1 through stage 4 chronic kidney disease, or unspecified chronic kidney disease; N18.9 Chronic kidney disease, unspecified; I50.9 Heart failure, unspecified
CPT/HCPCS: 71045; 80053; 83605; 84484; 85025; 87637; 93005; 94640; 96374; 99285; J2919

== ENCOUNTER 2025-02-07 02:41 | Observation (INO) | payer MEDICARE, OTHER, SELFPAY ==
[2025-02-07] VITALS (47 sets, daily range): BP systolic 136–197; BP diastolic 52–96; PULSE 69–94; RESP 13–30; TEMP 36.6–36.9; O2SAT 88–100; BMI 32.3
--- NOTE | 2025-02-07 02:52 | XRR_ITS ---
PROCEDURE INFORMATION: Exam: XR Chest Exam date and time: 02/07/2025 2:54 AM Age: 74 years old Clinical indication: Cough and shortness of breath and wheezing; Prior surgery; Surgery date: 6+ months; Surgery type: Gb. Cervical fusion; Cough with SOB and wheezing TECHNIQUE: Imaging protocol: Radiologic exam of the chest. Views: 1 view. COMPARISON: CR XR chest 1V portable [id number] 11/14/2024 6:22 AM FINDINGS: Lungs: Unremarkable. No consolidation. Pleural spaces: Unremarkable. No pleural effusion. No pneumothorax. Heart/Mediastinum: Unremarkable. No cardiomegaly. Bones/joints: Unremarkable. XR/XR chest 1V portable [id number] IMPRESSION: No acute findings.
[2025-02-07] MEDS: racepinephrine 0.5 mL Neb INHALATION ×2 (03:11→06:10)
--- NOTE | 2025-02-07 03:13 | ED_ITS ---
Documented by User: Huy Xiao, DO 02/08/25 13:46 HPI - SOB/Dyspnea 2 General: Chief Complaint: Shortness of Breath/Dyspnea Stated Complaint: shortness of breath Time Seen by Provider: 02/07/25 02:47 History of Present Illness: HPI Narrative: 74-year-old lady with a history of conge stive heart failure and COPD residing in a correction. She presents with acute onset shortness of breath starting last night. She says she has been coughing, and struggling to breathe. No fever. No chest pain. No vomiting. No sputum production. No swelling of her legs. She is diabetic. Related Data Home Medications ?Medication ?Instructions ?Recorded ?Confirmed acetaminophen 500 mg tablet 1,500 mg PO Q6H PRN Pain 0 05/15/22 02/07/25 oxygen-air delivery systems 04/29/23 02/07/25 ondansetron HCl 4 mg tablet 4 - 8 mg PO Q6H PRN Nausea And 08/07/23 02/07/25 Vomiting oxygen-air delivery systems 08/07/23 02/07/25 duloxetine 60 mg capsule,delayed 60 mg PO DAILY 02/07/25 release albuterol sulfate 90 mcg/actuation 2 puff inhalation Q 6H PRN 02/07/25 02/07/25 aerosol inhaler Shortness Of Breath Or Wheez ing amlodipine 5 mg tablet 5 mg PO DAILY 02/07/2502/07 bisacodyl 10 mg rectal suppository 10 mg FL DAILY PRN Constipation 02/07/25 02/07/25 (Dulcolax (bisacodyl)) carvedilol 3.125 mg tablet 3.125 mg PO BID 02/07/25 fluticasone propionate 110 2 puff inhalation BID 02/0702/07/25 mcg/actuation HFA aerosol inhaler hyoscyamine sulfate 0.125 mg 0.125 mg PO QID PRN Spasm s 02/07/25 02/07/25 disintegrating tablet insulin glargine 100 unit/mL (3 8 unit SUBCUT BEDTIME 02/07/25 02/07/25 mL) subcutaneous pen (Lantus Solostar U-100 Insulin) magnesium hydroxide 400 mg/5 mL 15 ml PO DAILY PRN con stipation 02/07/25 02/07/25 oral suspension (Milk of Magnesia) nystatin 100,000 unit/gram topical 1 applic topical BI D 02/07/25 02/07/25 powder pantoprazole 40 mg tablet,delayed 40 mg PO DAILY gerd 02/07/25 02/07/25 release sodium phosphates 19 gram-7 118 ml FL DAILY PRN consti pation 02/07/25 02/07/25 gram/118 mL enema (Fleet Enema) Previous Rx's ?Medication ?Instructions ?Recorded pen needle, diabetic 32 gauge x #100 ea 11/27/23 (TechLITE Pen Needle) amoxicillin 250 mg capsule 250 mg PO BID 7 days #14 ca ps 02/08/25 prednisone 20 mg tablet See Rx Instructions .Route 0 02/08/25 .COMPLEX #19 tabs Allergies Allergy/AdvReac Type Severity Reaction Status Date / Time NSAIDS (Non-Steroidal Allergy Mild vomiting Verified 10/26/24 22:21 Anti-Inflamma PFSH ED 2 PFSH: Medical History (Updated 02/07/25 @ 15:48 by Jacky Spangler MD) Asbestos exposure 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 Performed by Dr. Colbert at [facility]. H/O: hysterectomy Hx of cholecystectomy Family History Denies family history of Diabetes Dementia Hyperlipidemia Family history of premature coronary artery disease Cancer Social History Smoking and tobacco/nicotine status: former use of tobacco/nicotine Quit status (tobacco/nicotine): has quit using Year quit tobacco: 1990 Former quit date comment: Smoked for 30 years Alcohol intake: never Substance/Drug Use: never Household members: spouse Housing: House Physical Exam 2 Const: GENERAL APPEARANCE: cooperative and ill appearing (mildly) HENMT: COMMON NORMALS: normocephalic, atraumatic and Normal external nose present HEAD & SCALP: normocephalic and atraumatic FACE & SINUS: normal facial exam and face symmetric NOSE: Normal external nose present Eye: COMMON NORMALS: Equal, round and reactive pupils present and EOMs intact bilaterally PUPIL: Yes Equal, round and reactive pupils present Neck/C-Spine: GENERAL: Yes trachea midline Chest: CHEST: Yes Symmetrical chest wall rise Resp: EFFORT & INSPECTION: Yes tachypneic and Yes stridor (intermittent) Cardio: COMMON NORMALS: regular rate and regular rhythm RATE: regular rate RHYTHM: regular rhythm GI: COMMON NORMALS: Normal to inspection, nondistended, normoactive bowel sounds present Extremity: COMMON NORMALS: no pedal edema Neuro: AMPARO COMA SCALE: document GCS findings [place] coma scale eye opening: Spontaneous [place] coma scale verbal response: Orientated [place] coma scale motor response: Obey commands Amparo coma scale total score: 15 S ENSORY EXAM: Yes extremities (intact) Psych: COMMON NORMALS: speech normal SPEECH: Yes normal speech Skin: COMMON NORMALS: no rashes or lesions noted GENERAL SKIN EXAM: no rashes or lesions noted Course 2 Vital Signs: Vital signs: Vital Signs Temperature 97.0 F L 02/08/25 08:31 Pulse Rate 63 02/08/25 12:00 Respiratory Rate 19 H 02/08/25 12:00 Blood Pressure 154/61 02/08/25 12:00 Pulse Oximetry 95 02/08/25 12:00 Oxygen Delivery Me thod Room Air 02/07/25 14:52 Oxygen Flow Rate 2 02/07/25 08:54 MDM - SOB/Dyspnea Medical Decision Making Patient has intermittent stridor on exam. This is improved after dexamethasone/Solu-Medrol and racemic epinephrine. She is breathing easily now on 2 L. Saturations are 96%. Blood pressure is down to 159/55. Blood gas is essentially normal. Swabs for COVID flu and RSV are normal chest x-ray does not reveal a significant infiltrate. Lab Data 02/08/25 03:23 02/08/25 03:23 Labs/Radiology: Radiology Impressions Chest X-Ray 02/07/25 02:52 IMPRESSION: No acute findings. Chest CT 02/07/25 05:06 IMPRESSION: Multiple scattered nodular densities, indeterminate in appearance. Largest is 2.2 cm in maximum dimension. For patients at low risk (minimal or absent history of smoking and of other known risk factors), recommend CT Chest at 3-6 months, then consider CT Chest at 18-24 months. For patients at high risk (history of smoking or of other known risk factors), recommend CT Chest at 3-6 months, then CT Chest at 18-24 months. (Reference: Melquiades) Alternatively a PET scan could be performed earlier. References: Melquiades Alamo, et al. Guidelines for Management of Incidental Pulmonary Nodules Detected on CT Images: From the Fleischner Society 2017. Radiology. 2017;284(1):228-243. Neck CT 02/07/25 05:06 IMPRESSION: 1. Bilateral symmetric thickening of the aryepiglottic folds and vocal cords which could represent laryngitis in the appropriate setting. 2. Right sphenoid sinus disease. Laboratory Results WBC 24.52 10^3/uL (3.29-11.43) H 02/07/25 04:34 RBC 3.99 10^6/uL (3.85-5.65) 02/07/25 04:34 Hgb 9.60 g/dL (11.27-16.99) L 02/07/25 04:34 Hct 31.7 % (36-47) L 02/07/25 04:34 MCV 79.4 fl (85-98) L 02/07/25 04:34 MCH 24.1 pg (27-33) L 02/07/25 04:34 MCHC 30.3 g/dL (30-55) 02/07/25 04:34 RDW 16.1 % (12.1-15.1) H 02/07/25 04:34 Plt Count 419 10^3/cmm (157-399) H 02/07/25 04:34 MPV 9.8 fL (7.4-10.4) 02/07/25 04:34 Neut % (Auto) 91.5 % 02/07/25 04:34 Lymph % (Auto) 4.6 % 02/07/25 04:34 Bladen % (Auto) 2.3 % 02/07/25 04:34 Eos % (Auto) 0.6 % 02/07/25 04:34 Baso % (Auto) 0.3 % 02/07/25 04:34 Neut # (Auto) 22.44 10^3/uL (1.8-7.7) H 02/07/25 04:34 Lymph # (Auto) 1.1 10^3/uL (0.8-4.8) 02/07/25 04:34 Bladen # (Auto) 0.6 10^3/uL (0.2-0.9) 02/07/25 04:34 Eos # (Auto) 0.1 10^3/uL (0.0-0.8) 02/07/25 04:34 Baso # (Auto) 0.1 10^3/uL (0.0-0.1) 02/07/25 04:34 Nucleated RBC % (auto) 0 % 02/07/25 04:34 Nucleated RBCs # 0.0 /100WBC 02/07/25 04:34 Specimen Type Arterial 02/07/25 02:59 Sample Site Brachial, right 02/07/25 02:59 ABG pH 7.41 (7.35-7.45) 02/07/25 02:59 ABG pCO2 39.1 mmHg (35-45) 02/07/25 02:59 ABG pO2 134.0 mmHg (80.0-100.0) H 02/07/25 02:59 ABG HCO3 25.0 mmol/L (22-26) 02/07/25 02:59 ABG Base Excess 0.4 mmol/L (-2.0-2.0) 02/07/25 02:59 Scott Test N/a 02/07/25 02:59 Hematocrit 31.8 % (37-47) L 02/07/25 02:59 Hgb O2 Saturation 96.9 % (95-100) 02/07/25 02:59 Carboxyhemoglobin 0.8 %THgb (0.4-20.1) 02/07/25 02:59 Methemoglobin 1.3 % (0.4-1.5) 02/07/25 02:59 Total Hemoglobin 10.4 g/dL (12-16) L 02/07/25 02:59 O2 Delivery Device Nc 02/07/25 02:59 O2 Liters/Min 3.0 % 02/07/25 02:59 Inspection Supervisor ID [email or web address] 02/07/25 02:59 Sodium 140 mmol/L (136-145) 02/07/25 05:24 Potassium 4.3 mmol/L (3.5-5.1) 02/07/25 05:24 Chloride 102 mmol/L (98-107) 02/07/25 05:24 Carbon Dioxide 25 mmol/L (22-29) 02/07/25 05:24 Anion Gap 17.3 (5-19) 02/07/25 05:24 BUN 17 mg/dL (8-23) 02/07/25 05:24 Creatinine 0.9 mg/dL (0.5-0.9) 02/07/25 05:24 GFR Calculation Not Reportable 02/07/25 05:24 Glucose 163 mg/dL (65-115) H 02/07/25 05:24 Calculated Osmolality 295 mOsm/kg (285-295) 02/07/25 05:24 Lactic Acid 1.3 mmol/L (0.5-2.2) 02/07/25 05:24 Calcium 9.4 mg/dL (8.5-10.5) 02/07/25 05:24 Total Bilirubin 0.4 mg/dL (0.15-1.2) 02/07/25 05:24 AST 20 U/L (0-32) 02/07/25 05:24 ALT 18 U/L (0-33) 02/07/25 05:24 Alkaline Phosphatase 188 U/L (35-105) H 02/07/25 05:24 NT-Pro-B Natriuret Pep 1119 pg/mL (0-125) H 02/07/25 05:24 Total Protein 7.4 g/dL (6.6-8.7) 02/07/25 05:24 Albumin 3.8 g/dL (3.5-5.2) 02/07/25 05:24 Globulin 3.6 g/dL (1.3-4.6) 02/07/25 05:24 Influenza A (PCR) Negative (Negative) 02/07/25 03:20 Influenza Type B (PCR) Negative (Negative) 02/07/25 03:20 RSV (PCR) Negative (Negative) 02/07/25 03:20 SARS-CoV-2 (PCR) Negative (Negative) 02/07/25 03:20 Discharge Plan Discharge Patient Disposition: Admitted As Inpatient Admit Provider: Jacky Spangler Clinical Impression: Sepsis, Leukocytosis, Laryngitis, Laryngeal stridor Type 2 diabetes mellitus Qualifiers: Diabetes mellitus terminal block assembler insulin use: with penitentiary use Diabetes mellitus complication status: without complication Qualified Code(s): E11.9 - Type 2 diabetes mellitus without complications Condition: Stable Coding Level of Care Code ED Pet Caregiver for Chg Fwd Documented by User: Yadiel Cardenas DO 02/07/25 12:33 HPI - SOB/Dyspnea 2 General: Chief Complaint: Shortness of Breath/Dyspnea Stated Complaint: shortness of breath Time Seen by Provider: 02/07/25 02:47 Related Data Home Medications ?Medication ?Instructions ?Recorded ?Confirmed acetaminophen 500 mg tablet 1,500 mg PO Q6H PRN Pain 0 05/15/22 02/07/25 oxygen-air delivery systems 04/29/23 02/07/25 ondansetron HCl 4 mg tablet 4 - 8 mg PO Q6H PRN Nausea And 08/07/23 02/07/25 Vomiting oxygen-air delivery systems 08/07/23 02/07/25 duloxetine 60 mg capsule,delayed 60 mg PO DAILY 02/07/25 release albuterol sulfate 90 mcg/actuation 2 puff inhalation Q 6H PRN 02/07/25 02/07/25 aerosol inhaler Shortness Of Breath Or Wheez ing amlodipine 5 mg tablet 5 mg PO DAILY 02/07/2502/07 bisacodyl 10 mg rectal suppository 10 mg FL DAILY PRN Constipation 02/07/25 02/07/25 (Dulcolax (bisacodyl)) carvedilol 3.125 mg tablet 3.125 mg PO BID 02/07/25 fluticasone propionate 110 2 puff inhalation BID 02/0702/07/25 mcg/actuation HFA aerosol inhaler hyoscyamine sulfate 0.125 mg 0.125 mg PO QID PRN Spasm s 02/07/25 02/07/25 disintegrating tablet insulin glargine 100 unit/mL (3 8 unit SUBCUT BEDTIME 02/07/25 02/07/25 mL) subcutaneous pen (Lantus Solostar U-100 Insulin) magnesium hydroxide 400 mg/5 mL 15 ml PO DAILY PRN con stipation 02/07/25 02/07/25 oral suspension (Milk of Magnesia) nystatin 100,000 unit/gram topical 1 applic topical BI D 02/07/25 02/07/25 powder pantoprazole 40 mg tablet,delayed 40 mg PO DAILY gerd 02/07/25 02/07/25 release sodium phosphates 19 gram-7 118 ml FL DAILY PRN consti pation 02/07/25 02/07/25 gram/118 mL enema (Fleet Enema) Previous Rx's ?Medication ?Instructions ?Recorded pen needle, diabetic 32 gauge x #100 ea 11/27/23 (TechLITE Pen Needle) amoxicillin 250 mg capsule 250 mg PO BID 7 days #14 ca ps 02/08/25 prednisone 20 mg tablet See Rx Instructions .Route 0 02/08/25 .COMPLEX #19 tabs Allergies Allergy/AdvReac Type Severity Reaction Status Date / Time NSAIDS (Non-Steroidal Allergy Mild vomiting Verified 10/26/24 22:21 Anti-Inflamma PFSH ED 2 PFSH: Medical History (Updated 02/07/25 @ 15:48 by Jacky Spangler MD) Asbestos exposure 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 Performed by Dr. Colbert at [facility]. H/O: hysterectomy Hx of cholecystectomy Family History Denies family history of Diabetes Dementia Hyperlipidemia Family history of premature coronary artery disease Cancer Social History Smoking and tobacco/nicotine status: former use of tobacco/nicotine Quit status (tobacco/nicotine): has quit using Year quit tobacco: 1990 Former quit date comment: Smoked for 30 years Alcohol intake: never Substance/Drug Use: never Household members: spouse Housing: House Physical Exam 2 Neuro: AMPARO COMA SCALE: document GCS findings [place] coma scale total score: 15 Course 2 Vital Signs: Vital signs: Vital Signs Temperature 97.0 F L 02/08/25 08:31 Pulse Rate 63 02/08/25 12:00 Respiratory Rate 19 H 02/08/25 12:00 Blood Pressure 154/61 02/08/25 12:00 Pulse Oximetry 95 02/08/25 12:00 Oxygen Delivery Me thod Room Air 02/07/25 14:52 Oxygen Flow Rate 2 02/07/25 08:54 MDM - SOB/Dyspnea Medical Decision Making Patient has intermittent stridor on exam. This is improved after dexamethasone/Solu-Medrol and racemic epinephrine. She is breathing easily now on 2 L. Saturations are 96%. Blood pressure is down to 159/55. Blood gas is essentially normal. Swabs for COVID flu and RSV are normal chest x-ray does not reveal a significant infiltrate. Care assumed from Dr. Aden at change of shift she did not have any further stridor CT does not show epiglottitis there is significant laryngitis and swelling of the vocal cords reviewed the CT with Dr. Weaver who is on-call for ENT he recommends admission to the ICU IV steroids and antibiotics he will do a nasopharyngeal scope later. Patient has not had any further stridor since I assumed care for Lab Data 02/08/25 03:23 02/08/25 03:23 Labs/Radiology: Radiology Impressions Chest X-Ray 02/07/25 02:52 IMPRESSION: No acute findings. Chest CT 02/07/25 05:06 IMPRESSION: Multiple scattered nodular densities, indeterminate in appearance. Largest is 2.2 cm in maximum dimension. For patients at low risk (minimal or absent history of smoking and of other known risk factors), recommend CT Chest at 3-6 months, then consider CT Chest at 18-24 months. For patients at high risk (history of smoking or of other known risk factors), recommend CT Chest at 3-6 months, then CT Chest at 18-24 months. (Reference: Melquiades) Alternatively a PET scan could be performed earlier. References: Melquiades Alamo, et al. Guidelines for Management of Incidental Pulmonary Nodules Detected on CT Images: From the Fleischner Society 2017. Radiology. 2017;284(1):228-243. Neck CT 02/07/25 05:06 IMPRESSION: 1. Bilateral symmetric thickening of the aryepiglottic folds and vocal cords which could represent laryngitis in the appropriate setting. 2. Right sphenoid sinus disease. Laboratory Results WBC 24.52 10^3/uL (3.29-11.43) H 02/07/25 04:34 RBC 3.99 10^6/uL (3.85-5.65) 02/07/25 04:34 Hgb 9.60 g/dL (11.27-16.99) L 02/07/25 04:34 Hct 31.7 % (36-47) L 02/07/25 04:34 MCV 79.4 fl (85-98) L 02/07/25 04:34 MCH 24.1 pg (27-33) L 02/07/25 04:34 MCHC 30.3 g/dL (30-55) 02/07/25 04:34 RDW 16.1 % (12.1-15.1) H 02/07/25 04:34 Plt Count 419 10^3/cmm (157-399) H 02/07/25 04:34 MPV 9.8 fL (7.4-10.4) 02/07/25 04:34 Neut % (Auto) 91.5 % 02/07/25 04:34 Lymph % (Auto) 4.6 % 02/07/25 04:34 [place]aden % (Auto) 2.3 % 02/07/25 04:34 Eos % (Auto) 0.6 % 02/07/25 04:34 Baso % (Auto) 0.3 % 02/07/25 04:34 Neut # (Auto) 22.44 10^3/uL (1.8-7.7) H 02/07/25 04:34 Lymph # (Auto) 1.1 10^3/uL (0.8-4.8) 02/07/25 04:34 [place]aden # (Auto) 0.6 10^3/uL (0.2-0.9) 02/07/25 04:34 Eos # (Auto) 0.1 10^3/uL (0.0-0.8) 02/07/25 04:34 Baso # (Auto) 0.1 10^3/uL (0.0-0.1) 02/07/25 04:34 Nucleated RBC % (auto) 0 % 02/07/25 04:34 Nucleated RBCs # 0.0 /100WBC 02/07/25 04:34 Specimen Type Arterial 02/07/25 02:59 Sample Site Brachial, right 02/07/25 02:59 ABG pH 7.41 (7.35-7.45) 02/07/25 02:59 ABG pCO2 39.1 mmHg (35-45) 02/07/25 02:59 ABG pO2 134.0 mmHg (80.0-100.0) H 02/07/25 02:59 ABG HCO3 25.0 mmol/L (22-26) 02/07/25 02:59 ABG Base Excess 0.4 mmol/L (-2.0-2.0) 02/07/25 02:59 Scott Test N/a 02/07/25 02:59 Hematocrit 31.8 % (37-47) L 02/07/25 02:59 Hgb O2 Saturation 96.9 % (95-100) 02/07/25 02:59 Carboxyhemoglobin 0.8 %THgb (0.4-20.1) 02/07/25 02:59 Methemoglobin 1.3 % (0.4-1.5) 02/07/25 02:59 Total Hemoglobin 10.4 g/dL (12-16) L 02/07/25 02:59 O2 Delivery Device Nc 02/07/25 02:59 O2 Liters/Min 3.0 % 02/07/25 02:59 Inspection Supervisor ID [email or web address] 02/07/25 02:59 Sodium 140 mmol/L (136-145) 02/07/25 05:24 Potassium 4.3 mmol/L (3.5-5.1) 02/07/25 05:24 Chloride 102 mmol/L (98-107) 02/07/25 05:24 Carbon Dioxide 25 mmol/L (22-29) 02/07/25 05:24 Anion Gap 17.3 (5-19) 02/07/25 05:24 BUN 17 mg/dL (8-23) 02/07/25 05:24 Creatinine 0.9 mg/dL (0.5-0.9) 02/07/25 05:24 GFR Calculation Not Reportable 02/07/25 05:24 Glucose 163 mg/dL (65-115) H 02/07/25 05:24 Calculated Osmolality 295 mOsm/kg (285-295) 02/07/25 05:24 Lactic Acid 1.3 mmol/L (0.5-2.2) 02/07/25 05:24 Calcium 9.4 mg/dL (8.5-10.5) 02/07/25 05:24 Total Bilirubin 0.4 mg/dL (0.15-1.2) 02/07/25 05:24 AST 20 U/L (0-32) 02/07/25 05:24 ALT 18 U/L (0-33) 02/07/25 05:24 Alkaline Phosphatase 188 U/L (35-105) H 02/07/25 05:24 NT-Pro-B Natriuret Pep 1119 pg/mL (0-125) H 02/07/25 05:24 Total Protein 7.4 g/dL (6.6-8.7) 02/07/25 05:24 Albumin 3.8 g/dL (3.5-5.2) 02/07/25 05:24 Globulin 3.6 g/dL (1.3-4.6) 02/07/25 05:24 Influenza A (PCR) Negative (Negative) 02/07/25 03:20 Influenza Type B (PCR) Negative (Negative) 02/07/25 03:20 RSV (PCR) Negative (Negative) 02/07/25 03:20 SARS-CoV-2 (PCR) Negative (Negative) 02/07/25 03:20 All radiology interpretation(s) finalized by discharge Discharge Plan Discharge Patient Disposition: Admitted As Inpatient Admit Provider: Jacky Spangler Clinical Impression: Sepsis, Leukocytosis, Laryngitis, Laryngeal stridor Type 2 diabetes mellitus Qualifiers: Diabetes mellitus terminal block assembler insulin use: with penitentiary use Diabetes mellitus complication status: without complication Qualified Code(s): E11.9 - Type 2 diabetes mellitus without complications Condition: Stable Coding Level of Care Code ED Pet Caregiver for Dionicio Loyd
[2025-02-07 03:20] LABS: ABG PCO2 39.1 mmHg (35-45); ABG PH Result 7.41 (7.35-7.45); Arterial Blood Gas Hematocrit 31.8 % (37-47); Base Excess ABG 0.4 mmol/L (-2.0-2.0); Blood Gas Sample Site Brachial, right; Blood Gas Sample Type Arterial; Carboxyhemoglobin 0.8 %THgb (0.4-20.1); HGB O2 Sat 96.9 % (95-100); Methemoglobin 1.3 % (0.4-1.5); Oxygen Device NC; Total Hemoglobin 10.4 g/dL (12-16)
[2025-02-07] MEDS: methylPREDNISolone sod succ 125 mg/2 mL INJ IVP ×2 (03:22→12:55)
[2025-02-07 04:06] LABS: Influenza A NEGATIVE (Negative); Influenza B NEGATIVE (Negative); Respiratory Syncytial Virus Ce NEGATIVE (Negative); SARS-CoV-2 PCR NEGATIVE (Negative)
[2025-02-07 04:56] LABS: Basophils # 0.1 10^3/uL (0.0-0.1); Basophils % 0.3 %; Eosinophils # 0.1 10^3/uL (0.0-0.8); Eosinophils % 0.6 %; Hematocrit 31.7 % (36-47); Lymphocytes # 1.1 10^3/uL (0.8-4.8); Lymphocytes % 4.6 %; Mean Corpuscular HGB Conc 30.3 g/dL (30-55); Mean Corpuscular Hemoglobin 24.1 pg (27-33); Mean Corpuscular Volume 79.4 fl (85-98); Mean Platelet Volume 9.8 fL (7.4-10.4); Monocytes # 0.6 10^3/uL (0.2-0.9); Monocytes % 2.3 %; Neutrophils # 22.44 10^3/uL (1.8-7.7); Neutrophils % 91.5 %; Nucleated Red Blood Cells % 0 %; Platelet Count 419 10^3/cmm (157-399); Red Blood Count 3.99 10^6/uL (3.85-5.65); Red Cell Distribution Width 16.1 % (12.1-15.1); White Blood Count 24.52 10^3/uL (3.29-11.43)
--- NOTE | 2025-02-07 05:06 | CTR_ITS ---
PROCEDURE INFORMATION: Exam: CT Chest With Contrast; Diagnostic Exam date and time: 02/07/2025 6:26 AM Age: 74 years old Clinical indication: Shortness of breath; Prior surgery; Surgery date: 6+ months; Surgery type: Breast reduction; Additional info: Stridor, shortness of breath TECHNIQUE: Imaging protocol: Diagnostic computed tomography of the chest with contrast. Radiation optimization: All CT scans at this facility use at least one of these dose optimization techniques: automated exposure control; mA and/or kV adjustment per patient size (includes targeted exams where dose is matched to clinical indication); or iterative reconstruction. Contrast material: OMNI 350; Contrast volume: 100 ml; Contrast route: INTRAVENOUS (IV); COMPARISON: CR XR chest 1V portable [id number] 02/07/2025 2:54 AM RADIATION DOSE METRICS: Total DLP (mGy-cm): 1145.3 FINDINGS: Lungs: Small scattered masslike densities, mostly small in size but 1 in the right upper lobe measuring 2.2 x 1.0 cm in size. These could be either inflammatory or neoplastic. Follow-up per Fleischner society guidelines. Dependent hypoventilatory changes. Pleural spaces: Unremarkable. No pneumothorax. No pleural effusion. Heart: Unremarkable. No cardiomegaly. No pericardial effusion. Lymph nodes: Visible central lymph nodes are not pathologically enlarged. Vasculature: Unremarkable. No aortic aneurysm. Bones/joints: Unremarkable. No acute fracture. Soft tissues: Unremarkable. CT/CT chest w con* [id number] IMPRESSION: Multiple scattered nodular densities, indeterminate in appearance. Largest is 2.2 cm in maximum dimension. For patients at low risk (minimal or absent history of smoking and of other known risk factors), recommend CT Chest at 3-6 months, then consider CT Chest at 18-24 months. For patients at high risk (history of smoking or of other known risk factors), recommend CT Chest at 3-6 months, then CT Chest at 18-24 months. (Reference: Melquiades) Alternatively a PET scan could be performed earlier. References: Melquiades Alamo et al. Guidelines for Management of Incidental Pulmonary Nodules Detected on CT Images: From the Fleischner Society 2017. Radiology. 2017;284(1):228-243.
--- NOTE | 2025-02-07 05:06 | CTR_ITS ---
PROCEDURE INFORMATION: Exam: CT Neck With Contrast Exam date and time: 02/07/2025 6:30 AM Age: 74 years old Clinical indication: Other: Stridor, SOB; Prior surgery; Surgery date: 6+ months; Surgery type: Cervical fusion, gb, breast reduction; Additional info: Stridor, shortness of breath TECHNIQUE: Imaging protocol: Computed tomography of the neck with contrast. Radiation optimization: All CT scans at this facility use at least one of these dose optimization techniques: automated exposure control; mA and/or kV adjustment per patient size (includes targeted exams where dose is matched to clinical indication); or iterative reconstruction. Contrast material: OMNI 350; Contrast volume: 75 ml; Contrast route: INTRAVENOUS (IV); COMPARISON: CT cervical spin wo con* [id number] 08/21/2024 8:47 PM RADIATION DOSE METRICS: Total DLP (mGy-cm): 179.41 FINDINGS: Paranasal sinuses: There is near complete opacification of the right sphenoid sinus. Salivary glands: Normal. Glands are normal in size. Pharynx: Unremarkable. No significant tonsillar enlargement. Larynx: There is bilateral symmetric thickening of the aryepiglottic folds and vocal cords. Thyroid: Normal. No enlarged or calcified nodules. Trachea: Visualized trachea is unremarkable. Lungs: Unremarkable as visualized. Lymph nodes: Unremarkable. No lymphadenopathy. Bones/joints: The patient is status post anterior cervical fusion at C5-C6 and multilevel laminectomy surgery. No acute fracture. Soft tissues: Unremarkable. No significant soft tissue swelling. CT/CT neck w con* [id number] IMPRESSION: 1. Bilateral symmetric thickening of the aryepiglottic folds and vocal cords which could represent laryngitis in the appropriate setting. 2. Right sphenoid sinus disease.
[2025-02-07] MEDS: midazolam 1 mg/mL INJ 2 mL IVP (05:15)
[2025-02-07] MEDS: piperacillin-tazobactam 4.5 GM in sodium chloride 0.9% (plus) 50 ML IV (05:56)
[2025-02-07 06:07] LABS: Lactic Sepsis W/Reflex 1.3 mmol/L (0.5-2.2)
[2025-02-07 06:17] LABS: Alanine Aminotransferase 18 U/L (0-33); Albumin Level 3.8 g/dL (3.5-5.2); Alkaline Phosphatase 188 U/L (35-105); Anion Gap 17.3 (5-19); Aspartate Amino Transferase 20 U/L (0-32); Blood Urea Nitrogen 17 mg/dL (8-23); Calcium 9.4 mg/dL (8.5-10.5); Carbon Dioxide 25 mmol/L (22-29); Chloride 102 mmol/L (98-107); Creatinine Clr Calc Pharmacy 62.2184; Globulin 3.6 g/dL (1.3-4.6); Glucose 163 mg/dL (65-115); NT Pro B Type Natriuretic Pept 1119 pg/mL (0-125); Osmolality Calculated 295 mOsm/kg (285-295); Potassium 4.3 mmol/L (3.5-5.1); Sodium 140 mmol/L (136-145); Total Bilirubin 0.4 mg/dL (0.15-1.2); Total Protein 7.4 g/dL (6.6-8.7)
[2025-02-07] MEDS: iohexol 350 mg/mL 500 mL Btl (per mL) IV (06:34)
[2025-02-07] MEDS: vancomycin 1,500 MG/300 ML PIGGYBACK 200 MG IV (06:41)
[2025-02-07] MEDS: pantoprazole 40 mg SDV IVP (14:59)
--- NOTE | 2025-02-07 15:16 | PC.NURSE ---
Patient arrived to ICU from ER at 1440. Patient alert and orientated. on Room air, V/S stable
--- NOTE | 2025-02-07 15:18 | PM.HP ---
Providers/Chief Complaint Admitting Physician: Jacky Spangler Primary Care Provider: Galdino Mojica MD Chief Complaint: shortness of breath History of Present Illness The patient with a history of prior asbestos exposure and past smoking presents with throat irritation. The patient reports no recent vomiting and denies drinking excessively hot tea or similar beverages. 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 The patient also has a remote history of smoking but has since quit. The patient is currently hospitalized and is being monitored to ensure their condition does not worsen. There is mention of recent imaging (chest scan) that incidentally found nodules in both lungs, which the patient was previously unaware of. The patient is not currently experiencing vomiting and is being evaluated for possible viral causes of symptoms, with swabs for flu, COVID, and RSV already performed. She reports remote history of heartburn. In ED she was noted to have stridor transiently last night. Received treatment with racemic epinephrine. CT neck with finding of bilateral symmetric thickening of the aryepiglottic folds and vocal cords, incidentally noted right sphenoid sinus disease. CT chest with incidentally found multiple scattered nodular densities indeterminate appearance, largest 2.2 cm. Review of Systems Const: Denies: fever(s), chills, body aches or malaise ENMT: Reports: other (Sore throat, hoarseness) Card: Denies: chest pain, edema, pre-syncope or dyspnea on exertion Resp: Denies: dyspnea, productive cough, change in phlegm color or hemoptysis GI: Denies: abdominal pain, nausea, vomiting, diarrhea, constipation, hematochezia or melena : Denies: flank pain, urinary frequency or hematuria Musc: Denies: back pain, joint swelling or joint redness Skin/Breast: Denies: rash or new lesions Neuro: Denies: headache(s) or confusion Medications/Allergies Home Medications ?Medication ?Instructions ?Recorded ?Confirmed ?Last Taken ?Type acetaminophen 500 mg tablet 1,500 mg PO Q6H PRN Pain 05/15/22 02/07/25 02/05/25 History oxygen-air delivery systems 04/29/23 02/07/25 Unknown History ondansetron HCl 4 mg tablet 4 - 8 mg PO Q6H PRN Nausea And 08/07/23 02/07/25 12/15/24 History Vomiting oxygen-air delivery systems 08/07/23 02/07/25 Unknown History pen needle, diabetic 32 gauge x #100 ea 11/27/23 02/07/25 Unknown Rx (TechLITE Pen Needle) duloxetine 60 mg capsule,delayed 60 mg PO DAILY 11/14/24 02/07/25 02/06/25 History release albuterol sulfate 90 mcg/actuation 2 puff inhalation Q6H PRN 02/07/25 02/07/25 02/06/25 History aerosol inhaler Shortness Of Breath Or Wheezing amlodipine 5 mg tablet 5 mg PO DAILY 02/07/25 02/07/25 02/06/25 History bisacodyl 10 mg rectal suppository 10 mg WI DAILY PRN Constipation 02/07/25 02/07/25 Unknown History (Dulcolax (bisacodyl)) carvedilol 3.125 mg tablet 3.125 mg PO BID 02/07/25 02/07/25 02/06/25 History fluticasone propionate 110 2 puff inhalation BID 02/07/25 02/07/25 02/06/25 History mcg/actuation HFA aerosol inhaler hyoscyamine sulfate 0.125 mg 0.125 mg PO QID PRN Spasms 02/07/25 02/07/25 Unknown History disintegrating tablet insulin glargine 100 unit/mL (3 8 unit SUBCUT BEDTIME 02/07/25 02/07/25 02/06/25 History mL) subcutaneous pen (Lantus Solostar U-100 Insulin) magnesium hydroxide 400 mg/5 mL 15 ml PO DAILY PRN constipation 02/07/25 02/07/25 Unknown History oral suspension (Milk of Magnesia) nystatin 100,000 unit/gram topical 1 applic topical BID 02/07/25 02/07/25 Unknown History powder pantoprazole 40 mg tablet,delayed 40 mg PO DAILY gerd 02/07/25 02/07/25 02/06/25 History release sodium phosphates 19 gram-7 118 ml WI DAILY PRN constipation 02/07/25 02/07/25 Unknown History gram/118 mL enema (Fleet Enema) Allergies Allergy/AdvReac Type Severity Reaction Status Date / Time NSAIDS (Non-Steroidal Allergy Mild vomiting Verified 10/26/24 22:21 Anti-Inflamma PFSH Acute PFSH: Medical History (Updated 02/07/25 @ 15:48 by Jacky Spangler MD) Asbestos exposure 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 Performed by Dr. Colbert at [facility]. H/O: hysterectomy Hx of cholecystectomy Family History Denies family history of Diabetes Dementia Hyperlipidemia Family history of premature coronary artery disease Cancer Social History Smoking and tobacco/nicotine status: former use of tobacco/nicotine Quit status (tobacco/nicotine): has quit using Year quit tobacco: 1990 Former quit date comment: Smoked for 30 years Alcohol intake: never Substance/Drug Use: never Household members: spouse Housing: House Vitals/I&O/Wt Last Vital Signs Temp 98.5 F 02/07/25 15:05 Pulse 82 02/07/25 15:05 Resp 21 H 02/07/25 15:05 BP 141/81 02/07/25 15:05 Pulse Ox 96 02/07/25 15:05 O2 Del Method Room Air 02/07/25 14:52 O2 Flow Rate 2 02/07/25 08:54 02/07/25 02/07/25 02/07/25 06:59 14:59 22:59 Intake Total 50 / 50 300 / 300 Balance 50 / 50 300 / 300 Weight last 48 hrs Weight 90 kg Weight 90.718 kg Physical Exam Narrative: at bedside Const: COMMON NORMALS: patient oriented x3 and alert GENERAL APPEARANCE: cooperative ORIENTATION/CONSCIOUSNESS: Yes awake HENMT: COMMON NORMALS: oropharynx normal OTHER: Mild dysphonia Neck/C-Spine: COMMON NORMALS: no JVD Resp: COMMON NORMALS: normal respiratory effort and clear to auscultation bilaterally AUSCULTATION: clear to auscultation bilaterally Cardio: COMMON NORMALS: no JVD, regular rhythm, S1 normal heart sound present, S2 normal heart sound present and No murmurs present (Cardio) RHYTHM: regular rhythm HEART SOUNDS: S1 normal heart sound present and S2 normal heart sound present GI: COMMON NORMALS: Normal to inspection, nondistended, normoactive bowel sounds present, Soft to palpation and non-tender PALPATION: Yes Soft to palpation Extremity: COMMON NORMALS: no joint enlargement and no pedal edema Neuro: COMMON NORMALS: patient oriented x3 and moves all extremities SENSORIUM/ORIENTATION: Yes alert Skin: COMMON NORMALS: no rashes or lesions noted GENERAL SKIN EXAM: no rashes or lesions noted Data 02/07/25 04:34 02/07/25 05:24 Micro: Microbiology 02/07/25 05:29 Blood Culture - Preliminary Blood SPECIMEN COLLECTED 02/07/25 05:24 Blood Culture - Preliminary Blood SPECIMEN COLLECTED A&P Assessment and plan (1) Laryngitis: The patient presents with throat irritation. No recent vomiting or ingestion of excessively hot beverages. Possible causes being considered include viral infection and reflux-related irritation. Swabs for flu, COVID, and RSV have been performed, and more extensive viral testing is being considered. The patient is being started on Protonix for possible reflux. ENT evaluation is planned to further assess the throat. Initial monitoring in the intensive care unit due to risk of rapid deterioration, obstructive respiratory failure. Reviewed vitals, CBC, ABG, CMP, NT proBNP, influenza, COVID, RSV, chest x-ray, chest CT, neck CT, ER provider note, discussed with ER provider. - methylprednisolone, monitor for risk of hyperglycemia, hypertension, gastritis, encephalopathy with IV steroids. - empiric antibiotic coverage with Zosyn. Monitor for risk of C. difficile, cytopenia, kidney injury. Reassess chemistry. - more extensive viral swab testing for additional viruses. - Start Protonix for possible reflux/heartburn. - ENT (Dr. Adame) to evaluate the throat for concerning findings. (2) Laryngeal stridor: Stridor so far has resolved. Received racemic epinephrine. Additional assessment and treatment of laryngitis as above. Monitor for recurrence. (3) Lung nodules: Discussed with her and her . With history of possible exposure, smoking, will need follow-up imaging to exclude growth/changes suggestive of malignancy. Discussed with her to revisit with primary provider and follow-up CT will need to be arranged. CT would be recommended for 3 to 6 months follow-up within 18-24 months. Plan DM2: Monitor POC glucose. Sign scale insulin. Insulin Lantus. Consult carbohydrate diet. Sleep apnea: Nightly CPAP CHF: Not in exacerbation. Cardiac diet. HTN: Monitor blood pressure. Continue amlodipine, carvedilol. COPD: Not in exacerbation. Gotti's palsy Other medical problems PDMP PDMP Reviewed: Not Reviewed Attestations Medical Necessity Statement*: Place in observation for additional assessment management of laryngitis, after laryngeal stridor. Diagnoses Laryngitis J04.0 Laryngeal stridor Q31.5 Lung nodules R91.8
[2025-02-07] MEDS: piperacillin-tazobactam 3.375 GM in sodium chloride 0.9% (plus) 50 ML IV ×2 (15:46→23:24)
[2025-02-07] MEDS: enoxaparin 40 mg/0.4 mL Syringe SUBCUT (15:49)
[2025-02-07 17:56] LABS: Adenovirus Not Detected (NOT DETECT); Chlamydia Pneumoniae Not Detected (NOT DETECT); Coronavirus 229E,HKU1,NL63,OC4 Not Detected (NOT DETECT); Human Metapneumovirus Not Detected (NOT DETECT); Human Rhinovirus/Enterovirus Not Detected (NOT DETECT); Influenza A Not Detected (NOT DETECT); Influenza A H1 Not Detected (NOT DETECT); Influenza A H1-2009 Not Detected (NOT DETECT); Influenza A H3 Not Detected (NOT DETECT); Influenza B Not Detected (NOT DETECT); Mycoplasma Pneumoniae Not Detected (NOT DETECT); Parainfluenza Virus Type 1 Not Detected (NOT DETECT); Parainfluenza Virus Type 2 Not Detected (NOT DETECT); Parainfluenza Virus Type 3 Not Detected (NOT DETECT); Parainfluenza Virus Type 4 Not Detected (NOT DETECT); Respiratory Syncytial Virus A Not Detected (NOT DETECT); Respiratory Syncytial Virus B Not Detected (NOT DETECT); SARS-COV-2 Not Detected (NOT DETECT)
--- NOTE | 2025-02-07 17:59 | P.CONIM_ITS ---
Providers/Reason For Consult 2 Consulting Physician/Specialty*: Dr. Galdino Weaver MD Otolaryngology Reason for Consult*: Stridor Requesting Physician: Dr. Khalif Cardenas DO Attending Physician: Jacky Spangler Primary Care Provider: Galdino Mojica MD History of Present Illness History of Present Illness Keila Starkey is a 74 year old female admitted for c/o stridor. I was consulted to evaluate the patient's laryngeal airway. Review of Systems 2 General: Reports: 10 or more systems reviewed and unremarkable except in HPI and below Medications/Allergies Home Medications ?Medication ?Instructions ?Recorded ?Confirmed ?Last Taken ?Type acetaminophen 500 mg tablet 1,500 mg PO Q6H PRN Pain 0 05/15/22 02/07/25 02/05/25 History oxygen-air delivery systems 04/29/23 02/07/25 Unknown History ondansetron HCl 4 mg tablet 4 - 8 mg PO Q6H PRN Nausea And 08/07/23 02/07/25 12/15/24 History Vomiting oxygen-air delivery systems 08/07/23 02/07/25 Unknown History pen needle, diabetic 32 gauge x #100 ea 11/27/2302/07 Unknown Rx (TechLITE Pen Needle) duloxetine 60 mg capsule,delayed 60 mg PO DAILY 02/07/25 02/06/25 History release albuterol sulfate 90 mcg/actuation 2 puff inhalation Q 6H PRN 02/07/25 02/07/25 02/06/25 History aerosol inhaler Shortness Of Breath Or Wheez ing amlodipine 5 mg tablet 5 mg PO DAILY 02/07/2502/0702/06/25 History bisacodyl 10 mg rectal suppository 10 mg PA DAILY PRN Constipation 02/07/25 02/07/25 Unknown History (Dulcolax (bisacodyl)) carvedilol 3.125 mg tablet 3.125 mg PO BID 02/07/2502/06/25 History fluticasone propionate 110 2 puff inhalation BID 02/0702/07/25 02/06/25 History mcg/actuation HFA aerosol inhaler hyoscyamine sulfate 0.125 mg 0.125 mg PO QID PRN Spasm s 02/07/25 02/07/25 Unknown History disintegrating tablet insulin glargine 100 unit/mL (3 8 unit SUBCUT BEDTIME 02/07/25 02/07/25 02/06/25 History mL) subcutaneous pen (Lantus Solostar U-100 Insulin) magnesium hydroxide 400 mg/5 mL 15 ml PO DAILY PRN con stipation 02/07/25 02/07/25 Unknown History oral suspension (Milk of Magnesia) nystatin 100,000 unit/gram topical 1 applic topical BI D 02/07/25 02/07/25 Unknown History powder pantoprazole 40 mg tablet,delayed 40 mg PO DAILY gerd 02/07/25 02/07/25 02/06/25 History release sodium phosphates 19 gram-7 118 ml PA DAILY PRN consti pation 02/07/25 02/07/25 Unknown History gram/118 mL enema (Fleet Enema) Allergies Allergy/AdvReac Type Severity Reaction Status Date / Time NSAIDS (Non-Steroidal Allergy Mild vomiting Verified 10/26/24 22:21 Anti-Inflamma Current Medications Generic Name Dose Route Start Last Admin Trade Name Freq PRN Reason Stop Dose Admin Enoxaparin Sodium 40 mg 02/07/25 15:45 02/07/25 15:49 Enoxaparin 40 Mg/0.4 Ml Syringe SUBCUT 40 mg Q24H SHAHEEN Administration Piperacillin Sod/Tazobactam 50 mls @ 12.5 mls/hr 02/07/25 15:30 02/07/25 15:46 Sod 3.375 gm/ Sodium Chloride IV 12.5 mls/hr Q8H SHAHEEN Administration Protocol Pantoprazole Sodium 40 mg 02/07/25 15:00 02/07/25 14:59 Pantoprazole 40 Mg Sdv IVP 40 mg Q12H SHAHEEN Administration PFSH Acute 2 PFSH: Medical History (Updated 02/07/25 @ 15:48 by Jacky Spangler MD) Asbestos exposure 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 Performed by Dr. Colbert at [facility]. H/O: hysterectomy Hx of cholecystectomy Family History Denies family history of Diabetes Dementia Hyperlipidemia Family history of premature coronary artery disease Cancer Social History Smoking and tobacco/nicotine status: former use of tobacco/nicotine Quit status (tobacco/nicotine): has quit using Year quit tobacco: 1990 Former quit date comment: Smoked for 30 years Alcohol intake: never Substance/Drug Use: never Household members: spouse Housing: House Vitals/I&O/Wt Last Vital Signs Temp 98.5 F 02/07/25 15:05 Pulse 74 02/07/25 16:25 Resp 19 H 02/07/25 16:25 BP 167/80 02/07/25 16:25 Pulse Ox 88 L 02/07/25 16:25 O2 Del Method Room Air 02/07/25 14:52 O2 Flow Rate 2 02/07/25 08:54 02/07/25 02/07/25 02/07/25 06:59 14:59 22:59 Intake Total 50 / 50 300 / 300 0 / 300 Balance 50 / 50 300 / 300 0 / 300 Weight last 48 hrs Weight 90 kg Weight 90.718 kg Physical Exam 2 Const: COMMON NORMALS: no acute distress, patient oriented x3 and alert G ENERAL APPEARANCE: cooperative HENMT: COMMON NORMALS: normocephalic, atraumatic and Normal external nose present HEAD & SCALP: normocephalic and atraumatic FACE & SINUS: normal facial exam NOSE: Normal external nose present MOUTH: Normal oral and palatal mucosa present Eye: COMMON NORMALS: conjunctivae normal and no scleral icterus GENERAL EYE: appearance normal, both eyes and all related structures CONJUNCTIVA: Yes conjunctivae normal Neck/C-Spine: COMMON NORMALS: no lymphadenopathy and supple Neuro: COMMON NORMALS: patient oriented x3 SENSORIUM/ORIENTATION: Yes alert Data 02/07/25 04:34 02/07/25 05:24 Micro: Microbiology 02/07/25 05:29 Blood Culture - Preliminary Blood SPECIMEN COLLECTED 02/07/25 05:24 Blood Culture - Preliminary Blood SPECIMEN COLLECTED Other data: I reviewed the patient's neck CT with IV contrast A&P Assessment and plan (1) Laryngeal stridor: Impression: h/o Laryngeal stridor with widely patent and normal appearing airway on today's fiberoptic laryngoscopic exam Plan: - I recommend d/c on oral antibiotics and oral steroid taper when o/w stable - F/U with Dr. Weaver as an outpatient in 1-2 weeks - Please reconsult me for any new symptoms PDMP PDMP Reviewed: Not Reviewed Consult Attestations 2 Medical Necessity Statement: I was consulted to evaluate the patient's airway. Procedures Procedure Narrative Fiberoptic Laryngoscopy: the patient's nose was sprayed with a 50/50 Afrin/4% Topical Lidocaine mix; the telescope was advanced down the right nasal cavity and was used to inspect the nasopharynx, oropharynx, hypopharynx, and larynx; there was mild mucosal edema of the post cricoid area, but the remainder of the larynx was normal; the airway was widely patent, and true vocal cord mobility was normal and symmeric bilaterally; the epiglottis, vallecula, and base of tongue were normal. Coding Level of Care Code Acute Code for g Fwd Diagnoses Laryngeal stridor Q31.5
--- NOTE | 2025-02-07 18:08 | PC.NURSE ---
Dr Weaver bedside assessed patient. Cleared patient from any airway concerns, ordered regular diet for patient and cleared patient from ICU. Notified Dr. Ramos
[2025-02-07] MEDS: methylPREDNISolone sod succ 40 mg/mL INJ IVP (20:16)
[2025-02-07] MEDS: ondansetron 2 mg/ML SDV 2 mL 4 MG IVP (20:32)
[2025-02-08] VITALS (17 sets, daily range): BP systolic 126–170; BP diastolic 49–86; PULSE 60–86; RESP 10–30; TEMP 36.1; O2SAT 88–96
[2025-02-08 00:53] LABS: Bacillus cereus group Not Detected (NOT DETECT); Bacillus subtillis group Not Detected (NOT DETECT); Corynebacterium Not Detected (NOT DETECT); Cutibacterium acnes (P.acnes) Not Detected (NOT DETECT); Enterococcus Not Detected (NOT DETECT); Enterococcus faecalis Not Detected (NOT DETECT); Enterococcus faecium Not Detected (NOT DETECT); Lactobacillus species Not Detected (NOT DETECT); Listeria Not Detected (NOT DETECT); Listeria monocytogenes Not Detected (NOT DETECT); Micrococcus Not Detected (NOT DETECT); Pan Candida Not Detected (NOT DETECT); Pan Gram-Negative Not Detected (NOT DETECT); Staphylococcus epidermidis Detected (NOT DETECT); Staphylococcus lugdunensis Not Detected (NOT DETECT); Staphylococcus species Detected (NOT DETECT); Streptococcus agalactiae Not Detected (NOT DETECT); Streptococcus anginosus group Not Detected (NOT DETECT); Streptococcus pneumoniae Not Detected (NOT DETECT); Streptococcus pyogenes Not Detected (NOT DETECT); Streptococcus species Not Detected (NOT DETECT); mecA Detected (NOT DETECT); mecC Not Detected (NOT DETECT)
[2025-02-08] MEDS: pantoprazole 40 mg SDV IVP (03:40)
[2025-02-08] MEDS: methylPREDNISolone sod succ 40 mg/mL INJ IVP ×2 (04:20→12:43)
[2025-02-08 04:37] LABS: Basophils # 0.1 10^3/uL (0.0-0.1); Basophils % 0.2 %; Hematocrit 30.7 % (36-47); Lymphocytes # 1.3 10^3/uL (0.8-4.8); Mean Corpuscular HGB Conc 29.6 g/dL (30-55); Mean Corpuscular Hemoglobin 23.5 pg (27-33); Mean Corpuscular Volume 79.3 fl (85-98); Mean Platelet Volume 9.5 fL (7.4-10.4); Monocytes # 0.7 10^3/uL (0.2-0.9); Monocytes % 2.6 %; Neutrophils # 24.33 10^3/uL (1.8-7.7); Neutrophils % 91.3 %; Nucleated Red Blood Cells % 0 %; Platelet Count 540 10^3/cmm (157-399); Red Blood Count 3.87 10^6/uL (3.85-5.65); White Blood Count 26.63 10^3/uL (3.29-11.43)
[2025-02-08 04:47] LABS: Alanine Aminotransferase 16 U/L (0-33); Albumin Level 3.4 g/dL (3.5-5.2); Alkaline Phosphatase 172 U/L (35-105); Anion Gap 19.9 (5-19); Aspartate Amino Transferase 16 U/L (0-32); Blood Urea Nitrogen 30 mg/dL (8-23); Calcium 9.1 mg/dL (8.5-10.5); Carbon Dioxide 23 mmol/L (22-29); Chloride 104 mmol/L (98-107); Creatinine Clr Calc Pharmacy 37.1818; Globulin 3.2 g/dL (1.3-4.6); Glucose 170 mg/dL (65-115); Osmolality Calculated 306 mOsm/kg (285-295); Potassium 3.9 mmol/L (3.5-5.1); Sodium 143 mmol/L (136-145); Total Bilirubin 0.2 mg/dL (0.15-1.2); Total Protein 6.6 g/dL (6.6-8.7)
[2025-02-08] MEDS: piperacillin-tazobactam 3.375 GM in sodium chloride 0.9% (plus) 50 ML IV (08:03)
--- NOTE | 2025-02-08 12:08 | P.DS_ITS ---
Discharge Providers Date of Admission: 02/07/25 15:20 Date of Discharge: February 08, 2025 Attending Provider at Admission: Jacky Spangler Attending Provider at Discharge: Jacky Spangler Primary Care Provider: Galdino Mojica MD Diagnoses at Discharge Discharge Diagnosis (1) Laryngeal stridor: Status: Acute Reason for Visit Reason for Visit: shortness of breath Brief History: The patient with a history of prior asbestos exposure and past smoking presents with throat irritation. The patient reports no recent vomiting and denies drinking excessively hot tea or similar beverages. 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 The patient also has a remote history of smoking but has since quit. The patient is currently hospitalized and is being monitored to ensure their condition does not worsen. There is mention of recent imaging (chest scan) that incidentally found nodules in both lungs, which the patient was previously unaware of. The patient is not currently experiencing vomiting and is being evaluated for possible viral causes of symptoms, with swabs for flu, COVID, and RSV already performed. She reports remote history of heartburn. In ED she was noted to have stridor transiently last night. Received treatment with racemic epinephrine. CT neck with finding of bilateral symmetric thickening of the aryepiglottic folds and vocal cords, incidentally noted right sphenoid sinus disease. CT chest with incidentally found multiple scattered nodular densities indeterminate appearance, largest 2.2 cm. Hospital Course Hospital Course She was hospitalized and received empiric antibiotic, IV steroid treatment, had no recurrence of stridor, hoarseness with improvement. And was further assessed by ENT including laryngoscopy which at that point was unremarkable. She tolerated oral intake with trial of regular diet. She is feeling much better today, and as per ENT recommendations is discharging home with a course of antibiotic and oral steroid with follow-up in clinic. Please reassess renal function with CKD with mild increase in creatinine up to 1.5 after contrast dye with CT imaging. Please follow-up incidental finding of bilateral pulmonary nodules as discussed with her and her , largest 2.2 cm, she does have history of smoking and asbestos exposure and will need follow-up imaging with recommended CT at 3 to 6 months then repeat at 18 to 24 months. Physical Exam Narrative: Sleeping, wakes up to voice and shoulder touch. Const: COMMON NORMALS: patient oriented x3 and alert GENERAL APPEARANCE: cooperative ORIENTATION/CONSCIOUSNESS: Yes awake HENMT: COMMON NORMALS: oropharynx normal Neck/C-Spine: COMMON NORMALS: no JVD Resp: COMMON NORMALS: normal respiratory effort and clear to auscultation bilaterally AUSCULTATION: clear to auscultation bilaterally Cardio: COMMON NORMALS: no JVD, regular rhythm, S1 normal heart sound present, S2 normal heart sound present and No murmurs present (Cardio) RHYTHM: regular rhythm HEART SOUNDS: S1 normal heart sound present and S2 normal heart sound present GI: COMMON NORMALS: Normal to inspection, nondistended, normoactive bowel sounds present, Soft to palpation and non-tender PALPATION: Yes Soft to palpation Extremity: COMMON NORMALS: no joint enlargement and no pedal edema Neuro: COMMON NORMALS: patient oriented x3 and moves all extremities SENSORIUM/ORIENTATION: Yes alert Skin: COMMON NORMALS: no rashes or lesions noted GENERAL SKIN EXAM: no rashes or lesions noted Discharge Data Studies Completed and Pending Completed Studies During Hospitalization Category Date Time Status CT chest w con* [id number] Stat Cat Scan 02/07/25 05:[address] neck w con* [id number] Stat Cat Scan 02/07/25 05:06 Completed XR chest 1V portable [id number] Stat Exams 02/07/25 02:52 Completed Pending at discharge Category Date Time Status Blood Culture Stat Lab 02/07/25 05:29 Results Complete Blood Count w/Auto AM LABS Lab 02/09/25 04:00 Ordered Complete Blood Count w/Auto AM LABS Lab 02/10/25 04:00 Ordered Comprehensive Metabolic Panel AM LABS Lab 02/09/25 04:00 Ordered Comprehensive Metabolic Panel AM LABS Lab 02/10/25 04:00 Ordered Radiology Impressions Chest X-Ray 02/07/25 02:52 IMPRESSION: No acute findings. Chest CT 02/07/25 05:06 IMPRESSION: Multiple scattered nodular densities, indeterminate in appearance. Largest is 2.2 cm in maximum dimension. For patients at low risk (minimal or absent history of smoking and of other known risk factors), recommend CT Chest at 3-6 months, then consider CT Chest at 18-24 months. For patients at high risk (history of smoking or of other known risk factors), recommend CT Chest at 3-6 months, then CT Chest at 18-24 months. (Reference: Melquiades) Alternatively a PET scan could be performed earlier. References: Melquiades Alamo, et al. Guidelines for Management of Incidental Pulmonary Nodules Detected on CT Images: From the Fleischner Society 2017. Radiology. 2017;284(1):228-243. Neck CT 02/07/25 05:06 IMPRESSION: 1. Bilateral symmetric thickening of the aryepiglottic folds and vocal cords which could represent laryngitis in the appropriate setting. 2. Right sphenoid sinus disease. Laboratory Results WBC 26.63 10^3/uL (3.29-11.43) H 02/08/25 03:23 RBC 3.87 10^6/uL (3.85-5.65) 02/08/25 03:23 Hgb 9.10 g/dL (11.27-16.99) L 02/08/25 03:23 Hct 30.7 % (36-47) L 02/08/25 03:23 MCV 79.3 fl (85-98) L 02/08/25 03:23 MCH 23.5 pg (27-33) L 02/08/25 03:23 MCHC 29.6 g/dL (30-55) L 02/08/25 03:23 RDW 16.0 % (12.1-15.1) H 02/08/25 03:23 Plt Count 540 10^3/cmm (157-399) H 02/08/25 03:23 MPV 9.5 fL (7.4-10.4) 02/08/25 03:23 Neut % (Auto) 91.3 % 02/08/25 03:23 Lymph % (Auto) 5.0 % 02/08/25 03:23 Hart % (Auto) 2.6 % 02/08/25 03:23 Eos % (Auto) 0.0 % 02/08/25 03:23 Baso % (Auto) 0.2 % 02/08/25 03:23 Neut # (Auto) 24.33 10^3/uL (1.8-7.7) H 02/08/25 03:23 Lymph # (Auto) 1.3 10^3/uL (0.8-4.8) 02/08/25 03:23 Hart # (Auto) 0.7 10^3/uL (0.2-0.9) 02/08/25 03:23 Eos # (Auto) 0.0 10^3/uL (0.0-0.8) 02/08/25 03:23 Baso # (Auto) 0.1 10^3/uL (0.0-0.1) 02/08/25 03:23 Nucleated RBC % (auto) 0 % 02/08/25 03:23 Nucleated RBCs # 0.0 /100WBC 02/08/25 03:23 Specimen Type Arterial 02/07/25 02:59 Sample Site Brachial, right 02/07/25 02:59 ABG pH 7.41 (7.35-7.45) 02/07/25 02:59 ABG pCO2 39.1 mmHg (35-45) 02/07/25 02:59 ABG pO2 134.0 mmHg (80.0-100.0) H 02/07/25 02:59 ABG HCO3 25.0 mmol/L (22-26) 02/07/25 02:59 ABG Base Excess 0.4 mmol/L (-2.0-2.0) 02/07/25 02:59 Scott Test N/a 02/07/25 02:59 Hematocrit 31.8 % (37-47) L 02/07/25 02:59 Hgb O2 Saturation 96.9 % (95-100) 02/07/25 02:59 Carboxyhemoglobin 0.8 %THgb (0.4-20.1) 02/07/25 02:59 Methemoglobin 1.3 % (0.4-1.5) 02/07/25 02:59 Total Hemoglobin 10.4 g/dL (12-16) L 02/07/25 02:59 O2 Delivery Device Nc 02/07/25 02:59 O2 Liters/Min 3.0 % 02/07/25 02:59 Perinatal Social Worker ID [email or web address] 02/07/25 02:59 Sodium 143 mmol/L (136-145) 02/08/25 03:23 Potassium 3.9 mmol/L (3.5-5.1) 02/08/25 03:23 Chloride 104 mmol/L (98-107) 02/08/25 03:23 Carbon Dioxide 23 mmol/L (22-29) 02/08/25 03:23 Anion Gap 19.9 (5-19) H 02/08/25 03:23 BUN 30 mg/dL (8-23) H 02/08/25 03:23 Creatinine 1.5 mg/dL (0.5-0.9) H 02/08/25 03:23 GFR Calculation Not Reportable 02/08/25 03:23 Glucose 170 mg/dL (65-115) H 02/08/25 03:23 Calculated Osmolality 306 mOsm/kg (285-295) H 02/08/25 03:23 Lactic Acid 1.3 mmol/L (0.5-2.2) 02/07/25 05:24 Calcium 9.1 mg/dL (8.5-10.5) 02/08/25 03:23 Total Bilirubin 0.2 mg/dL (0.15-1.2) 02/08/25 03:23 AST 16 U/L (0-32) 02/08/25 03:23 ALT 16 U/L (0-33) 02/08/25 03:23 Alkaline Phosphatase 172 U/L (35-105) H 02/08/25 03:23 NT-Pro-B Natriuret Pep 1119 pg/mL (0-125) H 02/07/25 05:24 Total Protein 6.6 g/dL (6.6-8.7) 02/08/25 03:23 Albumin 3.4 g/dL (3.5-5.2) L 02/08/25 03:23 Globulin 3.2 g/dL (1.3-4.6) 02/08/25 03:23 Adenovirus (PCR) Not detected (NOT DETECT) 02/07/25 15:44 C. pneumoniae DNA (PCR) Not detected (NOT DETECT) 02/07/25 15:44 Coronavirus 229E (PCR) Not detected (NOT DETECT) 02/07/25 15:44 Human Metapneumovir PCR Not detected (NOT DETECT) 02/07/25 15:44 Influenza A (H1) PCR Not detected (NOT DETECT) 02/07/25 15:44 Influenza A (PCR) Negative (Negative) 02/07/25 03:20 Influ A (H1/09) PCR Not detected (NOT DETECT) 02/07/25 15:44 Influenza A (H3) PCR Not detected (NOT DETECT) 02/07/25 15:44 Influenza Type A (PCR) Not detected (NOT DETECT) 02/07/25 15:44 Influenza Type B (PCR) Not detected (NOT DETECT) 02/07/25 15:44 M. pneumoniae (PCR) Not detected (NOT DETECT) 02/07/25 15:44 Parainfluenza 1 (PCR) Not detected (NOT DETECT) 02/07/25 15:44 Parainfluenza 2 (PCR) Not detected (NOT DETECT) 02/07/25 15:44 Parainfluenza 3 (PCR) Not detected (NOT DETECT) 02/07/25 15:44 Parainfluenza 4 (PCR) Not detected (NOT DETECT) 02/07/25 15:44 RSV (PCR) Negative (Negative) 02/07/25 03:20 RSV Type A (PCR) Not detected (NOT DETECT) 02/07/25 15:44 RSV Type B (PCR) Not detected (NOT DETECT) 02/07/25 15:44 Entero/Rhino (PCR) Not detected (NOT DETECT) 02/07/25 15:44 SARS-CoV-2 (PCR) Not detected (NOT DETECT) 02/07/25 15:44 Vitals Last Vital Signs Temp 97.0 F L 02/08/25 08:31 Pulse 63 02/08/25 12:00 Resp 19 H 02/08/25 12:00 BP 154/61 02/08/25 12:00 Pulse Ox 95 02/08/25 12:00 O2 Del Method Room Air 02/07/25 14:52 O2 Flow Rate 2 02/07/25 08:54 Discharge Plan Discharge Patient Disposition: Home Condition: Stable Prescriptions: New amoxicillin 250 mg capsule 250 mg PO BID 7 Days Qty: 14 0RF prednisone 20 mg tablet See Rx Instructions .ROUTE .COMPLEX Qty: 19 0RF Rx Instructions: 3 tab daily for 3 days, then 2 tab for 3 days, then 1 tab for 3 days, then 1/2 tab for 2 days. Continued (DME) oxygen-air delivery systems Device See Rx Instructions .Route Rx Instructions: 2 liters ondansetron HCl 4 mg tablet 4 - 8 mg PO Q6H PRN (Reason: Nausea And Vomiting) Dose Instruction: TAKE 1 TO 2 TABLETS BY MOUTH EVERY 6 HOURS NEEDED FOR NAUSEA AND VOMITING (DME) oxygen-air delivery systems Device See Rx Instructions .Route Rx Instructions: As directed (DME) pen needle, diabetic [TechLITE Pen Needle] 32 gauge x 5/32 needle See Rx Instructions .ROUTE .COMPLEX Qty: 100 0RF Dose Instruction: USE NEEDLES WITH INSULIN SYRINGE Rx Instructions: USE NEEDLES WITH INSULIN SYRINGE amlodipine 5 mg tablet 5 mg PO DAILY carvedilol 3.125 mg tablet 3.125 mg PO BID magnesium hydroxide [Milk of Magnesia] 400 mg/5 mL Suspension 15 ml PO DAILY PRN (Reason: constipation ) hyoscyamine sulfate 0.125 mg Tablet,Disintegrating 0.125 mg PO QID PRN (Reason: Spasms) bisacodyl [Dulcolax (bisacodyl)] 10 mg Suppository 10 mg PA DAILY PRN (Reason: Constipation) pantoprazole 40 mg tablet,delayed release (DR/EC) 40 mg PO DAILY Fleet Enema 19-7 gram/118 mL Enema 118 ml PA DAILY PRN (Reason: constipation ) nystatin 100,000 unit/gram powder 1 applic topical BID albuterol sulfate 90 mcg/actuation Hfa Aerosol Inhaler 2 puff INHALATION Q6H PRN (Reason: Shortness Of Breath Or Wheezing) fluticasone propionate 110 mcg/actuation Hfa Aerosol Inhaler 2 puff INHALATION BID insulin glargine [Lantus Solostar U-100 Insulin] 100 unit/mL (3 mL) insulin pen 8 unit SUBCUT BEDTIME acetaminophen 500 mg Tablet 1,500 mg PO Q6H PRN (Reason: Pain) duloxetine 60 mg capsule,delayed release(DR/EC) 60 mg PO DAILY Discharge Orders: Discharge Order (Routine); Ordered 02/08/25 Ordered By: Jacky Spangler Referrals: Galdino Weaver MD [Physician, Ear, Nose, Throat] - 02/17/25 10:50 am Galdino Mojica MD [Primary Care Provider, [facility]] - 02/15/25 10:00 am Patient Instructions: Prednisone (By mouth), Amoxicillin (By mouth), Laryngitis (GEN), Iron Deficiency Anemia (GEN), Pulmonary Nodules (DC), Opioid Safety, Pain Management Activity Restrictions/Additional Instructions: Complete antibiotic and prednisone course. Follow-up with your primary provider as well as with ENT in office for reassessment after laryngitis. Continue pantoprazole in case refuls disease contributed to laryngitis. Seek medical attention in case of worsening or new concerning symptoms. Discharge Attestations Time Spent in Discharge Care*: greater than 30 min Status at Discharge: Cognitive status at discharge: cognitively intact , Behavioral status at discharge: cooperative , Quality Metrics Clinical Quality Measures [ No reported AMI, CVA or VTE this stay] Coding Level of Care Code 04123 Total time (in minutes) for Discharge: 35 Diagnoses Laryngeal stridor Q31.5
--- NOTE | 2025-02-08 13:55 | PC.NURSE ---
Report called to Augustin Blevins at [id number].
--- NOTE | 2025-02-08 14:22 | PC.NURSE ---
Patient left with [facility] transport and discharge paperwork at 1421. All IVS were removed.
== END 2025-02-08 14:22 | disposition skilled nursing facility (03) ==
LOC: ER 12:33 → ICU 14:18
PROVIDERS: Emergency Medicine; Admitting Provider Internal Medicine; Emergency Provider Family Medicine; PCP Family Medicine; Visit Provider Internal Medicine
DX: Q31.5 Congenital laryngomalacia (principal); J04.0 Acute laryngitis; K21.9 Gastro-esophageal reflux disease without esophagitis; Z99.81 Dependence on supplemental oxygen; Z77.090 Contact with and (suspected) exposure to asbestos; R91.8 Other nonspecific abnormal finding of lung field; E11.22 Type 2 diabetes mellitus with diabetic chronic kidney disease; I13.0 Hypertensive heart and chronic kidney disease with heart failure and stage 1 through stage 4 chronic kidney disease, or unspecified chronic kidney disease; N18.9 Chronic kidney disease, unspecified; I50.9 Heart failure, unspecified; G47.30 Sleep apnea, unspecified; Z79.4 Long term (current) use of insulin; K75.81 Nonalcoholic steatohepatitis (NASH); Z87.891 Personal history of nicotine dependence; J44.9 Chronic obstructive pulmonary disease, unspecified
CPT/HCPCS: 36415; 70491; 71045; 71260; 80053; 82805; 83605; 83880; 85025; 87040; 87150; 87186; 87205; 87486; 87581; 87633; 87637; 94640; 96365; 96367; 96372; 96374; 96376; 99285; G0378; J1650; J2250; J2405; J2470; J2543; J2919; J3370; J9999

== ENCOUNTER 2025-05-08 18:25 | Emergency (ER) | payer MEDICARE, OTHER, SELFPAY ==
[2025-05-08 18:28] VITALS: BP 150/72; PULSE 78; RESP 16; TEMP 37.2; O2SAT 95; BMI 32.3
--- NOTE | 2025-05-08 18:41 | XRR_ITS ---
PROCEDURE INFORMATION: Exam: XR Chest Exam date and time: 05/08/2025 6:43 PM Age: 74 years old Clinical indication: Other: Syncope; Prior surgery; Surgery date: 6+ months; Surgery type: Bilateral breast reduction. Gb; EMS arrival from half-way for syncopal episode. History of chf and copd. TECHNIQUE: Imaging protocol: Radiologic exam of the chest. Views: 1 view. COMPARISON: CT chest w con* [id number] 02/07/2025 6:26 AM FINDINGS: Lungs: Unremarkable. No consolidation. Pleural spaces: Unremarkable. No pleural effusion. No pneumothorax. Heart/Mediastinum: Unremarkable. No cardiomegaly. Bones/joints: No acute findings. XR/XR chest 1V portable [id number] IMPRESSION: No acute findings.
--- NOTE | 2025-05-08 18:42 | ECG_ITS ---
[facility] Recombine Test Date: 2025-05-08 Pat Name: Keila Starkey Department: Room: Gender: Female Bin Operator: : [id number] Requested By: Huy José Order Number: [id number] Marysol MD: Talia Espana M.D. Measurements Intervals [place] Rate: 77 P: 60 [place]: 143 QRS: -46 QRSD: 91 T: 52 QT: 392 QTc: 444 Interpretive Statements SINUS RHYTHM WITH OCCASIONAL VENTRICULAR PREMATURE COMPLEXES PATTERN CONSISTENT WITH PULMONARY DISEASE LEFT ANTERIOR FASCICULAR BLOCK [QRS AXIS <= -45, QR IN I, RS IN II] SEPTAL MYOCARDIAL INFARCTION , PROBABLY OLD [40+ ms Q WAVE IN V1/V2] Non diagnostic T wave changes Compared to ECG 11/14/2024 06:44:40 Ventricular premature complex(es) now present Atrial fibrillation no longer present Myocardial infarct finding still present Electronically Signed On 05-10-2025 08:14:26 CDT by Talia Espana M.D. [email or web address]
[2025-05-08 18:50] LABS: Hematocrit 29.8 % (36-47); Hemoglobin 8.20 g/dL (11.27-16.99); Mean Corpuscular HGB Conc 27.5 g/dL (30-55); Mean Corpuscular Hemoglobin 19.3 pg (27-33); Mean Corpuscular Volume 70.1 fl (85-98); Nucleated Red Blood Cells % 0 %; Platelet Count 753 10^3/cmm (157-399); Red Blood Count 4.25 10^6/uL (3.85-5.65); White Blood Count 20.27 10^3/uL (3.29-11.43)
--- NOTE | 2025-05-08 19:01 | W.ED.SYNCOPE ---
HPI - Syncope General: Chief Complaint: Syncope Stated Complaint: syncope Time Seen by Provider: 05/08/25 18:29 History of Present Illness: 74-year-old long-term patient with a history of dense Gotti's palsy, and a history of stroke. She presents with a syncopal episode. She was on the toilet, trying to have a bowel movement. She has a history of having syncopal episodes from vasovagal reactions. She did not recover as quickly this time, so EMS was called. She is essentially recovered to baseline now. She has no real complaints other than a chronic cough she says. No chest pain. No fever. No new visual or speech problems. No new weakness. Related Data Home Medications ?Medication ?Instructions ?Recorded ?Confirmed acetaminophen 500 mg tablet 1,500 mg PO Q6H PRN Pain 05/15/22 02/07/25 oxygen-air delivery systems 04/29/23 02/07/25 ondansetron HCl 4 mg tablet 4 - 8 mg PO Q6H PRN Nausea And 08/07/23 02/07/25 Vomiting oxygen-air delivery systems 08/07/23 02/07/25 duloxetine 60 mg capsule,delayed 60 mg PO DAILY 11/14/24 02/07/25 release albuterol sulfate 90 mcg/actuation 2 puff inhalation Q6H PRN 02/07/25 02/07/25 aerosol inhaler Shortness Of Breath Or Wheezing amlodipine 5 mg tablet 5 mg PO DAILY 02/07/25 02/07/25 bisacodyl 10 mg rectal suppository 10 mg MA DAILY PRN Constipation 02/07/25 02/07/25 (Dulcolax (bisacodyl)) carvedilol 3.125 mg tablet 3.125 mg PO BID 02/07/25 02/07/25 fluticasone propionate 110 2 puff inhalation BID 02/07/25 02/07/25 mcg/actuation HFA aerosol inhaler hyoscyamine sulfate 0.125 mg 0.125 mg PO QID PRN Spasms 02/07/25 02/07/25 disintegrating tablet insulin glargine 100 unit/mL (3 8 unit SUBCUT BEDTIME 02/07/25 02/07/25 mL) subcutaneous pen (Lantus Solostar U-100 Insulin) magnesium hydroxide 400 mg/5 mL 15 ml PO DAILY PRN constipation 02/07/25 02/07/25 oral suspension (Milk of Magnesia) nystatin 100,000 unit/gram topical 1 applic topical BID 02/07/25 02/07/25 powder pantoprazole 40 mg tablet,delayed 40 mg PO DAILY gerd 02/07/25 02/07/25 release sodium phosphates 19 gram-7 118 ml MA DAILY PRN constipation 02/07/25 02/07/25 gram/118 mL enema (Fleet Enema) Previous Rx's ?Medication ?Instructions ?Recorded pen needle, diabetic 32 gauge x #100 ea 11/27/23 (TechLITE Pen Needle) prednisone 20 mg tablet See Rx Instructions .Route 02/08/25 .COMPLEX #19 tabs Allergies Allergy/AdvReac Type Severity Reaction Status Date / Time NSAIDS (Non-Steroidal Allergy Mild vomiting Verified 10/26/24 22:21 Anti-Inflamma PFSH ED PFSH: Medical History Asbestos exposure 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 Performed by Dr. Colbert at [facility]. H/O: hysterectomy Hx of cholecystectomy Family History Denies family history of Diabetes Dementia Hyperlipidemia Family history of premature coronary artery disease Cancer Social History Smoking and tobacco/nicotine status: former use of tobacco/nicotine Quit status (tobacco/nicotine): has quit using Year quit tobacco: 1990 Former quit date comment: Smoked for 30 years Alcohol intake: never Substance/Drug Use: never Household members: spouse Housing: House Physical Exam Const: COMMON NORMALS: no acute distress and alert GENERAL APPEARANCE: cooperative and frail appearing ORIENTATION/CONSCIOUSNESS: Yes oriented to person, Yes oriented to place and Yes oriented to time HENMT: COMMON NORMALS: normocephalic, atraumatic and Normal external nose present HEAD & SCALP: normocephalic and atraumatic FACE & SINUS: other (Dense left-sided facial droop) NOSE: Normal external nose present Eye: COMMON NORMALS: Equal, round and reactive pupils present and EOMs intact bilaterally PUPIL: Yes Equal, round and reactive pupils present Neck/C-Spine: GENERAL: Yes trachea midline Chest: CHEST: Yes Symmetrical chest wall rise Resp: COMMON NORMALS: normal respiratory effort, No retractions, No use of accessory muscles and clear to auscultation bilaterally AUSCULTATION: clear to auscultation bilaterally Cardio: COMMON NORMALS: regular rate and regular rhythm RATE: regular rate RHYTHM: regular rhythm GI: COMMON NORMALS: Normal to inspection, nondistended, normoactive bowel sounds present Extremity: COMMON NORMALS: no pedal edema Neuro: AMPARO COMA SCALE: document GCS findings [place] coma scale eye opening: Spontaneous Amparo coma scale verbal response: Orientated Amparo coma scale motor response: Obey commands [place] coma scale total score: 15 SENSORIUM/ORIENTATION: Yes alert, Yes oriented to person, Yes oriented to place and Yes oriented to time COORDINATION/BALANCE: [id number] test normal and jlav-hy-ualg test normal SPEECH: speech normal SENSORY EXAM: Yes extremities (intact) MOTOR EXAM: Pronator motor function not present COORDINATION: kydutj-zl-celh test normal and mkhj-hu-irzo test normal Psych: COMMON NORMALS: speech normal SPEECH: Yes normal speech Skin: COMMON NORMALS: no rashes or lesions noted GENERAL SKIN EXAM: no rashes or lesions noted Course Vital Signs: Vital signs: Vital Signs Temperature 98.9 F 05/08/25 18:28 Pulse Rate 79 05/08/25 21:48 Respiratory Rate 16 05/08/25 21:48 Blood Pressure 152/98 05/08/25 21:48 Pulse Oximetry 96 05/08/25 21:48 MDM - Syncope Medical Decision Making Patient has remained stable on the monitor. No EKG changes. Patient is chronically anemic with a hemoglobin of 8. Creatinine is 1.3. She has chronic leukocytosis, which appears stable as well as a chronic thrombocytosis. She is at baseline in terms of mental status, etc. She will be discharged back to the long-term. Appears to be vasovagal syncope. Lab Data 05/08/25 18:29 05/08/25 18:29 Radiology Impressions Chest X-Ray 05/08/25 18:41 IMPRESSION: No acute findings. Laboratory Results WBC 20.27 10^3/uL (3.29-11.43) H 05/08/25 18: RBC 4.25 10^6/uL (3.85-5.65) 05/08/25 18: Hgb 8.20 g/dL (11.27-16.99) L 05/08/25 18: Hct 29.8 % (36-47) L 05/08/25 18: MCV 70.1 fl (85-98) L 05/08/25 18: MCH 19.3 pg (27-33) L 05/08/25 18: MCHC 27.5 g/dL (30-55) L 05/08/25 18: RDW 17.8 % (12.1-15.1) H 05/08/25 18: Plt Count 753 10^3/cmm (157-399) H 05/08/25 18: MPV 8.8 fL (7.4-10.4) 05/08/25 18: Neut % (Auto) 68.8 % 05/08/25 18: Lymph % (Auto) 17.1 % 05/08/25 18: Churchill % (Auto) 8.4 % 05/08/25: Eos % (Auto) 5.0 % 05/08/25: Baso % (Auto) 0.3 % 05/08/25: Neut # (Auto) 13.93 10^3/uL (1.8-7.7) H 05/08/25 18: Lymph # (Auto) 3.5 10^3/uL (0.8-4.8) 05/08/25 18: Churchill # (Auto) 1.7 10^3/uL (0.2-0.9) H 05/08/25 18: Eos # (Auto) 1.0 10^3/uL (0.0-0.8) H 05/08/25 18: Baso # (Auto) 0.1 10^3/uL (0.0-0.1) 05/08/25 18: Nucleated RBC % (auto) 0 % 05/08/25 18: Nucleated RBCs # 0.0 /100WBC 05/08/25 18: Sodium 143 mmol/L (136-145) 05/08/25 18: Potassium 3.4 mmol/L (3.5-5.1) L 05/08/25 18: Chloride 106 mmol/L (98-107) 05/08/25 18: Carbon Dioxide 22 mmol/L (22-29) 05/08/25 18: Anion Gap 18.4 (5-19) 05/08/25 18: BUN 16 mg/dL (8-23) 05/08/25 18: Creatinine 1.3 mg/dL (0.5-0.9) H 05/08/25 18: GFR Calculation Not Reportable 05/08/25 18: Glucose 148 mg/dL (65-115) H 05/08/25 18: Calculated Osmolality 300 mOsm/kg (285-295) H 05/08/25 18: Calcium 9.2 mg/dL (8.5-10.5) 05/08/25 18: Magnesium 2.0 mg/dL (1.7-2.3) 05/08/25 18: Total Bilirubin 0.3 mg/dL (0.15-1.2) 05/08/25 18: AST 12 U/L (0-32) 05/08/25 18: ALT 6 U/L (0-33) 05/08/25 18: Alkaline Phosphatase 126 U/L (35-105) H 05/08/25 18: Total Protein 7.3 g/dL (6.6-8.7) 05/08/25 18: Albumin 3.9 g/dL (3.5-5.2) 05/08/25 18: Globulin 3.4 g/dL (1.3-4.6) 05/08/25 18:29 All radiology interpretation(s) finalized by discharge Discharge Plan Discharge Patient Disposition: Home Clinical Impression: Vasovagal syncope Condition: Stable Prescriptions: No Action (DME) oxygen-air delivery systems Device See Rx Instructions .Route Rx Instructions: 2 liters ondansetron HCl 4 mg tablet 4 - 8 mg PO Q6H PRN (Reason: Nausea And Vomiting) Dose Instruction: TAKE 1 TO 2 TABLETS BY MOUTH EVERY 6 HOURS NEEDED FOR NAUSEA AND VOMITING (DME) oxygen-air delivery systems Device See Rx Instructions .Route Rx Instructions: As directed (DME) pen needle, diabetic [TechLITE Pen Needle] 32 gauge x 5/32 needle See Rx Instructions .ROUTE .COMPLEX Qty: 100 0RF Dose Instruction: USE NEEDLES WITH INSULIN SYRINGE Rx Instructions: USE NEEDLES WITH INSULIN SYRINGE amlodipine 5 mg tablet 5 mg PO DAILY carvedilol 3.125 mg tablet 3.125 mg PO BID magnesium hydroxide [Milk of Magnesia] 400 mg/5 mL Suspension 15 ml PO DAILY PRN (Reason: constipation ) hyoscyamine sulfate 0.125 mg Tablet,Disintegrating 0.125 mg PO QID PRN (Reason: Spasms) bisacodyl [Dulcolax (bisacodyl)] 10 mg Suppository 10 mg MA DAILY PRN (Reason: Constipation) pantoprazole 40 mg tablet,delayed release (DR/EC) 40 mg PO DAILY Fleet Enema 19-7 gram/118 mL Enema 118 ml MA DAILY PRN (Reason: constipation ) nystatin 100,000 unit/gram powder 1 applic topical BID albuterol sulfate 90 mcg/actuation Hfa Aerosol Inhaler 2 puff INHALATION Q6H PRN (Reason: Shortness Of Breath Or Wheezing) fluticasone propionate 110 mcg/actuation Hfa Aerosol Inhaler 2 puff INHALATION BID insulin glargine [Lantus Solostar U-100 Insulin] 100 unit/mL (3 mL) insulin pen 8 unit SUBCUT BEDTIME prednisone 20 mg tablet See Rx Instructions .ROUTE .COMPLEX Qty: 19 0RF Rx Instructions: 3 tab daily for 3 days, then 2 tab for 3 days, then 1 tab for 3 days, then 1/2 tab for 2 days. acetaminophen 500 mg Tablet 1,500 mg PO Q6H PRN (Reason: Pain) duloxetine 60 mg capsule,delayed release(DR/EC) 60 mg PO DAILY Discharge Orders: Discharge ED (Routine); Ordered 05/08/25 Ordered By: Huy Xiao Referrals: Galdino Mojica MD [Primary Care Provider, Family Practice] - 4-7 days Patient Instructions: Syncope (ED), Opioid Safety, Pain Management, Patient Portal & Alonso Instructions Activity Restrictions/Additional Instructions: Return for repeated episodes of syncope or passing out, development of chest pain, any other concerns. Follow-up with your doctor this week. 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
[2025-05-08 19:02] LABS: Alanine Aminotransferase 6 U/L (0-33); Albumin Level 3.9 g/dL (3.5-5.2); Alkaline Phosphatase 126 U/L (35-105); Anion Gap 18.4 (5-19); Aspartate Amino Transferase 12 U/L (0-32); Blood Urea Nitrogen 16 mg/dL (8-23); Calcium 9.2 mg/dL (8.5-10.5); Carbon Dioxide 22 mmol/L (22-29); Chloride 106 mmol/L (98-107); Creatinine Clr Calc Pharmacy 43.0743; Globulin 3.4 g/dL (1.3-4.6); Glucose 148 mg/dL (65-115); Magnesium 2.0 mg/dL (1.7-2.3); Osmolality Calculated 300 mOsm/kg (285-295); Potassium 3.4 mmol/L (3.5-5.1); Sodium 143 mmol/L (136-145); Total Protein 7.3 g/dL (6.6-8.7)
[2025-05-08 21:48] VITALS: BP 152/98; PULSE 79; RESP 16; O2SAT 96
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
--- OUTSIDE RECORDS SUMMARY | 2025-05-11 07:55 | XMS_ITS | Clinical Summary ---
Author Organization [facility] Facility Address [address] [place] [id number] Care Team Providers Care Academic Adviser Name Role Phone Mayur Healy MD Primary Care Provider Allergies Active Allergy Reactions Criticality Noted Date Comments Oscar Inhibitors High 02/10/2020 Celecoxib 02/10/2020 Citalopram 02/10/2020 Escitalopram 02/10/2020 Nsaids 02/10/2020 Statins 02/10/2020 Medications * This document contains information received from the source organization and may not represent a complete record from that organization. potassium chloride (K-TAB) 20 MEQ CR tablet Take 20 mEq by mouth 1 (one) time each day Do not crush, chew, or split. Active Magnesium Chloride 70 MG tablet delayed-release Take 1 tablet by mouth twice a day Active metFORMIN XR (GLUCOPHAGE-XR) 750 MG 24 hr tablet Take 750 mg by mouth 2 (two) times a day with meals Do not crush, chew, or split. Active lisinopril (PRINIVIL,ZESTR IL) 10 MG tablet Take 10 mg by mouth 1 (one) time each day Active atorvastatin (LIPITOR) 40 MG tablet Take 40 mg by mouth 1 (one) time each day Active insulin glargine (LANTUS) 100 UNIT/ML injection Inject 15 Units under the skin every night Active fluticasone HFA (FLOVENT HFA) 110 MCG/ACT inhaler Inhale 1 puff 2 (two) times a day Rinse mouth with water after use to reduce aftertaste and incidence of candidiasis. Do not swallow. Active coenzyme Q-10 10 MG capsule Take 10 mg by mouth 1 (one) time each day Active amLODIPine (NORVASC) 10 MG tablet Take 10 mg by mouth 1 (one) time each day Active tiZANidine (ZANAFLEX) 2 MG capsule Take 4 mg by mouth at bed time Active DULoxetine (CYMBALTA) [address] capsule Take 60 mg by mouth 1 (one) time each day Do not crush or chew. Active Nystatin powder 1 (one) time each day if needed Active Cholecalciferol 10 MCG (400 UNIT) capsule Take 2 capsules by mouth 1 (one) time each day Active ferrous sulfate 325 (65 Fe) MG tablet Take 325 mg by mouth 2 (two) times a day Active pantoprazole (PROTONIX) 40 MG EC tablet Take 40 mg by mouth 1 (one) time each day before breakfast Do not crush, chew, or split. Active sucralfate (CARAFATE) 1 g tablet Take 1 g by mouth 4 (four) times a day Active albuterol HFA (PROVENTIL HFA;VENTOLIN HFA) 108 (90 Base) MCG/ACT inhaler Inhale 2 puffs every 6 (six) hours if needed for wheezing Active acetaminophen (TYLENOL) 500 MG tablet Take by mouth 1 (one) time each day if needed Active gabapentin (NEURONTIN) 300 MG capsule Take 1 cap in the morning, 1 at noon and 2 at bedtime 0 Active Active Problems Problem Noted Date Diagnosed Date Acute nontraumatic kidney injury 03/14/2020 Immunizations Immunization Administration Dates Next Due Influenza TIV (IM) 07/01/2019 Family History Medical History Relation Comments Dementia Father Heart disease Father Cancer Mother Stroke Paternal Grandfather Cancer Paternal Grandmother Relation Status Comments Father Mother Paternal Grandfather Paternal Grandmother Social History Tobacco Use Types Packs/Day Years Used Date Smoking Tobacco: Former Cigarettes Q uit: 1989 Smokeless Tobacco: Never Alcohol Use Standard Drinks/Week Comments Yes 0 (1 standard drink = 0.6 oz pur e alcohol) Comments Unknown Sex and Gender Information Value Date Recorded Sex Assigned at Not on file Legal Sex Female 12:16 PM EDT Gender Identity Not on file Sexual Orientation Not on file Last Filed Vital Signs Vital Sign Reading Time Taken Comments Blood Pressure 160/74 06/13/2020 2:10 PM CDT Pulse 82 06/13/2020 2:10 PM CDT Temperature 37.2 C (99 F) 06/13/2020 2:10 PM CDT Respiratory Rate - - Oxygen Saturation - - Inhaled Oxygen Concentration - - Weight 92.4 kg (203 lb 12.8 oz) 06/13/2020 2:10 PM CDT Height 167.6 cm (5' 6 ) 06/13/2020 2:10 PM CDT Body Mass Index 32.89 06/13/2020 2:10 PM CDT Plan of Treatment Health Maintenance Due Date Last Done Comments Breast Cancer Screening 1950 Colorectal Cancer Screening: Annual FOBT 1999 Colorectal Cancer Screening: Colonoscopy 1999 Colorectal Cancer Screening: Sigmoidoscopy 1999 Hepatitis B Vaccine (1 of 3 - Risk 3-dose series) 2010 Diabetes: Hemoglobin A1C 03/14/2020 Diabetes: Pedal Pulse Checked 03/14/2020 Diabetes: Sensory Foot Exam 03/14/2020 Diabetes: Visual Foot Exam 03/14/2020 Diabetes: Ophthalmology Exam 05/27/2020 05/27/2019 Influenza Vaccine (#1) 2025 9, 07/01/2019, 07/24/2018, Additional history exists Pneumococcal Vaccine: 50+ Years Completed 7, 07/14/2015 Pneumococcal Vaccine: Peds ( 0 to 5 Years) and At-Risk Patients (6 to 49 Years) Discontinued 07/11/2017, 07/14/2015 Insurance Medicare [facility] NANCY [place] [id number] Care Teams Academic Adviser Relationship Specialty Start Date End Date Mayur Healy MD [address] [address] PCP - General Internal Medicine 02/07/20
--- OUTSIDE RECORDS SUMMARY | 2025-05-11 07:55 | XMS_ITS ---
Author Organization [facility] Care Team Providers Care Assembler Bonding Name Role Phone Nabeel Dumas Unavailable Unavailable Arlene Minor Unavailable Unavailable Allergies and adverse reactions Code CodeSystem Substance Reaction Severity StartDate Concern Status 784896279 SNOMED CT NSAIDs Unknown 05/17/2022 active Care Team Name Role Address Phone Organization Dates Nabeel Dumas PCP [address] [place], [address], [place] (Office): [facility] 05/17/2022 - 06/01/2022 Arlene Minor [address] [place], [address], [place] (Office): : [facility] 05/17/2022 - 06/01/2022 Immunizations Immunization Status Vaccine Details Vaccine Code CodeSystem Date Notes Influenza cancelled Influenza, high-dose, split virus, quadrivalent, injectable, preservative free 197 CVX created date: 05/24/2022 consent date: 05/24/2022 TB 1 Step Mantoux (PPD) completed tuberculin skin test; unspecified formulation lotNumber: [id number] expiry: 06/24/2024 Mfg: TUBERSOL Given 0.1 ml Right Forearm intradermally 98 CVX created date: 05/18/2022 consent date: 05/17/2022 administer ed date: 05/18/2022 Educated by macrina on 05/17/2022 SARS-COV-2 (COVID-19) completed SARS-COV-2 (COVID-19) vaccine, mRNA, spike protein, LNP, preservative free, 100 mcg/0.5mL dose or 50 mcg/0.25mL dose Mfg: Moderna Given intramuscularly Step 2 of Multi-step with next step required 207 CVX created date: 05/20/2022 consent date: 05/20/2022 administer ed date: 12/08/2020 SARS-COV-2 (COVID-19) completed SARS-COV-2 (COVID-19) vaccine, mRNA, spike protein, LNP, preservative free, 100 mcg/0.5mL dose or 50 mcg/0.25mL dose Mfg: Moderna Given intramuscularly Step 1 of Multi-step with next step required 207 CVX created date: 05/20/2022 administer ed date: 11/10/2020 Prevnar 23 completed pneumococcal polysaccharide vaccine, 23 valent 33 CVX created date: 05/24/2022 administer ed date: 09/29/2020 Reports current in 2020-cannot remember the date. Mental Status Section Date Assessment Total Score Description 06/01/2022 BIMS 15 cognitively int act CAM 0 No delirium ind icated PHQ-9 00 05/21/2022 BIMS 15 cognitively int act CAM 0 No delirium ind icated PHQ-9 02 minimal depress ion Problems Problem # Description Date of onset Resolved Date Code CodeSystem Concern Status 1 ACHALASIA OF CARDIA 05/17/[address] active 2 ACUTE KIDNEY FAILURE, UNSPECIFIED 05/17/[address] active 3 AGE-RELATED COGNITIVE DECLINE 05/17/[address] active 4 ANEMIA, UNSPECIFIED 05/17/[address] active 5 ANXIETY DISORDER, UNSPECIFIED 05/17/[address] active 6 CHRONIC DIASTOLIC (CONGESTIVE) HEART FAILURE 05/17/[address] active 7 CHRONIC OBSTRUCTIVE PULMONARY DISEASE, UNSPECIFIED 05/17/[address] active 8 DEPRESSION, UNSPECIFIED 05/17/[address] active 9 ESSENTIAL (PRIMARY) HYPERTENSION 05/17/[address] active 10 GASTRO-ESOPHAGEAL REFLUX DISEASE WITHOUT ESOPHAGITIS 05/17/[address] active 11 HISTORY OF FALLING 05/17/[address] active 12 HYPERLIPIDEMIA, UNSPECIFIED 05/17/[address] active 13 METABOLIC ENCEPHALOPATHY 05/17/[address] active 14 MUSCLE WEAKNESS (GENERALIZED) 05/17/[address] active 15 NEED FOR ASSISTANCE WITH PERSONAL CARE 05/17/[address] active 16 OTHER SYMPTOMS AND SIGNS INVOLVING COGNITIVE FUNCTIONS AND AWARENESS 05/17/[address] active 17 PAIN, UNSPECIFIED 05/17/[address] active 18 SLEEP APNEA, UNSPECIFIED 05/17/[address] active 19 TYPE 2 DIABETES MELLITUS WITH DIABETIC NEUROPATHY, UNSPECIFIED 05/17/[address] active 20 TYPE 2 DIABETES MELLITUS WITH OTHER SPECIFIED COMPLICATION 05/17/[address] active 21 URINARY TRACT INFECTION, SITE NOT SPECIFIED 05/17/[address] active 22 VITAMIN DEFICIENCY, UNSPECIFIED 05/17/[address] active Reason for Referral No Reasons for Referral Entered Social History Social History Observation Description Start Date End Date Code Code System Current Smoking Status Tobacco smoking consumption unknown 565915038 SNOMED CT Sex Assigned At Female 1950 67263-0 [facility] Gender Identity Vital Signs Code Code System Vitals Name Values and Units Timing Information 8462-4 [facility] Blood Pressure-Diastolic Value=52 Un its=mmHg 06/01/2022 8480-6 [facility] Blood Pressure-Systolic Xdkuy=427 Un its=mmHg 06/01/2022 8867-4 [facility] Heart rate Aidfr=957.0 Units=/min 06/01/2022 2339-0 [facility] Blood Sugar Ribgj=952.0 Units=mg/dL 06/01/2022 9279-1 [facility] Respiratory Rate Value=18.0 Units=/m in 06/01/2022 8310-5 LOINC Body Temperature Value=97.0 Units= F 06/01/2022 45536-3 LOINC O2 % BldC Oximetry Value=99.0 Units= % 06/01/2022 68243-8 LOINC Pain Level Value=0.0 06/01/2022 24315-0 LOINC Weight Gvixb=711.0 Units=Lbs 8302-2 LOINC Height Value=65.0 Units=Inches 05/23/2022
--- OUTSIDE RECORDS SUMMARY | 2025-05-11 07:55 | XMS_ITS | Encounter Summary ---
Author Organization [facility], [facility] Address [address] [place] [address] Phone Care Team Providers Care Associate Programmer Name Role Phone Mayur Healy MD Primary Care Provider [phone] Encounter Details Date Type Department Care Team (Late st Contact Info) Description 01/14/2020 Orders Only [facility] [address] [place] [address] Acute kidney failure, not otherwise specified (HCC) Social History Tobacco Use Types Packs/Day Years Used Date Smoking Tobacco: Never Assessed Comments Unknown Sex and Gender Information Value Date Recorded Sex Assigned at Not on file Legal Sex Female 12:16 PM EDT Gender Identity Not on file Sexual Orientation Not on file documented as of this encounter Plan of Treatment Not on file documented as of this encounter Visit Diagnoses Diagnosis Acute kidney failure, not otherwise specified (HCC) documented in this encounter Care Teams Associate Programmer Relationship Specialty Start Date End Date Mayur Healy MD [address] [place] [address] PCP - General Internal Medicine 02/07/20 documented as of this encounter
== END 2025-05-08 21:52 | disposition home or self-care (01) ==
PROVIDERS: Emergency Provider Emergency Medicine; PCP Family Medicine
DX: R55 Syncope and collapse (principal); I50.9 Heart failure, unspecified; I13.0 Hypertensive heart and chronic kidney disease with heart failure and stage 1 through stage 4 chronic kidney disease, or unspecified chronic kidney disease; E11.40 Type 2 diabetes mellitus with diabetic neuropathy, unspecified; N18.9 Chronic kidney disease, unspecified; Z79.899 Other long term (current) drug therapy; Z86.73 Personal history of transient ischemic attack (TIA), and cerebral infarction without residual deficits; Z79.4 Long term (current) use of insulin; Z87.891 Personal history of nicotine dependence
CPT/HCPCS: 71045; 80053; 83735; 85025; 93005; 99285; J7040

== ENCOUNTER 2025-06-08 10:27 | Emergency (ER) | payer MEDICARE, OTHER, MEDICAID, SELFPAY ==
[2025-06-08 10:36] VITALS: BP 154/99; PULSE 86; RESP 18; TEMP 36.7; O2SAT 98; BMI 32.3
--- OUTSIDE RECORDS SUMMARY | 2025-06-08 10:36 | XMS_ITS | Encounter Summary ---
Author Organization [facility], [facility] Address [address] [place] [address] Phone Care Team Providers Care Magnetic Locater Name Role Phone Mayur Healy MD Primary Care Provider [phone] Encounter Details Date Type Department Care Team (Late st Contact Info) Description 01/14/2020 Orders Only [facility] [address] [place] [address] Acute kidney failure, not otherwise [...] (HCC) documented in this encounter Care Teams Magnetic Locater Relationship Specialty Start Date End Date Mayur Healy MD [address] [place] [address] PCP - General Internal Medicine 02/07/20 documented as of this encounter
--- OUTSIDE RECORDS SUMMARY | 2025-06-08 10:36 | XMS_ITS | Clinical Summary ---
Author Organization [facility] Address [address] [place] [address] Care Team Providers Care Finishing Machine Operator Automatic Name Role Phone Mayur Healy MD Primary Care Provider [phone] Allergies Active Allergy Reactions Criticality Noted Date [...] 49 Years) Discontinued 07/11/2017, 07/14/2015 Insurance Medicare [facility] [place] [id number] Care Teams Finishing Machine Operator Automatic Relationship Specialty Start Date End Date Mayur Healy MD [address] [address] PCP - General Internal Medicine 02/07/20
--- OUTSIDE RECORDS SUMMARY | 2025-06-08 10:36 | XMS_ITS | Patient Health Record ---
Author Organization [facility] Address [address] [place] [address] Support Name Relationship Address Phone Jaky, N/A Emergency Contact [address] [place] [address] Keila Starkey Guarantor Unknown [phone] Reason For Referral No Information Medications Medication SIG (Take, Route, Frequency, Duration) Notes Start Date End Date Status Gabapentin *please review f or potential update for e-prescription and drug interaction check* Active Detrol *please review f or potential update for e-prescription and drug interaction check* Active Magic Mouth Wash 30cc Milk of Magnesia 30cc viscous lidocaine 30cc nystatin 30cc diphenhydramine solution 5 ml swish and expectorate every 4 hours as needed; Duration: 7 days *please review for potential update for e-prescription and drug interaction check* 09/07/2011 Active Lexapro *please review f or potential update for e-prescription and drug interaction check* Active Plan Of Treatment No Information Medical (General) History Medical History History ICD Code neck neuropathy
[2025-06-08 10:58] LABS: Hematocrit 27.8 % (36-47); Hemoglobin 7.50 g/dL (11.27-16.99); Mean Corpuscular HGB Conc 27.0 g/dL (30-55); Mean Corpuscular Hemoglobin 18.5 pg (27-33); Mean Corpuscular Volume 68.5 fl (85-98); Nucleated Red Blood Cells % 0 %; Platelet Count 650 10^3/cmm (157-399); Red Blood Count 4.06 10^6/uL (3.85-5.65); White Blood Count 19.55 10^3/uL (3.29-11.43)
--- NOTE | 2025-06-08 11:01 | ED_ITS ---
HPI - Recheck/Abnormal Lab/Rx 2 General: Chief Complaint: Recheck/Abnormal Lab/Rx Stated Complaint: Abnormal Labs Time Seen by Provider: 06/08/25 10:31 History of Present Illness: 74-year-old female presents to the [facility] from [facility]. Labs done yesterday patient had a hemoglobin of 6.6 she has no complaints she has not had any hematochezia melena hematemesis coffee-ground emesis. Her vital signs are stable. No chest pain no abdominal pain Related Data Home Medications ?Medication ?Instructions ?Recorded ?Confirmed acetaminophen 500 mg tablet 1,500 mg PO Q4H PRN Pain 0 05/15/22 06/08/25 oxygen-air delivery systems 04/29/23 06/08/25 ondansetron HCl 4 mg tablet 4 - 8 mg PO Q8H PRN Nausea And 08/07/23 06/08/25 Vomiting oxygen-air delivery systems 08/07/23 06/08/25 duloxetine 60 mg capsule,delayed 60 mg PO DAILY 06/08/25 release albuterol sulfate 90 mcg/actuation 2 puff inhalation Q 6H PRN 02/07/25 06/08/25 aerosol inhaler Shortness Of Breath Or Wheez ing amlodipine 5 mg tablet 5 mg PO DAILY 02/07/2506/08 bisacodyl 10 mg rectal suppository 10 mg GA DAILY PRN Constipation 02/07/25 06/08/25 (Dulcolax (bisacodyl)) carvedilol 3.125 mg tablet 3.125 mg PO BID 02/07/25 fluticasone propionate 110 2 puff inhalation BID 02/0706/08/25 mcg/actuation HFA aerosol inhaler hyoscyamine sulfate 0.125 mg 0.125 mg PO Q4H PRN Spasm s 02/07/25 06/08/25 disintegrating tablet insulin glargine 100 unit/mL (3 8 unit SUBCUT BEDTIME 02/07/25 06/08/25 mL) subcutaneous pen (Lantus Solostar U-100 Insulin) magnesium hydroxide 400 mg/5 mL 15 ml PO DAILY PRN con stipation 02/07/25 06/08/25 oral suspension (Milk of Magnesia) nystatin 100,000 unit/gram topical 1 applic topical BI D PRN rash/skin 02/07/25 06/08/25 powder irritation pantoprazole 40 mg tablet,delayed 40 mg PO DAILY gerd 02/07/25 06/08/25 release sodium phosphates 19 gram-7 118 ml GA DAILY PRN consti pation 02/07/25 06/08/25 gram/118 mL enema (Fleet Enema) dextran 70-hypromellose eye drops 1 drp ophthalmic (ey e) Q4H PRN Dry 06/08/25 06/08/25 in a dropperette (Artificial Tears Eyes (PF) drops in a dropperette) loperamide 2 mg tablet (Imodium 2 mg PO Q4H PRN Diarrh ea 06/08/25 06/08/25 A-D) menthol 4 % topical gel (Biofreeze 1 applic topical TI D PRN Pain 06/08/25 06/08/25 (menthol)) pramoxine 1 % lotion (Sarna 1 applic topical BID 06/0806/08/25 Sensitive) Previous Rx's ?Medication ?Instructions ?Recorded pen needle, diabetic 32 gauge x #100 ea 11/27/23 (TechLITE Pen Needle) Allergies Allergy/AdvReac Type Severity Reaction Status Date / Time NSAIDS (Non-Steroidal Allergy Mild vomiting Verified 10/26/24 22:21 Anti-Inflamma Review of Systems 2 Const: Denies: fever(s) or chills Card: Denies: chest pain Resp: Denies: dyspnea GI: Denies: abdominal pain : Denies: dysuria, urinary frequency or urinary urgency Musc: Denies: neck pain or back pain Skin/Breast: Denies: rash PFSH ED 2 PFSH: Medical History Asbestos exposure 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 Performed by Dr. Colbert at [facility]. H/O: hysterectomy Hx of cholecystectomy Family History Denies family history of Diabetes Dementia Hyperlipidemia Family history of premature coronary artery disease Cancer Social History Smoking and tobacco/nicotine status: former use of tobacco/nicotine Quit status (tobacco/nicotine): has quit using Year quit tobacco: 1990 Former quit date comment: Smoked for 30 years Alcohol intake: never Substance/Drug Use: never Household members: spouse Housing: House Physical Exam 2 Const: COMMON NORMALS: no acute distress GENERAL APPEARANCE: cooperative and comfortable ORIENTATION/CONSCIOUSNESS: Yes awake, Yes oriented to person, Yes oriented to place and Yes oriented to time HENMT: COMMON NORMALS: normocephalic, atraumatic and hearing grossly normal bilaterally HEAD & SCALP: normocephalic and atraumatic Resp: COMMON NORMALS: normal respiratory effort, No retractions, No use of accessory muscles and clear to auscultation bilaterally AUSCULTATION: clear to auscultation bilaterally Cardio: COMMON NORMALS: regular rate, regular rhythm and No murmurs present (Cardio) RATE: regular rate RHYTHM: regular rhythm GI: COMMON NORMALS: Soft to palpation and No hepatosplenomegaly present A USCULTATION: Yes normoactive bowel sounds PALPATION: Yes Soft to palpation, No Tenderness to palpation present (GI), No Guarding due to palpation present (GI) and Yes No hepatosplenomegaly present Extremity: COMMON NORMALS: normal to inspection, capillary refill normal, no clubbing, cyanosis or edema, no calf tenderness and no pedal edema Neuro: SENSORIUM/ORIENTATION: Yes oriented to person, Yes oriented to place and Yes oriented to time Skin: COMMON NORMALS: no rashes or lesions noted GENERAL SKIN EXAM: no rashes or lesions noted Course 2 Vital Signs: Vital signs: Vital Signs Temperature 98.1 F 06/08/25 10:36 Pulse Rate 91 06/08/25 11:29 Respiratory Rate 18 06/08/25 10:36 Blood Pressure 151/99 06/08/25 11:29 Pulse Oximetry 99 06/08/25 11:29 Oxygen Delivery Me thod Room Air 06/08/25 10:36 MDM - Recheck/Abnormal Lab/Rx Medical Decision Making Patient is completely asymptomatic at this point. Rectal exam negative for any bright red blood or occult blood. Discharge patient from ED transfer to outpatients for blood infusion and then will discharge back to [facility] from infusion center. Medical Records I reviewed the patient's medical records. Lab Data I reviewed the patient's lab results. 06/08/25 10:40 06/08/25 10:40 Laboratory Results WBC 19.55 10^3/uL (3.29-11.43) H 06/08/25 10:40 RBC 4.06 10^6/uL (3.85-5.65) 06/08/25 10:40 Hgb 7.50 g/dL (11.27-16.99) L 06/08/25 10:40 Hct 27.8 % (36-47) L 06/08/25 10:40 MCV 68.5 fl (85-98) L 06/08/25 10:40 MCH 18.5 pg (27-33) L 06/08/25 10:40 MCHC 27.0 g/dL (30-55) L 06/08/25 10:40 RDW 17.7 % (12.1-15.1) H 06/08/25 10:40 Plt Count 650 10^3/cmm (157-399) H 06/08/25 10:40 MPV 8.6 fL (7.4-10.4) 06/08/25 10:40 Neut % (Auto) 70.0 % 06/08/25 10:40 Lymph % (Auto) 17.7 % 06/08/25 10:40 [place] % (Auto) 7.3 % 06/08/25 10:40 Eos % (Auto) 3.9 % 06/08/25 10:40 Baso % (Auto) 0.4 % 06/08/25 10:40 Neut # (Auto) 13.67 10^3/uL (1.8-7.7) H 06/08/25 10:40 Lymph # (Auto) 3.5 10^3/uL (0.8-4.8) 06/08/25 10:40 [place] # (Auto) 1.4 10^3/uL (0.2-0.9) H 06/08/25 10:40 Eos # (Auto) 0.8 10^3/uL (0.0-0.8) 06/08/25 10:40 Baso # (Auto) 0.1 10^3/uL (0.0-0.1) 06/08/25 10:40 Nucleated RBC % (auto) 0 % 06/08/25 10:40 Nucleated RBCs # 0.0 /100WBC 06/08/25 10:40 Sodium 139 mmol/L (136-145) 06/08/25 10:40 Potassium 3.8 mmol/L (3.5-5.1) 06/08/25 10:40 Chloride 101 mmol/L (98-107) 06/08/25 10:40 Carbon Dioxide 26 mmol/L (22-29) 06/08/25 10:40 Anion Gap 15.8 (5-19) 06/08/25 10:40 BUN 17 mg/dL (8-23) 06/08/25 10:40 Creatinine 1.2 mg/dL (0.5-0.9) H 06/08/25 10:40 GFR Calculation Not Reportable 06/08/25 10:40 Glucose 144 mg/dL (65-115) H 06/08/25 10:40 Calculated Osmolality 292 mOsm/kg (285-295) 06/08/25 10:40 Calcium 9.3 mg/dL (8.5-10.5) 06/08/25 10:40 Magnesium 2.0 mg/dL (1.7-2.3) 06/08/25 10:40 Total Bilirubin 0.2 mg/dL (0.15-1.2) 06/08/25 10:40 AST 11 U/L (0-32) 06/08/25 10:40 ALT 8 U/L (0-33) 06/08/25 10:40 Alkaline Phosphatase 125 U/L (35-105) H 06/08/25 10:40 Total Protein 7.3 g/dL (6.6-8.7) 06/08/25 10:40 Albumin 3.8 g/dL (3.5-5.2) 06/08/25 10:40 Globulin 3.5 g/dL (1.3-4.6) 06/08/25 10:40 Blood Type Cancelled 06/08/25 10:40 Rho(D) Type Cancelled 06/08/25 10:40 Antibody Screen Cancelled 06/08/25 10:40 Crossmatch See Detail 06/08/25 10:40 No radiology studies performed this visit Discharge Plan Discharge Patient Disposition: Home Clinical Impression: Anemia Condition: Stable Prescriptions: No Action (DME) oxygen-air delivery systems Device See Rx Instructions .Route Rx Instructions: 2 liters ondansetron HCl 4 mg tablet 4 - 8 mg PO Q8H PRN (Reason: Nausea And Vomiting) Dose Instruction: TAKE 1 TO 2 TABLETS BY MOUTH EVERY 6 HOURS NEEDED FOR NAUSEA AND VOMITING (DME) oxygen-air delivery systems Device See Rx Instructions .Route Rx Instructions: As directed (DME) pen needle, diabetic [TechLITE Pen Needle] 32 gauge x 5/32 needle See Rx Instructions .ROUTE .COMPLEX Qty: 100 0RF Dose Instruction: USE NEEDLES WITH INSULIN SYRINGE Rx Instructions: USE NEEDLES WITH INSULIN SYRINGE amlodipine 5 mg tablet 5 mg PO DAILY carvedilol 3.125 mg tablet 3.125 mg PO BID magnesium hydroxide [Milk of Magnesia] 400 mg/5 mL Suspension 15 ml PO DAILY PRN (Reason: constipation ) hyoscyamine sulfate 0.125 mg Tablet,Disintegrating 0.125 mg PO Q4H PRN (Reason: Spasms) bisacodyl [Dulcolax (bisacodyl)] 10 mg Suppository 10 mg GA DAILY PRN (Reason: Constipation) pantoprazole 40 mg tablet,delayed release (DR/EC) 40 mg PO DAILY Fleet Enema 19-7 gram/118 mL Enema 118 ml GA DAILY PRN (Reason: constipation ) nystatin 100,000 unit/gram powder 1 applic topical BID PRN (Reason: rash/skin irritation) albuterol sulfate 90 mcg/actuation Hfa Aerosol Inhaler 2 puff INHALATION Q6H PRN (Reason: Shortness Of Breath Or Wheezing) fluticasone propionate 110 mcg/actuation Hfa Aerosol Inhaler 2 puff INHALATION BID insulin glargine [Lantus Solostar U-100 Insulin] 100 unit/mL (3 mL) insulin pen 8 unit SUBCUT BEDTIME loperamide [Imodium A-D] 2 mg Tablet 2 mg PO Q4H PRN (Reason: Diarrhea) Rx Instructions: administer after each loose stool until symptoms controlled; do not exceed 8 mg per 24 hrs pramoxine [Sarna Sensitive] 1 % Lotion 1 applic TOPICAL BID Artificial Tears (PF) Dropperette 1 drp OPHTHALMIC (EYE) Q4H PRN (Reason: Dry Eyes) Biofreeze (menthol) 4 % Gel 1 applic TOPICAL TID PRN (Reason: Pain) acetaminophen 500 mg Tablet 1,500 mg PO Q4H PRN (Reason: Pain) duloxetine 60 mg capsule,delayed release(DR/EC) 60 mg PO DAILY Discharge Orders: Discharge ED (Routine); Ordered 06/08/25 Ordered By: Yadiel Cardenas Referrals: Nabeel Dumas, [Primary Care Provider, Internal Medicine] Patient Instructions: Opioid Safety, Pain Management, Patient Portal & Alonso Instructions Activity Restrictions/Additional Instructions: Thank you for choosing [facility] for your healthcare needs today. It is very important that you follow up as instructed or that you return to the Emergency Department should you have concerns or if your condition changes or worsens in any way. Emergency department visits are focused on emergent conditions, in some cases you may require further evaluation on an outpatient basis. You were seen in the emergency room with complaints of anemia. Your hemoglobin was 7.5 your vital signs are stable you are discharged emergency room to outpatients further we will transfuse 1 unit of blood. Further workup per ER attending physician at the [facility]. (Please note that included in your discharge packet is information concerning opioid safety and pain management. This information is given to all patients were discharged from the ER regardless of their discharge diagnosis or the medicines they usually take or are prescribed.) Print Language: Lithuanian Coding Level of Care Code ED Online Banking Specialist for Dionicio Loyd
[2025-06-08 11:16] VITALS: BP 154/99; PULSE 82; O2SAT 99
[2025-06-08 11:19] LABS: Alanine Aminotransferase 8 U/L (0-33); Albumin Level 3.8 g/dL (3.5-5.2); Alkaline Phosphatase 125 U/L (35-105); Anion Gap 15.8 (5-19); Aspartate Amino Transferase 11 U/L (0-32); Blood Urea Nitrogen 17 mg/dL (8-23); Calcium 9.3 mg/dL (8.5-10.5); Carbon Dioxide 26 mmol/L (22-29); Chloride 101 mmol/L (98-107); Creatinine Clr Calc Pharmacy 46.6638; Globulin 3.5 g/dL (1.3-4.6); Glucose 144 mg/dL (65-115); Magnesium 2.0 mg/dL (1.7-2.3); Osmolality Calculated 292 mOsm/kg (285-295); Potassium 3.8 mmol/L (3.5-5.1); Sodium 139 mmol/L (136-145); Total Protein 7.3 g/dL (6.6-8.7)
[2025-06-08 11:29] VITALS: BP 151/99; PULSE 91; O2SAT 99
== END 2025-06-08 11:32 | disposition home or self-care (01) ==
PROVIDERS: Emergency Provider Family Medicine; PCP Internal Medicine
DX: D64.9 Anemia, unspecified (principal); Z79.4 Long term (current) use of insulin; Z87.891 Personal history of nicotine dependence; J44.9 Chronic obstructive pulmonary disease, unspecified; E11.22 Type 2 diabetes mellitus with diabetic chronic kidney disease; I13.0 Hypertensive heart and chronic kidney disease with heart failure and stage 1 through stage 4 chronic kidney disease, or unspecified chronic kidney disease; N18.9 Chronic kidney disease, unspecified; I50.9 Heart failure, unspecified
CPT/HCPCS: 80053; 83735; 85025; 99284

== ENCOUNTER 2025-06-08 11:35 | Oncology outpatient (recurring) (ONCR) | payer MEDICARE, OTHER, SELFPAY ==
[2025-06-08 12:30] VITALS: BP 144/54; PULSE 79; RESP 18; TEMP 36.3; O2SAT 98
[2025-06-08 12:45] VITALS: BP 161/78; PULSE 81; RESP 17; TEMP 36.3; O2SAT 97
[2025-06-08 13:00] VITALS: BP 150/63; PULSE 84; RESP 18; TEMP 36.5; O2SAT 97
[2025-06-08 13:30] VITALS: BP 152/55; PULSE 74; RESP 17; TEMP 36.4; O2SAT 97
[2025-06-08 15:07] VITALS: BP 164/78; PULSE 74; RESP 17; TEMP 36.3; O2SAT 97
== END 2025-06-28 23:59 | disposition home or self-care (01) ==
PROVIDERS: PCP Internal Medicine; Visit Provider Internal Medicine Medical Oncology
DX: D64.9 Anemia, unspecified (principal)
CPT/HCPCS: 36430; 85025; 86850; 86900; 86920; J7050; P9016

== ENCOUNTER 2025-08-30 08:22 | Emergency (ER) | payer MEDICARE, OTHER, MEDICAID, SELFPAY ==
[2025-08-30 08:23] VITALS: BP 166/74; PULSE 65; RESP 18; TEMP 36.7; O2SAT 99; BMI 34.8
--- NOTE | 2025-08-30 08:23 | ECG_ITS ---
[facility] Test Date: 2025-08-30 Pat Name: Keila Starkey Department: Room: Gender: Female Director Of Event Marketing: : 1950 Requested By: Sakina Rosado Order Number: [id number] Gregg MD: Talia Espana M.D. Measurements Intervals [place] Rate: 66 P: 70 VA: 160 QRS: -53 QRSD: 92 T: 52 QT: 412 QTc: 432 Interpretive Statements SINUS RHYTHM WITH OCCASIONAL SUPRAVENTRICULAR PREMATURE COMPLEXES LEFT AXIS DEVIATION [QRS AXIS < -30] LOW QRS VOLTAGE IN PRECORDIAL LEADS [QRS DEFLECTION < 1.0 mV IN CHEST LEADS] ANTEROSEPTAL MYOCARDIAL INFARCTION , OF INDETERMINATE AGE [40+ ms Q WAVE IN V1-V4] Compared to ECG 05/08/2025 19:04:02 Left-axis deviation now present Low QRS voltage now present Ventricular premature complex(es) no longer present Left anterior fascicular block no longer present T-wave abnormality no longer present Myocardial infarct finding still present Electronically Signed On 08-30-2025 08:39:58 SHOTWELD OPERATOR by Talia Espana M.D. [email or web address]
--- NOTE | 2025-08-30 08:23 | XR_ITS ---
WS: [id number] Exam: XR chest 1V portable [id number] Date/Time of Exam: 08/30/2025 8:24 AM Reason For Exam: chest pain Comparison 05/08/2025. Lungs are fully expanded and clear. Normal cardiomediastinal silhouette. Bony structures are intact. Fusion hardware in the lower C-spine. XR/XR chest 1V portable [id number] IMPRESSION: 1. No acute cardiopulmonary finding.
--- NOTE | 2025-08-30 08:25 | W.ED.CHESTPA ---
HPI - Chest Pain General: Chief Complaint: Chest Pain Stated Complaint: Chest Pain Time Seen by Provider: 08/30/25 08:23 History of Present Illness: 75-year-old female with a history of type 2 diabetes, obesity, hypertension, nonalcoholic steatohepatitis, congestive heart failure, sleep apnea and chronic kidney disease who presents to the emergency room by ambulance from retirement after having a brief episode of chest pain. Patient says she rolled over in bed when she was getting up and had some central chest pain. She describes it as a pressure. This lasted only briefly and by time EMS arrived it was gone. No cough. No fever. No altered mental status. No focal motor deficits. No nausea or vomiting. No abdominal pain. Related Data Home Medications ?Medication ?Instructions ?Recorded ?Confirmed acetaminophen 500 mg tablet 1,500 mg PO Q4H PRN Pain 05/15/22 06/08/25 oxygen-air delivery systems 04/29/23 06/08/25 ondansetron HCl 4 mg tablet 4 - 8 mg PO Q8H PRN Nausea And 08/07/23 06/08/25 Vomiting oxygen-air delivery systems 08/07/23 06/08/25 duloxetine 60 mg capsule,delayed 60 mg PO DAILY 11/14/24 06/08/25 release albuterol sulfate 90 mcg/actuation 2 puff inhalation Q6H PRN 02/07/25 06/08/25 aerosol inhaler Shortness Of Breath Or Wheezing amlodipine 5 mg tablet 5 mg PO DAILY 02/07/25 06/08/25 bisacodyl 10 mg rectal suppository 10 mg ID DAILY PRN Constipation 02/07/25 06/08/25 (Dulcolax (bisacodyl)) carvedilol 3.125 mg tablet 3.125 mg PO BID 02/07/25 06/08/25 fluticasone propionate 110 2 puff inhalation BID 02/07/25 06/08/25 mcg/actuation HFA aerosol inhaler hyoscyamine sulfate 0.125 mg 0.125 mg PO Q4H PRN Spasms 02/07/25 06/08/25 disintegrating tablet insulin glargine 100 unit/mL (3 8 unit SUBCUT BEDTIME 02/07/25 06/08/25 mL) subcutaneous pen (Lantus Solostar U-100 Insulin) magnesium hydroxide 400 mg/5 mL 15 ml PO DAILY PRN constipation 02/07/25 06/08/25 oral suspension (Milk of Magnesia) nystatin 100,000 unit/gram topical 1 applic topical BID PRN rash/skin 02/07/25 06/08/25 powder irritation pantoprazole 40 mg tablet,delayed 40 mg PO DAILY gerd 02/07/25 06/08/25 release sodium phosphates 19 gram-7 118 ml ID DAILY PRN constipation 02/07/25 06/08/25 gram/118 mL enema (Fleet Enema) dextran 70-hypromellose eye drops 1 drp ophthalmic (eye) Q4H PRN Dry 06/08/25 06/08/25 in a dropperette (Artificial Tears Eyes (PF) drops in a dropperette) loperamide 2 mg tablet (Imodium 2 mg PO Q4H PRN Diarrhea 06/08/25 06/08/25 A-D) menthol 4 % topical gel (Biofreeze 1 applic topical TID PRN Pain 06/08/25 06/08/25 (menthol)) pramoxine 1 % lotion (Sarna 1 applic topical BID 06/08/25 06/08/25 Sensitive) Previous Rx's ?Medication ?Instructions ?Recorded pen needle, diabetic 32 gauge x #100 ea 11/27/23 (TechLITE Pen Needle) Allergies Allergy/AdvReac Type Severity Reaction Status Date / Time NSAIDS (Non-Steroidal Allergy Mild vomiting Verified 08/30/25 08:37 Anti-Inflamma Review of Systems Narrative: Constitutional symptoms: Negative except as documented in HPI. Skin symptoms: Negative except as documented in HPI. Eye symptoms: Negative except as documented in HPI. ENMT symptoms: Negative except as documented in HPI. Respiratory symptoms: Negative except as documented in HPI. Cardiovascular symptoms: Negative except as documented in HPI. Gastrointestinal symptoms: Negative except as documented in HPI. Genitourinary symptoms: Negative except as documented in HPI. Musculoskeletal symptoms: Negative except as documented in HPI. Neurologic symptoms: Negative except as documented in HPI. Psychiatric symptoms: Negative except as documented in HPI. Endocrine symptoms: Negative except as documented in HPI. 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 Performed by Dr. Colbert at [facility]. H/O: hysterectomy Hx of cholecystectomy Family History Denies family history of Diabetes Dementia Hyperlipidemia Family history of premature coronary artery disease Cancer Social History Smoking and tobacco/nicotine status: former use of tobacco/nicotine Quit status (tobacco/nicotine): has quit using Year quit tobacco: 1990 Former quit date comment: Smoked for 30 years Alcohol intake: never Substance/Drug Use: never Household members: spouse Housing: House Physical Exam Narrative: EXAM NARRATIVE: General: Alert, no acute distress. Skin: Warm, dry. Head: Normocephalic, atraumatic. Neck: Supple, trachea midline. Eye: Extraocular movements are intact. Ears, nose, mouth and throat: mucosa moist. Cardiovascular: Regular, Normal peripheral perfusion. Respiratory: Lungs are clear to auscultation, respirations are non-labored, breath sounds are equal, Symmetrical chest wall expansion. Gastrointestinal: Soft, Nontender, Non distended Musculoskeletal: Normal ROM, no deformity. Neurological: Alert and oriented, No focal neurological deficit observed. Psychiatric: Cooperative, appropriate mood & affect. 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 75-year-old female with a history of type 2 diabetes, obesity, hypertension, nonalcoholic steatohepatitis, congestive heart failure, sleep apnea and chronic kidney disease I reviewed the patient's current home meds No anticoagulation. No narcotics on prescription monitoring program Alternate historians: None Differential diagnosis for patient with chest pain includes but is not limited to and based on the above HPI, review of systems and physical exam: Pneumonia. unstable angina. angina. Acute coronary syndrome / SD. Pulmonary embolism. Costochondritis / musculoskeletal. Pleurisy. Pericarditis. Esophageal spasm. Pancreatitis. Cholecystitis. Orders placed to evaluate differential diagnosis based on the above differential, HPI and physical exam EKG: Time 8:28 AM. Rate 66. Normal sinus rhythm, nonspecific ST changes, PVCs, normal ID & QRS intervals, This was reviewed and interpreted by myself the ER physician at 8:32 AM Chest x-ray: No acute process. No infiltrate. No pneumothorax. This was reviewed and interpreted by myself the emergency room physician. I also reviewed the radiology report. Lab Review: Laboratory results were reviewed and interpreted by myself the emergency room physician. Mild leukocytosis which is stable and chronic. Anemia which is stable and chronic as well. BUN/creatinine are 17 and 1. Serial troponins are negative. Lipase is negative. Liver enzymes are normal. Assessment of risk: Level of risk: Hospitalization considerations: Clinical decision support: Heart score is 4. However patient presentation is not indicative of acute coronary syndrome. And she ruled out with serial troponins. Reexamination: Patient has remained chest pain-free. Patient remained stable. No increased work of breathing. No altered mental status. No focal motor deficits. Assessment and plan: Chest pain - Discharged home - Discussed plan with patient. Answered any questions. - Evaluation and treatment of this problem were appropriate in the emergency setting. Lab Data 08/30/25 08:29 08/30/25 08:29 Radiology Impressions Chest X-Ray 08/30/25 08:23 IMPRESSION: 1. No acute cardiopulmonary finding. Laboratory Results WBC 17.25 10^3/uL (3.29-11.43) H 08/30/25 08:29 RBC 4.29 10^6/uL (3.85-5.65) 08/30/25 08: Hgb 9.20 g/dL (11.27-16.99) L 08/30/25 08: Hct 32.3 % (36-47) L 08/30/25 08: MCV 75.3 fl (85-98) L 08/30/25 08: MCH 21.4 pg (27-33) L 08/30/25 08: MCHC 28.5 g/dL (30-55) L 08/30/25 08: RDW 21.3 % (12.1-15.1) H 08/30/25 08: Plt Count 515 10^3/cmm (157-399) H 08/30/25 08: MPV 8.7 fL (7.4-10.4) 08/30/25 08: Neut % (Auto) 71.8 % 08/30/25 08: Lymph % (Auto) 17.9 % 08/30/25 08: Woodward % (Auto) 6.5 % 08/30/25 08: Eos % (Auto) 2.6 % 08/30/25 08: Baso % (Auto) 0.4 % 08/30/25 08: Neut # (Auto) 12.40 10^3/uL (1.8-7.7) H 08/30/25 08: Lymph # (Auto) 3.1 10^3/uL (0.8-4.8) 08/30/25 08: Woodward # (Auto) 1.1 10^3/uL (0.2-0.9) H 08/30/25 08: Eos # (Auto) 0.4 10^3/uL (0.0-0.8) 08/30/25 08: Baso # (Auto) 0.1 10^3/uL (0.0-0.1) 08/30/25 08: Nucleated RBC % (auto) 0 % 08/30/25: Nucleated RBCs # 0.0 /100WBC 08/30/25 08: PT 12.70 SECONDS (12.1-14.9) 08/30/25 08: INR 0.89 (0.8-1.2) 08/30/25 08: APTT 25.4 SECONDS (23.9-36.7) 08/30/25 08: Sodium 144 mmol/L (136-145) 08/30/25 08:29 Potassium 4.2 mmol/L (3.5-5.1) 08/30/25 08: Chloride 104 mmol/L (98-107) 08/30/25 08: Carbon Dioxide 28 mmol/L (22-29) 08/30/25 08: Anion Gap 16.2 (5-19) 08/30/25 08: BUN 17 mg/dL (8-23) 08/30/25 08: Creatinine 1.0 mg/dL (0.5-0.9) H 08/30/25 08:29 GFR Calculation Not Reportable 08/30/25 08: Glucose 111 mg/dL (65-115) 08/30/25 08: Calculated Osmolality 300 mOsm/kg (285-295) H 08/30/25 08: Calcium 9.2 mg/dL (8.5-10.5) 08/30/25 08: Total Bilirubin 0.2 mg/dL (0.15-1.2) 08/30/25 08: AST 15 U/L (0-32) 08/30/25 08:29 ALT 9 U/L (0-33) 08/30/25 08: Alkaline Phosphatase 129 U/L (35-105) H 08/30/25 08:29 Troponin T Baseline 13 ng/L (0-10) H 08/30/25 08: Troponin T 120 Minute 12.76 ng/L (0-10) H 08/30/25 09:41 Delta Troponin T -0.24 ABS# (0-10) L 08/30/25 09:41 NT-Pro-B Natriuret Pep 288 pg/mL (0-450) 08/30/25 08:29 Total Protein 6.1 g/dL (6.6-8.7) L 08/30/25 08: Albumin 4.0 g/dL (3.5-5.2) 08/30/25 08: Globulin 2.1 g/dL (1.3-4.6) 08/30/25 08: Lipase 59 U/L (13-60) 08/30/25 08:29 All radiology interpretation(s) finalized by discharge Clincial Decision Support The following clinical decision support tools were used to aid in care of the patient HEART Score -> History: Slightly Suspicous, EKG: Non-specific Changes, Age: 65 or more yrs, Risk Factors: 1 or 2 Risk Factors, Troponin: Baseline Trop <16 ng/L. Resulting HEART Score: 4. Discharge Plan Discharge Patient Disposition: Home Clinical Impression: Chest pain Condition: Stable Prescriptions: No Action (DME) oxygen-air delivery systems Device See Rx Instructions .Route Rx Instructions: 2 liters ondansetron HCl 4 mg tablet 4 - 8 mg PO Q8H PRN (Reason: Nausea And Vomiting) Dose Instruction: TAKE 1 TO 2 TABLETS BY MOUTH EVERY 6 HOURS NEEDED FOR NAUSEA AND VOMITING (DME) oxygen-air delivery systems Device See Rx Instructions .Route Rx Instructions: As directed (DME) pen needle, diabetic [TechLITE Pen Needle] 32 gauge x 5/32 needle See Rx Instructions .ROUTE .COMPLEX Qty: 100 0RF Dose Instruction: USE NEEDLES WITH INSULIN SYRINGE Rx Instructions: USE NEEDLES WITH INSULIN SYRINGE amlodipine 5 mg tablet 5 mg PO DAILY carvedilol 3.125 mg tablet 3.125 mg PO BID magnesium hydroxide [Milk of Magnesia] 400 mg/5 mL Suspension 15 ml PO DAILY PRN (Reason: constipation ) hyoscyamine sulfate 0.125 mg Tablet,Disintegrating 0.125 mg PO Q4H PRN (Reason: Spasms) bisacodyl [Dulcolax (bisacodyl)] 10 mg Suppository 10 mg ID DAILY PRN (Reason: Constipation) pantoprazole 40 mg tablet,delayed release (DR/EC) 40 mg PO DAILY Fleet Enema 19-7 gram/118 mL Enema 118 ml ID DAILY PRN (Reason: constipation ) nystatin 100,000 unit/gram powder 1 applic topical BID PRN (Reason: rash/skin irritation) albuterol sulfate 90 mcg/actuation Hfa Aerosol Inhaler 2 puff INHALATION Q6H PRN (Reason: Shortness Of Breath Or Wheezing) fluticasone propionate 110 mcg/actuation Hfa Aerosol Inhaler 2 puff INHALATION BID insulin glargine [Lantus Solostar U-100 Insulin] 100 unit/mL (3 mL) insulin pen 8 unit SUBCUT BEDTIME loperamide [Imodium A-D] 2 mg Tablet 2 mg PO Q4H PRN (Reason: Diarrhea) Rx Instructions: administer after each loose stool until symptoms controlled; do not exceed 8 mg per 24 hrs pramoxine [Sarna Sensitive] 1 % Lotion 1 applic TOPICAL BID Artificial Tears (PF) Dropperette 1 drp OPHTHALMIC (EYE) Q4H PRN (Reason: Dry Eyes) Biofreeze (menthol) 4 % Gel 1 applic TOPICAL TID PRN (Reason: Pain) acetaminophen 500 mg Tablet 1,500 mg PO Q4H PRN (Reason: Pain) duloxetine 60 mg capsule,delayed release(DR/EC) 60 mg PO DAILY Discharge Orders: Discharge ED (Routine); Ordered 08/30/25 Ordered By: Sakina Cuello Referrals: Nabeel Dumas, [Primary Care Provider, Internal Medicine] Discharge Diet: Usual diet Discharge Activity: Increase activity as tolerated Patient Instructions: Chest Pain (ED), Opioid Safety, Pain Management, Patient Portal & Alonso Instructions Activity Restrictions/Additional Instructions: Thank you for choosing [facility] for your healthcare needs today. You have been screened and evaluated and felt safe for discharge. Health conditions do change or evolve sometimes and as such it is important that you follow up with your Primary Doctor to be re checked, 3-5 days is a general good time frame for follow up. You are always welcome to return to the ED for re assessment if your symptoms are worsening or you have new concerns Print Language: Prydeinig Coding Level of Care Code ED Supervisor Roving for Dionicio Loyd Heart Score HEART Score Components History: Slightly Suspicous EKG: Non-specific Changes Age: 65 or more yrs Risk Factors: 1 or 2 Risk Factors Troponin: Baseline Trop <16 ng/L HEART Score RESULT HEART Score: 4
--- OUTSIDE RECORDS SUMMARY | 2025-08-30 08:31 | XMS_ITS ---
Author Organization [facility] Care Team Providers Care General Forecaster Name Role Phone Nabeel Dumas Unavailable Unavailable Allergies and adverse reactions Code CodeSystem Substance Reaction Severity StartDate Concern Status 721224 RXNORM Celecoxib Unknown 06/24/2025 active 2556 RXNORM Citalopram Unknown 06/24/2025 active 506345 RXNORM Escitalopram Unknown 06/24/2025 active 5489 RXNORM HYDROcodone Unknown 06/24/2025 active 13859 RXNORM Lisinopril Unknown 06/24/[address] NSAIDs Unknown 06/24/2025 active Care Team Name Role Address Phone Organization Dates Nabeel Dumas [address], [address], [place] (Office): : : [facility] 02/08/2025 - present Encounters Encounter Type Code Code System Description Performer Discharge Disposition Service Delivery Location Date Ambulatory Encounter CPT Code = [id number] Chronic obstructive pulmonary disease [id number] [facility] Address: [address], [place], [address]. 02/08 Ambulatory Encounter CPT Code = [id number] Hypertensive urgency [id number] [facility] Address: [address], [place], [address]. 02/08 Ambulatory Encounter CPT Code = [address] Orthostatic hypotension [id number] [facility] Address: [address], [place], [address], [facility]. 02/08 Ambulatory Encounter CPT Code = [id number] Type 2 diabetes mellitus without complication [id number] [facility] Address: [address], [place], [address]. 02/08 Ambulatory Encounter CPT Code = [id number] [place] [id number] [facility] Address: [address], [place], [address]. 02/08 Ambulatory Encounter CPT Code = [id number] Adult failure to thrive syndrome [id number] [facility] Address: [address], [place], [address]. 02/08 Ambulatory Encounter CPT Code = [id number] Essential hypertension [id number] [facility] Address: [address], [place], [address]. 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 02/08 Ambulatory Encounter CPT Code = [address] Iron deficiency anemia [id number] [facility] Address: [address], [place], [address], [facility]. 02/08 Ambulatory Encounter CPT Code = [address] Hypokalemia [id number] [facility] Address: [address], [place], [address], [place]. 02/08 Ambulatory Encounter CPT Code = [address] Hyperlipidemia [id number] [facility] Address: [address], [place], [address], [facility]. 02/08 Ambulatory Encounter CPT Code = [id number] Chronic diastolic heart failure [id number] [facility] Address: [address], [place], [address], [place]. 02/08 Ambulatory Encounter CPT Code = [address] Obstructive sleep apnea syndrome [id number] [facility] Address: [address], [place], [address], [place]. 02/08 Ambulatory Encounter CPT Code = [id number] Anxiety disorder [id number] [facility] Address: [address], [place], [address]. 02/08 Ambulatory Encounter CPT Code = [id number] Depressive disorder [id number] [facility] Address: [address], [place], [address]. 02/08 Ambulatory Encounter CPT Code = [id number] Chronic kidney disease [id number] [facility] Address: [address], [place], [address]. 02/08 Ambulatory Encounter CPT Code = [id number] Gastroesophageal reflux disease without esophagitis [id number] [facility] Address: [address], [place], [address]. 02/08 Ambulatory Encounter CPT Code = [address] Irritable bowel syndrome [id number] [facility] Address: [address], [place], [address]. 02/08 Ambulatory Encounter CPT Code = [address] Acute laryngitis [id number] [facility] Address: [address], [place], [address], [facility]. 02/08 Ambulatory Encounter CPT Code = [id number] Imaging of lung [id number] [facility] Address: [address], [place], [address]. 02/08 Ambulatory Encounter CPT Code = [id number] Exposure to asbestos [id number] [facility] Address: [address], [place], [address]. 02/08 Ambulatory Encounter CPT Code = [address] Vitamin D deficiency [id number] [facility] Address: [address], [place], [address]. 02/08 Ambulatory Encounter CPT Code = [address] Disorder of autonomic nervous system [id number] [facility] Address: [address], [place], [address]. 02/08 Functional Status Code Name Recorded Time Value Entered By Ambulation 08/29/2025 Not assessed sdeforest Ambulation 08/29/2025 Not assessed [place]forest Ambulation 08/29/2025 Not assessed s[place]forest Ambulation 08/29/2025 Not assessed [place] Bathing 08/29/2025 Not assessed s[place]forest Dressing 08/29/2025 Total Dependence sdeforest Feeding or Eating 08/29/2025 Independent sdeforest Toileting 08/30/2025 Limited Assistance djackson Transferring 08/29/2025 Limited Assistance sdeforest Immunizations Immunization Status Vaccine Details Vaccine Code CodeSystem Date Notes Influenza completed Influenza, high-dose, split virus, quadrivalent, injectable, preservative free lotNumber: [id number] expiry: 03/28/2026 Mfg: [employer] Given 0.5 ml intramuscularly 197 CVX created date: consent date: administe red date: 5 Educated by Selam Ochoa RN on 07/25/2025 Influenza completed Influenza, high-dose, split virus, quadrivalent, injectable, preservative free 197 CVX created date: 5 administe red date: 4 TB 2 Step Mantoux Skin Test completed tuberculin skin test; unspecified formulation Step 2 of Multi-step with next step required 98 CVX created date: administe red date: 5 Aplisol- RFA 69383 January - negative TB 2 Step Mantoux Skin Test completed tuberculin skin test; unspecified formulation Step 1 of Multi-step with next step required 98 CVX created date: administe red date: 5 left FA, aplisol 94360, exp january 2026 - negative SARS-COV-2 (COVID-19) cancelled created date: consent date: Educated by on 08/23/2025 SARS-COV-2 (COVID-19) completed SARS-COV-2 (COVID-19) vaccine, mRNA, spike protein, LNP, preservative free, 100 mcg/0.5mL dose or 50 mcg/0.25mL dose Mfg: MODERNA Step 0 of Multi-step with next step required 207 CVX created date: 5 administe red date: 1 moderna SARS-COV-2 (COVID-19) completed SARS-COV-2 (COVID-19) vaccine, mRNA, spike protein, LNP, preservative free, 100 mcg/0.5mL dose or 50 mcg/0.25mL dose Mfg: MODERNA Step 0 of Multi-step with next step required 207 CVX created date: 5 administe red date: 1 moderna Prevnar 13 completed pneumococcal conjugate vaccine, 13 valent 133 CVX created date: 5 administe red date: 5 Pneumovax 23 completed pneumococcal polysaccharide vaccine, 23 valent 33 CVX created date: 5 administe red date: 7 Shingles (recombinant) completed zoster vaccine recombinant 187 CVX created date: 5 administe red date: 4 recombinant zoster Shingles (recombinant) completed zoster vaccine recombinant 187 CVX created date: 5 administe red date: 3 recombinant zoster Pneumococcal conjugate PCV20, polysaccharide [id number] conjugate, adjuvant, PF completed Pneumococcal conjugate vaccine 20-valent (PCV20), polysaccharide [id number] conjugate, adjuvant, preservative free 216 CVX created date: 5 administe red date: 2 Medications Section Medication Name Status Code CodeSystem Dose Route Frequency Admin Type Sig Text Start Date End Date Indication ACETAMIN TAB 500MG active 2 table t Oral as needed PRN Give 2 table t by mouth every 6 hours as neede d for Pain 2024 - Pain ALBUTEROL AER HFA active 28604 2 RXNORM 2 inhal ation Inhala tion as needed PRN 2 inhal ation inhal e orall y every 6 hours as neede d for Wheez ing 2024 - Wheezing CARVEDILOL TAB 3.125MG active 76792 4 RXNORM 1 table t Oral two times a day Routin e Give 1 table t by mouth two times a day relat ed to CHRON IC DIAST OLIC (ABDOULAYE ESTIV E) HEART FAILU RE (I50. 32) 2024 - - DULOXETINE CAP 60MG active 55470 4 RXNORM 1 table t Oral one time a day Routin e Give 1 table t orall y one time a day relat ed to DEPRE SSION , UNSPE CIFIE D (F32. A) 2024 - - HYOSCYAMINE TAB 0.125MG active 47732 05 RXNORM 1 table t Oral as needed PRN Give 1 table t by mouth every 4 hours as neede d for Spasm s 2024 - Spasms LANTUS SOLOS INJ 100/ML active 97499 2 RXNORM 8 unit Subcut aneous at bedtime Routin e Injec t 8 unit subcu taneo usly at bedti me relat ed to TYPE 2 DIABE REVA BROWNI TUS WITHO UT COMPL ICATI ONS (E11. 9) 2024 - - ONDANSETRON TAB 4MG active 2 RXNORM 1 table t Oral as needed PRN Give 1 table t by mouth every 8 hours as neede d for Nause a and Vomit ing 2024 - Nausea and Vomiting PANTOPRAZOL E TAB 40MG active 07793 0 RXNORM 1 table t Oral one time a day Routin e Give 1 table t by mouth one time a day relat ed to GASTR O-ESO PHAGE AL REFLU X DISEA SE WITHO UT ESOPH AGITI S (K21. 9) 2024 - - AMLODIPINE TAB 5MG active 1 RXNORM 1 table t Oral one time a day Routin e Give 1 table t by mouth one time a day relat ed to [facility] TIA (PRIM JUAN) HYPER TENSI ON (I10) 2024 - - NYSTATIN POW 967257 active 68839 6 RXNORM n/a n/a Topica l as needed PRN Apply to Red areas topic ally every 12 hours as neede d for Red areas 2024 - Red areas SARNA SENSIT LOT 1% active n/a n/a Topica l two times a day Routin e Apply to Back, and legs topic ally two times a day for Dry Skin 2024 - Dry Skin Bisacodyl Laxative Suppository 10 MG active 9 RXNORM 1 suppo sitor y Rectal as needed PRN Inser t 1 suppo sitor y recta lly every 24 hours as neede d for Bowel Manag ement daily 2024 - Bowel Management Milk of Magnesia Oral Suspension 400 MG/5ML active 30 ml Oral as needed PRN Give 30 ml by mouth every 24 hours as neede d for const ipati on once daily 2024 - constipatio n Fleet Enema Rectal Enema active 118 ml Rectal as needed PRN Inser t 118 ml recta lly every 24 hours as neede d for const ipati on 2024 - constipatio n Biofreeze Professiona l External Gel 5 % active 02255 92 RXNORM n/a n/a Topica l as needed PRN Apply to Knees , and ankle s topic ally as neede d for Pain 2024 - Pain Fluticasone Propionate HFA Inhalation Aerosol 220 MCG/ACT aborted 57161 4 RXNORM 2 inhal ation Inhala tion two times a day Routin e 2 inhal ation inhal e orall y two times a day relat ed to CHRON IC OBSTR UCTIV E PULMO NARY DISEA SE, UNSPE CIFIE D (J44. 9) 08/25 - Ferrous Sulfate Oral Tablet 325 (65 Fe) MG active 76377 5 RXNORM 1 table t Oral one time a day Routin e Give 1 table t by mouth one time a day for suppl ement 2024 - supplement Fluticasone Propionate HFA Inhalation Aerosol 220 MCG/ACT active 83175 4 RXNORM 2 inhal ation Inhala tion two times a day Routin e 2 inhal ation inhal e orall y two times a day relat ed to CHRON IC OBSTR UCTIV E PULMO NARY DISEA SE, UNSPE CIFIE D (J44. 9) Rinse mouth after inhal ation 2024 - - Mental Status Section Date Assessment Total Score Description 08/12/2025 BIMS 13 cognitively int act CAM 0 No delirium ind icated PHQ-9 00 05/13/2025 BIMS 14 cognitively int act CAM 0 No delirium ind icated PHQ-9 00 Insurance Providers Coverage Status Coverage Type Relationship to Subscriber Member Identifier Subscriber Identifier Group Identifier Payer Identifier and Other information 06/29/2025 Code: 2 Code System OID:[id number] .[id number]. 221.5 Code System Name: Source of Payment Typology (PHDSC) Display: Medicaid Translation: Code: 48 Code System: OID:[id number] .1.852693.6. 255.1336 Code System Name: Insurance Type Code ([id number]) Display Name: Medicaid Code: SELF Code System Name: HL7 RoleCode Code System OID:[id number] [id number] Display Name: Self [id number] Root: [id number] Payer Name: [place] Medicaid Address: [facility] [address] City: [place] State: [place] Country: [facility] Telecom: Code: 81 Code System OID:[id number] .1.993039.3. 221.5 Code System Name: Source of Payment Typology (PHDSC) Display: Self Pay Translation: Code: 09 Code System: OID:[id number] .[id number]. 255.1336 Code System Name: Insurance Type Code ([id number]) Display Name: Self-pay 06/22/2025 Code: 1 Code System OID:[id number] .1.315545.3. 221.5 Code System Name: Source of Payment Typology (PHDSC) Display: Medicare Translation: Code: MB Code System: OID:16.840 .1.811076.6. 255.1336 Code System Name: Insurance Type Code ([id number]) Display Name: Medicare Part B Code: SELF Code System Name: HL7 RoleCode Code System OID:216.840.1 .422100.5.111 Display Name: Self [id number] Root: [id number] Payer Name: Medicare Address: [facility] Country: [facility] 06/22/2025 Code: 349 Code System OID:216.840 .1.143676.3. 221.5 Code System Name: Source of Payment Typology (PHDSC) Display: Other Translation: Code: C1 Code System: OID:16.840 .1.962125.6. 255.1336 Code System Name: Insurance Type Code ([id number]) Display Name: Commercial Insurance Code: SELF Code System Name: HL7 RoleCode Code System OID:16.840.1 .462329.5.111 Display Name: Self [id number] Root: [id number] Payer Name: Julio Tran Address: [facility] [address] City: [place] State: [place] Country: [facility] Telecom: Problems Problem # Description Date of onset Resolved Date Code CodeSystem Concern Status 1 ACUTE LARYNGITIS 02/08/2025 05/16/[address] completed 2 CONTACT WITH AND (SUSPECTED) EXPOSURE TO ASBESTOS 02/08/[address] active 3 OTHER NONSPECIFIC ABNORMAL FINDING OF LUNG FIELD 02/08/2025 05/16/[address] completed 4 ADULT FAILURE TO THRIVE 11/04/[address] active 5 GOTTI'S PALSY 11/04/[address] acti ve 6 CHRONIC DIASTOLIC (CONGESTIVE) HEART FAILURE 11/04/[address] active 7 CHRONIC KIDNEY DISEASE, UNSPECIFIED 11/04/[address] active 8 CHRONIC OBSTRUCTIVE PULMONARY DISEASE, UNSPECIFIED 11/04/[address] active 9 DEPRESSION, UNSPECIFIED 11/04/[address] active 10 DISORDER OF THE AUTONOMIC NERVOUS SYSTEM, UNSPECIFIED 11/04/[address] active 11 ESSENTIAL (PRIMARY) HYPERTENSION 11/04/[address] active 12 GASTRO-ESOPHAGEAL REFLUX DISEASE WITHOUT ESOPHAGITIS 11/04/[address] active 13 HYPERLIPIDEMIA, UNSPECIFIED 11/04/[address] active 14 HYPERTENSIVE URGENCY 11/04/2024 05/16/[address] completed 15 HYPOKALEMIA 11/04/[address] active 16 IRON DEFICIENCY ANEMIA, UNSPECIFIED 11/04/[address] active 17 IRRITABLE BOWEL SYNDROME, UNSPECIFIED 11/04/[address] active 18 OBSTRUCTIVE SLEEP APNEA (ADULT) (PEDIATRIC) 11/04/[address] active 19 ORTHOSTATIC HYPOTENSION 11/04/[address] active 20 OTHER SPECIFIED ANXIETY DISORDERS 11/04/[address] active 21 REPEATED FALLS 11/04/[address] ac tive 22 TYPE 2 DIABETES MELLITUS WITHOUT COMPLICATIONS 11/04/[address] active 23 VITAMIN D DEFICIENCY, UNSPECIFIED 11/04/[address] active Reason for Referral No Reasons for Referral Entered Social History Social History Observation Description Start Date End Date Code Code System Current Smoking Status Tobacco smoking consumption unknown 120644605 SNOMED CT Sex Assigned At Female 1950 27536-2 [facility] Gender Identity Sexual Orientation Vital Signs Code Code System Vitals Name Values and Units Timing Information 2339-0 [facility] Blood Sugar Cpjln=126.0 Units=mg/dL 08/30/2025 31272-7 [facility] O2 % BldC Oximetry Value=97.0 Units= % 08/30/2025 96311-4 [facility] Pain Level Value=0.0 08/30/2025 9279-1 [facility] Respiratory Rate Value=18.0 Units=/m in 08/24/2025 8462-4 [facility] Blood Pressure-Diastolic Value=58 Un its=mmHg 08/24/2025 8480-6 [facility] Blood Pressure-Systolic Ioitr=761 Un its=mmHg 08/24/2025 8310-5 [facility] Body Temperature Value=96.8 Units= F 08/24/2025 8867-4 [facility] Heart rate Value=61.0 Units=/min 12148-7 [facility] Weight Xxdsg=937.8 Units=Lbs 8302-2 [facility] Height Value=66.0 Units=Inches 11/04/2024
[2025-08-30 08:32] VITALS: BP 131/53; PULSE 67; RESP 18; O2SAT 98
[2025-08-30 08:36] LABS: Hematocrit 32.3 % (36-47); Hemoglobin 9.20 g/dL (11.27-16.99); Mean Corpuscular HGB Conc 28.5 g/dL (30-55); Mean Corpuscular Hemoglobin 21.4 pg (27-33); Mean Corpuscular Volume 75.3 fl (85-98); Nucleated Red Blood Cells % 0 %; Platelet Count 515 10^3/cmm (157-399); Red Blood Count 4.29 10^6/uL (3.85-5.65); White Blood Count 17.25 10^3/uL (3.29-11.43)
[2025-08-30 08:49] LABS: INR 0.89 (0.8-1.2); Prothrombin Time 12.70 SECONDS (12.1-14.9)
[2025-08-30 08:50] LABS: Partial Thromboplastin Time 25.4 SECONDS (23.9-36.7)
[2025-08-30 08:53] LABS: Troponin(5th) Baseline 13 ng/L (0-10)
[2025-08-30 08:56] VITALS: BP 131/53; PULSE 64; RESP 16; O2SAT 99
[2025-08-30 09:07] LABS: Alanine Aminotransferase 9 U/L (0-33); Albumin Level 4.0 g/dL (3.5-5.2); Alkaline Phosphatase 129 U/L (35-105); Anion Gap 16.2 (5-19); Aspartate Amino Transferase 15 U/L (0-32); Blood Urea Nitrogen 17 mg/dL (8-23); Calcium 9.2 mg/dL (8.5-10.5); Carbon Dioxide 28 mmol/L (22-29); Chloride 104 mmol/L (98-107); Globulin 2.1 g/dL (1.3-4.6); Glucose 111 mg/dL (65-115); Lipase 59 U/L (13-60); NT Pro B Type Natriuretic Pept 288 pg/mL (0-450); Osmolality Calculated 300 mOsm/kg (285-295); Potassium 4.2 mmol/L (3.5-5.1); Sodium 144 mmol/L (136-145); Total Protein 6.1 g/dL (6.6-8.7)
[2025-08-30 10:10] LABS: Troponin 5 2HR 12.76 ng/L (0-10)
[2025-08-30 10:11] LABS: Troponin 5 2HR Delta -0.24 ABS# (0-10)
[2025-08-30 10:43] VITALS: BP 163/57; PULSE 66; RESP 16; O2SAT 98
[2025-08-30 10:47] VITALS: BP 163/57; PULSE 66; O2SAT 98
[2025-08-30] MEDS: HYDROcodone-acetaminophen 5-325 mg Tablet 1 TAB PO (10:58)
== END 2025-08-30 11:25 | disposition home or self-care (01) ==
PROVIDERS: Emergency Provider Emergency Medicine; PCP Internal Medicine
DX: R07.9 Chest pain, unspecified (principal); Z79.4 Long term (current) use of insulin; J44.9 Chronic obstructive pulmonary disease, unspecified; E11.22 Type 2 diabetes mellitus with diabetic chronic kidney disease; I13.0 Hypertensive heart and chronic kidney disease with heart failure and stage 1 through stage 4 chronic kidney disease, or unspecified chronic kidney disease; N18.9 Chronic kidney disease, unspecified; I50.9 Heart failure, unspecified; Z87.891 Personal history of nicotine dependence
CPT/HCPCS: 71045; 80053; 83690; 83880; 84484; 85025; 85610; 85730; 93005; 99285; J9999